=== PATIENT | female | born 1955 | race Caucasian/White ===

== ENCOUNTER 2016-03-23 10:13 | Inpatient (IN) | payer MEDICARE ==
[2016-03-23] MEDS ORDERED: solu-MEDROL 125 MG IV ONE (10:20)
[2016-03-23] MEDS ORDERED: DUONEB 0.5-3 MG/3 ml Neb IH ONE (10:20)
--- NOTE | 2016-03-23 10:27 | ERPHSYRPT ---
- History of Present Illness Time Seen by Provider: 03/23/16 10:17 Source: patient Exam Limitations: no limitations Physician History: 61-year-old white female with history of dementia CHF coronary artery disease high blood pressure asthma COPD, Patient arrives with complaint of shortness of breath for one week patient arrives in no moderate respiratory distress patient denies any pain however family members states that she was having pain in her shoulders last night. She has been nauseous no vomiting she has not had any fever she states she has had an occasional cough. Past medical history includes dementia, congestive heart failure, coronary artery disease, high blood pressure, asthma, bronchitis, COPD, pneumonia, rheumatoid arthritis, depression. Past surgical history includes cardiac pacemaker, bowel surgery, appendectomy, sinus surgery, finger amputation bowel surgery.. Social history positive tobacco use Timing/Duration: week(s) (symptoms for one week) Activities at Onset: none Severity of Dyspnea-Max: moderate Severity of Dyspnea-Current: moderate Possible Cause: frequent episodes Modifying Factors: Improves With: activity Associated Symptoms: wheezing, No anxiety, No cough, No chest pain/discomfort, No edema, No fever, No insomnia, No loss of appetite, No lightheadedness, No weakness, No ankle swelling, No chills, No hemoptysis, No calf pain, No dizziness, No heaviness, No heart racing, No lightheadedness, No leg swelling, No muscle spasms feet, No muscle spasms hands, No painful breathing, No productive cough, No sweating, No tightness, No tingling face, No tingling hands International travel in last 2 weeks: No Allergies/Adverse Reactions: No Known Drug Allergies Allergy (Verified 03/23/16 10:39) Home Medications: Donepezil HCl 5 mg PO HS 06/15/14 [History] Duloxetine HCl 30 mg [Cymbalta 30 MG Capsule] 30 mg PO DAILY 06/15/14 [ History] Sennosides [Senna Laxative] 2 tab PO DAILY PRN PRN 06/15/14 [History] Fluoxetine HCl [Prozac] 40 mg PO DAILY 03/02/15 [History] Hydrocodone/APAP 10/325 mg [[place] 10/325 MG Tablet] 1 tab PO Q6H PRN PRN 08/22/15 [History] Fluticasone/Vilanterol [Breo Ellipta 100-25 Mcg INH] 1 inh PO DAILY 12/17/15 [ History] Albuterol/Ipratropium 3ml Neb* [DUONEB 0.5-3 MG/3 ml Neb] 3 ml IH Q4HPRN PRN 01/31/16 [History] Albuterol 2.5 mg/3 ml Neb [Proventil 2.5 mg/3 ml Neb] 2.5 mg IH Q6H PRN PRN 03/23/16 [History] Albuterol Sulfate [Proair Hfa] 8.5 gm IH Q6HPRN PRN 03/23/16 [History] Albuterol Sulfate [Ventolin Hfa] 18 gm IH Q6H PRN PRN 03/23/16 [History] Prednisone 20 mg [Deltasone 20 mg] 10 mg PO DAILY 03/23/16 [History] Hx Tetanus, Diphtheria Vaccination/Date Given: Yes Hx Influenza Vaccination/Date Given: No (UNKNOWN) Hx Pneumococcal Vaccination/Date Given: Yes - Review of Systems Constitutional: No Fever, No Chills Eyes: No Symptoms Ears, Nose, & Throat: No Symptoms Respiratory: Cough, Dyspnea, Dyspnea on Exertion (RODGERS), Wheezing, No Cyanosis, No Stridor Cardiac: Other (bilateral shoulder pain last night), No Chest Pain, No Edema, No Palpitations, No Syncope, No Orthopnea, No PND Abdominal/Gastrointestinal: Nausea, No Abdominal Pain, No Vomiting, No Diarrhea , No Constipation, No Hematemesis, No Hematochezia, No Melena, No Dysphagia, No Appetite Changes Genitourinary Symptoms: No Dysuria Musculoskeletal: No Back Pain, No Neck Pain Skin: No Rash Neurological: No Symptoms Psychological: No Symptoms Endocrine: No Symptoms All Other Systems: Reviewed and Negative - Past Medical History Pertinent Past Medical History: Yes Neurological History: Dementia ENT History: No Pertinent History Cardiac History: Congestive Heart Failure, Coronary Artery Disease, Hypertension Respiratory History: Asthma, Bronchitis, CHF, COPD, Pneumonia, Other Endocrine Medical History: No Pertinent History Musculoskeletal History: No Pertinent History GI Medical History: No Pertinent History History: No Pertinent History Psycho-Social History: Depression Female Reproductive Disorders: No Pertinent History Other Medical History: ... - Past Surgical History Past Surgical History: Yes Neuro Surgical History: No Pertinent History Cardiac: Pacemaker Respiratory: No Pertinent History Gastrointestinal: Bowel Surgery Genitourinary: No Pertinent History Musculoskeletal: Amputation Female Surgical History: No Pertinent History Other Surgical History: sinus surgery in 80's,finger amp, bowel surg. - Social History Smoking Status: Former smoker How long have you smoked: 45 years Exposure to second hand smoke: No Alcohol Use: None Drug Use: none Patient Lives Alone: No Significant Family History: no pertinent family hx - Female History Hx Now: No - Nursing Vital Signs Nursing Vital Signs: Initial Vital Signs Temperature 97.6 F Temperature Source Axillary Pulse Rate 97 Respiratory Rate 22 Blood Pressure 117/53 Pain Intensity 0 - Physical Exam General Appearance: moderate distress, alert, other (well-developed white female in moderate respiratory distress) Eye Exam: PERRL/EOMI, eyes nml inspection, No scleral icterus, No pale conjunctivae, No photophobia, No post op pupil defect (L), No post op pupil defect (R), No EOM palsy/anisocoria Ears, Nose, Throat Exam: hearing grossly normal, normal ENT inspection, normal pharynx, No abnormal TM (R), No abnormal TM (L), No sinus pain/drainage, No hearing decreased, No nasal congestion, No pharyngeal erythema, No tonsillar exudate, No tonsillar swelling Neck Exam: normal inspection, non-tender, supple Respiratory Exam: respiratory distress, airway intact, diminished breath sounds , wheezing, No chest tenderness, No lungs clear Cardiovascular/Chest Exam: tachycardia, other (heart tachycardic without murmur) Abdominal/Gastrointestinal Exam: soft, No tenderness, No distention, No mass Extremity Exam: non-tender, normal range of motion, normal inspection, no calf tenderness, no pedal edema Peripheral Pulses Exam: dorsalis-pedis (R): 2+, dorsalis-pedis (L): 2+ Neurologic Exam: alert, oriented x 3, cooperative, 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 nml as tested, sensation nml, No motor deficits Skin Exam: pale SpO2 Interpretation: hypoxic (83%) SpO2: 83 Oxygen Delivery: Nasal Cannula - Course Nursing assessment & vital signs reviewed: Yes EKG Interpreted by Me: RATE (116 bpm), NORMAL AXIS, Other (EKG: Sinus arrhythmia tachycardic 116 beats per minute, normal axis, no acute ST or T wave changes ) - Radiology Exams Chest X-ray Interpretation: Discussed w/ radiologist, Other (chest x-ray: Impression stable nonacute hyperinflated chest) Ordered Tests: Active Orders 24 hr Category Date Time Status Bedrest with BRP/BSC ROUTINE Activity 03/23/16 13:13 Active Accucheck ACHS Care 03/23/16 13:13 Active Admission/Status Order ROUTINE Care 03/23/16 13:13 Active Clinical Support Nurse STAT Care 03/23/16 10:20 Completed Code Status Order ROUTINE Care 03/23/16 13:13 Active EKG-ER Only STAT Care 03/23/16 10:20 Completed IV Care Q6H Care 03/23/16 13:13 Active IV Insertion STAT Care 03/23/16 10:20 Completed Oxygen-ED Only NASAL CANNULA 4 lpm Care 03/23/16 10:37 Completed Pulse Oximetry (ED) STAT Care 03/23/16 10:37 Completed Augie No, Apply ROUTINE Care 03/23/16 13:13 Active Weight,Daily 0600 Care 03/23/16 13:13 Active cath [Cath for Specimen-Straight] STAT Care 03/23/16 11:24 Completed Cardiac Diet Diet 03/23/16 Dinner Active CHEST 1 VIEW (PORTABLE) Stat Exams 03/23/16 10:20 Completed ARTERIAL BLOOD GASES Urgent Lab 03/23/16 10:30 Completed BLOOD CULTURE Stat Lab 03/23/16 10:20 Received CBC AM.LAB Lab 03/24/16 04:00 Ordered CBC W DIFF Stat Lab 03/23/16 10:30 Results CMP AM.LAB Lab 03/24/16 04:00 Ordered CMP Stat Lab 03/23/16 10:30 Completed CULTURE,SPUTUM Stat Lab 03/23/16 10:47 Uncollected CULTURE,URINE Stat Lab 03/23/16 11:20 Received Lactic Acid Urgent Lab 03/23/16 10:30 Completed Manual Differential NC Stat Lab 03/23/16 10:30 Results NT PRO BNP Stat Lab 03/23/16 10:30 Completed Pathologist Review Stat Lab 03/23/16 10:30 Results TROPONIN Stat Lab 03/23/16 10:30 Completed UA W/ MICROSCOPIC Stat Lab 03/23/16 11:20 Completed BiPap/CPAP Assessment STAT RT 03/23/16 10:37 Completed Pulse Oximetry CONTINUOUS RT 03/23/16 13:13 Completed Respiratory Nebulizer STAT RT 03/23/16 10:21 Completed Respiratory Therapy Consult ROUTINE RT 03/23/16 13:13 Completed Transfer Order Routine Transfer 03/23/16 12:01 Completed Medication Summary Generic Name Dose Route Start Last Admin Trade Name Heri PRN Reason Stop Dose Admin Albuterol/Ipratropium 3 ml 03/23/16 15:00 03/23/16 14:47 Duoneb 0.5-3 Mg/3 Ml Neb IH 04/22/16 14:59 3 ml Q4HRT BRINDA Administration Ceftriaxone Sodium/Dextrose 50 mls @ 100 mls/hr 03/24/16 10:00 Rocephin 1 Gm-D5w 50 Ml Bag IV 04/23/16 09:59 Q24H10 BRINDA Azithromycin 250 mls @ 125 mls/hr 03/23/16 14:00 03/23/16 13:47 Zithromax 500 Mg/ 250 Ml Nacl Premix IV 04/22/16 13:59 125 mls/hr Q24H10 BRINDA Administration Sodium Chloride 1,000 mls @ 50 mls/hr 03/23/16 13:13 Sodium Chloride 0.9% 1000 Ml IV 04/22/16 13:12 .Q20H BRINDA Insulin Aspart 0 unit 03/23/16 13:13 Novolog Insulin SQ 04/22/16 13:12 UD PRN HYPERGLYCEMIA Methylprednisolone Sodium Succinate 80 mg 03/23/16 18:00 Solu-Medrol 125 Mg IV 04/22/16 17:59 Q6HT BRINDA Fluticasone/Salmeterol 2 puff 03/23/16 19:00 Advair Hfa 115/21 Common Canister* IH 04/22/16 18:59 BIDRT BRINDA Discontinued Medications Generic Name Dose Route Start Last Admin Trade Name Freq PRN Reason Stop Dose Admin Albuterol/Ipratropium 3 ml 03/23/16 10:20 03/23/16 10:46 Duoneb 0.5-3 Mg/3 Ml Neb IH 03/23/16 10:21 3 ml STAT ONE Administration Sodium Chloride 1,000 mls @ 100 mls/hr 03/23/16 11:30 03/23/16 11:48 Sodium Chloride 0.9% 1000 Ml IV 04/22/16 11:29 100 mls/hr .Q10H BRINDA Administration Ceftriaxone Sodium/Dextrose 50 mls @ 100 mls/hr 03/23/16 11:25 03/23/16 11:47 Rocephin 1 Gm-D5w 50 Ml Bag IV 03/23/16 11:54 100 mls/hr STAT ONE Administration Sodium Chloride Confirm 03/23/16 11:34 Sodium Chloride 0.9% 1000 Ml Administered 03/23/16 11:35 Dose 1,000 mls @ ud .ROUTE .STK-MED ONE Ceftriaxone Sodium/Dextrose Confirm 03/23/16 11:34 Rocephin 1 Gm-D5w 50 Ml Bag Administered 03/23/16 11:35 Dose 50 mls @ ud IV .STK-MED ONE Methylprednisolone Sodium Succinate 125 mg 03/23/16 10:20 03/23/16 10:42 Solu-Medrol 125 Mg IV 03/23/16 10:21 125 mg STAT ONE Administration Methylprednisolone Sodium Succinate Confirm 03/23/16 10:40 Solu-Medrol 125 Mg Administered 03/23/16 10:41 Dose 125 mg .ROUTE .STK-MED ONE Lab/Rad Data: Laboratory Result Diagrams 03/23/16 10:30 03/23/16 10:30 Laboratory Results 03/23/16 03/23/16 03/23/16 Range/Units 11:20 10:30 10:30 WBC (4.0-10.5) K/mm3 RBC (4.1-5.4) M/mm3 Hgb (12.0-16.0) gm/dl Hct (35-47) % MCV (78-100) fl MCH (26-32) pg MCHC (32-36) g/dl RDW (11.5-14.0) % Plt Count (150-450) K/mm3 MPV (6-9.5) fl Segmented Neutrophils (36.0-66.0) % Lymphocytes (Manual) (24-44) % Monocytes (Manual) (0.0-12.0) % Differential Comment Toxic Granulation Platelet Estimate (NORMAL) Poikilocytosis Anisocytosis Smear Path Review Puncture Site RIGHT RADIAL pCO2 69 H* (35-45) mmHg pO2 90 (75-100) mmHg Base Excess 21.4 H (-2.0-2.0) O2 Saturation 95.1 (94-100) g/dF ABG pH 7.46 H (7.35-7.45) ABG HCO3 49.1 H* (22-28) ABG O2 Sat (Measured) 98.5 (95-100) % Riki Test YES A-a Gradient 109 a/A Ratio 0.45 Hemoglobin 12.1 Carboxyhemoglobin 2.5 (0.0-6.9) % THgb Methemoglobin 1.0 L (1.4-1.5) % Potassium 4.1 4.2 (3.5-5.1) Temperature 37.0 C POC O2 Flow Rate 40 % Sodium 140 (136-145) mEq/L Chloride 95 L (98-107) mEq/L Carbon Dioxide 42.3 H (21-32) mEq/L Anion Gap 6.7 (5-15) MEQ/L BUN 10 (9-20) mg/dL Creatinine 0.71 (0.55-1.30) mg/dl Estimated GFR > 60 ML/MIN Glucose 261 H (70-110) MG/DL Lactic Acid 1.3 (0.4-2.0) Calcium 9.1 (8.5-10.1) mg/dL Total Bilirubin 0.4 (0.2-1.0) mg/dL AST 17 (15-37) U/L ALT 14 (12-78) U/L Alkaline Phosphatase 71 (46-116) U/L Troponin I < 0.017 (0.000-0.056) ng/ml NT-Pro-B Natriuret Pep 1698 H (0-125) pg/ml Serum Total Protein 6.9 (6.4-8.2) gm/dL Albumin 3.0 L (3.4-5.0) g/dL Ur Collection Type CATH Urine Color YELLOW (YELLOW) Urine Appearance CLOUDY (CLEAR) Urine pH 5.5 (5-6) Ur Specific [place] 1.025 (1.005-1.025) Urine Protein 100 (Negative) Urine Glucose (UA) 100 (NEGATIVE) mg/dL Urine Ketones SMALL-15 (NEGATIVE) Urine Nitrite POSITIVE (NEGATIVE) Urine Bilirubin NEGATIVE (NEGATIVE) Urine Urobilinogen 0.2 (0-1) mg/dL Urine WBC (Auto) SMALL (NEGATIVE) Urine RBC (Auto) MODERATE (0-5) Uziel/ul Urine Microscopic RBC 2-5 (0-2) /HPF Urine Microscopic WBC >100 (0-5) /HPF Urine Bacteria MODERATE (NEGATIVE) /HPF Specimen Received 03/23/16 1120 03/23/16 Range/Units 10:30 WBC 25.6 H* (4.0-10.5) K/mm3 RBC 3.85 L (4.1-5.4) M/mm3 Hgb 11.6 L (12.0-16.0) gm/dl Hct 36.9 (35-47) % MCV 95.8 (78-100) fl MCH 30.1 (26-32) pg MCHC 31.4 L (32-36) g/dl RDW 14.1 H (11.5-14.0) % Plt Count 227 (150-450) K/mm3 MPV 9.5 (6-9.5) fl Segmented Neutrophils 87 H (36.0-66.0) % Lymphocytes (Manual) 9 L (24-44) % Monocytes (Manual) 4 (0.0-12.0) % Differential Comment ABNORMAL Toxic Granulation 1+ Platelet Estimate NORMAL (NORMAL) Poikilocytosis 1+ Anisocytosis 1+ Smear Path Review Pending Puncture Site pCO2 (35-45) mmHg pO2 (75-100) mmHg Base Excess (-2.0-2.0) O2 Saturation (94-100) g/dF ABG pH (7.35-7.45) ABG HCO3 (22-28) ABG O2 Sat (Measured) (95-100) % Riki Test A-a Gradient a/A Ratio Hemoglobin Carboxyhemoglobin (0.0-6.9) % THgb Methemoglobin (1.4-1.5) % Potassium (3.5-5.1) Temperature C POC O2 Flow Rate % Sodium (136-145) mEq/L Chloride (98-107) mEq/L Carbon Dioxide (21-32) mEq/L Anion Gap (5-15) MEQ/L BUN (9-20) mg/dL Creatinine (0.55-1.30) mg/dl Estimated GFR ML/MIN Glucose (70-110) MG/DL Lactic Acid (0.4-2.0) Calcium (8.5-10.1) mg/dL Total Bilirubin (0.2-1.0) mg/dL AST (15-37) U/L ALT (12-78) U/L Alkaline Phosphatase (46-116) U/L Troponin I (0.000-0.056) ng/ml NT-Pro-B Natriuret Pep (0-125) pg/ml Serum Total Protein (6.4-8.2) gm/dL Albumin (3.4-5.0) g/dL Ur Collection Type Urine Color (YELLOW) Urine Appearance (CLEAR) Urine pH (5-6) Ur Specific [place] (1.005-1.025) Urine Protein (Negative) Urine Glucose (UA) (NEGATIVE) mg/dL Urine Ketones (NEGATIVE) Urine Nitrite (NEGATIVE) Urine Bilirubin (NEGATIVE) Urine Urobilinogen (0-1) mg/dL Urine WBC (Auto) (NEGATIVE) Urine RBC (Auto) (0-5) Uziel/ul Urine Microscopic RBC (0-2) /HPF Urine Microscopic WBC (0-5) /HPF Urine Bacteria (NEGATIVE) /HPF Specimen Received - Progress Progress: improved Air Movement: fair Progress Note: 03/23/16 11:36 This is a 61-year-old white female with history of CHF coronary artery disease asthma, COPD She arrives in moderate respiratory distress with pulse oximetry of 83%. On 4 L nasal cannula. Patient had bilateral diminished breath sounds and wheezing throughout her long she was tachycardic. Patient has improved after Solu-Medrol 125 and DuoNeb treatment she does still has some wheezes bilaterally but it she is feeling much better heart rate now around 100 beats per minute. Patient does have a white count of 25.6 hemoglobin 11.6 hematocrit 36.9 chest x- ray fails to show infiltrates or large effusions patient did have an elevated BNP of 1698 Patient did show a PCO2 of 69 [place] PH of 7.46 PO2 was 90 saturation was 95% on 100% oxygen Patient was placed on BiPAP Rocephin 1 g IV has been ordered . Patient's serum lactate is 1.3 Plan to discuss with Dr. Isaiah Waldron as soon as all lab results are available 03/23/16 11:55 Case is discussed with Dr. Isaiah Waldron will place patient on the ICU diagnosis COPD with exacerbation, hypoxia, UTI Will continue BiPAP have respiratory wean it. Will continue IV steroids IV Rocephin start IV Zithromax. Will continue duo neb. Blood Culture(s) Obtained: Yes Antibiotics given: Yes - Departure Time of Disposition: 12:10 Departure Disposition: In-patient Admission Clinical Impression: COPD with exacerbation, Hypoxia UTI (urinary tract infection) Qualifiers: Urinary tract infection type: site unspecified Hematuria presence: without hematuria Qualified Code(s): N39.0 - Urinary tract infection, site not specified Condition: Fair Critical Care Time: No
[2016-03-23 10:32] LABS: Mean Cell Volume 95.8 fl (78-100); Mean Corpuscular Hemoglobin 30.1 pg (26-32); Mean Platelet Volume 9.5 fl (6-9.5); Platelet Count 227 K/mm3 (150-450); Red Blood Count 3.85 M/mm3 (4.1-5.4); Red Cell Distribution Width 14.1 % (11.5-14.0)
[2016-03-23] MEDS ORDERED: solu-MEDROL 125 MG ONE (10:40)
[2016-03-23 10:42] LABS: A-aADO2 109; ARTERIAL BLD GAS O2 SATURATION 98.5 % (95-100); ARTERIAL BLOOD GAS BASE EXCESS 21.4 (-2.0-2.0); ARTERIAL BLOOD GAS FIO2 40 %; ARTERIAL BLOOD GAS PO2 90 mmHg (75-100); ARTERIAL BLOOD GAS pH 7.46 (7.35-7.45); Lactic Acid 1.3 (0.4-2.0)
[2016-03-23 10:43] LABS: ALLEN TEST OK? YES
[2016-03-23 10:44] LABS: White Blood Count 25.6 K/mm3 (4.0-10.5)
[2016-03-23 11:09] LABS: ANISOCYTOSIS 1+; Platelet Estimate NORMAL (NORMAL); Poikilocytosis 1+; Total Cells Counted 100; Toxic Granulation 1+
--- NOTE | 2016-03-23 11:10 | XRAY ---
Indication: Short of breath. Comparison: January 31, 2016 Portable chest remains hyperinflated without focal infiltrate, consolidation, or large effusion. Heart is not enlarged. Vascularity normal. Stable left-sided dual-lead pacemaker. Bony thorax intact. Impression: Stable nonacute hyperinflated chest.
[2016-03-23 11:24] LABS: ALKALINE PHOSPHATASE 71 U/L (46-116); ANION GAP 6.7 MEQ/L (5-15); BILIRUBIN,TOTAL 0.4 mg/dL (0.2-1.0); BLOOD UREA NITROGEN 10 mg/dL (9-20); CHLORIDE 95 mEq/L (98-107); Carbon Dioxide 42.3 mEq/L (21-32); Glucose 261 MG/DL (70-110); Potassium 4.2 mEq/L (3.5-5.1); SGOT/AST 17 U/L (15-37); SGPT/ALT 14 U/L (12-78); SODIUM 140 mEq/L (136-145); Total Protein 6.9 gm/dL (6.4-8.2)
[2016-03-23] MEDS ORDERED: ROCEPHIN 1 Gm-D5w 50 ml Bag** 50 ML IV ONE ×2 (11:25→11:34)
[2016-03-23 11:26] LABS: TROPONIN < 0.017 ng/ml (0.000-0.056)
[2016-03-23] MEDS ORDERED: Sodium Chloride 0.9% 1000 ML 1,000 ML IV SCH (11:30)
[2016-03-23] MEDS ORDERED: Sodium Chloride 0.9% 1000 ML 1,000 ML ONE (11:34)
[2016-03-23 11:38] LABS: Bacteria MODERATE /HPF (NEGATIVE); COMPLETE URINE MICROSCOPIC? YES; Collection Type CATH; Ph 5.5 (5-6); WBC >100 /HPF (0-5)
[2016-03-23] MEDS ORDERED: NovoLOG Insulin SQ PRN (13:13)
[2016-03-23] MEDS: Zithromax 500 MG/ 250 ML NaCl Premix 250 ML IV SCH (13:47)
[2016-03-23] MEDS: DUONEB 0.5-3 MG/3 ml Neb IH SCH ×3 (14:47→23:16)
[2016-03-23] MEDS ORDERED: DUONEB 0.5-3 MG/3 ml Neb IH PRN (16:58)
[2016-03-23] MEDS ORDERED: PROVENTIL 2.5 MG/3 ML NEB IH PRN (16:58)
[2016-03-23] MEDS: solu-MEDROL 125 MG IV SCH ×2 (17:22→23:00)
[2016-03-23] MEDS: Norco 10/325 MG Tablet PO PRN ×2 (17:22→23:11)
[2016-03-23] MEDS: Ativan 1 MG PO PRN ×2 (18:19→23:11)
[2016-03-23] MEDS: Advair Hfa 115/21 Common canister IH SCH (18:45)
--- NOTE | 2016-03-23 19:18 | PCM.HP ---
History of Present Illness - Chief Complaint Chief Complaint: UTI, COPD Date: 03/23/16 History of Present Illness: is a 61 year old female. with end stage COPD and chronic respiratoyr failure wh has been haivn gin creaseing shortness of breath and wheezing for the last 1 week and then became very ill this am felt nauseated and could not catch her breath. Nothing really seemed to make the breathing better or worse. She had no chest pain with it. She has not been having urinary problems, burning or abdominal or flank pain. - Review of Systems Constitutional: Fatigue, Lethargy, Malaise, No Fever, No Chills Eyes: Discharge, No Eye Pain Ears, Nose, & Throat: Nose Discharge, Sinus Drainage, No Throat Pain Respiratory: Cough, Short Of Breath, Wheezing Cardiac: No Chest Pain, No Edema, No Palpitations Abdominal/Gastrointestinal: Nausea, No Abdominal Pain, No Vomiting, No Diarrhea Genitourinary Symptoms: No Dysuria, No Frequency, No Hematuria Musculoskeletal: Arthralgias, Back Pain, Neck Pain, Deformity, No Joint Redness Skin: No Cellulitis, No Decubiti Neurological: No Dizziness, No Focal Weakness Psychological: No Alcohol Abuse, No Drug Abuse Medications & Allergies Home Medications: Home Medication List Donepezil HCl 5 mg PO HS 06/15/14 [History Confirmed 03/23/16] Duloxetine HCl 30 mg [Cymbalta 30 MG Capsule] 30 mg PO DAILY 06/15/14 [ History Confirmed 03/23/16] Sennosides [Senna Laxative] 2 tab PO DAILY PRN PRN 06/15/14 [History Confirmed 03/23/16] Fluoxetine HCl [Prozac] 40 mg PO DAILY 03/02/15 [History Confirmed 03/23/16] Magnesium Oxide 400 mg [Mag-Ox 400] 400 mg PO DAILY #30 tablet 03/03/15 [ Rx Confirmed 03/23/16] Hydrocodone/APAP 10/325 mg [[place] 10/325 MG Tablet] 1 tab PO Q6H PRN PRN 08/22/15 [History Confirmed 03/23/16] Lorazepam 1 mg [Ativan 1 MG] 1 mg PO TID #90 tablet 08/25/15 [Rx Confirmed 03/23/16] Fluticasone/Vilanterol [Breo Ellipta 100-25 Mcg INH] 1 inh PO DAILY 12/17/15 [ History Confirmed 03/23/16] Albuterol/Ipratropium 3ml Neb* [DUONEB 0.5-3 MG/3 ml Neb] 3 ml IH Q4HPRN PRN 01/31/16 [History Confirmed 03/23/16] Docusate Sodium 100 mg [Colace 100 MG] 100 mg PO BID #60 capsule 02/10/16 [Rx Confirmed 03/23/16] Ferrous Sulfate 325 mg [Feosol 325 mg] 325 mg PO TID #90 tablet 02/10/16 [ Rx Confirmed 03/23/16] Lisinopril 5 mg [Zestril 5 MG] 10 mg PO DAILY #30 tablet 02/10/16 [Rx Confirmed 03/23/16] Metoprolol Tartrate 25 mg [Lopressor 25MG Tab] 12.5 mg PO BID #60 tab 07/21 [Rx Confirmed 03/23/16] Albuterol 2.5 mg/3 ml Neb [Proventil 2.5 mg/3 ml Neb] 2.5 mg IH Q6H PRN PRN 03/23/16 [History Confirmed 03/23/16] Albuterol Sulfate [Proair Hfa] 8.5 gm IH Q6HPRN PRN 03/23/16 [History Confirmed 03/23/16] Albuterol Sulfate [Ventolin Hfa] 18 gm IH Q6H PRN PRN 03/23/16 [History Confirmed 03/23/16] Prednisone 20 mg [Deltasone 20 mg] 10 mg PO DAILY 03/23/16 [History Confirmed 03/23/16] Allergies/Adverse Reactions: Allergies Allergy/AdvReac Type Severity Reaction Status Date / Time No Known Drug Allergies Allergy Verified 03/23/16 10:39 - Past Medical History Past Medical History: Yes Neurological History: Dementia ENT History: No Pertinent History Cardiac History: Congestive Heart Failure, Coronary Artery Disease, Hypertension Respiratory History: Asthma, Bronchitis, CHF, COPD, Pneumonia, Other Endocrine Medical History: No Pertinent History Musculoskelatal History: No Pertinent History GI Medical History: No Pertinent History History: No Pertinent History Pyscho-Social History: Depression Reproductive Disorders: No Pertinent History Comment: ... - Past Surgical History Past Surgical History: Yes Neuro Surgical History: No Pertinent History Cardiac History: Pacemaker Respiratory Surgery: No Pertinent History GI Surgical History: Bowel Surgery Genitourinary Surgical Hx: No Pertinent History Musculskeletal Surgical Hx: Amputation Female Surgical History: No Pertinent History Other Surgical History: sinus surgery in 80's,finger amp, bowel surg. - Social History Smoking Status: Former smoker How long have you smoked: 45 years Exposure to second hand smoke: No Alcohol: None Drug Use: none Significant Family History: no pertinent family hx - Physical Exam Vital Signs: Vital Signs - 24 hr Temp Pulse Resp BP BP Pulse Ox 03/23/16 18:48 88 21 95 03/23/16 15:54 97 H 03/23/16 15:52 98.4 F 97 H 20 116/69 94 L 03/23/16 15:08 83 L 03/23/16 14:49 91 H 20 98 03/23/16 13:17 98.5 F 98 H 24 116/61 95 03/23/16 13:09 98.5 F 98 H 24 116/61 95 03/23/16 11:49 97 H 22 117/53 99 03/23/16 11:23 110 H 24 119/62 03/23/16 10:47 120 H 31 H 83 L 03/23/16 10:38 116 H 28 H 112/62 98 03/23/16 10:17 31 H 98 03/23/16 10:13 97.6 F 132 H 30 H 173/97 83 L Oxygen-Last 24 hours O2 Percentage 4 Liters = 36% O2 Percentage 4 Liters = 36% O2 Percentage 4 Liters = 36% O2 Percentage 4 Liters = 36% O2 Percentage 4 Liters = 36% O2 Percentage 4 Liters = 36% O2 Percentage 4 Liters = 36% General Appearance: no apparent distress, thin Neurologic Exam: alert, oriented x 3, cooperative Eye Exam: pale conjunctivae, No scleral icterus Ears, Nose, Throat Exam: moist mucous membranes Neck Exam: normal inspection, non-tender, supple Respiratory Exam: prolonged expirations, wheezing Cardiovascular Exam: regular rate/rhythm, normal heart sounds, normal peripheral pulses Gastrointestinal/Abdomen Exam: soft, normal bowel sounds, No tenderness, No distention, No mass Back Exam: normal inspection, No CVA tenderness Extremity Exam: normal inspection, No calf tenderness, No pedal edema Skin Exam: warm, dry, pale Results - Other Procedures and Tests Respiratory Therapy 03/23/16 13:54 Oxygen NASAL CANNULA 4 lpm 03/23/16 15:00 Respiratory Nebulizer Q4H 03/23/16 18:47 BiPap/CPAP Assessment ROUTINE 03/23/16 19:00 Respiratory MDI BID Assessment/Plan (1) COPD with exacerbation Current Visit: Yes Status: Acute Assessment & Plan: severe exacerbation with acute on chronic hypoxemic hypercapneic respiratory failure with chronic congestive heart failure. She is improving initially required bipap now weaned to NC. COntinue IV steroids, nebs, ceftriaxone and azithromycin Code(s): J44.1 - CHRONIC OBSTRUCTIVE PULMONARY DISEASE W (ACUTE) EXACERBATION (2) UTI (urinary tract infection) Current Visit: Yes Status: Acute Qualifiers: Urinary tract infection type: site unspecified Hematuria presence: without hematuria Qualified Code(s): N39.0 - Urinary tract infection, site not specified Assessment & Plan: ceftriaxone await culture Code(s): N39.0 - URINARY TRACT INFECTION, SITE NOT SPECIFIED (3) Anemia Current Visit: Yes Status: Chronic Qualifiers: Code(s): D64.9 - ANEMIA, UNSPECIFIED (4) Hyperglycemia Current Visit: Yes Status: Acute Code(s): R73.9 - HYPERGLYCEMIA, UNSPECIFIED (5) Hypertension Current Visit: Yes Status: Chronic Code(s): I10 - ESSENTIAL (PRIMARY) HYPERTENSION (6) Respiratory failure Current Visit: Yes Status: Acute Qualifiers: Chronicity: acute on chronic Respiratory failure complication: hypoxia and hypercapnia Qualified Code(s): J96.21 - Acute and chronic respiratory failure with hypoxia; J96.22 - Acute and chronic respiratory failure with hypercapnia Code(s): J96.90 - RESPIRATORY FAILURE, UNSP, UNSP W HYPOXIA OR HYPERCAPNIA (7) CHF (congestive heart failure) Current Visit: Yes Status: Chronic Qualifiers: Congestive heart failure type: diastolic Congestive heart failure chronicity: chronic Qualified Code(s): I50.32 - Chronic diastolic (congestive ) heart failure Code(s): I50.9 - HEART FAILURE, UNSPECIFIED (8) Chronic steroid use Current Visit: Yes Status: Chronic Code(s): [id number] - (9) Depressive disorder Current Visit: Yes Status: Chronic Code(s): F32.9 - MAJOR DEPRESSIVE DISORDER, SINGLE EPISODE, UNSPECIFIED (10) Hypercapnia Current Visit: Yes Status: Chronic Code(s): R06.89 - OTHER ABNORMALITIES OF BREATHING (11) Rheumatoid arthritis Current Visit: Yes Status: Chronic Qualifiers: Rheumatoid arthritis location: multiple sites Code(s): M06.9 - RHEUMATOID ARTHRITIS, UNSPECIFIED
[2016-03-23] MEDS: Sodium Chloride 0.9% 1000 ML 1,000 ML IV SCH (20:41)
[2016-03-23] MEDS ORDERED: NON-FORMULARY ITEM (Donepezil Hcl [Donepezil Hcl] 5 MG) PO SCH (22:00)
[2016-03-23] MEDS ORDERED: Ativan 1 MG PO SCH (22:00)
[2016-03-23] MEDS: Lopressor 25MG Tab PO SCH (22:49)
[2016-03-23] MEDS: Aricept 10 MG PO SCH (22:49)
[2016-03-23] MEDS: FEOSOL 325 MG PO SCH (22:49)
[2016-03-23] MEDS: Colace 100 MG PO SCH (22:49)
[2016-03-24] MEDS: DUONEB 0.5-3 MG/3 ml Neb IH SCH ×6 (03:03→22:46)
[2016-03-24] MEDS: Sodium Chloride 0.9% 1000 ML 1,000 ML IV SCH (04:02)
[2016-03-24] MEDS: solu-MEDROL 125 MG IV SCH ×3 (05:31→17:55)
[2016-03-24] MEDS: Norco 10/325 MG Tablet PO PRN ×3 (05:37→18:30)
[2016-03-24 05:42] LABS: Mean Corpuscular Hemoglobin 28.9 pg (26-32); Mean Platelet Volume 9.8 fl (6-9.5); Platelet Count 192 K/mm3 (150-450); Red Blood Count 3.32 M/mm3 (4.1-5.4); White Blood Count 16.7 K/mm3 (4.0-10.5)
[2016-03-24 06:02] LABS: ALBUMIN 2.6 g/dL (3.4-5.0); ALKALINE PHOSPHATASE 60 U/L (46-116); ANION GAP 5.5 MEQ/L (5-15); BILIRUBIN,TOTAL 0.1 mg/dL (0.2-1.0); BLOOD UREA NITROGEN 13 mg/dL (9-20); CHLORIDE 99 mEq/L (98-107); Carbon Dioxide 40.2 mEq/L (21-32); Glucose 198 MG/DL (70-110); Potassium 4.8 mEq/L (3.5-5.1); SGOT/AST 12 U/L (15-37); SGPT/ALT 10 U/L (12-78); SODIUM 140 mEq/L (136-145); Total Protein 6.2 gm/dL (6.4-8.2)
[2016-03-24] MEDS: Advair Hfa 115/21 Common canister IH SCH ×2 (07:00→19:12)
[2016-03-24] MEDS: ROCEPHIN 1 Gm-D5w 50 ml Bag** 50 ML IV SCH (08:45)
[2016-03-24] MEDS: Colace 100 MG PO SCH ×2 (09:25→21:24)
[2016-03-24] MEDS: MAG-OX 400 PO SCH (09:25)
[2016-03-24] MEDS: Zestril 10 MG PO SCH (09:25)
[2016-03-24] MEDS: Lopressor 25MG Tab PO SCH ×2 (09:25→21:23)
[2016-03-24] MEDS: Zithromax 500 MG/ 250 ML NaCl Premix 250 ML IV SCH (09:25)
[2016-03-24] MEDS: ENOXAPARIN SODIUM SQ SCH (09:25)
[2016-03-24] MEDS: Prozac 20 MG PO SCH (09:27)
[2016-03-24] MEDS: FEOSOL 325 MG PO SCH ×3 (09:27→21:24)
[2016-03-24] MEDS: SENOKOT 8.6 MG PO PRN (09:31)
[2016-03-24] MEDS: Cymbalta 30 MG Capsule PO SCH (09:58)
[2016-03-24] MEDS ORDERED: Zestril 5 MG PO SCH (10:00)
[2016-03-24] MEDS: Ativan 1 MG PO PRN ×2 (10:09→18:32)
--- NOTE | 2016-03-24 13:59 | PCM.NOTE ---
Date and Time: 03/24/16 9725 Subjective Assessment: feeling much better today still a little weak tolerating po well breathing improved no chest pain no abdominal pain Objective Exam General Appearance: no apparent distress, other Neurologic Exam: alert, oriented x 3, cooperative Skin Exam: warm, pale Eye Exam: pale conjunctivae, No scleral icterus Ears, Nose, Throat Exam: moist mucous membranes Neck Exam: non-tender, supple Respiratory Exam: diminished breath sounds, crackles/rales, wheezing Cardiovascular Exam: regular rate/rhythm, normal heart sounds, murmur Gastrointestinal/Abdomen Exam: soft, normal bowel sounds, No tenderness, No distention, No mass Extremity Exam: normal inspection, No calf tenderness OBJECTIVE DATA Vital Signs: Vital Signs - 24 hr Temp Pulse Resp BP Pulse Ox 03/24/16 12:31 98 F 03/24/16 12:30 90 20 123/82 97 03/24/16 10:21 101 H 18 92 L 03/24/16 07:45 98 F 101 H 18 112/89 92 L 03/24/16 07:42 101 H 03/24/16 07:00 76 21 98 03/24/16 05:00 97.8 F 75 19 132/60 99 03/24/16 04:00 81 23 99 03/24/16 03:04 82 24 95 03/23/16 23:18 93 H 24 97 03/23/16 23:10 98.0 F 83 23 138/67 100 03/23/16 19:33 98.6 F 92 H 19 117/64 94 L 03/23/16 18:48 88 21 95 03/23/16 15:54 97 H 03/23/16 15:52 98.4 F 97 H 20 116/69 94 L 03/23/16 15:08 83 L 03/23/16 14:49 91 H 20 98 Oxygen-Last 24 hours O2 Percentage 4 Liters = 36% O2 Percentage 4 Liters = 36% O2 Percentage 4 Liters = 36% O2 Percentage 4 Liters = 36% O2 Percentage 4 Liters = 36% O2 Percentage 4 Liters = 36% O2 Percentage 4 Liters = 36% Pain Assessment - Last Documented Pain Intensity 7 Pain Scale Used 0-10 Pain Scale,FLACC Intake and Output: Intake & Output 03/22/16 03/23/16 03/24/16 03/25/16 11:59 11:59 11:59 11:59 Intake Total 1806 Output Total 1050 Balance 756 Weight 60.1 kg Lab Results: Lab Results-Last 24 Hours 03/24/16 03/24/16 Range/Units 05:36 05:36 WBC 16.7 H (4.0-10.5) K/mm3 RBC 3.32 L (4.1-5.4) M/mm3 Hgb 9.6 L (12.0-16.0) gm/dl Hct 32.2 L (35-47) % MCV 97.0 (78-100) fl MCH 28.9 (26-32) pg MCHC 29.8 L (32-36) g/dl RDW 14.0 (11.5-14.0) % Plt Count 192 (150-450) K/mm3 MPV 9.8 H (6-9.5) fl Sodium 140 (136-145) mEq/L Potassium 4.8 (3.5-5.1) mEq/L Chloride 99 (98-107) mEq/L Carbon Dioxide 40.2 H (21-32) mEq/L Anion Gap 5.5 (5-15) MEQ/L BUN 13 (9-20) mg/dL Creatinine 0.76 (0.55-1.30) mg/dl Estimated GFR > 60 ML/MIN Glucose 198 H (70-110) MG/DL Calcium 8.8 (8.5-10.1) mg/dL Total Bilirubin 0.1 L (0.2-1.0) mg/dL AST 12 L (15-37) U/L ALT 10 L (12-78) U/L Alkaline Phosphatase 60 (46-116) U/L Serum Total Protein 6.2 L (6.4-8.2) gm/dL Albumin 2.6 L (3.4-5.0) g/dL Assessment/Plan (1) COPD with exacerbation Current Visit: Yes Status: Acute Assessment & Plan: continue iv steroids, oxygen, nebs, antibiotics 1 of 2 blood cultures postiive awaiting ID improvement in the leukocytosis uti with culture pending continue ceftriaxone and azithromycin with hx of cardiomyopathy reseal fluids bp status good perfusion good. Code(s): J44.1 - CHRONIC OBSTRUCTIVE PULMONARY DISEASE W (ACUTE) EXACERBATION (2) UTI (urinary tract infection) Current Visit: Yes Status: Acute Qualifiers: Urinary tract infection type: site unspecified Hematuria presence: without hematuria Qualified Code(s): N39.0 - Urinary tract infection, site not specified Code(s): N39.0 - URINARY TRACT INFECTION, SITE NOT SPECIFIED (3) Anemia Current Visit: Yes Status: Chronic Qualifiers: Code(s): D64.9 - ANEMIA, UNSPECIFIED (4) Hyperglycemia Current Visit: Yes Status: Acute Code(s): R73.9 - HYPERGLYCEMIA, UNSPECIFIED (5) Hypertension Current Visit: Yes Status: Chronic Code(s): I10 - ESSENTIAL (PRIMARY) HYPERTENSION (6) Respiratory failure Current Visit: Yes Status: Acute Qualifiers: Chronicity: acute on chronic Respiratory failure complication: hypoxia and hypercapnia Qualified Code(s): J96.21 - Acute and chronic respiratory failure with hypoxia; J96.22 - Acute and chronic respiratory failure with hypercapnia Code(s): J96.90 - RESPIRATORY FAILURE, UNSP, UNSP W HYPOXIA OR HYPERCAPNIA (7) CHF (congestive heart failure) Current Visit: Yes Status: Chronic Qualifiers: Congestive heart failure type: diastolic Congestive heart failure chronicity: chronic Qualified Code(s): I50.32 - Chronic diastolic (congestive ) heart failure Code(s): I50.9 - HEART FAILURE, UNSPECIFIED (8) Chronic steroid use Current Visit: Yes Status: Chronic Code(s): [id number] - (9) Depressive disorder Current Visit: Yes Status: Chronic Code(s): F32.9 - MAJOR DEPRESSIVE DISORDER, SINGLE EPISODE, UNSPECIFIED (10) Hypercapnia Current Visit: Yes Status: Chronic Code(s): R06.89 - OTHER ABNORMALITIES OF BREATHING (11) Rheumatoid arthritis Current Visit: Yes Status: Chronic Qualifiers: Rheumatoid arthritis location: multiple sites Code(s): M06.9 - RHEUMATOID ARTHRITIS, UNSPECIFIED
[2016-03-24] MEDS: Aricept 10 MG PO SCH (21:22)
[2016-03-25] MEDS: solu-MEDROL 125 MG IV SCH ×3 (00:37→17:30)
[2016-03-25] MEDS: DUONEB 0.5-3 MG/3 ml Neb IH SCH ×6 (03:15→23:23)
[2016-03-25] MEDS: Norco 10/325 MG Tablet PO PRN ×4 (03:44→21:42)
[2016-03-25] MEDS: Ativan 1 MG PO PRN ×3 (03:44→21:42)
[2016-03-25 05:38] LABS: Mean Cell Volume 98.1 fl (78-100); Mean Platelet Volume 10.1 fl (6-9.5); Platelet Count 216 K/mm3 (150-450); Red Blood Count 3.15 M/mm3 (4.1-5.4); Red Cell Distribution Width 13.9 % (11.5-14.0); White Blood Count 17.3 K/mm3 (4.0-10.5)
[2016-03-25 05:47] LABS: Mean Corpuscular Hemoglobin 28.8 pg (26-32)
[2016-03-25 05:51] LABS: BLOOD UREA NITROGEN 17 mg/dL (9-20); CHLORIDE 101 mEq/L (98-107); Carbon Dioxide 39.6 mEq/L (21-32); Glucose 213 MG/DL (70-110); Potassium 3.9 mEq/L (3.5-5.1); SODIUM 142 mEq/L (136-145)
[2016-03-25] MEDS: Advair Hfa 115/21 Common canister IH SCH ×2 (06:55→19:29)
[2016-03-25] MEDS: Colace 100 MG PO SCH ×2 (09:06→21:41)
[2016-03-25] MEDS: ENOXAPARIN SODIUM SQ SCH (09:06)
[2016-03-25] MEDS: Cymbalta 30 MG Capsule PO SCH (09:06)
[2016-03-25] MEDS: Prozac 20 MG PO SCH (09:06)
[2016-03-25] MEDS: MAG-OX 400 PO SCH (09:06)
[2016-03-25] MEDS: ROCEPHIN 1 Gm-D5w 50 ml Bag** 50 ML IV SCH (09:07)
[2016-03-25] MEDS: Lopressor 25MG Tab PO SCH ×2 (09:07→21:42)
[2016-03-25] MEDS: FEOSOL 325 MG PO SCH ×3 (09:07→21:41)
[2016-03-25] MEDS: Zestril 10 MG PO SCH (09:07)
[2016-03-25] MEDS: SENOKOT 8.6 MG PO PRN (09:07)
[2016-03-25] MEDS: Zithromax 500 MG/ 250 ML NaCl Premix 250 ML IV SCH (09:44)
--- NOTE | 2016-03-25 18:00 | PCM.NOTE ---
Date and Time: 03/25/161756 Subjective Assessment: feeling a little better still short of breath and very weak she is currently living with her ex who is a heavy smoker and instant exacerbations when she is there. Objective Exam General Appearance: no apparent distress Neurologic Exam: alert, oriented x 3, cooperative Skin Exam: warm, dry, pale Eye Exam: pale conjunctivae, No scleral icterus Ears, Nose, Throat Exam: moist mucous membranes Neck Exam: normal inspection, non-tender, supple Respiratory Exam: rhonchi, wheezing Cardiovascular Exam: regular rate/rhythm Gastrointestinal/Abdomen Exam: soft, normal bowel sounds, tenderness, No distention Extremity Exam: normal inspection, No calf tenderness, No pedal edema OBJECTIVE DATA Vital Signs: Vital Signs - 24 hr Temp Pulse Resp BP Pulse Ox 03/25/16 16:01 98.7 F 109 H 20 146/66 96 03/25/16 15:52 98.5 F 03/25/16 14:00 100 H 18 96 03/25/16 12:00 98.5 F 100 H 20 133/65 96 03/25/16 10:15 94 H 16 99 03/25/16 08:00 98.6 F 117 H 20 137/65 91 L 03/25/16 06:56 83 18 99 03/25/16 04:00 98.3 F 113 H 18 137/65 95 03/25/16 03:15 91 H 20 98 03/24/16 22:46 89 18 98 03/24/16 20:00 98.2 F 104 H 18 152/64 95 03/24/16 19:11 94 H 12 95 Oxygen-Last 24 hours O2 Percentage 4 Liters = 36% O2 Percentage 4 Liters = 36% O2 Percentage 4 Liters = 36% Pain Assessment - Last Documented Pain Intensity 7 Pain Scale Used 0-10 Pain Scale Intake and Output: Intake & Output 03/23/16 03/24/16 03/25/16 03/26/16 11:59 11:59 11:59 11:59 Intake Total 1806 760 Output Total 1050 700 Balance 756 60 Weight 60.1 kg Lab Results: Lab Results-Last 24 Hours 03/25/16 03/25/16 Range/Units 05:15 05:15 WBC 17.3 H (4.0-10.5) K/mm3 RBC 3.15 L (4.1-5.4) M/mm3 Hgb 9.1 L (12.0-16.0) gm/dl Hct 30.9 L (35-47) % MCV 98.1 (78-100) fl MCH 28.8 (26-32) pg MCHC 29.4 L (32-36) g/dl RDW 13.9 (11.5-14.0) % Plt Count 216 (150-450) K/mm3 MPV 10.1 H (6-9.5) fl Sodium 142 (136-145) mEq/L Potassium 3.9 (3.5-5.1) mEq/L Chloride 101 (98-107) mEq/L Carbon Dioxide 39.6 H (21-32) mEq/L Anion Gap 5.0 (5-15) MEQ/L BUN 17 (9-20) mg/dL Creatinine 0.51 L (0.55-1.30) mg/dl Estimated GFR > 60 ML/MIN Glucose 213 H (70-110) MG/DL Calcium 8.6 (8.5-10.1) mg/dL Assessment/Plan (1) COPD with exacerbation Current Visit: Yes Status: Acute Assessment & Plan: wean the iv steroids still waiting on the ID of the Urine and blood cultures improving on the ceftriaxone and azithromycin still very weak consider senior care placement for rehab. Code(s): J44.1 - CHRONIC OBSTRUCTIVE PULMONARY DISEASE W (ACUTE) EXACERBATION (2) UTI (urinary tract infection) Current Visit: Yes Status: Acute Qualifiers: Urinary tract infection type: site unspecified Hematuria presence: without hematuria Qualified Code(s): N39.0 - Urinary tract infection, site not specified Code(s): N39.0 - URINARY TRACT INFECTION, SITE NOT SPECIFIED (3) Anemia Current Visit: Yes Status: Chronic Qualifiers: Code(s): D64.9 - ANEMIA, UNSPECIFIED (4) Hyperglycemia Current Visit: Yes Status: Acute Code(s): R73.9 - HYPERGLYCEMIA, UNSPECIFIED (5) Hypertension Current Visit: Yes Status: Chronic Code(s): I10 - ESSENTIAL (PRIMARY) HYPERTENSION (6) Respiratory failure Current Visit: Yes Status: Acute Qualifiers: Chronicity: acute on chronic Respiratory failure complication: hypoxia and hypercapnia Qualified Code(s): J96.21 - Acute and chronic respiratory failure with hypoxia; J96.22 - Acute and chronic respiratory failure with hypercapnia Code(s): J96.90 - RESPIRATORY FAILURE, UNSP, UNSP W HYPOXIA OR HYPERCAPNIA (7) CHF (congestive heart failure) Current Visit: Yes Status: Chronic Qualifiers: Congestive heart failure type: diastolic Congestive heart failure chronicity: chronic Qualified Code(s): I50.32 - Chronic diastolic (congestive ) heart failure Code(s): I50.9 - HEART FAILURE, UNSPECIFIED (8) Chronic steroid use Current Visit: Yes Status: Chronic Code(s): [id number] - (9) Depressive disorder Current Visit: Yes Status: Chronic Code(s): F32.9 - MAJOR DEPRESSIVE DISORDER, SINGLE EPISODE, UNSPECIFIED (10) Hypercapnia Current Visit: Yes Status: Chronic Code(s): R06.89 - OTHER ABNORMALITIES OF BREATHING (11) Rheumatoid arthritis Current Visit: Yes Status: Chronic Qualifiers: Rheumatoid arthritis location: multiple sites Code(s): M06.9 - RHEUMATOID ARTHRITIS, UNSPECIFIED
[2016-03-25] MEDS: Aricept 10 MG PO SCH (21:41)
[2016-03-26] MEDS: DUONEB 0.5-3 MG/3 ml Neb IH SCH ×6 (03:55→22:24)
[2016-03-26 05:43] LABS: Mean Cell Volume 100.3 fl (78-100); Mean Corpuscular Hemoglobin 29.2 pg (26-32); Mean Platelet Volume 9.8 fl (6-9.5); Platelet Count 235 K/mm3 (150-450); Red Blood Count 3.15 M/mm3 (4.1-5.4); Red Cell Distribution Width 14.1 % (11.5-14.0)
[2016-03-26] MEDS: solu-MEDROL 125 MG IV SCH (05:57)
[2016-03-26 06:05] LABS: ANION GAP 5.6 MEQ/L (5-15); BLOOD UREA NITROGEN 16 mg/dL (9-20); CHLORIDE 100 mEq/L (98-107); Carbon Dioxide 42.9 mEq/L (21-32); Glucose 124 MG/DL (70-110); Potassium 4.6 mEq/L (3.5-5.1); SODIUM 144 mEq/L (136-145)
[2016-03-26] MEDS: Advair Hfa 115/21 Common canister IH SCH ×2 (06:55→17:36)
[2016-03-26] MEDS: Norco 10/325 MG Tablet PO PRN ×3 (07:32→19:19)
[2016-03-26] MEDS: SENOKOT 8.6 MG PO PRN (07:32)
[2016-03-26] MEDS: Lopressor 50 MG PO SCH ×2 (09:13→21:34)
[2016-03-26] MEDS: DELTASONE 20 MG PO SCH (09:13)
[2016-03-26] MEDS: Colace 100 MG PO SCH ×2 (09:13→21:34)
[2016-03-26] MEDS: Prozac 20 MG PO SCH (09:13)
[2016-03-26] MEDS: FEOSOL 325 MG PO SCH ×3 (09:13→21:34)
[2016-03-26] MEDS: ENOXAPARIN SODIUM SQ SCH (09:14)
[2016-03-26] MEDS: MAG-OX 400 PO SCH (09:14)
[2016-03-26] MEDS: Zestril 10 MG PO SCH (09:14)
[2016-03-26] MEDS: Cymbalta 30 MG Capsule PO SCH (09:14)
[2016-03-26] MEDS: Zithromax 500 MG/ 250 ML NaCl Premix 250 ML IV SCH (09:15)
[2016-03-26] MEDS: ROCEPHIN 1 Gm-D5w 50 ml Bag** 50 ML IV SCH (09:15)
[2016-03-26] MEDS ORDERED: LASIX 20 MG PO ONE (10:00)
--- NOTE | 2016-03-26 12:36 | PCM.DCORD ---
- Discharge Discharge Date: 03/26/16 Disposition: Skilled Care @ [facility] Condition: Fair Prescriptions: New Prednisone 20 mg [Deltasone 20 mg] 20 mg PO DAILY #0 tablet Cephalexin Mh 500 mg [Keflex 500 mg] 500 mg PO TID #21 capsule Metoprolol Tartrate 50 mg [Lopressor 50 MG] 50 mg PO BID #0 tablet Continue Donepezil HCl 5 mg PO HS Duloxetine HCl 30 mg [Cymbalta 30 MG Capsule] 30 mg PO DAILY Sennosides [Senna Laxative] 2 tab PO DAILY PRN PRN PRN Reason: Constipation Fluoxetine HCl [Prozac] 40 mg PO DAILY Magnesium Oxide 400 mg [Mag-Ox 400] 400 mg PO DAILY #30 tablet Fluticasone/Vilanterol [Breo Ellipta 100-25 Mcg INH] 1 inh PO DAILY Albuterol/Ipratropium 3ml Neb* [DUONEB 0.5-3 MG/3 ml Neb] 3 ml IH Q4HPRN PRN PRN Reason: Shortness Of Breath Docusate Sodium 100 mg [Colace 100 MG] 100 mg PO BID #60 capsule Ferrous Sulfate 325 mg [Feosol 325 mg] 325 mg PO TID #90 tablet Lisinopril 5 mg [Zestril 5 MG] 10 mg PO DAILY #30 tablet Albuterol Sulfate [Proair Hfa] 8.5 gm IH Q6HPRN PRN PRN Reason: Shortness Of Breath/Wheezing Hydrocodone/APAP 10/325 mg [[place] 10/325 MG Tablet] 1 tab PO Q6H PRN PRN #120 tablet PRN Reason: Pain Changed Lorazepam 1 mg [Ativan 1 MG] 1 mg PO TID PRN #90 tablet PRN Reason: Anxiety Discontinued Metoprolol Tartrate 25 mg [Lopressor 25MG Tab] 12.5 mg PO BID #60 tab Prednisone 20 mg [Deltasone 20 mg] 10 mg PO DAILY Albuterol 2.5 mg/3 ml Neb [Proventil 2.5 mg/3 ml Neb] 2.5 mg IH Q6H PRN PRN PRN Reason: Shortness Of Breath/Wheezing Albuterol Sulfate [Ventolin Hfa] 18 gm IH Q6H PRN PRN PRN Reason: Shortness Of Breath/Wheezing Instructions: Chronic Obstructive Pulmonary Disease Forms: Patient Portal Information
--- NOTE | 2016-03-26 12:41 | PCM.DS ---
Discharge Summary Date of Admission: 03/23/16 13:03 Date of Discharge: 03/26/16 Admitting Physician: SURAJ SAMS Primary Care Provider: VANESSA SAMS Allergies Allergies No Known Drug Allergies Allergy (Verified 03/23/16 10:39) Hospital Summary - Hospital Course Hospital Course: Ms. Melgar suffers from end stage severe copd with chronic hypoxemic respiratory failure and was slowly weakening and more short of breath at home and then this worsened the day of presentation difficulty catching breath more confusion. She was treated briefly with bipap in the ED and weaned from this in the ICU on arrival back to her home 4L NC. IV steroids were weaned she was on ceftriaxone and azithromycin and remained afebrile with no abdominal or urinary symptoms. She did have UTI with E. Coli and bacteremia with sepsis that resolved wbc trending down. Chronic anemia stable. She was improving but still very weak and has been having more pulmonary problems recently due to poor living conditions which will be remedied with her daughter's new home in about 2 weeks. She was evaluated by [facility] and will go for further rehab for her weakness and continued treatments for her UTI and copd. - Vitals & Intake/Output Vital Signs: Vital Signs Temperature 98.1 F 03/26/16 12:06 Pulse Rate 82 03/26/16 12:06 Respiratory Rate 21 03/26/16 12:06 Blood Pressure 149/70 03/26/16 12:06 O2 Sat by Pulse Oximetry 98 03/26/16 12:06 Oxygen-Last Documented O2 Percentage 4 Liters = 36% Intake & Output: Intake & Output 03/24/16 03/25/16 03/26/16 03/27/16 11:59 11:59 11:59 11:59 Intake Total 1806 760 720 Output Total 1050 700 300 Balance 756 60 420 Weight 60.1 kg - Lab Result Diagrams: 03/26/16 05:05 03/26/16 05:05 Lab Results-Last 24 Hrs: Lab Results-Last 24 Hours 03/26/16 03/26/16 Range/Units 05:05 05:05 WBC 15.0 H (4.0-10.5) K/mm3 RBC 3.15 L (4.1-5.4) M/mm3 Hgb 9.2 L (12.0-16.0) gm/dl Hct 31.6 L (35-47) % MCV 100.3 H (78-100) fl MCH 29.2 (26-32) pg MCHC 29.1 L (32-36) g/dl RDW 14.1 H (11.5-14.0) % Plt Count 235 (150-450) K/mm3 MPV 9.8 H (6-9.5) fl Sodium 144 (136-145) mEq/L Potassium 4.6 (3.5-5.1) mEq/L Chloride 100 (98-107) mEq/L Carbon Dioxide 42.9 H (21-32) mEq/L Anion Gap 5.6 (5-15) MEQ/L BUN 16 (9-20) mg/dL Creatinine 0.55 (0.55-1.30) mg/dl Estimated GFR > 60 ML/MIN Glucose 124 H (70-110) MG/DL Calcium 8.7 (8.5-10.1) mg/dL Micro Results-Entire Visit: Microbiology 03/25/16 09:20 Organism ID and Sensitivity - Preliminary Sputum - Expectorant 03/24/16 09:20 Gram Stain - Final Sputum - Expectorant Sputum Culture - Preliminary SENT TO REFERENCE LAB FOR IDENTIFICATION AND/OR SENSITIVITY. SEPARATE REPORT TO FOLLOW. - Procedures and Test Procedures and Tests throughout Hospitalization: Therapy Orders & Screens 03/23/16 13:54 Oxygen NASAL CANNULA 4 lpm Comment: Diagnosis: UTI, COPD 03/23/16 15:00 Respiratory Nebulizer Q4H Comment: JOSE Diagnosis: UTI, COPD 03/23/16 19:00 Respiratory MDI Q12H Comment: JHON 115/21 BID Diagnosis: UTI, COPD Discharge Exam General Appearance: no apparent distress Neurologic Exam: alert, oriented x 3, cooperative Skin Exam: warm, dry, pale Eye Exam: pale conjunctivae Ears, Nose, Throat Exam: dry mucous membranes Neck Exam: normal inspection, non-tender, supple Respiratory Exam: prolonged expirations, crackles/rales (bibasilar), rhonchi, wheezing Cardiovascular Exam: regular rate/rhythm, normal heart sounds, No murmur Gastrointestinal/Abdomen Exam: soft, normal bowel sounds, No tenderness, No distention Extremity Exam: No calf tenderness, No pedal edema Back Exam: No CVA tenderness, No rash Final Diagnosis/Problem List - Final Discharge Diagnosis/Problem (1) COPD with exacerbation Current Visit: Yes Status: Acute (2) UTI (urinary tract infection) Current Visit: Yes Status: Acute (3) Anemia Current Visit: Yes Status: Chronic (4) Hyperglycemia Current Visit: Yes Status: Acute (5) Hypertension Current Visit: Yes Status: Chronic (6) Respiratory failure Current Visit: Yes Status: Acute (7) CHF (congestive heart failure) Current Visit: Yes Status: Chronic (8) Chronic steroid use Current Visit: Yes Status: Chronic (9) Depressive disorder Current Visit: Yes Status: Chronic (10) Hypercapnia Current Visit: Yes Status: Chronic (11) Rheumatoid arthritis Current Visit: Yes Status: Chronic - Discharge Discharge Date: 03/26/16 Disposition: Skilled Care @ [facility] Condition: Fair Prescriptions: New Prednisone 20 mg [Deltasone 20 mg] 20 mg PO DAILY #0 tablet Cephalexin Mh 500 mg [Keflex 500 mg] 500 mg PO TID #21 capsule Metoprolol Tartrate 50 mg [Lopressor 50 MG] 50 mg PO BID #0 tablet Continue Donepezil HCl 5 mg PO HS Duloxetine HCl 30 mg [Cymbalta 30 MG Capsule] 30 mg PO DAILY Sennosides [Senna Laxative] 2 tab PO DAILY PRN PRN PRN Reason: Constipation Fluoxetine HCl [Prozac] 40 mg PO DAILY Magnesium Oxide 400 mg [Mag-Ox 400] 400 mg PO DAILY #30 tablet Fluticasone/Vilanterol [Breo Ellipta 100-25 Mcg INH] 1 inh PO DAILY Albuterol/Ipratropium 3ml Neb* [DUONEB 0.5-3 MG/3 ml Neb] 3 ml IH Q4HPRN PRN PRN Reason: Shortness Of Breath Docusate Sodium 100 mg [Colace 100 MG] 100 mg PO BID #60 capsule Ferrous Sulfate 325 mg [Feosol 325 mg] 325 mg PO TID #90 tablet Lisinopril 5 mg [Zestril 5 MG] 10 mg PO DAILY #30 tablet Albuterol Sulfate [Proair Hfa] 8.5 gm IH Q6HPRN PRN PRN Reason: Shortness Of Breath/Wheezing Hydrocodone/APAP 10/325 mg [[place] 10/325 MG Tablet] 1 tab PO Q6H PRN PRN #120 tablet PRN Reason: Pain Changed Lorazepam 1 mg [Ativan 1 MG] 1 mg PO TID PRN #90 tablet PRN Reason: Anxiety Discontinued Metoprolol Tartrate 25 mg [Lopressor 25MG Tab] 12.5 mg PO BID #60 tab Prednisone 20 mg [Deltasone 20 mg] 10 mg PO DAILY Albuterol 2.5 mg/3 ml Neb [Proventil 2.5 mg/3 ml Neb] 2.5 mg IH Q6H PRN PRN PRN Reason: Shortness Of Breath/Wheezing Albuterol Sulfate [Ventolin Hfa] 18 gm IH Q6H PRN PRN PRN Reason: Shortness Of Breath/Wheezing Instructions: Chronic Obstructive Pulmonary Disease Forms: Patient Portal Information
[2016-03-26] MEDS: Ativan 1 MG PO PRN ×2 (12:53→21:43)
[2016-03-26] MEDS: Aricept 10 MG PO SCH (21:33)
[2016-03-27] MEDS: DUONEB 0.5-3 MG/3 ml Neb IH SCH ×6 (02:35→22:40)
[2016-03-27] MEDS: Norco 10/325 MG Tablet PO PRN ×4 (05:45→21:21)
[2016-03-27] MEDS: Advair Hfa 115/21 Common canister IH SCH ×2 (06:28→18:25)
[2016-03-27] MEDS: Ativan 1 MG PO PRN ×3 (07:30→21:21)
--- NOTE | 2016-03-27 08:43 | PCM.NOTE ---
Date and Time: 03/27/16 0839 Subjective Assessment: She was discharged yesterday after being accepted to [facility] but prior to going there but after getting dressed and taking out the iv she then triggered level 2. We are still waiting on this. She is feeling better still weak however. breathing stable and improving. Objective Exam General Appearance: no apparent distress, thin Neurologic Exam: alert, oriented x 3, cooperative Skin Exam: warm, dry, pale Eye Exam: EOMI, No scleral icterus Neck Exam: normal inspection, non-tender, supple Respiratory Exam: prolonged expirations, wheezing Cardiovascular Exam: regular rate/rhythm, normal heart sounds Gastrointestinal/Abdomen Exam: soft, normal bowel sounds, No tenderness Extremity Exam: No calf tenderness, No pedal edema OBJECTIVE DATA Vital Signs: Vital Signs - 24 hr Temp Pulse Resp BP Pulse Ox 03/27/16 07:02 98 F 73 20 159/72 99 03/27/16 06:31 68 18 100 03/27/16 03:00 98.0 F 81 17 163/75 99 03/27/16 02:35 85 20 97 03/26/16 22:24 81 20 99 03/26/16 21:00 98.2 F 92 H 18 145/79 98 03/26/16 17:37 86 18 98 03/26/16 15:53 98.3 F 74 17 169/70 100 03/26/16 15:26 75 18 99 03/26/16 12:06 98.1 F 82 21 149/70 98 03/26/16 10:46 81 18 99 Oxygen-Last 24 hours O2 Percentage 4 Liters = 36% O2 Percentage 4 Liters = 36% O2 Percentage 4 Liters = 36% O2 Percentage 4 Liters = 36% O2 Percentage 4 Liters = 36% Pain Assessment - Last Documented Pain Intensity 7 Pain Scale Used 0-10 Pain Scale Intake and Output: Intake & Output 03/24/16 03/25/16 03/26/16 03/27/16 11:59 11:59 11:59 11:59 Intake Total 1806 732 766 3552 Output Total 1050 700 300 400 Balance 756 60 420 961 Weight 60.1 kg 60.056 kg Assessment/Plan (1) COPD with exacerbation Current Visit: Yes Status: Acute Assessment & Plan: was discharged orders ready. She is awaiting level 2 placement Code(s): J44.1 - CHRONIC OBSTRUCTIVE PULMONARY DISEASE W (ACUTE) EXACERBATION (2) UTI (urinary tract infection) Current Visit: Yes Status: Acute Qualifiers: Urinary tract infection type: site unspecified Hematuria presence: without hematuria Qualified Code(s): N39.0 - Urinary tract infection, site not specified Assessment & Plan: improved sensitive to cephalosporin on keflex now Code(s): N39.0 - URINARY TRACT INFECTION, SITE NOT SPECIFIED (3) Anemia Current Visit: Yes Status: Chronic Qualifiers: Code(s): D64.9 - ANEMIA, UNSPECIFIED (4) Hyperglycemia Current Visit: Yes Status: Acute Code(s): R73.9 - HYPERGLYCEMIA, UNSPECIFIED (5) Hypertension Current Visit: Yes Status: Chronic Code(s): I10 - ESSENTIAL (PRIMARY) HYPERTENSION (6) Respiratory failure Current Visit: Yes Status: Acute Qualifiers: Chronicity: acute on chronic Respiratory failure complication: hypoxia and hypercapnia Qualified Code(s): J96.21 - Acute and chronic respiratory failure with hypoxia; J96.22 - Acute and chronic respiratory failure with hypercapnia Code(s): J96.90 - RESPIRATORY FAILURE, UNSP, UNSP W HYPOXIA OR HYPERCAPNIA (7) CHF (congestive heart failure) Current Visit: Yes Status: Chronic Qualifiers: Congestive heart failure type: diastolic Congestive heart failure chronicity: chronic Qualified Code(s): I50.32 - Chronic diastolic (congestive ) heart failure Code(s): I50.9 - HEART FAILURE, UNSPECIFIED (8) Chronic steroid use Current Visit: Yes Status: Chronic Code(s): PRQ4539 - (9) Depressive disorder Current Visit: Yes Status: Chronic Code(s): F32.9 - MAJOR DEPRESSIVE DISORDER, SINGLE EPISODE, UNSPECIFIED (10) Hypercapnia Current Visit: Yes Status: Chronic Code(s): R06.89 - OTHER ABNORMALITIES OF BREATHING (11) Rheumatoid arthritis Current Visit: Yes Status: Chronic Qualifiers: Rheumatoid arthritis location: multiple sites Code(s): M06.9 - RHEUMATOID ARTHRITIS, UNSPECIFIED (12) E coli bacteremia Current Visit: Yes Status: Resolved Code(s): R78.81 - BACTEREMIA (13) Sepsis Current Visit: Yes Status: Resolved Assessment & Plan: from e. coli uti resolved
[2016-03-27] MEDS: DELTASONE 20 MG PO SCH (09:16)
[2016-03-27] MEDS: Zestril 10 MG PO SCH (09:16)
[2016-03-27] MEDS: MAG-OX 400 PO SCH (09:16)
[2016-03-27] MEDS: ENOXAPARIN SODIUM SQ SCH (09:17)
[2016-03-27] MEDS: Lopressor 50 MG PO SCH ×2 (09:17→21:23)
[2016-03-27] MEDS: Colace 100 MG PO SCH ×2 (09:17→21:20)
[2016-03-27] MEDS: KEFLEX 500 MG PO SCH ×2 (09:17→14:55)
[2016-03-27] MEDS: Cymbalta 30 MG Capsule PO SCH (09:17)
[2016-03-27] MEDS: FEOSOL 325 MG PO SCH ×3 (09:17→21:21)
[2016-03-27] MEDS: SENOKOT 8.6 MG PO PRN (09:23)
[2016-03-27] MEDS: Prozac 20 MG PO SCH (11:10)
[2016-03-27] MEDS: MERREM 500MG 500 MG in Sodium Chloride 100ML MINI-BAG PLUS 100 ML IV SCH ×2 (18:03→21:20)
[2016-03-27] MEDS: Aricept 10 MG PO SCH (21:21)
[2016-03-28] MEDS: DUONEB 0.5-3 MG/3 ml Neb IH SCH ×3 (03:05→10:33)
[2016-03-28] MEDS: Norco 10/325 MG Tablet PO PRN ×2 (04:28→08:56)
[2016-03-28] MEDS: MERREM 500MG 500 MG in Sodium Chloride 100ML MINI-BAG PLUS 100 ML IV SCH (05:15)
[2016-03-28] MEDS: Advair Hfa 115/21 Common canister IH SCH (06:49)
[2016-03-28 07:57] VITALS: BP 164/73
[2016-03-28] MEDS: FEOSOL 325 MG PO SCH (08:55)
[2016-03-28] MEDS: Prozac 20 MG PO SCH (08:55)
[2016-03-28] MEDS: MAG-OX 400 PO SCH (08:55)
[2016-03-28] MEDS: Cymbalta 30 MG Capsule PO SCH (08:55)
[2016-03-28] MEDS: Zestril 10 MG PO SCH (08:55)
[2016-03-28] MEDS: ENOXAPARIN SODIUM SQ SCH (08:56)
[2016-03-28] MEDS: Colace 100 MG PO SCH (08:56)
[2016-03-28] MEDS: DELTASONE 20 MG PO SCH (08:56)
[2016-03-28] MEDS: Lopressor 50 MG PO SCH (08:56)
[2016-03-28] MEDS: SENOKOT 8.6 MG PO PRN (09:00)
--- NOTE | 2016-03-28 09:16 | PCM.DS ---
Discharge Summary Date of Admission: 03/23/16 13:03 Date of Discharge: 03/26/16 Admitting Physician: SURAJ SAMS Primary Care Provider: VANESSA SAMS Allergies Allergies No Known Drug Allergies Allergy (Verified 03/23/16 10:39) Hospital Summary - Hospital Course Hospital Course: patient was cared for during this hospital stay for sepsis, uti and copd. she is planning to go to [facility] for rehab when certification comes in. still short of breath and wheezing, she is chronically on oxygen therapy at home. - Vitals & Intake/Output Vital Signs: Vital Signs Temperature 98.5 F 03/28/16 07:56 Pulse Rate 72 03/28/16 07:56 Respiratory Rate 20 03/28/16 07:56 Blood Pressure 164/73 03/28/16 07:56 O2 Sat by Pulse Oximetry 99 03/28/16 07:56 Oxygen-Last Documented O2 Percentage 4 Liters = 36% Intake & Output: Intake & Output 03/25/16 03/26/16 03/27/16 03/28/16 11:59 11:59 11:59 11:59 Intake Total 703 962 1053 1308 Output Total 700 608 227 4461 Balance 60 420 881 -192 Weight 60.056 kg 63.639 kg - Lab Result Diagrams: 03/26/16 05:05 03/26/16 05:05 Micro Results-Entire Visit: Microbiology 03/24/16 09:20 Gram Stain - Final Sputum - Expectorant Sputum Culture - Final Specimen completed at [facility] Reference Lab. Please see separate report. 03/25/16 09:20 Organism ID and Sensitivity - Final Sputum - Expectorant - Procedures and Test Procedures and Tests throughout Hospitalization: Therapy Orders & Screens 03/23/16 13:54 Oxygen NASAL CANNULA 4 lpm Comment: Diagnosis: UTI, COPD 03/23/16 15:00 Respiratory Nebulizer Q4H Comment: JOSE Diagnosis: UTI, COPD 03/23/16 19:00 Respiratory MDI Q12H Comment: JHON 115/ BID Diagnosis: UTI, COPD Discharge Exam General Appearance: no apparent distress, alert Respiratory Exam: wheezing Cardiovascular Exam: regular rate/rhythm, normal heart sounds Gastrointestinal/Abdomen Exam: soft, No tenderness, No mass Extremity Exam: normal inspection, normal range of motion Final Diagnosis/Problem List - Final Discharge Diagnosis/Problem (1) COPD with exacerbation Current Visit: Yes Status: Acute (2) UTI (urinary tract infection) Current Visit: Yes Status: Acute (3) E coli bacteremia Current Visit: Yes Status: Resolved (4) Weakness Current Visit: No Status: Chronic - Discharge Disposition: Swing Bed @ [facility] Condition: Fair Prescriptions: New Prednisone 20 mg [Deltasone 20 mg] 20 mg PO DAILY #0 tablet Cephalexin Mh 500 mg [Keflex 500 mg] 500 mg PO TID #21 capsule Metoprolol Tartrate 50 mg [Lopressor 50 MG] 50 mg PO BID #0 tablet Continue Donepezil HCl 5 mg PO HS Duloxetine HCl 30 mg [Cymbalta 30 MG Capsule] 30 mg PO DAILY Sennosides [Senna Laxative] 2 tab PO DAILY PRN PRN PRN Reason: Constipation Fluoxetine HCl [Prozac] 40 mg PO DAILY Magnesium Oxide 400 mg [Mag-Ox 400] 400 mg PO DAILY #30 tablet Fluticasone/Vilanterol [Breo Ellipta 100-25 Mcg INH] 1 inh PO DAILY Albuterol/Ipratropium 3ml Neb* [DUONEB 0.5-3 MG/3 ml Neb] 3 ml IH Q4HPRN PRN PRN Reason: Shortness Of Breath Docusate Sodium 100 mg [Colace 100 MG] 100 mg PO BID #60 capsule Ferrous Sulfate 325 mg [Feosol 325 mg] 325 mg PO TID #90 tablet Lisinopril 5 mg [Zestril 5 MG] 10 mg PO DAILY #30 tablet Albuterol Sulfate [Proair Hfa] 8.5 gm IH Q6HPRN PRN PRN Reason: Shortness Of Breath/Wheezing Hydrocodone/APAP 10/325 mg [[place] 10/325 MG Tablet] 1 tab PO Q6H PRN PRN #120 tablet PRN Reason: Pain Changed Lorazepam 1 mg [Ativan 1 MG] 1 mg PO TID PRN #90 tablet PRN Reason: Anxiety Discontinued Metoprolol Tartrate 25 mg [Lopressor 25MG Tab] 12.5 mg PO BID #60 tab Prednisone 20 mg [Deltasone 20 mg] 10 mg PO DAILY Albuterol 2.5 mg/3 ml Neb [Proventil 2.5 mg/3 ml Neb] 2.5 mg IH Q6H PRN PRN PRN Reason: Shortness Of Breath/Wheezing Albuterol Sulfate [Ventolin Hfa] 18 gm IH Q6H PRN PRN PRN Reason: Shortness Of Breath/Wheezing Instructions: Chronic Obstructive Pulmonary Disease Additional Instructions: [facility] ORDERS; PT/OT EVAL AND TREAT REGULAR DIET O2 AT 4L PER NC - KEEP SPO2 > 92% UP TOLERATED SEE ATTACHED RX'S AND DC MED LIST FOR CURRENT MED ORDERS RX'S WERE FAXED TO [facility] PER [facility] Forms: Patient Portal Information
[2016-03-28 10:40] VITALS: PULSE 65; O2SAT 98
== END 2016-03-28 11:01 | disposition swing bed (61) | DRG 190 ==
LOC: ED 10:13 → ICU 13:03 → MED SURG 03-24 10:00
PROVIDERS: ADMIT Family Medicine; ATTEND Family Medicine
DX: J44.1 Chronic obstructive pulmonary disease with (acute) exacerbation (principal); J96.21 Acute and chronic respiratory failure with hypoxia; J96.22 Acute and chronic respiratory failure with hypercapnia; A41.9 Sepsis, unspecified organism; N39.0 Urinary tract infection, site not specified; I50.32 Chronic diastolic (congestive) heart failure; D64.9 Anemia, unspecified; R73.9 Hyperglycemia, unspecified; I10 Essential (primary) hypertension; A49.8 Other bacterial infections of unspecified site; R53.1 Weakness; F03.90 Unspecified dementia, unspecified severity, without behavioral disturbance, psychotic disturbance, mood disturbance, and anxiety; I25.10 Atherosclerotic heart disease of native coronary artery without angina pectoris; J45.909 Unspecified asthma, uncomplicated; F32.9 Major depressive disorder, single episode, unspecified; M06.9 Rheumatoid arthritis, unspecified; Z79.52 Long term (current) use of systemic steroids; Z79.899 Other long term (current) drug therapy
CPT/HCPCS: 36000; 36415; 36600; 71010; 80048; 80053; 81000; 82375; 82803; 83605; 83880; 84484; 85025; 85027; 87040; 87070; 87077; 87086; 93005; 93041; 94002; 94640; 94760; 96360; 96361; 96365; 96374; 99285; A9270; J0456; J0696; J1650; J2930; P9612

== ENCOUNTER 2016-03-28 11:05 | Inpatient (IN) | payer MEDICARE ==
[2016-03-28] MEDS ORDERED: PROVENTIL 2.5 MG/3 ML NEB IH PRN (11:28)
[2016-03-28] MEDS: Ativan 1 MG PO PRN ×2 (13:12→22:01)
[2016-03-28] MEDS: Norco 10/325 MG Tablet PO PRN ×3 (13:12→22:01)
[2016-03-28] MEDS: MERREM 500MG 500 MG in Sodium Chloride 100ML MINI-BAG PLUS 100 ML IV SCH ×2 (13:12→22:03)
[2016-03-28] MEDS: FEOSOL 325 MG PO SCH ×2 (13:12→21:59)
[2016-03-28] MEDS: DUONEB 0.5-3 MG/3 ml Neb IH SCH ×3 (14:57→22:57)
[2016-03-28] MEDS: Advair Hfa 115/21 Common canister IH SCH (18:56)
[2016-03-28] MEDS: Colace 100 MG PO SCH (22:00)
[2016-03-28] MEDS: Aricept 10 MG PO SCH (22:00)
[2016-03-28] MEDS: Lopressor 50 MG PO SCH (22:01)
[2016-03-29] MEDS: DUONEB 0.5-3 MG/3 ml Neb IH SCH ×6 (03:27→22:57)
[2016-03-29] MEDS: MERREM 500MG 500 MG in Sodium Chloride 100ML MINI-BAG PLUS 100 ML IV SCH ×3 (06:13→21:38)
[2016-03-29] MEDS: Norco 10/325 MG Tablet PO PRN ×4 (06:14→20:33)
[2016-03-29] MEDS: Advair Hfa 115/21 Common canister IH SCH ×2 (07:25→18:40)
[2016-03-29] MEDS: ENOXAPARIN SODIUM SQ SCH (09:21)
[2016-03-29] MEDS: Prozac 20 MG PO SCH (09:21)
[2016-03-29] MEDS: MAG-OX 400 PO SCH (09:21)
[2016-03-29] MEDS: Cymbalta 30 MG Capsule PO SCH (09:22)
[2016-03-29] MEDS: FEOSOL 325 MG PO SCH ×3 (09:22→21:39)
[2016-03-29] MEDS: DELTASONE 20 MG PO SCH (09:22)
[2016-03-29] MEDS: Zestril 10 MG PO SCH (09:22)
[2016-03-29] MEDS: Lopressor 50 MG PO SCH ×2 (09:22→21:39)
[2016-03-29] MEDS: Colace 100 MG PO SCH ×2 (09:22→21:39)
[2016-03-29] MEDS: SENOKOT 8.6 MG PO PRN (09:25)
[2016-03-29] MEDS: Ativan 1 MG PO PRN ×2 (09:26→20:34)
[2016-03-29] MEDS ORDERED: Aplisol ID SCH (10:00)
[2016-03-29] MEDS: Aricept 10 MG PO SCH (21:39)
[2016-03-30] MEDS: MERREM 500MG 500 MG in Sodium Chloride 100ML MINI-BAG PLUS 100 ML IV SCH ×2 (05:32→14:09)
[2016-03-30] MEDS: Advair Hfa 115/21 Common canister IH SCH (06:11)
[2016-03-30] MEDS: DUONEB 0.5-3 MG/3 ml Neb IH SCH ×4 (06:11→14:21)
[2016-03-30] MEDS: Norco 10/325 MG Tablet PO PRN ×3 (06:42→15:04)
[2016-03-30 07:08] VITALS: BP 165/70
[2016-03-30] MEDS: SENOKOT 8.6 MG PO PRN (08:21)
[2016-03-30] MEDS: MAG-OX 400 PO SCH (08:22)
[2016-03-30] MEDS: Prozac 20 MG PO SCH (08:22)
[2016-03-30] MEDS: Lopressor 50 MG PO SCH (08:22)
[2016-03-30] MEDS: FEOSOL 325 MG PO SCH ×2 (08:22→14:08)
[2016-03-30] MEDS: Zestril 10 MG PO SCH (08:22)
[2016-03-30] MEDS: DELTASONE 20 MG PO SCH (08:22)
[2016-03-30] MEDS: Cymbalta 30 MG Capsule PO SCH (08:22)
[2016-03-30] MEDS: Colace 100 MG PO SCH (08:22)
[2016-03-30] MEDS: ENOXAPARIN SODIUM SQ SCH (08:23)
[2016-03-30] MEDS: Ativan 1 MG PO PRN (09:33)
[2016-03-30 10:24] VITALS: O2SAT 98
--- NOTE | 2016-03-30 13:24 | PCM.DS ---
Discharge Summary Date of Admission: 03/28/16 11:05 Date of Discharge: 03/30/16 Admitting Physician: SURAJ SAMS Primary Care Provider: VANESSA SAMS Allergies Allergies No Known Drug Allergies Allergy (Verified 03/23/16 10:39) Hospital Summary - Hospital Course Hospital Course: She was treated for e. coli spesis with bacteremia from a UTI as well as acute copd exacerbation with acute on chronic respiratory failure. She needed prolonged rehab for her weakness and completion of coarse of antiboitics for her pseudomonas on her respiratory culture. She was initially accepted by [facility] but level 2 was pending. She was placed in swing bed status over the weekend and continues to improve and do well and is now able to go to [facility] for further therapy and care. - Vitals & Intake/Output Vital Signs: Vital Signs Temperature 98.3 F 03/30/16 07:07 Pulse Rate 64 03/30/16 10:00 Respiratory Rate 18 03/30/16 10:00 Blood Pressure 165/70 03/30/16 07:07 O2 Sat by Pulse Oximetry 98 03/30/16 10:00 Oxygen-Last Documented O2 Percentage 4 Liters = 36% Intake & Output: Intake & Output 03/28/16 03/29/16 03/30/16 03/31/16 11:59 11:59 11:59 11:59 Intake Total 1580 2170 360 Output Total 2100 2000 700 Balance -520 170 -340 Weight 63.503 kg - Procedures and Test Procedures and Tests throughout Hospitalization: Therapy Orders & Screens 03/28/16 11:25 PT Eval & Treat (MD Order) ROUTINE Evaluate: Yes Treat: Yes Reason for Eval:: Deconditioning Diagnosis: Deconditioning r/t SOB, exac.COPD, hypoxia, UTI 03/28/16 11:27 RT Miscellaneous Order ROUTINE Comment: Physician Instructions: Reason For Exam: titrate O2 to maintain SPO2 >92% Diagnosis: Deconditioning r/t SOB, exac.COPD, hypoxia, UTI 03/28/16 11:50 Oxygen NASAL CANNULA 4 lpm Comment: Diagnosis: Deconditioning r/t SOB, exac.COPD, hypoxia, UTI 03/28/16 11:51 Respiratory MDI BID Comment: Diagnosis: Deconditioning r/t SOB, exac.COPD, hypoxia, UTI Respiratory Nebulizer Q4H Comment: Diagnosis: Deconditioning r/t SOB, exac.COPD, hypoxia, UTI Final Diagnosis/Problem List - Final Discharge Diagnosis/Problem (1) COPD with exacerbation Current Visit: Yes Status: Acute (2) UTI (urinary tract infection) Current Visit: Yes Status: Resolved (3) E coli bacteremia Current Visit: Yes Status: Resolved (4) Sepsis Current Visit: Yes Status: Resolved (5) Acute exacerbation of chronic obstructive airways disease Current Visit: Yes Status: Acute (6) Hypercapnia Current Visit: Yes Status: Chronic (7) Chronic steroid use Current Visit: Yes Status: Chronic (8) Weakness Current Visit: Yes Status: Chronic (9) Rheumatoid arthritis Current Visit: Yes Status: Chronic (10) Dementia Current Visit: Yes Status: Chronic - Discharge Disposition: Skilled Care @ [facility] Condition: Stable Prescriptions: New Lorazepam 1 mg [Ativan 1 MG] 1 mg PO TID PRN PRN #0 tablet PRN Reason: Anxiety Ertapenem Sodium 1 gm [Invanz 1 GM] 1 g IV DAILY #5 vial Metoprolol Tartrate 50 mg [Lopressor 50 MG] 50 mg PO BID #0 tablet Hydrocodone/APAP 10/325 mg [[place] 10/325 MG Tablet] 1 tab PO Q4H/PRN PRN #0 tablet PRN Reason: Pain Continue Donepezil HCl 5 mg PO HS Duloxetine HCl 30 mg [Cymbalta 30 MG Capsule] 30 mg PO DAILY Sennosides [Senna Laxative] 2 tab PO DAILY PRN PRN PRN Reason: Constipation Fluoxetine HCl [Prozac] 40 mg PO DAILY Magnesium Oxide 400 mg [Mag-Ox 400] 400 mg PO DAILY #30 tablet Fluticasone/Vilanterol [Breo Ellipta 100-25 Mcg INH] 1 inh PO DAILY Albuterol/Ipratropium 3ml Neb* [DUONEB 0.5-3 MG/3 ml Neb] 3 ml IH Q4HPRN PRN PRN Reason: Shortness Of Breath Docusate Sodium 100 mg [Colace 100 MG] 100 mg PO BID #60 capsule Ferrous Sulfate 325 mg [Feosol 325 mg] 325 mg PO TID #90 tablet Lisinopril 5 mg [Zestril 5 MG] 10 mg PO DAILY #30 tablet Albuterol Sulfate [Proair Hfa] 8.5 gm IH Q6HPRN PRN PRN Reason: Shortness Of Breath/Wheezing Prednisone 20 mg [Deltasone 20 mg] 20 mg PO DAILY #0 tablet Metoprolol Tartrate 50 mg [Lopressor 50 MG] 50 mg PO BID #0 tablet Lorazepam 1 mg [Ativan 1 MG] 1 mg PO TID PRN #90 tablet PRN Reason: Anxiety Hydrocodone/APAP 10/325 mg [[place] 10/325 MG Tablet] 1 tab PO Q6H PRN PRN #120 tablet PRN Reason: Pain Discontinued Cephalexin Mh 500 mg [Keflex 500 mg] 500 mg PO TID #21 capsule Follow up with: VANESSA SAMS [Primary Care Provider] - 1 Week [facility] - [facility] Week
[2016-03-30 14:22] VITALS: PULSE 80
[2016-04-08] MEDS ORDERED: Aplisol ID SCH (10:00)
== END 2016-03-30 15:45 | DRG 190 ==
LOC: MED SURG 11:05
PROVIDERS: ADMIT Family Medicine; ATTEND Family Medicine
DX: J44.1 Chronic obstructive pulmonary disease with (acute) exacerbation (principal); A41.89 Other specified sepsis; N39.0 Urinary tract infection, site not specified; I50.32 Chronic diastolic (congestive) heart failure; B96.20 Unspecified Escherichia coli [E. coli] as the cause of diseases classified elsewhere; R06.89 Other abnormalities of breathing; F15.90 Other stimulant use, unspecified, uncomplicated; R53.1 Weakness; I25.10 Atherosclerotic heart disease of native coronary artery without angina pectoris; I10 Essential (primary) hypertension; J45.909 Unspecified asthma, uncomplicated; M06.9 Rheumatoid arthritis, unspecified; F03.90 Unspecified dementia, unspecified severity, without behavioral disturbance, psychotic disturbance, mood disturbance, and anxiety; Z79.899 Other long term (current) drug therapy
CPT/HCPCS: 94640; 94760; A9270; J1650

== ENCOUNTER 2016-05-19 05:25 | Inpatient (IN) | payer MEDICARE ==
[2016-05-19] MEDS ORDERED: Zithromax 500 MG/ 250 ML NaCl Premix 250 ML IV ONE ×2 (05:31→06:07)
[2016-05-19] MEDS ORDERED: PROVENTIL 2.5 MG/3 ML NEB IH ONE ×2 (05:31→06:08)
[2016-05-19] MEDS ORDERED: ROCEPHIN 1 Gm-D5w 50 ml Bag** 50 ML IV ONE ×2 (05:31→06:08)
--- NOTE | 2016-05-19 05:40 | ERPHSYRPT ---
- History of Present Illness Time Seen by Provider: 05/19/16 05:25 Source: patient Exam Limitations: no limitations Patient Subjective Stated Complaint: PT C/O SHORTNESS OF BREATH FOR A WEEK, WORSENING. HX OF COPD, ASTHMA. Triage Nursing Assessment: PT ALERT, ORIENTED, ANSWERS QUESTIONS APPROPRIATELY. PT TAKING BREATHING TX UPON ARRIVAL. SKIN HOT TO TOUCH, PINK, DRY. RESPS APPROX 20-24. LUNG SOUNDS RALES RT SIDE. Physician History: FOR THE PAST WEEK PT HAS HAD SHORTNESS OF AIR AND A NON-PRODUCTIVE COUGH; YESTERDAY POSSIBLY A FEVER. PT DENIES CHEST PAIN, ABDOMINAL PAIN, VOMITING, DIAPHORESIS. Allergies/Adverse Reactions: No Known Drug Allergies Allergy (Verified 05/19/16 05:33) Home Medications: Donepezil HCl 5 mg PO HS 06/15/14 [History] Sennosides [Senna Laxative] 2 tab PO DAILY PRN PRN 06/15/14 [History] Fluoxetine HCl [Prozac] 60 mg PO DAILY 03/02/15 [History] Fluticasone/Vilanterol [Breo Ellipta 100-25 Mcg INH] 1 inh PO DAILY 12/17/15 [ History] Albuterol/Ipratropium 3ml Neb* [DUONEB 0.5-3 MG/3 ml Neb] 3 ml IH Q4HPRN PRN 01/31/16 [History] Albuterol Sulfate [Proair Hfa] 8.5 gm IH Q6HPRN PRN 03/23/16 [History] Olanzapine 5 mg PO HS 05/19/16 [History] Hx Tetanus, Diphtheria Vaccination/Date Given: Yes Hx Influenza Vaccination/Date Given: No (UNKNOWN) Hx Pneumococcal Vaccination/Date Given: Yes Immunizations Up to Date: Yes - Review of Systems Constitutional: Fever (POSSIBLY YESTERDAY) Respiratory: Cough, Dyspnea Cardiac: No Chest Pain Abdominal/Gastrointestinal: No Abdominal Pain, No Vomiting Endocrine: No Excessive Sweating All Other Systems: Reviewed and Negative - Past Medical History Pertinent Past Medical History: Yes Neurological History: Dementia ENT History: No Pertinent History Cardiac History: Congestive Heart Failure, Coronary Artery Disease, Hypertension Respiratory History: Asthma, Bronchitis, CHF, COPD, Pneumonia, Other Endocrine Medical History: No Pertinent History Musculoskeletal History: No Pertinent History GI Medical History: No Pertinent History History: No Pertinent History Psycho-Social History: Depression Female Reproductive Disorders: No Pertinent History Other Medical History: ... - Past Surgical History Past Surgical History: Yes Neuro Surgical History: No Pertinent History Cardiac: Pacemaker Respiratory: No Pertinent History Gastrointestinal: Bowel Surgery Genitourinary: No Pertinent History Musculoskeletal: Amputation Female Surgical History: No Pertinent History Other Surgical History: sinus surgery in 80's,finger amp, bowel surg. - Social History Smoking Status: Former smoker How long have you smoked: 45 years Exposure to second hand smoke: No Alcohol Use: None Drug Use: none Patient Lives Alone: No Significant Family History: no pertinent family hx - Female History Hx Now: No - Nursing Vital Signs Nursing Vital Signs: Initial Vital Signs Temperature 99.2 F Temperature Source Axillary Pulse Rate 130 Respiratory Rate 24 Blood Pressure [Right Arm] 125/70 Pain Intensity 0 - Physical Exam General Appearance: alert Eye Exam: PERRL/EOMI Ears, Nose, Throat Exam: hearing grossly normal, pharyngeal erythema (MILD) Neck Exam: normal inspection Respiratory Exam: respiratory distress, airway intact, diminished breath sounds , crackles/rales (RIGHT POSTERIOR COPELAND HAVE MILD CREPITATIONS) Cardiovascular/Chest Exam: normal heart sounds Abdominal/Gastrointestinal Exam: soft, normal bowel sounds Extremity Exam: normal inspection, No pedal edema Peripheral Pulses Exam: dorsalis-pedis (R): 1+, dorsalis-pedis (L): 1+ Neurologic Exam: alert, cooperative Skin Exam: warm, dry SpO2 Interpretation: normal SpO2: 99 Oxygen Delivery: Aerosol Mask - Course Nursing assessment & vital signs reviewed: Yes EKG Interpreted by Me: RATE (145), NORMAL AXIS, Non-specific ST Changes, Other ( UNIFOCAL PVC'S) Ordered Tests: Active Orders 24 hr Category Date Time Status Curbstone Setter STAT Care 05/19/16 05:31 Active EKG-ER Only STAT Care 05/19/16 05:31 Active IV Insertion STAT Care 05/19/16 05:31 Active Oxygen-ED Only NASAL CANNULA 4 lpm Care 05/19/16 05:31 Active Pulse Oximetry (ED) STAT Care 05/19/16 05:31 Active CHEST 1 VIEW (PORTABLE) Stat Exams 05/19/16 05:32 Taken ABG [ARTERIAL BLOOD GASES] Stat Lab 05/19/16 06:30 Completed AMYLASE Stat Lab 05/19/16 05:50 Completed BLOOD CULTURE Stat Lab 05/19/16 06:00 Received CBC W DIFF Stat Lab 05/19/16 05:50 Completed CMP Stat Lab 05/19/16 05:50 Completed CULTURE, THROAT Stat Lab 05/19/16 06:00 Received CULTURE,SPUTUM Stat Lab 05/19/16 05:32 Uncollected CULTURE,URINE Stat Lab 05/19/16 06:59 Ordered LIPASE Stat Lab 05/19/16 05:50 Completed MAGNESIUM Stat Lab 05/19/16 05:50 Completed Manual Differential NC Stat Lab 05/19/16 05:50 Completed Gila Screen Stat Lab 05/19/16 05:50 Completed NT PRO BNP Stat Lab 05/19/16 05:50 Completed STREP SCREEN-BETA A Stat Lab 05/19/16 06:00 Completed TROPONIN Stat Lab 05/19/16 05:50 Completed UA Stat Lab 05/19/16 06:59 Ordered BiPap/CPAP Assessment STAT RT 05/19/16 06:10 Active Respiratory Nebulizer STAT RT 05/19/16 05:33 Active Medication Summary Generic Name Dose Route Start Last Admin Trade Name Freq PRN Reason Stop Dose Admin Furosemide 20 mg 05/19/16 10:00 Lasix 20 Mg/2 Ml IV 06/18/16 09:59 QAM BRINDA Azithromycin 250 mls @ 125 mls/hr 05/19/16 05:31 05/19/16 06:15 Zithromax 500 Mg/ 250 Ml Nacl Premix IV 05/19/16 07:30 125 mls/hr STAT ONE Administration Sodium Chloride 1,000 mls @ 100 mls/hr 05/19/16 05:45 05/19/16 06:12 Sodium Chloride 0.9% 1000 Ml IV 06/18/16 05:44 100 mls/hr .Q10H BRINDA Administration Magnesium Sulfate/Dextrose 100 mls @ 200 mls/hr 05/19/16 06:50 05/19/16 07:03 Magnesium 1 Gm / 100 Ml D5w IV 05/19/16 07:19 200 mls/hr STAT ONE Administration Discontinued Medications Generic Name Dose Route Start Last Admin Trade Name Freq PRN Reason Stop Dose Admin Albuterol Sulfate 2.5 mg 05/19/16 05:31 05/19/16 06:15 Proventil 2.5 Mg/3 Ml Neb IH 05/19/16 05:32 2.5 mg STAT ONE Administration Albuterol Sulfate Confirm 05/19/16 06:08 Proventil 2.5 Mg/3 Ml Neb Administered 05/19/16 06:09 Dose 2.5 mg IH .STK-MED ONE Famotidine 20 mg 05/19/16 06:52 05/19/16 06:57 Pepcid 20 Mg Vial IV 05/19/16 06:53 Not Given STAT ONE Furosemide Confirm 05/19/16 06:54 Lasix 40 Mg/4 Ml Administered 05/19/16 06:55 Dose 40 mg .ROUTE .STK-MED ONE Ceftriaxone Sodium/Dextrose 50 mls @ 100 mls/hr 05/19/16 05:31 05/19/16 06:13 Rocephin 1 Gm-D5w 50 Ml Bag IV 05/19/16 06:00 100 mls/hr STAT ONE Administration Azithromycin Confirm 05/19/16 06:07 Zithromax 500 Mg/ 250 Ml Nacl Premix Administered 05/19/16 06:08 Dose 250 mls @ ud IV .STK-MED ONE Sodium Chloride Confirm 05/19/16 06:07 Sodium Chloride 0.9% 1000 Ml Administered 05/19/16 06:08 Dose 1,000 mls @ ud .ROUTE .STK-MED ONE Ceftriaxone Sodium/Dextrose Confirm 05/19/16 06:08 Rocephin 1 Gm-D5w 50 Ml Bag Administered 05/19/16 06:09 Dose 50 mls @ ud IV .STK-MED ONE Lab/Rad Data: Laboratory Result Diagrams 05/19/16 05:50 05/19/16 05:50 Laboratory Results 05/19/16 05/19/16 05/19/16 Range/Units 06:30 06:00 05:50 WBC (4.0-10.5) K/mm3 RBC (4.1-5.4) M/mm3 Hgb (12.0-16.0) gm/dl Hct (35-47) % MCV (78-100) fl MCH (26-32) pg MCHC (32-36) g/dl RDW (11.5-14.0) % Plt Count (150-450) K/mm3 MPV (6-9.5) fl Gran % (36.0-66.0) % Lymphocytes % (24.0-44.0) % Monocytes % (0.0-12.0) % Eosinophils % (0.00-5.0) % Basophils % (0.0-0.4) % Segmented Neutrophils (36.0-66.0) % Band Neutrophils (0.0-2.0) % Lymphocytes (Manual) (24-44) % Monocytes (Manual) (0.0-12.0) % Basophils # (0-0.4) Differential Comment Platelet Estimate (NORMAL) Puncture Site RIGHT RADIAL pCO2 74 H* (35-45) mmHg pO2 63 L (75-100) mmHg Base Excess 20.5 H (-2.0-2.0) O2 Saturation 93.1 L (94-100) g/dF ABG pH 7.42 (7.35-7.45) ABG HCO3 48.0 H* (22-28) ABG O2 Sat (Measured) 96.8 (95-100) % Riki Test YES A-a Gradient 130 a/A Ratio 0.33 Hemoglobin 9.6 Carboxyhemoglobin 2.4 (0.0-6.9) % THgb Methemoglobin 1.4 (1.4-1.5) % Temperature 37.0 C POC O2 Flow Rate 40 % Sodium (136-145) mEq/L Potassium 3.9 (3.5-5.1) mEq/L Chloride (98-107) mEq/L Carbon Dioxide (21-32) mEq/L Anion Gap (5-15) MEQ/L BUN (9-20) mg/dL Creatinine (0.55-1.30) mg/dl Estimated GFR ML/MIN Glucose (70-110) MG/DL Calcium (8.5-10.1) mg/dL Magnesium (1.8-2.4) mg/dL Total Bilirubin (0.2-1.0) mg/dL AST (15-37) U/L ALT (12-78) U/L Alkaline Phosphatase (46-116) U/L Troponin I (0.000-0.056) ng/ml NT-Pro-B Natriuret Pep (0-125) pg/ml Serum Total Protein (6.4-8.2) gm/dL Albumin (3.4-5.0) g/dL Amylase (25-115) U/L Lipase (73-393) U/L Monoscreen NEGATIVE (Negative) Streptococcus Screen NEGATIVE (Negative) 05/19/16 05/19/16 Range/Units 05:50 05:50 WBC 21.1 H (4.0-10.5) K/mm3 RBC 3.32 L (4.1-5.4) M/mm3 Hgb 10.0 L (12.0-16.0) gm/dl Hct 33.2 L (35-47) % MCV 100.0 (78-100) fl MCH 30.1 (26-32) pg MCHC 30.1 L (32-36) g/dl RDW 14.9 H (11.5-14.0) % Plt Count 237 (150-450) K/mm3 MPV 10.3 H (6-9.5) fl Gran % 85.1 H (36.0-66.0) % Lymphocytes % 7.1 L (24.0-44.0) % Monocytes % 7.6 (0.0-12.0) % Eosinophils % 0.2 (0.00-5.0) % Basophils % 0.0 (0.0-0.4) % Segmented Neutrophils 89 H (36.0-66.0) % Band Neutrophils 3 H (0.0-2.0) % Lymphocytes (Manual) 4 L (24-44) % Monocytes (Manual) 4 (0.0-12.0) % Basophils # 0.01 (0-0.4) Differential Comment NORMAL Platelet Estimate NORMAL (NORMAL) Puncture Site pCO2 (35-45) mmHg pO2 (75-100) mmHg Base Excess (-2.0-2.0) O2 Saturation (94-100) g/dF ABG pH (7.35-7.45) ABG HCO3 (22-28) ABG O2 Sat (Measured) (95-100) % Riki Test A-a Gradient a/A Ratio Hemoglobin Carboxyhemoglobin (0.0-6.9) % THgb Methemoglobin (1.4-1.5) % Temperature C POC O2 Flow Rate % Sodium 144 (136-145) mEq/L Potassium 4.3 (3.5-5.1) mEq/L Chloride 99 (98-107) mEq/L Carbon Dioxide 41.2 H (21-32) mEq/L Anion Gap 7.7 (5-15) MEQ/L BUN 9 (9-20) mg/dL Creatinine 0.59 (0.55-1.30) mg/dl Estimated GFR > 60 ML/MIN Glucose 142 H (70-110) MG/DL Calcium 8.7 (8.5-10.1) mg/dL Magnesium 1.6 L (1.8-2.4) mg/dL Total Bilirubin 0.2 (0.2-1.0) mg/dL AST 24 (15-37) U/L ALT 11 L (12-78) U/L Alkaline Phosphatase 67 (46-116) U/L Troponin I 0.020 (0.000-0.056) ng/ml NT-Pro-B Natriuret Pep 1177 H (0-125) pg/ml Serum Total Protein 7.0 (6.4-8.2) gm/dL Albumin 2.7 L (3.4-5.0) g/dL Amylase 50 (25-115) U/L Lipase 51 L (73-393) U/L Monoscreen (Negative) Streptococcus Screen (Negative) - Progress Discussed with Dr.: Justin (OBS - ICU) - Departure Time of Disposition: 07:04 Departure Disposition: Observation Clinical Impression: ACUTE RESPIRATORY FAILURE, CHF, HYPOMAGNESEMIA, COPD - ACUTE EXACERBATION, HTN , CAD, DEMENTIA, DEPRESSION Condition: Stable Critical Care Time: Yes Critical Care Time(excluding separately billable procedures): 30-74 minutes Referrals: SURAJ SAMS [Primary Care Provider] -
[2016-05-19] MEDS ORDERED: Sodium Chloride 0.9% 1000 ML 1,000 ML IV SCH ×2 (05:45→08:59)
[2016-05-19] MEDS ORDERED: Sodium Chloride 0.9% 1000 ML 1,000 ML ONE (06:07)
[2016-05-19 06:20] LABS: Eosinophil % 0.2 % (0.00-5.0); Granulocytes % 85.1 % (36.0-66.0); Lymphocytes % 7.1 % (24.0-44.0); Mean Corpuscular Hemoglobin 30.1 pg (26-32); Mean Platelet Volume 10.3 fl (6-9.5); Monocytes % 7.6 % (0.0-12.0); Platelet Count 237 K/mm3 (150-450); Red Blood Count 3.32 M/mm3 (4.1-5.4); Red Cell Distribution Width 14.9 % (11.5-14.0); White Blood Count 21.1 K/mm3 (4.0-10.5)
[2016-05-19 06:42] LABS: BAND 3 % (0.0-2.0); Total Cells Counted 100
[2016-05-19 06:42] LABS: A-aADO2 130; ALLEN TEST OK? YES; ARTERIAL BLD GAS O2 SATURATION 96.8 % (95-100); ARTERIAL BLOOD GAS BASE EXCESS 20.5 (-2.0-2.0); ARTERIAL BLOOD GAS FIO2 40 %; ARTERIAL BLOOD GAS PO2 63 mmHg (75-100); ARTERIAL BLOOD GAS pH 7.42 (7.35-7.45)
[2016-05-19 06:43] LABS: ALBUMIN 2.7 g/dL (3.4-5.0); ALKALINE PHOSPHATASE 67 U/L (46-116); ANION GAP 7.7 MEQ/L (5-15); BILIRUBIN,TOTAL 0.2 mg/dL (0.2-1.0); BLOOD UREA NITROGEN 9 mg/dL (9-20); CHLORIDE 99 mEq/L (98-107); Carbon Dioxide 41.2 mEq/L (21-32); Glucose 142 MG/DL (70-110); LIPASE 51 U/L (73-393); MAGNESIUM 1.6 mg/dL (1.8-2.4); Platelet Estimate NORMAL (NORMAL); Potassium 4.3 mEq/L (3.5-5.1); SGOT/AST 24 U/L (15-37); SGPT/ALT 11 U/L (12-78); SODIUM 144 mEq/L (136-145)
[2016-05-19] MEDS ORDERED: Magnesium 1 Gm / 100 Ml D5W*** 100 ML IV ONE (06:50)
[2016-05-19] MEDS ORDERED: Pepcid 20 MG VIAL IV ONE (06:52)
[2016-05-19] MEDS ORDERED: Lasix 40 MG/4 ML ONE (06:54)
[2016-05-19] MEDS: Lasix 20 MG/2 ML IV SCH (07:05)
[2016-05-19 07:12] LABS: Collection Type VOID
[2016-05-19 07:13] LABS: COMPLETE URINE MICROSCOPIC? YES; Ph 7.5 (5-6)
[2016-05-19 07:25] LABS: Bacteria MANY /HPF (NEGATIVE); Epithelial Cells MODERATE /HPF (FEW); Mucus SLIGHT /HPF (NEGATIVE); WBC 25-50 /HPF (0-5)
[2016-05-19] MEDS ORDERED: Phenergan 25 MG INJ IV PRN (08:59)
[2016-05-19] MEDS ORDERED: TYLENOL 325 MG PO PRN (08:59)
[2016-05-19] MEDS: MAG-OX 400 PO SCH (09:28)
[2016-05-19] MEDS: solu-MEDROL 40 MG IV SCH ×3 (09:28→21:20)
--- NOTE | 2016-05-19 09:30 | XRAY ---
Indication: Short of breath. Comparison: March 23, 2016. Portable chest again hyperinflated without focal infiltrate, consolidation, or large effusion. Heart is not enlarged again with left-sided dual-lead pacemaker. No new/acute findings. Impression: Stable nonacute hyperinflated chest.
[2016-05-19] MEDS: DUONEB 0.5-3 MG/3 ml Neb IH SCH ×3 (10:07→18:22)
[2016-05-19 10:13] LABS: A-aADO2 98; ARTERIAL BLD GAS O2 SATURATION 99.5 % (95-100); ARTERIAL BLOOD GAS FIO2 40 %; ARTERIAL BLOOD GAS PO2 101 mmHg (75-100); ARTERIAL BLOOD GAS pH 7.47 (7.35-7.45); BIPAP(E) 5
[2016-05-19 10:15] LABS: ALLEN TEST OK? YES
[2016-05-19] MEDS ORDERED: Prozac 20 MG PO SCH (11:30)
--- NOTE | 2016-05-19 13:00 | PCM.HP ---
History of Present Illness - Chief Complaint Chief Complaint: Shortness of Breath Date: 05/19/16 History of Present Illness: is a 61 year old female. who is living at home with her daughter. She has been having increasing trouble at home and not as active or eating as well since she was [facility]. her daughter was concerned with her increased anxiety, depression and decreased appetite. Zprexa was just started a few days ago and she was noted to be more confused yesterday and low grade temp per home nursing. order for labs ua was done and zyprexa was stopped. She was having worsening shortness of breath this am and brought to the ED where she was confused and required bipap. She had very diminished breath sounds wheezing and severe exacerbation. She is still complaining of not being able to breath, but is breathing much more comfortably with good oxygenation on her 4L currently. she states she has congestion and runny nose and denies abdominal pain nausea or vomiting no dysuria. - Review of Systems Constitutional: Fever, Chills, Fatigue Eyes: No Symptoms Ears, Nose, & Throat: Nose Congestion, Nose Discharge Respiratory: Cough, Short Of Breath, Wheezing, No Orthopnea Cardiac: No Chest Pain, No Edema, No Palpitations, No Syncope Abdominal/Gastrointestinal: No Abdominal Pain, No Nausea, No Vomiting, No Diarrhea Genitourinary Symptoms: No Dysuria Musculoskeletal: No Back Pain, No Neck Pain Skin: No Rash Neurological: No Dizziness, No Focal Weakness, No Headache, No Sensory Changes Psychological: No Symptoms Endocrine: No Symptoms Hematologic/Lymphatic: No Symptoms Immunological/Allergic: No Symptoms Medications & Allergies Home Medications: Home Medication List Donepezil HCl 5 mg PO HS 06/15/14 [History Confirmed 05/19/16] Sennosides [Senna Laxative] 2 tab PO DAILY PRN PRN 06/15/14 [History Confirmed 05/19/16] Fluoxetine HCl [Prozac] 60 mg PO DAILY 03/02/15 [History Confirmed 05/19/16] Magnesium Oxide 400 mg [Mag-Ox 400] 400 mg PO DAILY #30 tablet 03/03/15 [ Rx Confirmed 05/19/16] Fluticasone/Vilanterol [Breo Ellipta 100-25 Mcg INH] 1 inh PO DAILY 12/17/15 [ History Confirmed 05/19/16] Albuterol/Ipratropium 3ml Neb* [DUONEB 0.5-3 MG/3 ml Neb] 3 ml IH Q4HPRN PRN 01/31/16 [History Confirmed 05/19/16] Docusate Sodium 100 mg [Colace 100 MG] 100 mg PO BID #60 capsule 02/10/16 [Rx Confirmed 05/19/16] Ferrous Sulfate 325 mg [Feosol 325 mg] 325 mg PO TID #90 tablet 02/10/16 [ Rx Confirmed 05/19/16] Lisinopril 5 mg [Zestril 5 MG] 10 mg PO DAILY #30 tablet 02/10/16 [Rx Confirmed 05/19/16] Albuterol Sulfate [Proair Hfa] 8.5 gm IH Q6HPRN PRN 03/23/16 [History Confirmed 05/19/16] Hydrocodone/APAP 10/325 mg [[place] 10/325 MG Tablet] 1 tab PO Q4H/PRN PRN # 0 tablet 03/30/16 [Rx Confirmed 05/19/16] Lorazepam 1 mg [Ativan 1 MG] 1 mg PO TID PRN PRN #0 tablet 03/30/16 [Rx Confirmed 05/19/16] Metoprolol Tartrate 50 mg [Lopressor 50 MG] 50 mg PO BID #0 tablet [Rx Confirmed 05/19/16] Prednisone 10 mg [Deltasone 10 mg] 10 mg PO DAILY #60 tablet 03/30/16 [Rx Confirmed 05/19/16] Olanzapine 5 mg PO HS 05/19/16 [History Confirmed 05/19/16] Allergies/Adverse Reactions: Allergies Allergy/AdvReac Type Severity Reaction Status Date / Time No Known Drug Allergies Allergy Verified 05/19/16 05:33 - Past Medical History Past Medical History: Yes Neurological History: Dementia ENT History: No Pertinent History Cardiac History: Congestive Heart Failure, Coronary Artery Disease, Hypertension Respiratory History: Asthma, Bronchitis, CHF, COPD, Pneumonia, Other Endocrine Medical History: No Pertinent History Musculoskelatal History: No Pertinent History GI Medical History: No Pertinent History History: No Pertinent History Pyscho-Social History: Depression Reproductive Disorders: No Pertinent History Comment: ... - Female History Are you now?: No - Past Surgical History Past Surgical History: Yes Neuro Surgical History: No Pertinent History Cardiac History: Pacemaker Respiratory Surgery: No Pertinent History GI Surgical History: Bowel Surgery Genitourinary Surgical Hx: No Pertinent History Musculskeletal Surgical Hx: Amputation Female Surgical History: No Pertinent History Other Surgical History: sinus surgery in 80's,finger amp, bowel surg. - Social History Smoking Status: Former smoker How long have you smoked: 45 years Exposure to second hand smoke: No Alcohol: None Drug Use: none Significant Family History: no pertinent family hx - Physical Exam Vital Signs: Vital Signs - 24 hr Temp Pulse Resp BP Pulse Ox 05/19/16 11:29 78 20 97 05/19/16 10:13 97 05/19/16 10:08 114 H 20 97 05/19/16 09:00 97.1 F 120 H 17 115/67 97 05/19/16 08:00 115 H 14 114/59 96 05/19/16 07:30 97.1 F 120 H 17 115/67 97 05/19/16 07:25 120 H 22 125/67 05/19/16 07:04 99 05/19/16 06:50 120 H 18 112/69 97 05/19/16 06:35 24 92 L 05/19/16 06:26 88 L 05/19/16 06:16 130 H 24 125/70 95 05/19/16 05:33 119 H 20 86 L 05/19/16 05:26 99.2 F 134 H 24 138/61 99 Oxygen-Last 24 hours O2 Percentage 40% O2 Percentage 40% O2 Percentage 40% O2 Percentage 40% O2 Percentage 4 Liters = 36% General Appearance: thin Neurologic Exam: alert, confusion, depressed mood/affect, other (she has clonus of upper and lower extremities bilateral), No dysarthria Eye Exam: PERRL/EOMI, pale conjunctivae, No scleral icterus Ears, Nose, Throat Exam: dry mucous membranes, No pharyngeal erythema Neck Exam: normal inspection, non-tender, supple Respiratory Exam: diminished breath sounds, accessory muscle use, prolonged expirations, wheezing Cardiovascular Exam: tachycardia Gastrointestinal/Abdomen Exam: soft, normal bowel sounds, No tenderness, No distention Extremity Exam: deformities, other (joint deformities of hands bilateral RA deformities), No pedal edema Skin Exam: warm, dry Results - Labs Lab/Micro Results: Lab Results-Last 24 Hours 05/19/16 Range/Units 10:05 Puncture Site RIGHT RADIAL pCO2 69 H* (35-45) mmHg pO2 101 H (75-100) mmHg Base Excess 23.0 H (-2.0-2.0) O2 Saturation 96.4 (94-100) g/dF ABG pH 7.47 H (7.35-7.45) ABG HCO3 50.2 H* (22-28) ABG O2 Sat (Measured) 99.5 (95-100) % Riki Test YES A-a Gradient 98 a/A Ratio 0.51 Hemoglobin 10.6 Carboxyhemoglobin 2.0 (0.0-6.9) % THgb Methemoglobin 1.1 L (1.4-1.5) % Potassium 3.9 (3.5-5.1) Temperature 37.0 C POC O2 Flow Rate 40 % Expiratory BiPAP 5 - Other Procedures and Tests Respiratory Therapy 05/19/16 10:08 neb [Respiratory Nebulizer] Q4H Assessment/Plan (1) Acute exacerbation of chronic obstructive airways disease Current Visit: Yes Status: Acute Assessment & Plan: continue the iv steroids, antibiotics and oxygen use the bipap for CO2 retention and the breathing as needed with the clonus and onset near time of initiation of zyprexa, stop zyprexa hold prozac continue lorazepam prn for any agitation, labile bp or HR these symptoms are improved right now. Code(s): J44.1 - CHRONIC OBSTRUCTIVE PULMONARY DISEASE W (ACUTE) EXACERBATION (2) Respiratory failure Current Visit: Yes Status: Acute Qualifiers: Chronicity: acute on chronic Respiratory failure complication: hypoxia and hypercapnia Qualified Code(s): J96.21 - Acute and chronic respiratory failure with hypoxia; J96.22 - Acute and chronic respiratory failure with hypercapnia Code(s): J96.90 - RESPIRATORY FAILURE, UNSP, UNSP W HYPOXIA OR HYPERCAPNIA (3) Hypercapnia Current Visit: Yes Status: Chronic Code(s): R06.89 - OTHER ABNORMALITIES OF BREATHING (4) UTI (urinary tract infection) Current Visit: Yes Status: Acute Qualifiers: Urinary tract infection type: site unspecified Hematuria presence: without hematuria Qualified Code(s): N39.0 - Urinary tract infection, site not specified Code(s): N39.0 - URINARY TRACT INFECTION, SITE NOT SPECIFIED (5) Anemia Current Visit: Yes Status: Chronic Qualifiers: Code(s): D64.9 - ANEMIA, UNSPECIFIED (6) Hypertension Current Visit: Yes Status: Chronic Code(s): I10 - ESSENTIAL (PRIMARY) HYPERTENSION (7) CHF (congestive heart failure) Current Visit: Yes Status: Chronic Qualifiers: Congestive heart failure type: diastolic Congestive heart failure chronicity: chronic Qualified Code(s): I50.32 - Chronic diastolic (congestive ) heart failure Code(s): I50.9 - HEART FAILURE, UNSPECIFIED (8) Rheumatoid arthritis Current Visit: Yes Status: Chronic Qualifiers: Rheumatoid arthritis location: multiple sites Code(s): M06.9 - RHEUMATOID ARTHRITIS, UNSPECIFIED (9) Depression Current Visit: Yes Status: Chronic Assessment & Plan: holding prozac stopped zyprexa with her clonus and symptoms continue to monitor Code(s): F32.9 - MAJOR DEPRESSIVE DISORDER, SINGLE EPISODE, UNSPECIFIED (10) Anxiety Current Visit: Yes Status: Chronic Code(s): F41.9 - ANXIETY DISORDER, UNSPECIFIED
[2016-05-19] MEDS: FEOSOL 325 MG PO SCH ×2 (14:01→19:59)
[2016-05-19] MEDS: Norco 10/325 MG Tablet PO PRN ×2 (14:01→19:58)
[2016-05-19] MEDS: ENOXAPARIN SODIUM SQ SCH (14:02)
[2016-05-19] MEDS: Ativan 1 MG PO PRN ×2 (14:02→19:57)
[2016-05-19] MEDS: Zestril 10 MG PO SCH (14:42)
[2016-05-19] MEDS: Lopressor 50 MG PO SCH ×2 (14:43→21:30)
[2016-05-19] MEDS: PROVENTIL 2.5 MG/3 ML NEB IH PRN (20:34)
[2016-05-19] MEDS: Colace 100 MG PO SCH (21:28)
[2016-05-19] MEDS: Aricept 10 MG PO SCH (21:28)
[2016-05-19] MEDS ORDERED: NON-FORMULARY ITEM (Donepezil Hcl [Donepezil Hcl] 5 MG) PO SCH (22:00)
[2016-05-20] MEDS: DUONEB 0.5-3 MG/3 ml Neb IH SCH ×7 (00:01→23:02)
[2016-05-20] MEDS: solu-MEDROL 40 MG IV SCH ×3 (05:38→19:55)
[2016-05-20 05:41] LABS: Mean Corpuscular Hemoglobin 29.2 pg (26-32); Platelet Count 219 K/mm3 (150-450); Red Blood Count 3.01 M/mm3 (4.1-5.4); Red Cell Distribution Width 14.9 % (11.5-14.0); White Blood Count 18.4 K/mm3 (4.0-10.5)
[2016-05-20 06:05] LABS: ANISOCYTOSIS 1+; Platelet Estimate NORMAL (NORMAL); Poikilocytosis 1+; Total Cells Counted 100
[2016-05-20 06:15] LABS: ANION GAP 3.3 MEQ/L (5-15); BLOOD UREA NITROGEN 17 mg/dL (9-20); CHLORIDE 101 mEq/L (98-107); Carbon Dioxide 41.3 mEq/L (21-32); Glucose 185 MG/DL (70-110); MAGNESIUM 2.2 mg/dL (1.8-2.4); Potassium 4.2 mEq/L (3.5-5.1); SODIUM 141 mEq/L (136-145)
[2016-05-20] MEDS: Advair Hfa 115/21 Common canister IH SCH ×2 (06:40→17:17)
--- NOTE | 2016-05-20 08:14 | PCM.NOTE ---
Date and Time: 05/20/16 08 Subjective Assessment: feeling much better today rested better breathing improving eating some now no new complaints. Objective Exam General Appearance: no apparent distress Neurologic Exam: alert, oriented x 3, cooperative, other (1 beat of clonus bilateral lower extremities improved from 4+ yesterday none in the arms compared to sustained yesterday) Skin Exam: warm, dry Eye Exam: pale conjunctivae, No scleral icterus Ears, Nose, Throat Exam: moist mucous membranes Neck Exam: non-tender, supple Respiratory Exam: diminished breath sounds, prolonged expirations, wheezing Cardiovascular Exam: regular rate/rhythm, normal heart sounds Gastrointestinal/Abdomen Exam: soft, normal bowel sounds, No tenderness Extremity Exam: normal inspection, No calf tenderness, No pedal edema OBJECTIVE DATA Vital Signs: Vital Signs - 24 hr Temp Pulse Resp BP Pulse Ox 05/20/16 06:36 71 18 98 05/20/16 04:00 96.8 F 67 20 130/59 99 05/20/16 03:24 73 18 99 05/20/16 00:02 75 18 99 05/20/16 00:00 96.5 F 74 21 123/68 98 05/19/16 20:41 106 H 29 H 95 05/19/16 20:00 98.9 F 111 H 20 134/73 95 05/19/16 18:27 95 H 18 96 05/19/16 16:00 98.7 F 107 H 18 125/63 97 05/19/16 13:57 102 H 96 05/19/16 12:00 98.1 F 85 22 105/71 96 05/19/16 11:29 78 20 97 05/19/16 10:13 97 05/19/16 10:08 114 H 20 97 05/19/16 09:00 97.1 F 120 H 17 115/67 97 Oxygen-Last 24 hours O2 Percentage 40% O2 Percentage 40% O2 Percentage 4 Liters = 36% O2 Percentage 4 Liters = 36% O2 Percentage 4 Liters = 36% O2 Percentage 40% O2 Percentage 40% Pain Assessment - Last Documented Pain Intensity 0 Pain Scale Used 0-10 Pain Scale Intake and Output: Intake & Output 05/17/16 05/18/16 05/19/16 05/20/16 11:59 11:59 11:59 11:59 Intake Total 750 Output Total 300 Balance 450 Weight 61.7 kg Lab Results: Lab Results-Last 24 Hours 05/20/16 05/20/16 Range/Units 05:18 05:18 WBC 18.4 H (4.0-10.5) K/mm3 RBC 3.01 L (4.1-5.4) M/mm3 Hgb 8.8 L (12.0-16.0) gm/dl Hct 29.8 L (35-47) % MCV 99.0 (78-100) fl MCH 29.2 (26-32) pg MCHC 29.5 L (32-36) g/dl RDW 14.9 H (11.5-14.0) % Plt Count 219 (150-450) K/mm3 MPV 10.0 H (6-9.5) fl Segmented Neutrophils 97 H (36.0-66.0) % Lymphocytes (Manual) 1 L (24-44) % Monocytes (Manual) 2 (0.0-12.0) % Platelet Estimate NORMAL (NORMAL) Poikilocytosis 1+ Anisocytosis 1+ Sodium 141 (136-145) mEq/L Potassium 4.2 (3.5-5.1) mEq/L Chloride 101 (98-107) mEq/L Carbon Dioxide 41.3 H (21-32) mEq/L Anion Gap 3.3 L (5-15) MEQ/L BUN 17 (9-20) mg/dL Creatinine 0.62 (0.55-1.30) mg/dl Estimated GFR > 60 ML/MIN Glucose 185 H (70-110) MG/DL Calcium 8.5 (8.5-10.1) mg/dL Magnesium 2.2 (1.8-2.4) mg/dL NT-Pro-B Natriuret Pep 972 H (0-125) pg/ml Assessment/Plan (1) Acute exacerbation of chronic obstructive airways disease Current Visit: Yes Status: Acute Assessment & Plan: continue steroids, nebs, antibiotics, wean o2 as tolerated on chronic O2 at home may need ECF stay ok to transfer to med surg Code(s): J44.1 - CHRONIC OBSTRUCTIVE PULMONARY DISEASE W (ACUTE) EXACERBATION (2) Respiratory failure Current Visit: Yes Status: Acute Qualifiers: Chronicity: acute on chronic Respiratory failure complication: hypoxia and hypercapnia Qualified Code(s): J96.21 - Acute and chronic respiratory failure with hypoxia; J96.22 - Acute and chronic respiratory failure with hypercapnia Code(s): J96.90 - RESPIRATORY FAILURE, UNSP, UNSP W HYPOXIA OR HYPERCAPNIA (3) Hypercapnia Current Visit: Yes Status: Chronic Code(s): R06.89 - OTHER ABNORMALITIES OF BREATHING (4) UTI (urinary tract infection) Current Visit: Yes Status: Acute Qualifiers: Urinary tract infection type: site unspecified Hematuria presence: without hematuria Qualified Code(s): N39.0 - Urinary tract infection, site not specified Code(s): N39.0 - URINARY TRACT INFECTION, SITE NOT SPECIFIED (5) Anemia Current Visit: Yes Status: Chronic Qualifiers: Code(s): D64.9 - ANEMIA, UNSPECIFIED (6) Hypertension Current Visit: Yes Status: Chronic Code(s): I10 - ESSENTIAL (PRIMARY) HYPERTENSION (7) CHF (congestive heart failure) Current Visit: Yes Status: Chronic Qualifiers: Congestive heart failure type: diastolic Congestive heart failure chronicity: chronic Qualified Code(s): I50.32 - Chronic diastolic (congestive ) heart failure Code(s): I50.9 - HEART FAILURE, UNSPECIFIED (8) Rheumatoid arthritis Current Visit: Yes Status: Chronic Qualifiers: Rheumatoid arthritis location: multiple sites Code(s): M06.9 - RHEUMATOID ARTHRITIS, UNSPECIFIED (9) Depression Current Visit: Yes Status: Chronic Code(s): F32.9 - MAJOR DEPRESSIVE DISORDER, SINGLE EPISODE, UNSPECIFIED (10) Anxiety Current Visit: Yes Status: Chronic Code(s): F41.9 - ANXIETY DISORDER, UNSPECIFIED
[2016-05-20] MEDS: Ativan 1 MG PO PRN ×3 (09:17→19:55)
[2016-05-20] MEDS: Norco 10/325 MG Tablet PO PRN ×3 (09:44→19:55)
[2016-05-20] MEDS: MAG-OX 400 PO SCH (09:45)
[2016-05-20] MEDS: ROCEPHIN 1 Gm-D5w 50 ml Bag** 50 ML IV SCH (09:45)
[2016-05-20] MEDS: FEOSOL 325 MG PO SCH ×3 (09:45→19:55)
[2016-05-20] MEDS: Colace 100 MG PO SCH ×2 (09:45→19:56)
[2016-05-20] MEDS: Lasix 20 MG/2 ML IV SCH (09:45)
[2016-05-20] MEDS: Lopressor 50 MG PO SCH ×2 (09:45→19:55)
[2016-05-20] MEDS: Zestril 10 MG PO SCH (09:45)
[2016-05-20] MEDS: ENOXAPARIN SODIUM SQ SCH (09:45)
[2016-05-20] MEDS: SENOKOT 8.6 MG PO PRN (09:53)
[2016-05-20] MEDS ORDERED: VILANTEROL PO SCH (10:00)
[2016-05-20] MEDS ORDERED: Zestril 5 MG PO SCH (10:00)
[2016-05-20] MEDS ORDERED: FLUTICASONE PO SCH (10:00)
[2016-05-20] MEDS: PROVENTIL 2.5 MG/3 ML NEB IH PRN (10:00)
[2016-05-20] MEDS: Zithromax 500 MG/ 250 ML NaCl Premix 250 ML IV SCH (10:24)
[2016-05-20] MEDS: Aricept 10 MG PO SCH (19:55)
[2016-05-21] MEDS: DUONEB 0.5-3 MG/3 ml Neb IH SCH ×6 (05:03→23:42)
[2016-05-21] MEDS: Advair Hfa 115/21 Common canister IH SCH ×2 (05:53→20:57)
[2016-05-21 06:04] LABS: BLOOD UREA NITROGEN 17 mg/dL (9-20); CHLORIDE 103 mEq/L (98-107); Glucose 142 MG/DL (70-110); Potassium 4.5 mEq/L (3.5-5.1); SODIUM 145 mEq/L (136-145)
[2016-05-21 06:09] LABS: Platelet Count 271 K/mm3 (150-450); Red Blood Count 3.08 M/mm3 (4.1-5.4); Red Cell Distribution Width 14.6 % (11.5-14.0)
[2016-05-21] MEDS: solu-MEDROL 40 MG IV SCH ×3 (06:16→20:35)
[2016-05-21 06:20] LABS: Carbon Dioxide 44.2 mEq/L (21-32)
[2016-05-21 06:21] LABS: ANION GAP 2.3 MEQ/L (5-15)
[2016-05-21 07:12] LABS: Mean Corpuscular Hemoglobin 28.8 pg (26-32)
[2016-05-21] MEDS: Ativan 1 MG PO PRN (07:24)
[2016-05-21] MEDS: Ativan 1 MG PO SCH ×3 (09:36→20:35)
[2016-05-21] MEDS: ROCEPHIN 1 Gm-D5w 50 ml Bag** 50 ML IV SCH (09:38)
[2016-05-21] MEDS: MAG-OX 400 PO SCH (09:46)
[2016-05-21] MEDS: ENOXAPARIN SODIUM SQ SCH (09:46)
[2016-05-21] MEDS: FEOSOL 325 MG PO SCH ×3 (09:46→20:34)
[2016-05-21] MEDS: Colace 100 MG PO SCH ×2 (09:46→20:35)
[2016-05-21] MEDS: Zestril 10 MG PO SCH (09:46)
[2016-05-21] MEDS: Lopressor 50 MG PO SCH ×2 (09:46→20:35)
[2016-05-21] MEDS: Lasix 20 MG/2 ML IV SCH (09:46)
[2016-05-21] MEDS: Zithromax 500 MG/ 250 ML NaCl Premix 250 ML IV SCH (10:13)
[2016-05-21] MEDS: Norco 10/325 MG Tablet PO PRN ×3 (11:02→20:39)
[2016-05-21] MEDS: SENOKOT 8.6 MG PO PRN (13:51)
--- NOTE | 2016-05-21 19:59 | PCM.NOTE ---
Date and Time: 05/21/161953 Subjective Assessment: periods of confusion and paranoia continue she is very scared if anyone leaves her and has had periods of hallucinations as well. she is eating has tolerated 4 to 5 L NC O2. only complaint is she can't breath. Objective Exam General Appearance: no apparent distress, anxiety Neurologic Exam: alert, confusion, other (no clonus today however her confusion limits the testing for this as she moves everything or resists with any motion) , No normal mood/affect Skin Exam: warm, dry, No jaundice Eye Exam: pale conjunctivae Ears, Nose, Throat Exam: moist mucous membranes Neck Exam: normal inspection, non-tender, supple Respiratory Exam: diminished breath sounds, prolonged expirations, wheezing Cardiovascular Exam: regular rate/rhythm, normal heart sounds Gastrointestinal/Abdomen Exam: soft, normal bowel sounds, No tenderness, No distention Extremity Exam: normal inspection, No calf tenderness, No pedal edema OBJECTIVE DATA Vital Signs: Vital Signs - 24 hr Temp Pulse Resp BP Pulse Ox 05/21/16 14:42 86 22 98 05/21/16 11:24 88 21 137/90 95 05/21/16 11:07 88 22 95 05/21/16 07:28 98.4 F 97 H 22 185/68 96 05/21/16 05:53 77 20 93 L 05/21/16 04:00 97.9 F 86 20 145/68 92 L 05/21/16 00:00 59 L 18 99 05/20/16 23:05 59 L 18 99 05/20/16 20:00 98.2 F 97 H 20 145/65 95 Oxygen-Last 24 hours O2 Percentage 5 Liters = 40% O2 Percentage 5 Liters = 40% O2 Percentage 5 Liters = 40% O2 Percentage 4 Liters = 36% O2 Percentage 5 Liters = 40% Pain Assessment - Last Documented Pain Intensity 10 Pain Scale Used 0-10 Pain Scale Intake and Output: Intake & Output 05/19/16 05/20/16 05/21/16 05/22/16 11:59 11:59 11:59 11:59 Intake Total 750 600 Output Total 300 Balance 450 600 Weight 61.7 kg 63.049 kg Lab Results: Lab Results-Last 24 Hours 05/21/16 05/21/16 Range/Units 05:10 05:10 WBC 15.0 H (4.0-10.5) K/mm3 RBC 3.08 L (4.1-5.4) M/mm3 Hgb 8.9 L (12.0-16.0) gm/dl Hct 30.8 L (35-47) % MCV 100.0 (78-100) fl MCH 28.8 (26-32) pg MCHC 28.9 L (32-36) g/dl RDW 14.6 H (11.5-14.0) % Plt Count 271 (150-450) K/mm3 MPV 10.0 H (6-9.5) fl Sodium 145 (136-145) mEq/L Potassium 4.5 (3.5-5.1) mEq/L Chloride 103 (98-107) mEq/L Carbon Dioxide 44.2 H (21-32) mEq/L Anion Gap 2.3 L (5-15) MEQ/L BUN 17 (9-20) mg/dL Creatinine 0.66 (0.55-1.30) mg/dl Estimated GFR > 60 ML/MIN Glucose 142 H (70-110) MG/DL Calcium 8.3 L (8.5-10.1) mg/dL Slides for Path Review YES Multi-Disciplinary Progress Notes: Multi-Disciplinary Progress Notes 05/21/16 11:05 (created 05/21/16 11:49) Case Management Note by Em Vuong DISCHARGE PLAN REVIEWED WITH MELISSA. CONTINUE TO PLAN TO RETURN HOME WITH HHC AND HOME O2 AT PRESENT. DID EXPRESS CONCERN FOR NEEDS ON DISCHARGE IF BEHAVIORS CONTINUE. PT CURRENTLY CONFUSED WITH PERIODS OF AGITATION. DISCUSSED THAT DR. SAMS CHANGED ATIVAN TO SCHEDULED DOSE. DAUGHTER REPORTS THAT SHE HOPES THAT THIS WILL HELP. WILL CONTINUE TO FOLLOW AND ASSESS FOR ALL DC NEEDS. Initialized on 05/21/16 11:49 - END OF NOTE Assessment/Plan (1) UTI (urinary tract infection) Current Visit: Yes Status: Acute Qualifiers: Urinary tract infection type: site unspecified Hematuria presence: without hematuria Qualified Code(s): N39.0 - Urinary tract infection, site not specified Assessment & Plan: gram negative await culture Code(s): N39.0 - URINARY TRACT INFECTION, SITE NOT SPECIFIED (2) Delirium Current Visit: Yes Status: Acute Assessment & Plan: suspect do to the infection however she was likely taking the lorazepam scheduled at home based on refill history will change it to scheduled to combat any potential exacerbation by a withdrawal from it. also likely contributing is the steroids. continue to monitor for clearing of mental status. Code(s): R41.0 - DISORIENTATION, UNSPECIFIED (3) Acute exacerbation of chronic obstructive airways disease Current Visit: Yes Status: Acute Assessment & Plan: iv steroids ceftriaxone azithromycin duonebs oxygen Code(s): J44.1 - CHRONIC OBSTRUCTIVE PULMONARY DISEASE W (ACUTE) EXACERBATION (4) Respiratory failure Current Visit: Yes Status: Acute Qualifiers: Chronicity: acute on chronic Respiratory failure complication: hypoxia and hypercapnia Qualified Code(s): J96.21 - Acute and chronic respiratory failure with hypoxia; J96.22 - Acute and chronic respiratory failure with hypercapnia Code(s): J96.90 - RESPIRATORY FAILURE, UNSP, UNSP W HYPOXIA OR HYPERCAPNIA (5) Hypercapnia Current Visit: Yes Status: Chronic Code(s): R06.89 - OTHER ABNORMALITIES OF BREATHING (6) Anemia Current Visit: Yes Status: Chronic Qualifiers: Code(s): D64.9 - ANEMIA, UNSPECIFIED (7) Hypertension Current Visit: Yes Status: Chronic Code(s): I10 - ESSENTIAL (PRIMARY) HYPERTENSION (8) CHF (congestive heart failure) Current Visit: Yes Status: Chronic Qualifiers: Congestive heart failure type: diastolic Congestive heart failure chronicity: chronic Qualified Code(s): I50.32 - Chronic diastolic (congestive ) heart failure Code(s): I50.9 - HEART FAILURE, UNSPECIFIED (9) Rheumatoid arthritis Current Visit: Yes Status: Chronic Qualifiers: Rheumatoid arthritis location: multiple sites Code(s): M06.9 - RHEUMATOID ARTHRITIS, UNSPECIFIED (10) Depression Current Visit: Yes Status: Chronic Code(s): F32.9 - MAJOR DEPRESSIVE DISORDER, SINGLE EPISODE, UNSPECIFIED (11) Anxiety Current Visit: Yes Status: Chronic Code(s): F41.9 - ANXIETY DISORDER, UNSPECIFIED
[2016-05-21] MEDS: Aricept 10 MG PO SCH (20:34)
[2016-05-22] MEDS: DUONEB 0.5-3 MG/3 ml Neb IH SCH ×6 (03:11→23:40)
[2016-05-22] MEDS: solu-MEDROL 40 MG IV SCH (06:17)
[2016-05-22] MEDS: Norco 10/325 MG Tablet PO PRN ×3 (07:54→23:48)
--- NOTE | 2016-05-22 08:36 | PCM.NOTE ---
Date and Time: 05/22/16832 Subjective Assessment: very paranoid delusional currently she is eating but very difficult to redirect very anxious. she still complains she can't breath. Objective Exam General Appearance: no apparent distress, anxiety Neurologic Exam: No oriented x 3, No cooperative Skin Exam: warm, dry, pale Eye Exam: pale conjunctivae, No scleral icterus Ears, Nose, Throat Exam: moist mucous membranes Neck Exam: non-tender, supple Respiratory Exam: prolonged expirations, wheezing Cardiovascular Exam: regular rate/rhythm Extremity Exam: No pedal edema OBJECTIVE DATA Vital Signs: Vital Signs - 24 hr Temp Pulse Resp BP Pulse Ox 05/22/16 07:00 71 16 97 05/22/16 00:00 18 05/21/16 20:57 81 22 97 05/21/16 20:00 98.5 F 80 19 158/88 94 L 05/21/16 16:00 98.5 F 80 19 94 L 05/21/16 14:42 86 22 98 05/21/16 11:24 88 21 137/90 95 05/21/16 11:07 88 22 95 Oxygen-Last 24 hours O2 Percentage 5 Liters = 40% O2 Percentage 5 Liters = 40% Pain Assessment - Last Documented Pain Intensity 8 [facility] Intake and Output: Intake & Output 05/19/16 05/20/16 05/21/16 05/22/16 11:59 11:59 11:59 11:59 Intake Total 750 600 120 Output Total 300 Balance 450 600 120 Weight 61.7 kg 62.732 kg Multi-Disciplinary Progress Notes: Multi-Disciplinary Progress Notes 05/21/16 20:05 Respiratory Note by Shabana Tom no won't let me put her breathing tx mask on her. wont let me get the mask close to her. sats 97%, hr 81, rr 22. Initialized on 05/21/16 20:05 - END OF NOTE 05/21/16 11:05 (created 05/21/16 11:49) Case Management Note by Em Vuong DISCHARGE PLAN REVIEWED WITH MELISSA. CONTINUE TO PLAN TO RETURN HOME WITH HHC AND HOME O2 AT PRESENT. DID EXPRESS CONCERN FOR NEEDS ON DISCHARGE IF BEHAVIORS CONTINUE. PT CURRENTLY CONFUSED WITH PERIODS OF AGITATION. DISCUSSED THAT DR. SAMS CHANGED ATIVAN TO SCHEDULED DOSE. DAUGHTER REPORTS THAT SHE HOPES THAT THIS WILL HELP. WILL CONTINUE TO FOLLOW AND ASSESS FOR ALL DC NEEDS. Initialized on 05/21/16 11:49 - END OF NOTE Assessment/Plan (1) UTI (urinary tract infection) Current Visit: Yes Status: Acute Qualifiers: Urinary tract infection type: site unspecified Hematuria presence: without hematuria Qualified Code(s): N39.0 - Urinary tract infection, site not specified Assessment & Plan: she has a positive culture of her throat for pseudomonas with her persistent breathing difficulties will change antibiotics to cover this as well as the E. coli UTI to the meropenem plan for 7 days of therapy she remains delusional which is not her normal she is becoming a safety concern at times. PRN con is ordered now will decrease her steroids to hope this helps to prednisone 40 po daily continue her ativan that she takes scheduled at home as it appears her missing doses has made this worse if not improving may need [facility] psych stay Code(s): N39.0 - URINARY TRACT INFECTION, SITE NOT SPECIFIED (2) Delirium Current Visit: Yes Status: Acute Code(s): R41.0 - DISORIENTATION, UNSPECIFIED (3) Acute exacerbation of chronic obstructive airways disease Current Visit: Yes Status: Acute Code(s): J44.1 - CHRONIC OBSTRUCTIVE PULMONARY DISEASE W (ACUTE) EXACERBATION (4) Respiratory failure Current Visit: Yes Status: Acute Qualifiers: Chronicity: acute on chronic Respiratory failure complication: hypoxia and hypercapnia Qualified Code(s): J96.21 - Acute and chronic respiratory failure with hypoxia; J96.22 - Acute and chronic respiratory failure with hypercapnia Code(s): J96.90 - RESPIRATORY FAILURE, UNSP, UNSP W HYPOXIA OR HYPERCAPNIA (5) Hypercapnia Current Visit: Yes Status: Chronic Code(s): R06.89 - OTHER ABNORMALITIES OF BREATHING (6) Anemia Current Visit: Yes Status: Chronic Qualifiers: Code(s): D64.9 - ANEMIA, UNSPECIFIED (7) Hypertension Current Visit: Yes Status: Chronic Code(s): I10 - ESSENTIAL (PRIMARY) HYPERTENSION (8) CHF (congestive heart failure) Current Visit: Yes Status: Chronic Qualifiers: Congestive heart failure type: diastolic Congestive heart failure chronicity: chronic Qualified Code(s): I50.32 - Chronic diastolic (congestive ) heart failure Code(s): I50.9 - HEART FAILURE, UNSPECIFIED (9) Rheumatoid arthritis Current Visit: Yes Status: Chronic Qualifiers: Rheumatoid arthritis location: multiple sites Code(s): M06.9 - RHEUMATOID ARTHRITIS, UNSPECIFIED (10) Depression Current Visit: Yes Status: Chronic Code(s): F32.9 - MAJOR DEPRESSIVE DISORDER, SINGLE EPISODE, UNSPECIFIED (11) Anxiety Current Visit: Yes Status: Chronic Code(s): F41.9 - ANXIETY DISORDER, UNSPECIFIED
[2016-05-22] MEDS: Geodon 20 MG INJ IM PRN ×3 (09:00→23:27)
[2016-05-22] MEDS: Merrem 1 GM 1 G in Sodium Chloride 100ML MINI-BAG PLUS 100 ML IV SCH ×3 (11:11→22:31)
[2016-05-22] MEDS: Colace 100 MG PO SCH ×2 (11:12→22:37)
[2016-05-22] MEDS: Ativan 1 MG PO SCH ×3 (11:12→22:36)
[2016-05-22] MEDS: Lasix 20 MG/2 ML IV SCH (11:13)
[2016-05-22] MEDS: ENOXAPARIN SODIUM SQ SCH (11:13)
[2016-05-22] MEDS: DELTASONE 20 MG PO SCH (11:14)
[2016-05-22] MEDS: MAG-OX 400 PO SCH (11:14)
[2016-05-22] MEDS: Zestril 10 MG PO SCH (11:14)
[2016-05-22] MEDS: Lopressor 50 MG PO SCH ×2 (11:14→22:37)
[2016-05-22] MEDS: FEOSOL 325 MG PO SCH ×3 (11:14→22:37)
[2016-05-22] MEDS: Prozac 20 MG PO SCH (11:17)
[2016-05-22] MEDS: Aricept 10 MG PO SCH (22:36)
[2016-05-23] MEDS: Merrem 1 GM 1 G in Sodium Chloride 100ML MINI-BAG PLUS 100 ML IV SCH ×3 (05:22→21:05)
[2016-05-23 05:45] LABS: Mean Cell Volume 98.3 fl (78-100); Mean Platelet Volume 9.5 fl (6-9.5); Platelet Count 250 K/mm3 (150-450); Red Blood Count 3.51 M/mm3 (4.1-5.4); Red Cell Distribution Width 14.9 % (11.5-14.0); White Blood Count 12.4 K/mm3 (4.0-10.5)
[2016-05-23] MEDS: DUONEB 0.5-3 MG/3 ml Neb IH SCH ×6 (05:53→23:44)
[2016-05-23 05:55] LABS: Mean Corpuscular Hemoglobin 28.7 pg (26-32)
[2016-05-23 06:00] LABS: BLOOD UREA NITROGEN 17 mg/dL (9-20); CHLORIDE 100 mEq/L (98-107); Glucose 90 MG/DL (70-110); Potassium 3.6 mEq/L (3.5-5.1); SODIUM 146 mEq/L (136-145)
[2016-05-23 06:03] LABS: Carbon Dioxide > 45.0 mEq/L (21-32)
[2016-05-23] MEDS: Advair Hfa 115/21 Common canister IH SCH ×3 (07:00→19:37)
[2016-05-23 07:19] LABS: Platelet Estimate NORMAL (NORMAL); Total Cells Counted 100
[2016-05-23 07:20] LABS: Hypochromia 1+
[2016-05-23] MEDS: MAG-OX 400 PO SCH (09:01)
[2016-05-23] MEDS: Colace 100 MG PO SCH ×2 (09:01→21:05)
[2016-05-23] MEDS: Prozac 20 MG PO SCH (09:01)
[2016-05-23] MEDS: DELTASONE 20 MG PO SCH (09:01)
[2016-05-23] MEDS: FEOSOL 325 MG PO SCH ×3 (09:02→21:05)
[2016-05-23] MEDS: Lopressor 50 MG PO SCH ×2 (09:02→21:05)
[2016-05-23] MEDS: Norco 10/325 MG Tablet PO PRN ×3 (09:02→17:36)
[2016-05-23] MEDS: Zestril 10 MG PO SCH (09:02)
[2016-05-23] MEDS: Ativan 1 MG PO SCH ×3 (09:02→21:05)
[2016-05-23] MEDS: ENOXAPARIN SODIUM SQ SCH (09:33)
[2016-05-23] MEDS: Geodon 20 MG INJ IM PRN (09:49)
--- NOTE | 2016-05-23 11:24 | PCM.NOTE ---
Date and Time: 05/23/16 1123 Subjective Assessment: patient continues to be delusional and extremely anxious. can't keep her oxygen on her. Objective Exam General Appearance: no apparent distress Respiratory Exam: prolonged expirations, wheezing Cardiovascular Exam: regular rate/rhythm, normal heart sounds Gastrointestinal/Abdomen Exam: soft, No tenderness, No mass Extremity Exam: normal inspection, normal range of motion OBJECTIVE DATA Vital Signs: Vital Signs - 24 hr Temp Pulse Resp BP Pulse Ox 05/23/16 09:02 97.7 F 05/23/16 07:30 97.7 F 80 24 128/70 96 05/23/16 07:00 82 24 96 05/23/16 04:00 20 05/22/16 23:35 79 18 134/73 95 05/22/16 19:49 97.5 F 88 25 H 168/70 94 L 05/22/16 19:00 88 20 94 L 05/22/16 16:00 79 23 141/67 05/22/16 15:00 83 20 96 05/22/16 12:00 97.5 F 75 24 158/70 96 Oxygen-Last 24 hours O2 Percentage 5 Liters = 40% O2 Percentage 5 Liters = 40% O2 Percentage 5 Liters = 40% O2 Percentage 4 Liters = 36% Pain Assessment - Last Documented Pain Intensity 0 Pain Scale Used [facility] Intake and Output: Intake & Output 05/20/16 05/21/16 05/22/16 05/23/16 11:59 11:59 11:59 11:59 Intake Total 750 600 120 740 Output Total 300 Balance 450 600 120 740 Weight 61.7 kg 62.732 kg 62.868 kg Lab Results: Lab Results-Last 24 Hours 05/23/16 05/23/16 Range/Units 05:30 05:30 WBC 12.4 H (4.0-10.5) K/mm3 RBC 3.51 L (4.1-5.4) M/mm3 Hgb 10.1 L (12.0-16.0) gm/dl Hct 34.5 L (35-47) % MCV 98.3 (78-100) fl MCH 28.7 (26-32) pg MCHC 29.3 L (32-36) g/dl RDW 14.9 H (11.5-14.0) % Plt Count 250 (150-450) K/mm3 MPV 9.5 (6-9.5) fl Segmented Neutrophils 68 H (36.0-66.0) % Lymphocytes (Manual) 26 (24-44) % Monocytes (Manual) 6 (0.0-12.0) % Differential Comment ABNORMAL Platelet Estimate NORMAL (NORMAL) Hypochromasia 1+ Sodium 146 H (136-145) mEq/L Potassium 3.6 (3.5-5.1) mEq/L Chloride 100 (98-107) mEq/L Carbon Dioxide > 45.0 H* (21-32) mEq/L BUN 17 (9-20) mg/dL Creatinine 0.56 (0.55-1.30) mg/dl Estimated GFR > 60 ML/MIN Glucose 90 (70-110) MG/DL Calcium 8.3 L (8.5-10.1) mg/dL Assessment/Plan (1) Acute exacerbation of chronic obstructive airways disease Current Visit: Yes Status: Acute Assessment & Plan: continue current management, was changed to meropenem Code(s): J44.1 - CHRONIC OBSTRUCTIVE PULMONARY DISEASE W (ACUTE) EXACERBATION (2) Delirium Current Visit: Yes Status: Acute Assessment & Plan: contineu IM [place], awaiting ECF placement Code(s): R41.0 - DISORIENTATION, UNSPECIFIED
[2016-05-23] MEDS: PROVENTIL 2.5 MG/3 ML NEB IH PRN ×2 (14:40→17:15)
[2016-05-23] MEDS: Aricept 10 MG PO SCH (21:04)
[2016-05-24] MEDS: DUONEB 0.5-3 MG/3 ml Neb IH SCH ×5 (02:54→17:59)
[2016-05-24] MEDS: Geodon 20 MG INJ IM PRN (03:48)
[2016-05-24] MEDS: Norco 10/325 MG Tablet PO PRN ×3 (03:58→20:52)
--- NOTE | 2016-05-24 06:02 | PCM.NOTE ---
Date and Time: 05/24/16 0600 Subjective Assessment: patient does not converse this morning, she is alert and in no distress. remains quite confused Objective Exam General Appearance: no apparent distress, alert Respiratory Exam: prolonged expirations Cardiovascular Exam: regular rate/rhythm Gastrointestinal/Abdomen Exam: soft, No tenderness, No mass Extremity Exam: normal inspection, normal range of motion OBJECTIVE DATA Vital Signs: Vital Signs - 24 hr Temp Pulse Resp BP Pulse Ox 05/24/16 04:00 97.9 F 98 H 20 159/65 95 05/24/16 03:16 98 H 20 95 05/24/16 00:00 77 20 95 05/23/16 23:44 97 H 20 95 05/23/16 20:00 97.8 F 92 H 22 94 L 05/23/16 18:52 92 H 22 94 L 05/23/16 17:36 97.8 F 05/23/16 17:15 96 H 24 94 L 05/23/16 15:54 97.8 F 88 20 148/70 92 L 05/23/16 14:50 86 24 94 L 05/23/16 13:25 98.1 F 05/23/16 12:00 98.1 F 84 20 162/69 91 L 05/23/16 09:02 97.7 F 05/23/16 07:30 97.7 F 80 24 128/70 96 05/23/16 07:00 82 24 96 Oxygen-Last 24 hours O2 Percentage 5 Liters = 40% O2 Percentage 5 Liters = 40% O2 Percentage 4 Liters = 36% O2 Percentage 5 Liters = 40% O2 Percentage 5 Liters = 40% O2 Percentage 5 Liters = 40% Pain Assessment - Last Documented Pain Intensity 7 Pain Scale Used 0-10 Pain Scale Intake and Output: Intake & Output 05/21/16 05/22/16 05/23/16 05/24/16 11:59 11:59 11:59 11:59 Intake Total 600 120 740 540 Balance 600 120 740 540 Weight 62.732 kg 62.868 kg Lab Results: Lab Results-Last 24 Hours 05/23/16 05/23/16 Range/Units 05:30 05:30 WBC 12.4 H (4.0-10.5) K/mm3 RBC 3.51 L (4.1-5.4) M/mm3 Hgb 10.1 L (12.0-16.0) gm/dl Hct 34.5 L (35-47) % MCV 98.3 (78-100) fl MCH 28.7 (26-32) pg MCHC 29.3 L (32-36) g/dl RDW 14.9 H (11.5-14.0) % Plt Count 250 (150-450) K/mm3 MPV 9.5 (6-9.5) fl Segmented Neutrophils 68 H (36.0-66.0) % Lymphocytes (Manual) 26 (24-44) % Monocytes (Manual) 6 (0.0-12.0) % Differential Comment ABNORMAL Platelet Estimate NORMAL (NORMAL) Hypochromasia 1+ Sodium 146 H (136-145) mEq/L Potassium 3.6 (3.5-5.1) mEq/L Chloride 100 (98-107) mEq/L Carbon Dioxide > 45.0 H* (21-32) mEq/L BUN 17 (9-20) mg/dL Creatinine 0.56 (0.55-1.30) mg/dl Estimated GFR > 60 ML/MIN Glucose 90 (70-110) MG/DL Calcium 8.3 L (8.5-10.1) mg/dL Assessment/Plan (1) Acute exacerbation of chronic obstructive airways disease Current Visit: Yes Status: Acute Assessment & Plan: stable at this time, reduce prednisone to 20mg daily and see if her delerium might improve Code(s): J44.1 - CHRONIC OBSTRUCTIVE PULMONARY DISEASE W (ACUTE) EXACERBATION (2) Delirium Current Visit: Yes Status: Acute Code(s): R41.0 - DISORIENTATION, UNSPECIFIED
[2016-05-24] MEDS: Merrem 1 GM 1 G in Sodium Chloride 100ML MINI-BAG PLUS 100 ML IV SCH ×3 (06:43→21:36)
[2016-05-24] MEDS: Advair Hfa 115/21 Common canister IH SCH ×3 (07:00→18:01)
[2016-05-24] MEDS: Zestril 10 MG PO SCH (08:43)
[2016-05-24] MEDS: Prozac 20 MG PO SCH (08:43)
[2016-05-24] MEDS: Ativan 1 MG PO SCH ×3 (08:43→21:37)
[2016-05-24] MEDS: ENOXAPARIN SODIUM SQ SCH (08:43)
[2016-05-24] MEDS: Lopressor 50 MG PO SCH ×2 (08:43→21:38)
[2016-05-24] MEDS: Colace 100 MG PO SCH ×2 (08:43→21:37)
[2016-05-24] MEDS: DELTASONE 20 MG PO SCH ×2 (08:47→08:48)
[2016-05-24] MEDS: FEOSOL 325 MG PO SCH ×3 (08:48→21:37)
[2016-05-24] MEDS: PROVENTIL 2.5 MG/3 ML NEB IH PRN ×2 (09:00→19:11)
[2016-05-24] MEDS: MAG-OX 400 PO SCH (09:04)
[2016-05-24] MEDS: Aricept 10 MG PO SCH (21:38)
[2016-05-25] MEDS: DUONEB 0.5-3 MG/3 ml Neb IH SCH ×7 (00:47→23:53)
[2016-05-25] MEDS: Geodon 20 MG INJ IM PRN ×2 (03:36→09:55)
[2016-05-25] MEDS: Merrem 1 GM 1 G in Sodium Chloride 100ML MINI-BAG PLUS 100 ML IV SCH ×3 (06:03→21:13)
[2016-05-25 06:14] LABS: Mean Cell Volume 98.9 fl (78-100); Mean Corpuscular Hemoglobin 28.5 pg (26-32); Mean Platelet Volume 9.7 fl (6-9.5); Platelet Count 243 K/mm3 (150-450); Red Blood Count 3.61 M/mm3 (4.1-5.4); Red Cell Distribution Width 15.1 % (11.5-14.0); White Blood Count 13.9 K/mm3 (4.0-10.5)
[2016-05-25 06:33] LABS: ALBUMIN 2.7 g/dL (3.4-5.0); ALKALINE PHOSPHATASE 52 U/L (46-116); BLOOD UREA NITROGEN 10 mg/dL (9-20); CHLORIDE 100 mEq/L (98-107); Glucose 96 MG/DL (70-110); Potassium 3.9 mEq/L (3.5-5.1); SGOT/AST 15 U/L (15-37); SGPT/ALT 15 U/L (12-78); SODIUM 143 mEq/L (136-145); Total Protein 6.2 gm/dL (6.4-8.2)
[2016-05-25] MEDS: Advair Hfa 115/21 Common canister IH SCH ×2 (06:47→18:45)
[2016-05-25 07:09] LABS: BILIRUBIN,TOTAL < 0.1 mg/dL (0.2-1.0); Carbon Dioxide 42.5 mEq/L (21-32)
[2016-05-25 07:10] LABS: ANION GAP 4.4 MEQ/L (5-15)
[2016-05-25 07:21] LABS: Total Cells Counted 100
[2016-05-25 07:22] LABS: ANISOCYTOSIS 1+; Basophilic Stippling 1+; Platelet Estimate NORMAL (NORMAL); Polychromasia 1+
[2016-05-25 08:52] LABS: A-aADO2 98; ALLEN TEST OK? Yes; ARTERIAL BLD GAS O2 SATURATION 97.9 % (95-100); ARTERIAL BLOOD GAS BASE EXCESS 23.4 (-2.0-2.0); ARTERIAL BLOOD GAS FIO2 36 %; ARTERIAL BLOOD GAS PO2 70 mmHg (75-100); ARTERIAL BLOOD GAS pH 7.46 (7.35-7.45)
[2016-05-25] MEDS ORDERED: DIAMOX 500 MG INJ IV ONE (10:00)
[2016-05-25] MEDS: MAG-OX 400 PO SCH (10:59)
[2016-05-25] MEDS: Lopressor 50 MG PO SCH ×2 (10:59→21:08)
[2016-05-25] MEDS: FEOSOL 325 MG PO SCH ×3 (10:59→21:07)
[2016-05-25] MEDS: Colace 100 MG PO SCH ×2 (10:59→21:08)
[2016-05-25] MEDS: Ativan 1 MG PO SCH ×3 (10:59→21:07)
[2016-05-25] MEDS: Prozac 20 MG PO SCH (10:59)
[2016-05-25] MEDS: Zestril 10 MG PO SCH (10:59)
[2016-05-25] MEDS: DELTASONE 20 MG PO SCH (11:00)
[2016-05-25] MEDS: ENOXAPARIN SODIUM SQ SCH (11:03)
[2016-05-25] MEDS: Norco 10/325 MG Tablet PO PRN ×2 (15:23→21:07)
--- NOTE | 2016-05-25 19:44 | PCM.NOTE ---
Date and Time: 05/25/161937 Subjective Assessment: this am on interview she was very confused repeating words saying breathing and glasses. she was very paranoid with wide eyes. She was not following commands well was very confused. she was alert and could answer questions but inappropriately. She began refusing to let people near her and would not leave her O2 on. She became aggitated and more combative and was given Geodon this am. Then late this afternoon she suddenly improved. She then began answering questions appropriately talking to all staff members. She recalls our names. She is unsure how long she has been here but thinks it was only a day. Denies difficulty breathing this evening. Objective Exam General Appearance: no apparent distress Neurologic Exam: alert, oriented x 3, other (this is the second assessment at 18 :30 she was not oriented at 08:00 on initial assessment and was very paranoid and unable to appropriately follow commands now at 18:30 she is oriented pleasent and conversing normally.) Skin Exam: warm, dry, No rash Neck Exam: non-tender, supple Respiratory Exam: prolonged expirations, wheezing Cardiovascular Exam: regular rate/rhythm, normal heart sounds, No normal peripheral pulses Gastrointestinal/Abdomen Exam: soft, normal bowel sounds, No tenderness Extremity Exam: pedal edema OBJECTIVE DATA Vital Signs: Vital Signs - 24 hr Temp Pulse Resp BP Pulse Ox 05/25/16 18:42 88 16 93 L 05/25/16 16:00 98.3 F 75 20 124/62 97 05/25/16 14:32 88 16 98 05/25/16 12:00 98.1 F 102 H 18 147/65 98 05/25/16 10:15 91 H 20 96 05/25/16 08:00 98.3 F 98 H 20 191/99 91 L 05/25/16 06:49 88 20 97 05/25/16 04:00 97.8 F 98 H 20 156/78 96 05/25/16 03:21 77 16 95 05/25/16 00:47 69 18 97 05/25/16 00:00 98.7 F 101 H 20 147/69 98 05/24/16 20:00 99.1 F 102 H 22 150/76 99 Oxygen-Last 24 hours O2 Percentage 5 Liters = 40% O2 Percentage 5 Liters = 40% O2 Percentage 5 Liters = 40% O2 Percentage 5 Liters = 40% O2 Percentage 5 Liters = 40% O2 Percentage 5 Liters = 40% Pain Assessment - Last Documented Pain Intensity 2 Pain Scale Used 0-10 Pain Scale Intake and Output: Intake & Output 05/23/16 05/24/16 05/25/16 05/26/16 11:59 11:59 11:59 11:59 Intake Total 740 540 500 232 Balance 740 540 500 232 Weight 62.868 kg 63.775 kg Lab Results: Lab Results-Last 24 Hours 05/25/16 05/25/16 05/25/16 Range/Units 05:14 05:14 08:31 WBC 13.9 H (4.0-10.5) K/mm3 RBC 3.61 L (4.1-5.4) M/mm3 Hgb 10.3 L (12.0-16.0) gm/dl Hct 35.7 (35-47) % MCV 98.9 (78-100) fl MCH 28.5 (26-32) pg MCHC 28.9 L (32-36) g/dl RDW 15.1 H (11.5-14.0) % Plt Count 243 (150-450) K/mm3 MPV 9.7 H (6-9.5) fl Segmented Neutrophils 60 (36.0-66.0) % Lymphocytes (Manual) 34 (24-44) % Monocytes (Manual) 6 (0.0-12.0) % Differential Comment ABNORMAL Platelet Estimate NORMAL (NORMAL) Polychromasia 1+ Basophilic Stippling 1+ Anisocytosis 1+ Puncture Site LEFT RADIAL pCO2 71 H* (35-45) mmHg pO2 70 L (75-100) mmHg Base Excess 23.4 H (-2.0-2.0) O2 Saturation 94.7 (94-100) g/dF ABG pH 7.46 H (7.35-7.45) ABG HCO3 50.5 H* (22-28) ABG O2 Sat (Measured) 97.9 (95-100) % Riki Test Yes A-a Gradient 98 a/A Ratio 0.42 Hemoglobin 9.6 Carboxyhemoglobin 2.1 (0.0-6.9) % THgb Methemoglobin 1.1 L (1.4-1.5) % Temperature 37.0 C POC O2 Flow Rate 36 % Sodium 143 (136-145) mEq/L Potassium 3.9 3.7 (3.5-5.1) mEq/L Chloride 100 (98-107) mEq/L Carbon Dioxide 42.5 H (21-32) mEq/L Anion Gap 4.4 L (5-15) MEQ/L BUN 10 (9-20) mg/dL Creatinine 0.53 L (0.55-1.30) mg/dl Estimated GFR > 60 ML/MIN Glucose 96 (70-110) MG/DL Lactic Acid (0.4-2.0) Calcium 8.7 (8.5-10.1) mg/dL Total Bilirubin < 0.1 L (0.2-1.0) mg/dL AST 15 (15-37) U/L ALT 15 (12-78) U/L Alkaline Phosphatase 52 (46-116) U/L Serum Total Protein 6.2 L (6.4-8.2) gm/dL Albumin 2.7 L (3.4-5.0) g/dL 05/25/16 Range/Units 08:54 WBC (4.0-10.5) K/mm3 RBC (4.1-5.4) M/mm3 Hgb (12.0-16.0) gm/dl Hct (35-47) % MCV (78-100) fl MCH (26-32) pg MCHC (32-36) g/dl RDW (11.5-14.0) % Plt Count (150-450) K/mm3 MPV (6-9.5) fl Segmented Neutrophils (36.0-66.0) % Lymphocytes (Manual) (24-44) % Monocytes (Manual) (0.0-12.0) % Differential Comment Platelet Estimate (NORMAL) Polychromasia Basophilic Stippling Anisocytosis Puncture Site pCO2 (35-45) mmHg pO2 (75-100) mmHg Base Excess (-2.0-2.0) O2 Saturation (94-100) g/dF ABG pH (7.35-7.45) ABG HCO3 (22-28) ABG O2 Sat (Measured) (95-100) % Riki Test A-a Gradient a/A Ratio Hemoglobin Carboxyhemoglobin (0.0-6.9) % THgb Methemoglobin (1.4-1.5) % Temperature C POC O2 Flow Rate % Sodium (136-145) mEq/L Potassium (3.5-5.1) mEq/L Chloride (98-107) mEq/L Carbon Dioxide (21-32) mEq/L Anion Gap (5-15) MEQ/L BUN (9-20) mg/dL Creatinine (0.55-1.30) mg/dl Estimated GFR ML/MIN Glucose (70-110) MG/DL Lactic Acid 2.9 H (0.4-2.0) Calcium (8.5-10.1) mg/dL Total Bilirubin (0.2-1.0) mg/dL AST (15-37) U/L ALT (12-78) U/L Alkaline Phosphatase (46-116) U/L Serum Total Protein (6.4-8.2) gm/dL Albumin (3.4-5.0) g/dL Multi-Disciplinary Progress Notes: Multi-Disciplinary Progress Notes 05/25/16 13:01 Nutrition Note by Do Johnson F/u Note: Regular diet with ensure con't with 100% po intake. Pt confused. +fluid balance 500 mls. Labs 05/25= Cr 0.53, alb 2.7, hgb 10.3 Weight 05/24= 63.775 kg. Weight up 2.2#. Recommend cardiac diet. Goals to con't. Will con't to monitor and f/u prn. T.CLEEMNTINA Johnson Initialized on 05/25/16 13:01 - END OF NOTE Assessment/Plan (1) UTI (urinary tract infection) Current Visit: Yes Status: Acute Qualifiers: Urinary tract infection type: site unspecified Hematuria presence: without hematuria Qualified Code(s): N39.0 - Urinary tract infection, site not specified Code(s): N39.0 - URINARY TRACT INFECTION, SITE NOT SPECIFIED (2) Delirium Current Visit: Yes Status: Acute Assessment & Plan: will restart her nightly zyprexa tonight she required geodon the previous 2 nights due to aggitation and delusions abg this am showed CO2 retention with metabolic alkalosis she was given azetozolamide to help with this to hopefully improve the CO2 retention continue the steroid wean continue her ativan as she takes scheduled at home and on admission when she was not taking it the hallucinations appeared worse. if her mental status improves as it has tonight we could d/c to [facility] if it worsens we may need geriatric psych (however tonight she seems much improved) Code(s): R41.0 - DISORIENTATION, UNSPECIFIED (3) Acute exacerbation of chronic obstructive airways disease Current Visit: Yes Status: Acute Assessment & Plan: the culuture with pseudomonas will treat for 7 days last dose of meropenem on evening. duonebs prednisone weaned to 20 mg daily Code(s): J44.1 - CHRONIC OBSTRUCTIVE PULMONARY DISEASE W (ACUTE) EXACERBATION (4) Respiratory failure Current Visit: Yes Status: Acute Qualifiers: Chronicity: acute on chronic Respiratory failure complication: hypoxia and hypercapnia Qualified Code(s): J96.21 - Acute and chronic respiratory failure with hypoxia; J96.22 - Acute and chronic respiratory failure with hypercapnia Code(s): J96.90 - RESPIRATORY FAILURE, UNSP, UNSP W HYPOXIA OR HYPERCAPNIA (5) Hypercapnia Current Visit: Yes Status: Chronic Code(s): R06.89 - OTHER ABNORMALITIES OF BREATHING (6) Anemia Current Visit: Yes Status: Chronic Qualifiers: Code(s): D64.9 - ANEMIA, UNSPECIFIED (7) Hypertension Current Visit: Yes Status: Chronic Code(s): I10 - ESSENTIAL (PRIMARY) HYPERTENSION (8) CHF (congestive heart failure) Current Visit: Yes Status: Chronic Qualifiers: Congestive heart failure type: diastolic Congestive heart failure chronicity: chronic Qualified Code(s): I50.32 - Chronic diastolic (congestive ) heart failure Code(s): I50.9 - HEART FAILURE, UNSPECIFIED (9) Rheumatoid arthritis Current Visit: Yes Status: Chronic Qualifiers: Rheumatoid arthritis location: multiple sites Code(s): M06.9 - RHEUMATOID ARTHRITIS, UNSPECIFIED (10) Depression Current Visit: Yes Status: Chronic Code(s): F32.9 - MAJOR DEPRESSIVE DISORDER, SINGLE EPISODE, UNSPECIFIED (11) Anxiety Current Visit: Yes Status: Chronic Code(s): F41.9 - ANXIETY DISORDER, UNSPECIFIED (12) Compensated metabolic alkalosis Current Visit: Yes Status: Acute Code(s): E87.3 - ALKALOSIS
[2016-05-25] MEDS: Aricept 10 MG PO SCH (21:10)
[2016-05-25] MEDS: PROVENTIL 2.5 MG/3 ML NEB IH PRN (21:38)
[2016-05-25] MEDS ORDERED: zyPREXA 5MG TABLET PO SCH (22:00)
[2016-05-26] MEDS: DUONEB 0.5-3 MG/3 ml Neb IH SCH ×4 (03:33→14:14)
[2016-05-26] MEDS: Merrem 1 GM 1 G in Sodium Chloride 100ML MINI-BAG PLUS 100 ML IV SCH ×2 (05:36→13:30)
[2016-05-26] MEDS: PROVENTIL 2.5 MG/3 ML NEB IH PRN ×2 (06:08→15:26)
[2016-05-26] MEDS: Geodon 20 MG INJ IM PRN (06:10)
[2016-05-26] MEDS ORDERED: Ativan 2 MG/1 ML VIAL IV PRN (07:50)
[2016-05-26 08:56] LABS: BASOPHIL % 0.1 % (0.0-0.4); Eosinophil % 2.9 % (0.00-5.0); Granulocytes % 67.2 % (36.0-66.0); Lymphocytes % 24.5 % (24.0-44.0); Mean Corpuscular Hemoglobin 29.7 pg (26-32); Mean Platelet Volume 9.7 fl (6-9.5); Monocytes % 5.3 % (0.0-12.0); Platelet Count 257 K/mm3 (150-450); Red Cell Distribution Width 15.2 % (11.5-14.0); White Blood Count 11.6 K/mm3 (4.0-10.5)
[2016-05-26 08:58] LABS: VBG BASE EXCESS 19.1 (-2.0-2.0); VBG CARBOXYHEMOGLOBIN 2.9 % T HGB (0.0-6.9); VBG HEMOGLOBIN 10.7; VBG O2 SATURATION 40.5 (95-100); VBG POTASSIUM 4.7 (3.5-5.1); VBG pH 7.37 (7.32-7.42)
[2016-05-26 10:13] LABS: ALBUMIN 2.6 g/dL (3.4-5.0); ALKALINE PHOSPHATASE 52 U/L (46-116); ANION GAP 2.2 MEQ/L (5-15); BILIRUBIN,TOTAL 0.1 mg/dL (0.2-1.0); BLOOD UREA NITROGEN 14 mg/dL (9-20); CHLORIDE 103 mEq/L (98-107); Carbon Dioxide 41.6 mEq/L (21-32); Glucose 109 MG/DL (70-110); Potassium 4.2 mEq/L (3.5-5.1); SGOT/AST 13 U/L (15-37); SODIUM 143 mEq/L (136-145); Total Protein 6.1 gm/dL (6.4-8.2)
[2016-05-26] MEDS: Zestril 10 MG PO SCH (10:47)
[2016-05-26] MEDS: MAG-OX 400 PO SCH (10:47)
[2016-05-26] MEDS: FEOSOL 325 MG PO SCH ×2 (10:47→14:57)
[2016-05-26] MEDS: DELTASONE 20 MG PO SCH (10:47)
[2016-05-26] MEDS: Norco 10/325 MG Tablet PO PRN ×2 (10:47→14:57)
[2016-05-26] MEDS: Colace 100 MG PO SCH (10:48)
[2016-05-26] MEDS: Ativan 1 MG PO SCH ×2 (10:48→14:57)
[2016-05-26] MEDS: Prozac 20 MG PO SCH (10:48)
[2016-05-26] MEDS: Lopressor 50 MG PO SCH (10:49)
[2016-05-26 10:51] LABS: SGPT/ALT 16 U/L (12-78)
[2016-05-26] MEDS: ENOXAPARIN SODIUM SQ SCH (10:52)
[2016-05-26 13:09] VITALS: BP 123/60
--- NOTE | 2016-05-26 13:32 | PCM.DCORD ---
- Discharge Discharge Date: 05/26/16 Disposition: Skilled Care @ [facility] Condition: Fair Prescriptions: New Ziprasidone HCl [Geodon] 40 mg PO HS #30 capsule Meropenem [Merrem 1 GM] 1 g IV Q8HT #0 vial Continue Donepezil HCl 5 mg PO HS Sennosides [Senna Laxative] 2 tab PO DAILY PRN PRN PRN Reason: Constipation Fluoxetine HCl [Prozac] 60 mg PO DAILY Magnesium Oxide 400 mg [Mag-Ox 400] 400 mg PO DAILY #30 tablet Fluticasone/Vilanterol [Breo Ellipta 100-25 Mcg INH] 1 inh PO DAILY Albuterol/Ipratropium 3ml Neb* [DUONEB 0.5-3 MG/3 ml Neb] 3 ml IH Q4HPRN PRN PRN Reason: Shortness Of Breath Docusate Sodium 100 mg [Colace 100 MG] 100 mg PO BID #60 capsule Ferrous Sulfate 325 mg [Feosol 325 mg] 325 mg PO TID #90 tablet Lisinopril 5 mg [Zestril 5 MG] 10 mg PO DAILY #30 tablet Albuterol Sulfate [Proair Hfa] 8.5 gm IH Q6HPRN PRN PRN Reason: Shortness Of Breath/Wheezing Metoprolol Tartrate 50 mg [Lopressor 50 MG] 50 mg PO BID #0 tablet Prednisone 10 mg [Deltasone 10 mg] 10 mg PO DAILY #60 tablet Hydrocodone/APAP 10/325 mg [Jerome 10/325 MG Tablet] 1 tab PO Q4H/PRN PRN #120 tablet PRN Reason: Pain Changed Lorazepam 1 mg [Ativan 1 MG] 1 mg PO TID #90 tablet Discontinued Olanzapine 5 mg PO HS Forms: Patient Portal Information
[2016-05-26 15:28] VITALS: PULSE 88; O2SAT 95
--- NOTE | 2016-05-26 18:04 | PCM.DS ---
Discharge Summary Date of Admission: 05/19/16 12:53 Date of Discharge: 05/26/16 Admitting Physician: SURAJ SAMS Primary Care Provider: SURAJ SAMS Allergies Allergies No Known Drug Allergies Allergy (Verified 05/19/16 05:33) Hospital Summary - Hospital Course Hospital Course: Ms. Melgar presented from home with acute UTI, sepsis with metabolic encephalopathy / acute delirium as well as acute on chronic hypoxemic hypercapneic respiratory failure. She had initial tachycardia hypoxia and leukocytosis to 20k. She was very confused and disoriented. She was treated with iv antibiotics steroids, bipap and improved slowly. The urine culture was susceptible to the ceftriaxone being used but a throat culture in the ED showed pseudomonas. Given her severe respiratory symptoms at presentation it was felt need to treat this positive culture also given the slow improvement in her respiratory status. She was thus started on meropenem. Unfortunately she continued to suffer from delirium with waxing and waning mental status and periods of complete disorientation when she was unable to be redirected and this resulted in need for IM geodon injections which helped greatly and resulted in intermittent periods of full lucidity where she was fully oriented and appropriate with no deficits. There was no correlation found to the events her CO2 retention is severe and rather chronic and did not correlate well with her symptoms. The periods of lucidity finally were improving well with a brief period the morning of discharge requiring the geodon but did well the day of discharge and the previous day and night from discharge acting well. The steroids were weaned in this time to see if it would help with the psychosis without much change her oxygenation was doing well on her chronic 4L of nc O2. She was accepted and agreeable to rehab therapy at [facility] were she stayed recently and did well. We will continue the meropenem due to the pseudomononas for a total of 7 days last dose will be evening. she was on zyprexa at home but in the hospital the geodon did seem to help more so she was changed to this at bedtime po as an outpatient. - Vitals & Intake/Output Vital Signs: Vital Signs Temperature 98 F 05/26/16 12:00 Pulse Rate 88 05/26/16 15:26 Respiratory Rate 18 05/26/16 15:26 Blood Pressure 123/60 05/26/16 12:00 O2 Sat by Pulse Oximetry 95 05/26/16 15:26 Oxygen-Last Documented O2 Percentage 5 Liters = 40% Intake & Output: Intake & Output 05/24/16 05/25/16 05/26/16 05/27/16 11:59 11:59 11:59 11:59 Intake Total 540 500 452 Balance 540 500 452 Weight 63.594 kg 63.594 kg - Lab Result Diagrams: 05/26/16 08:14 05/26/16 08:14 Lab Results-Last 24 Hrs: Lab Results-Last 24 Hours 05/26/16 05/26/16 05/26/16 Range/Units 08:14 08:14 08:14 WBC 11.6 H (4.0-10.5) K/mm3 RBC 3.50 L (4.1-5.4) M/mm3 Hgb 10.4 L (12.0-16.0) gm/dl Hct 35.0 (35-47) % MCV 100.0 (78-100) fl MCH 29.7 (26-32) pg MCHC 29.7 L (32-36) g/dl RDW 15.2 H (11.5-14.0) % Plt Count 257 (150-450) K/mm3 MPV 9.7 H (6-9.5) fl Gran % 67.2 H (36.0-66.0) % Lymphocytes % 24.5 (24.0-44.0) % Monocytes % 5.3 (0.0-12.0) % Eosinophils % 2.9 (0.00-5.0) % Basophils % 0.1 (0.0-0.4) % Basophils # 0.01 (0-0.4) VBG pH (7.32-7.42) VBG pCO2 at Pat Temp (42-55) mm/Hg VBG pO2 at Pat Temp (25-40) mm/Hg VBG HCO3 (22-28) meq/L VBG O2 Sat (Shun) (95-100) VBG Base Excess (-2.0-2.0) VBG Hemoglobin VBG Carboxyhemoglobin (0.0-6.9) % T HGB POC Potassium (3.5-5.1) Sodium 143 (136-145) mEq/L Potassium 4.2 (3.5-5.1) mEq/L Chloride 103 (98-107) mEq/L Carbon Dioxide 41.6 H (21-32) mEq/L Anion Gap 2.2 L (5-15) MEQ/L BUN 14 (9-20) mg/dL Creatinine 0.64 (0.55-1.30) mg/dl Estimated GFR > 60 ML/MIN Glucose 109 (70-110) MG/DL Calcium 8.7 (8.5-10.1) mg/dL Total Bilirubin 0.1 L (0.2-1.0) mg/dL AST 13 L (15-37) U/L ALT 16 (12-78) U/L Alkaline Phosphatase 52 (46-116) U/L Ammonia 20 (11-32) MMOL/l Serum Total Protein 6.1 L (6.4-8.2) gm/dL Albumin 2.6 L (3.4-5.0) g/dL 05/26/16 Range/Units 08:58 WBC (4.0-10.5) K/mm3 RBC (4.1-5.4) M/mm3 Hgb (12.0-16.0) gm/dl Hct (35-47) % MCV (78-100) fl MCH (26-32) pg MCHC (32-36) g/dl RDW (11.5-14.0) % Plt Count (150-450) K/mm3 MPV (6-9.5) fl Gran % (36.0-66.0) % Lymphocytes % (24.0-44.0) % Monocytes % (0.0-12.0) % Eosinophils % (0.00-5.0) % Basophils % (0.0-0.4) % Basophils # (0-0.4) VBG pH 7.37 (7.32-7.42) VBG pCO2 at Pat Temp 83 H* (42-55) mm/Hg VBG pO2 at Pat Temp 24 L (25-40) mm/Hg VBG HCO3 48.0 H* (22-28) meq/L VBG O2 Sat (Shun) 40.5 L (95-100) VBG Base Excess 19.1 H (-2.0-2.0) VBG Hemoglobin 10.7 VBG Carboxyhemoglobin 2.9 (0.0-6.9) % T HGB POC Potassium 4.7 (3.5-5.1) Sodium (136-145) mEq/L Potassium (3.5-5.1) mEq/L Chloride (98-107) mEq/L Carbon Dioxide (21-32) mEq/L Anion Gap (5-15) MEQ/L BUN (9-20) mg/dL Creatinine (0.55-1.30) mg/dl Estimated GFR ML/MIN Glucose (70-110) MG/DL Calcium (8.5-10.1) mg/dL Total Bilirubin (0.2-1.0) mg/dL AST (15-37) U/L ALT (12-78) U/L Alkaline Phosphatase (46-116) U/L Ammonia (11-32) MMOL/l Serum Total Protein (6.4-8.2) gm/dL Albumin (3.4-5.0) g/dL - Procedures and Test Procedures and Tests throughout Hospitalization: Therapy Orders & Screens 05/19/16 13:56 Oxygen NASAL CANNULA 4 lpm Comment: Diagnosis: Shortness of Breath 05/19/16 20:37 neb [Respiratory Nebulizer] UD Comment: ALB PRN Diagnosis: Shortness of Breath 05/19/16 20:39 Respiratory MDI BID Comment: ADV 115/21 Diagnosis: Shortness of Breath Discharge Exam General Appearance: no apparent distress, anxiety Neurologic Exam: oriented x 3, cooperative Skin Exam: warm, dry, pale Eye Exam: pale conjunctivae, No scleral icterus Ears, Nose, Throat Exam: dry mucous membranes Neck Exam: non-tender, supple Respiratory Exam: prolonged expirations, rhonchi, wheezing Cardiovascular Exam: regular rate/rhythm, edema Gastrointestinal/Abdomen Exam: soft, normal bowel sounds, No tenderness, No distention Extremity Exam: normal inspection, No calf tenderness Final Diagnosis/Problem List - Final Discharge Diagnosis/Problem (1) UTI (urinary tract infection) Status: Acute (2) Delirium Status: Acute (3) Acute exacerbation of chronic obstructive airways disease Status: Acute (4) Respiratory failure Status: Resolved (5) Hypercapnia Status: Chronic (6) Anemia Status: Chronic (7) Hypertension Status: Chronic (8) CHF (congestive heart failure) Status: Chronic (9) Rheumatoid arthritis Status: Chronic (10) Depression Status: Chronic (11) Anxiety Status: Chronic (12) Compensated metabolic alkalosis Status: Acute (13) Sepsis with metabolic encephalopathy Status: Resolved - Discharge Discharge Date: 05/26/16 [facility] Condition: Fair Prescriptions: New Ziprasidone HCl [Geodon] 40 mg PO HS #30 capsule Meropenem [Merrem 1 GM] 1 g IV Q8HT #0 vial Continue Donepezil HCl 5 mg PO HS Sennosides [Senna Laxative] 2 tab PO DAILY PRN PRN PRN Reason: Constipation Fluoxetine HCl [Prozac] 60 mg PO DAILY Magnesium Oxide 400 mg [Mag-Ox 400] 400 mg PO DAILY #30 tablet Fluticasone/Vilanterol [Breo Ellipta 100-25 Mcg INH] 1 inh PO DAILY Albuterol/Ipratropium 3ml Neb* [DUONEB 0.5-3 MG/3 ml Neb] 3 ml IH Q4HPRN PRN PRN Reason: Shortness Of Breath Docusate Sodium 100 mg [Colace 100 MG] 100 mg PO BID #60 capsule Ferrous Sulfate 325 mg [Feosol 325 mg] 325 mg PO TID #90 tablet Lisinopril 5 mg [Zestril 5 MG] 10 mg PO DAILY #30 tablet Albuterol Sulfate [Proair Hfa] 8.5 gm IH Q6HPRN PRN PRN Reason: Shortness Of Breath/Wheezing Metoprolol Tartrate 50 mg [Lopressor 50 MG] 50 mg PO BID #0 tablet Prednisone 10 mg [Deltasone 10 mg] 10 mg PO DAILY #60 tablet Hydrocodone/APAP 10/325 mg [Flushing 10/325 MG Tablet] 1 tab PO Q4H/PRN PRN #120 tablet PRN Reason: Pain Changed Lorazepam 1 mg [Ativan 1 MG] 1 mg PO TID #90 tablet Discontinued Olanzapine 5 mg PO HS Additional Instructions: [facility] ORDERS: 4L OXYGEN PER N/C - KEEP SPO2 > 92% SEE ATTACHED MEDICATION LIST FOR CURRENT MED ORDERS ALL RX'S FAXED TO [facility] - [phone] PT/OT EVAL AND TREAT REGULAR DIET, ENSURE WITH MEALS SALINE LOCK WITH ROUTINE FLUSHES/CARE Forms: Patient Portal Information
== END 2016-05-26 15:45 | DRG 190 ==
LOC: ED 05:25 → ICU 07:30 → UNDOADMOB 08:07 → OBSVTOIN 12:53 → MED SURG 05-20 09:30
PROVIDERS: ADMIT Family Medicine; ATTEND Family Medicine
DX: J44.1 Chronic obstructive pulmonary disease with (acute) exacerbation (principal); J96.22 Acute and chronic respiratory failure with hypercapnia; J96.21 Acute and chronic respiratory failure with hypoxia; N39.0 Urinary tract infection, site not specified; I50.32 Chronic diastolic (congestive) heart failure; E87.3 Alkalosis; D64.9 Anemia, unspecified; I10 Essential (primary) hypertension; M06.9 Rheumatoid arthritis, unspecified; F32.9 Major depressive disorder, single episode, unspecified; F41.9 Anxiety disorder, unspecified; R41.0 Disorientation, unspecified
CPT/HCPCS: 36000; 36415; 36600; 71010; 80048; 80053; 81000; 82140; 82150; 82375; 82803; 82805; 83605; 83690; 83735; 83880; 84484; 85025; 85027; 86308; 87040; 87070; 87077; 87086; 87186; 87430; 87631; 93005; 93041; 93268; 94002; 94640; 94760; 96360; 96361; 96365; 96366; 99291; J0456; J0696; J1120; J1650; J1940; J2920; J3475; J3486; A9270-GY; J7506

== ENCOUNTER 2016-05-27 13:03 | Observation (INO) | payer MEDICARE ==
[2016-05-27] MEDS ORDERED: DUONEB 0.5-3 MG/3 ml Neb IH ONE ×2 (13:45→14:01)
--- NOTE | 2016-05-27 13:52 | ERPHSYRPT ---
- History of Present Illness Time Seen by Provider: 05/27/16 13:42 Source: patient Exam Limitations: no limitations Patient Subjective Stated Complaint: PT BROUGHT TO ED PER EMS FROM LOCAL [facility]- REPORTS PT HAS HAD SOB COUGH-CP UNSURE OF BEGINNING-PT UNABLE TO ANSWER QUESTIONS BUT FOLLOWS SIMPLE COMMANDS SHE WISHES Triage Nursing Assessment: PT PALE WARM ET DRY-PT STATING "BREATHING" REPEATEDLY -MILD WHEEZES NOTED-NO RETRACTIONS NOTED Physician History: 61-year-old white female sent from the senior living by medics with complaint of shortness of breath and cough unknown duration. Patient states she is short of breath she is not in any pain at this time. Past medical history includes asthma, bronchitis, congestive heart failure, COPD , pneumonia, coronary artery disease, high blood pressure, depression. Past surgical history includes cardiac pacemaker, amputation of finger. Timing/Duration: today Severity: moderate Modifying Factors: Improves With: nothing Associated Symptoms: shortness of breath, No nausea, No vomiting, No abdominal pain, No heartburn, No diaphoresis, No cough, No chills, No chest pain, No fever , No headaches, No loss of appetite, No malaise, No rash, No syncope, No seizure , No weakness Allergies/Adverse Reactions: No Known Drug Allergies Allergy (Verified 05/27/16 13:18) Home Medications: Donepezil HCl 5 mg PO HS 06/15/14 [History] Sennosides [Senna Laxative] 2 tab PO DAILY PRN PRN 06/15/14 [History] Fluoxetine HCl [Prozac] 60 mg PO DAILY 03/02/15 [History] Fluticasone/Vilanterol [Breo Ellipta 100-25 Mcg INH] 1 inh PO DAILY 12/17/15 [ History] Albuterol/Ipratropium 3ml Neb* [DUONEB 0.5-3 MG/3 ml Neb] 3 ml IH Q4HPRN PRN 01/31/16 [History] Albuterol Sulfate [Proair Hfa] 8.5 gm IH Q6HPRN PRN 03/23/16 [History] Hx Tetanus, Diphtheria Vaccination/Date Given: Yes Hx Influenza Vaccination/Date Given: No Hx Pneumococcal Vaccination/Date Given: Yes Immunizations Up to Date: Yes - Review of Systems Constitutional: No Fever, No Chills Eyes: No Symptoms Ears, Nose, & Throat: No Symptoms Respiratory: Cough, Dyspnea, Wheezing, No Cyanosis, No Dyspnea on Exertion (RODGERS) , No Stridor Cardiac: No Chest Pain, No Edema, No Syncope Abdominal/Gastrointestinal: No Abdominal Pain, No Nausea, No Vomiting, No Diarrhea Genitourinary Symptoms: No Dysuria Musculoskeletal: No Back Pain, No Neck Pain Skin: No Rash Neurological: No Dizziness, No Focal Weakness, No Sensory Changes Psychological: No Symptoms Endocrine: No Symptoms All Other Systems: Reviewed and Negative - Past Medical History Pertinent Past Medical History: Yes Neurological History: Dementia ENT History: No Pertinent History Cardiac History: Congestive Heart Failure, Coronary Artery Disease, Hypertension Respiratory History: Asthma, Bronchitis, CHF, COPD, Pneumonia, Other Endocrine Medical History: No Pertinent History Musculoskeletal History: No Pertinent History GI Medical History: No Pertinent History History: No Pertinent History Psycho-Social History: Depression Female Reproductive Disorders: No Pertinent History Other Medical History: ... - Past Surgical History Past Surgical History: Yes Neuro Surgical History: No Pertinent History Cardiac: Pacemaker Respiratory: No Pertinent History Gastrointestinal: Bowel Surgery Genitourinary: No Pertinent History Musculoskeletal: Amputation Female Surgical History: No Pertinent History Other Surgical History: sinus surgery in 80's,finger amp, bowel surg. - Social History Smoking Status: Former smoker How long have you smoked: 45 years Exposure to second hand smoke: No Alcohol Use: None Drug Use: none Patient Lives Alone: No Significant Family History: no pertinent family hx - Female History Hx Now: No - Nursing Vital Signs Nursing Vital Signs: Initial Vital Signs Temperature 97.6 F Temperature Source Axillary Pulse Rate 78 Respiratory Rate 18 Blood Pressure [] 137/66 Pain Intensity 0 - Physical Exam General Appearance: mild distress Eye Exam: PERRL/EOMI, eyes nml inspection Ears, Nose, Throat Exam: normal ENT inspection, TMs normal, pharynx normal, moist mucous membranes Neck Exam: normal inspection, non-tender, supple, full range of motion Respiratory Exam: diminished breath sounds, wheezing, No chest tenderness Cardiovascular Exam: regular rate/rhythm, normal heart sounds, normal peripheral pulses Gastrointestinal/Abdomen Exam: soft, normal bowel sounds, No tenderness, No mass Back Exam: normal inspection Extremity Exam: normal inspection, normal range of motion, pelvis stable Neurologic Exam: alert, oriented x 3, cooperative, normal mood/affect, nml cerebellar function, nml station & gait, sensation nml, No motor deficits Skin Exam: normal color, warm, dry, No rash Lymphatic Exam: No adenopathy SpO2 Interpretation: normal (98%) SpO2: 98 Oxygen Delivery: Room Air - Course Nursing assessment & vital signs reviewed: Yes EKG Interpreted by Me: RATE (80 bpm), Other (EKG, sinus rhythm with PACs 80 bpm normal axis no acute ST or T wave changes noted) - Radiology Exams Chest X-ray Interpretation: Discussed w/ radiologist (chest x-ray: Hyperinflated and blunted costophrenic angles. 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 Incidental paranasal sinus disease. Partial opacification of the mastoid air cells presumably inflammatory) Chest CT Interpretation: Discussed w/radiologist (CTA chest: Impression: 1. Study degraded by respiration artifact. No large or central pulmonary embolus. 2. Stable pulmonary emphysema, mild bronchiectasis, and scattered fibrosis/ scarring. 3. No new/acute cardiopulmonary abnormalities 4. Continued resolving splenic hematoma) Ordered Tests: Active Orders 24 hr Category Date Time Status EKG-ER Only STAT Care 05/27/16 13:45 Active IV Insertion STAT Care 05/27/16 13:45 Active Pulse Oximetry (ED) STAT Care 05/27/16 13:45 Active CHEST 1 VIEW (PORTABLE) Stat Exams 05/27/16 13:45 Completed CHEST WITH CONTRAST [CT] Stat Exams 05/27/16 14:03 Completed HEAD WITHOUT CONTRAST [CT] Stat Exams 05/27/16 14:03 Completed ARTERIAL BLOOD GASES Urgent Lab 05/27/16 15:35 Completed Respiratory Nebulizer STAT RT 05/27/16 13:46 Completed Medication Summary Generic Name Dose Route Start Last Admin Trade Name Freq PRN Reason Stop Dose Admin Ceftriaxone Sodium/Dextrose 50 mls @ 100 mls/hr 05/27/16 15:44 Rocephin 1 Gm-D5w 50 Ml Bag IV 05/27/16 16:13 STAT ONE Discontinued Medications Generic Name Dose Route Start Last Admin Trade Name Freq PRN Reason Stop Dose Admin Albuterol/Ipratropium 3 ml 05/27/16 13:45 05/27/16 14:05 Duoneb 0.5-3 Mg/3 Ml Neb IH 05/27/16 13:46 3 ml STAT ONE Administration Albuterol/Ipratropium Confirm 05/27/16 14:01 Duoneb 0.5-3 Mg/3 Ml Neb Administered 05/27/16 14:02 Dose 3 ml IH .STK-MED ONE Methylprednisolone Sodium Succinate 125 mg 05/27/16 15:43 Solu-Medrol 125 Mg IV 05/27/16 15:44 STAT ONE Lab/Rad Data: Laboratory Results 05/27/16 Range/Units 15:35 Puncture Site RIGHT RADIAL pCO2 75 H* (35-45) mmHg pO2 76 (75-100) mmHg Base Excess 19.7 H (-2.0-2.0) O2 Saturation 94.6 (94-100) g/dF ABG pH 7.41 (7.35-7.45) ABG HCO3 47.5 H* (22-28) ABG O2 Sat (Measured) 97.8 (95-100) % Riki Test YES A-a Gradient 87 a/A Ratio 0.47 Hemoglobin 10.0 Carboxyhemoglobin 1.8 (0.0-6.9) % THgb Methemoglobin 1.5 (1.4-1.5) % Potassium 4.7 (3.5-5.1) Temperature 37.0 C POC O2 Flow Rate 36 % - Progress Progress: improved Progress Note: 05/27/16 14:04 This is a 61-year-old white female who was recently released from this hospital. She was noted to be complaining of shortness of breath at the senior living. On interview patient denies pain however she will repeatedly states breathing breathing breathing. She will however then began to answer questions as to her symptoms he has no chest pain On physical examination patient has scattered wheezes in her lungs. I have reviewed senior living labs which were ordered today and are available. Labs drawn at the senior living today white count 15.1 hemoglobin 10.1 hematocrit 34.9. D-dimer 0.616. BMP sodium 136 potassium 4.1 chloride 99 bicarbonate 40.8 BUN 14 creatinine 0.5 to glucose 111. Patient's vitals are stable. I've discussed the case with Dr. Isaiah Waldron Will go ahead and obtain CT a chest to rule out PE head CT and ABGs. DuoNeb treatment has been ordered. Anticipating placement on observation with diagnosis of COPD and shortness of breath. - Departure Time of Disposition: 15:45 Departure Disposition: Observation Clinical Impression: Shortness of breath COPD (chronic obstructive pulmonary disease) Qualifiers: COPD type: unspecified COPD Qualified Code(s): J44.9 - Chronic obstructive pulmonary disease, unspecified Condition: Fair Critical Care Time: No Instructions: Chronic Obstructive Pulmonary Disease
--- NOTE | 2016-05-27 14:09 | XRAY ---
Indication: Short of breath. Comparison: May 19, 2016. Portable chest unchanged again hyperinflated and clear with blunted costophrenic angles and left-sided dual-lead pacemaker. Heart is not enlarged. No new/acute cardiopulmonary abnormalities.
--- NOTE | 2016-05-27 15:17 | XRAY ---
Indication: Delirium. Multiple contiguous axial images obtained through the head without contrast. Comparison: July 12, 2015. Images through the base of the brain slightly degraded by motion artifact. Stable mild global atrophy, minimal periventricular degenerative micro-ischemia, and old right frontal infarct. Again no acute intracranial hemorrhage, abnormal extra-axial fluid collection, or mass effect. Fourth ventricle is midline without hydrocephalus. Bony calvarium intact. Minimal bilateral sphenoid sinus mucosal thickening and tiny fluid leveling in the left maxillary sinus. The mastoid air cells now demonstrates partial opacification bilaterally. 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 Incidental paranasal sinus disease and partial opacification of the mastoid air cells both presumed inflammatory. CTDI 64.42
--- NOTE | 2016-05-27 15:22 | XRAY ---
Indication: Short of breath. Elevated d-dimer. Multiple contiguous axial images obtained through the chest using 80 cc Isovue 370 contrast and PE protocol. Comparison: July 01, 2014. There is good opacification of the pulmonary arteries. Mild respiration artifact throughout the lungs slightly degrades the study limiting evaluation of the more distal branches. No filling defect or pulmonary embolus. Heart remains borderline enlarged with left-sided dual-lead pacemaker. Aorta is normal in course and caliber. There remains a few small nonpathologic mediastinal lymph nodes. No pathologic mediastinal/hilar lymphadenopathy. Examination of the lung parenchyma again demonstrates mild pulmonary emphysema with scattered fibrosis/scarring bilaterally. There are again features for mild cylindrical bronchiectasis bilaterally. No suspicious pulmonary mass, infiltrate, consolidation, or effusion. Bony thorax intact again with mild degenerative changes throughout the spine. Limited upper abdomen demonstrates near-complete resolved splenic hematoma. Impression: 1. Study degraded by respiration artifact. No large or central pulmonary embolus. 2. Stable pulmonary emphysema, mild bronchiectasis, and scattered fibrosis/scarring. 3. No new/acute cardiopulmonary abnormalities. 4. Continued resolving splenic hematoma. CT DI 23.33
[2016-05-27 15:40] LABS: A-aADO2 87; ARTERIAL BLD GAS O2 SATURATION 97.8 % (95-100); ARTERIAL BLOOD GAS BASE EXCESS 19.7 (-2.0-2.0); ARTERIAL BLOOD GAS FIO2 36 %; ARTERIAL BLOOD GAS PO2 76 mmHg (75-100); ARTERIAL BLOOD GAS pH 7.41 (7.35-7.45)
[2016-05-27 15:41] LABS: ALLEN TEST OK? YES
[2016-05-27] MEDS ORDERED: solu-MEDROL 125 MG IV ONE (15:43)
[2016-05-27] MEDS ORDERED: ROCEPHIN 1 Gm-D5w 50 ml Bag** 50 ML IV ONE ×2 (15:44→15:47)
[2016-05-27] MEDS ORDERED: solu-MEDROL 125 MG ONE (15:47)
--- NOTE | 2016-05-27 17:29 | PCM.HP ---
History of Present Illness - Chief Complaint Chief Complaint: Shortness of Breath Date: 05/27/16 History of Present Illness: is a 61 year old female. who was discharged yesterday after protracted coarse for copd exacerbation and UTI complicated by acute delirium that had improved however at F she did regress again and was repeatedly saying "breathing" and otherwise not acting appropriately. Her vital signs were not appropriate and she had labs drawn with an increased D-Dimer and was sent to ED for evaluation where CT chest was negative for PE or infiltrate. Her CT head was normal. She continues to have good oxygenation but severe chronic CO2 retention. She currently is still confused and repeatedly saying breathing she will follow commands but is difficult and needs constant redirection. - Review of Systems Constitutional: Other (unable to obtain with patient's current mental status) Medications & Allergies Home Medications: Home Medication List Donepezil HCl 5 mg PO HS 06/15/14 [History Confirmed 05/27/16] Sennosides [Senna Laxative] 2 tab PO DAILY PRN PRN 06/15/14 [History Confirmed 05/27/16] Fluoxetine HCl [Prozac] 60 mg PO DAILY 03/02/15 [History Confirmed 05/27/16] Magnesium Oxide 400 mg [Mag-Ox 400] 400 mg PO DAILY #30 tablet 03/03/15 [ Rx Confirmed 05/27/16] Fluticasone/Vilanterol [Breo Ellipta 100-25 Mcg INH] 1 inh PO DAILY 12/17/15 [ History Confirmed 05/27/16] Albuterol/Ipratropium 3ml Neb* [DUONEB 0.5-3 MG/3 ml Neb] 3 ml IH Q4HPRN PRN 01/31/16 [History Confirmed 05/27/16] Docusate Sodium 100 mg [Colace 100 MG] 100 mg PO BID #60 capsule 02/10/16 [Rx Confirmed 05/27/16] Ferrous Sulfate 325 mg [Feosol 325 mg] 325 mg PO TID #90 tablet 02/10/16 [ Rx Confirmed 05/27/16] Lisinopril 5 mg [Zestril 5 MG] 10 mg PO DAILY #30 tablet 02/10/16 [Rx Confirmed 05/27/16] Albuterol Sulfate [Proair Hfa] 8.5 gm IH Q6HPRN PRN 03/23/16 [History Confirmed 05/27/16] Metoprolol Tartrate 50 mg [Lopressor 50 MG] 50 mg PO BID #0 tablet [Rx Confirmed 05/27/16] Hydrocodone/APAP 10/325 mg [[place] 10/325 MG Tablet] 1 tab PO Q4H/PRN PRN # 120 tablet 05/26/16 [Rx Confirmed 05/27/16] Lorazepam 1 mg [Ativan 1 MG] 1 mg PO TID #90 tablet 05/26/16 [Rx Confirmed 05/27/16] Meropenem [Merrem 1 GM] 1 g IV Q8HT #0 vial 05/26/16 [Rx Confirmed 05/27/16] Prednisone 10 mg [Deltasone 10 mg] 10 mg PO DAILY #60 tablet 05/26/16 [Rx Confirmed 05/27/16] Ziprasidone HCl [Geodon] 40 mg PO HS #30 capsule 05/26/16 [Rx Confirmed 05/27/16 ] Allergies/Adverse Reactions: Allergies Allergy/AdvReac Type Severity Reaction Status Date / Time No Known Drug Allergies Allergy Verified 05/27/16 13:18 - Past Medical History Past Medical History: Yes Neurological History: Dementia ENT History: No Pertinent History Cardiac History: Congestive Heart Failure, Coronary Artery Disease, Hypertension Respiratory History: Asthma, Bronchitis, CHF, COPD, Pneumonia, Other Endocrine Medical History: No Pertinent History Musculoskelatal History: No Pertinent History GI Medical History: No Pertinent History History: No Pertinent History Pyscho-Social History: Depression Reproductive Disorders: No Pertinent History Comment: ... - Female History Are you now?: No - Past Surgical History Past Surgical History: Yes Neuro Surgical History: No Pertinent History Cardiac History: Pacemaker Respiratory Surgery: No Pertinent History GI Surgical History: Bowel Surgery Genitourinary Surgical Hx: No Pertinent History Musculskeletal Surgical Hx: Amputation Female Surgical History: No Pertinent History Other Surgical History: sinus surgery in 80's,finger amp, bowel surg. - Social History Smoking Status: Former smoker How long have you smoked: 45 years Exposure to second hand smoke: No Alcohol: None Drug Use: none Significant Family History: no pertinent family hx - Physical Exam Vital Signs: Vital Signs - 24 hr Temp Pulse Resp BP Pulse Ox 05/27/16 17:08 86 24 96 05/27/16 15:46 98 05/27/16 15:25 137/66 05/27/16 14:05 18 96 05/27/16 13:48 98 05/27/16 13:05 97.6 F 78 26 H 141/93 98 Oxygen-Last 24 hours O2 Percentage 3 Liters = 32% General Appearance: no apparent distress, alert, thin Neurologic Exam: confusion, No oriented x 3 Eye Exam: pale conjunctivae, No scleral icterus Ears, Nose, Throat Exam: dry mucous membranes Neck Exam: non-tender, supple Respiratory Exam: prolonged expirations, wheezing Cardiovascular Exam: regular rate/rhythm, edema (1+ javi LE pitting) Gastrointestinal/Abdomen Exam: soft, normal bowel sounds, No tenderness, No distention Extremity Exam: normal inspection, pedal edema, No calf tenderness Skin Exam: warm, dry Results - Other Procedures and Tests Respiratory Therapy 05/27/16 16:57 BiPap/CPAP Assessment ROUTINE 05/27/16 19:00 Respiratory MDI BID Respiratory Nebulizer Q4H Assessment/Plan (1) Delirium Current Visit: Yes Status: Acute Assessment & Plan: work up negative with the behavioral disturbances her home zyprexa was changed to geodon as in the hospital it seemed to help in the IM form Her steroids have been weaned to 20 mg she is still on the meropenem for 1 more day givne the positive pseudomonas culture given the negative work up will try bipap at night to see if this can help with the CO2 retention to help clear her mental status. review of abg's back to 2012 shows chronic CO2 retention that is very high in the past up to the 130's even. if not improved with the bipap we need to further investigate geriatric psych as it does not appear to be a metabolic cause to the delirium at this time especially given her extensive psychiatric history. Code(s): R41.0 - DISORIENTATION, UNSPECIFIED (2) Chronic hypercapnic respiratory failure Current Visit: Yes Status: Acute (3) COPD (chronic obstructive pulmonary disease) Current Visit: Yes Status: Acute Qualifiers: COPD type: unspecified COPD Qualified Code(s): J44.9 - Chronic obstructive pulmonary disease, unspecified (4) Anemia Current Visit: Yes Status: Chronic Qualifiers: Code(s): D64.9 - ANEMIA, UNSPECIFIED (5) Hypertension Current Visit: Yes Status: Chronic Code(s): I10 - ESSENTIAL (PRIMARY) HYPERTENSION (6) UTI (urinary tract infection) Current Visit: Yes Status: Chronic Qualifiers: Urinary tract infection type: site unspecified Hematuria presence: without hematuria Qualified Code(s): N39.0 - Urinary tract infection, site not specified Code(s): N39.0 - URINARY TRACT INFECTION, SITE NOT SPECIFIED (7) Depressive disorder Current Visit: Yes Status: Chronic Code(s): F32.9 - MAJOR DEPRESSIVE DISORDER, SINGLE EPISODE, UNSPECIFIED (8) Rheumatoid arthritis Current Visit: Yes Status: Chronic Qualifiers: Rheumatoid arthritis location: multiple sites Code(s): M06.9 - RHEUMATOID ARTHRITIS, UNSPECIFIED (9) Dementia Current Visit: Yes Status: Chronic Code(s): F03.90 - UNSPECIFIED DEMENTIA WITHOUT BEHAVIORAL DISTURBANCE
[2016-05-27] MEDS: solu-MEDROL 125 MG IV SCH ×2 (17:39→23:52)
[2016-05-27] MEDS: DUONEB 0.5-3 MG/3 ml Neb IH SCH ×2 (18:44→23:12)
[2016-05-27] MEDS: Advair Hfa 115/21 Common canister IH SCH (18:48)
[2016-05-27] MEDS: Ativan 2 MG/1 ML VIAL IV PRN (19:49)
[2016-05-27] MEDS: Norco 10/325 MG Tablet PO PRN (20:06)
[2016-05-27] MEDS ORDERED: Sodium Chloride 0.9% 100 ML IVPB 100 ML IV ONE (21:49)
[2016-05-27] MEDS ORDERED: Merrem 1 GM IV ONE (21:50)
[2016-05-27] MEDS: Lopressor 50 MG PO SCH (22:32)
[2016-05-27] MEDS: Aricept 10 MG PO SCH (22:32)
[2016-05-27] MEDS: Colace 100 MG PO SCH (22:32)
[2016-05-27] MEDS: Geodon 20 MG Capsule PO SCH (22:32)
[2016-05-27] MEDS: FEOSOL 325 MG PO SCH (22:32)
[2016-05-27] MEDS: Ativan 1 MG PO SCH (22:32)
[2016-05-27] MEDS: Merrem 1 GM 1 G in Sodium Chloride 100ML MINI-BAG PLUS 100 ML IV SCH (22:33)
[2016-05-28] MEDS: DUONEB 0.5-3 MG/3 ml Neb IH SCH ×6 (03:12→23:08)
[2016-05-28] MEDS ORDERED: Ativan 2 MG/1 ML VIAL ONE (03:49)
[2016-05-28] MEDS: Ativan 2 MG/1 ML VIAL IV PRN (03:52)
[2016-05-28] MEDS ORDERED: Sodium Chloride 0.9% 100 ML IVPB 100 ML IV ONE (05:17)
[2016-05-28] MEDS ORDERED: Merrem 1 GM IV ONE (05:17)
[2016-05-28] MEDS: solu-MEDROL 125 MG IV SCH ×3 (06:41→17:54)
[2016-05-28] MEDS: Merrem 1 GM 1 G in Sodium Chloride 100ML MINI-BAG PLUS 100 ML IV SCH ×3 (06:41→21:10)
[2016-05-28] MEDS: Advair Hfa 115/21 Common canister IH SCH ×2 (07:01→17:17)
[2016-05-28] MEDS ORDERED: Ventolin Hfa MDI IH PRN (07:19)
[2016-05-28] MEDS ORDERED: SENOKOT 8.6 MG PO PRN (07:19)
[2016-05-28] MEDS ORDERED: PROVENTIL COMMON CANISTER IH PRN (07:27)
[2016-05-28 09:05] LABS: BASOPHIL % 0.1 % (0.0-0.4); Granulocytes % 90.9 % (36.0-66.0); Lymphocytes % 7.5 % (24.0-44.0); Mean Cell Volume 99.4 fl (78-100); Mean Corpuscular Hemoglobin 28.9 pg (26-32); Mean Platelet Volume 9.7 fl (6-9.5); Monocytes % 1.5 % (0.0-12.0); Platelet Count 274 K/mm3 (150-450); Red Blood Count 3.39 M/mm3 (4.1-5.4); Red Cell Distribution Width 14.8 % (11.5-14.0); White Blood Count 10.5 K/mm3 (4.0-10.5)
[2016-05-28] MEDS ORDERED: ROCEPHIN 1 Gm-D5w 50 ml Bag** 50 ML IV SCH (10:00)
[2016-05-28] MEDS: MAG-OX 400 PO SCH (10:17)
[2016-05-28] MEDS: DELTASONE 20 MG PO SCH (10:17)
[2016-05-28] MEDS: Zestril 10 MG PO SCH (10:17)
[2016-05-28] MEDS: Norco 10/325 MG Tablet PO PRN ×3 (10:17→19:24)
[2016-05-28] MEDS: Prozac 20 MG PO SCH (10:17)
[2016-05-28] MEDS: Ativan 1 MG PO SCH ×3 (10:17→21:11)
[2016-05-28] MEDS: Colace 100 MG PO SCH ×2 (10:17→21:11)
[2016-05-28] MEDS: FEOSOL 325 MG PO SCH ×3 (10:18→21:10)
[2016-05-28] MEDS: Lopressor 50 MG PO SCH ×2 (10:31→21:11)
[2016-05-28 10:33] LABS: ALBUMIN 2.9 g/dL (3.4-5.0); ALKALINE PHOSPHATASE 47 U/L (46-116); ANION GAP 7.4 MEQ/L (5-15); BILIRUBIN,TOTAL 0.2 mg/dL (0.2-1.0); BLOOD UREA NITROGEN 13 mg/dL (9-20); CHLORIDE 100 mEq/L (98-107); Carbon Dioxide 43.5 mEq/L (21-32); Glucose 176 MG/DL (70-110); SGOT/AST 15 U/L (15-37); SGPT/ALT 18 U/L (12-78); SODIUM 146 mEq/L (136-145); Total Protein 6.5 gm/dL (6.4-8.2)
[2016-05-28] MEDS ORDERED: MEROPENEM 1 GM IV SCH (14:00)
[2016-05-28] MEDS: Aricept 10 MG PO SCH (21:10)
[2016-05-28] MEDS: Geodon 20 MG Capsule PO SCH (21:11)
[2016-05-29] MEDS: solu-MEDROL 125 MG IV SCH ×2 (00:23→05:32)
[2016-05-29] MEDS: DUONEB 0.5-3 MG/3 ml Neb IH SCH ×6 (03:14→22:49)
[2016-05-29] MEDS: Norco 10/325 MG Tablet PO PRN ×5 (03:53→22:26)
[2016-05-29] MEDS: Ativan 2 MG/1 ML VIAL IV PRN ×2 (04:29→18:10)
[2016-05-29] MEDS: Advair Hfa 115/21 Common canister IH SCH ×2 (05:25→19:02)
[2016-05-29] MEDS: Merrem 1 GM 1 G in Sodium Chloride 100ML MINI-BAG PLUS 100 ML IV SCH (05:33)
--- NOTE | 2016-05-29 07:05 | PCM.DCORD ---
- Discharge Discharge Date: 05/29/16 Disposition: Skilled Care @ [facility] Condition: Fair Prescriptions: New Lorazepam [Ativan] 1 mg PO Q6H PRN #90 tablet PRN Reason: Anxiety Continue Donepezil HCl 5 mg PO HS Sennosides [Senna Laxative] 2 tab PO DAILY PRN PRN PRN Reason: Constipation Fluoxetine HCl [Prozac] 60 mg PO DAILY Magnesium Oxide 400 mg [Mag-Ox 400] 400 mg PO DAILY #30 tablet Fluticasone/Vilanterol [Breo Ellipta 100-25 Mcg INH] 1 inh PO DAILY Albuterol/Ipratropium 3ml Neb* [DUONEB 0.5-3 MG/3 ml Neb] 3 ml IH Q4HPRN PRN PRN Reason: Shortness Of Breath Docusate Sodium 100 mg [Colace 100 MG] 100 mg PO BID #60 capsule Ferrous Sulfate 325 mg [Feosol 325 mg] 325 mg PO TID #90 tablet Lisinopril 5 mg [Zestril 5 MG] 10 mg PO DAILY #30 tablet Albuterol Sulfate [Proair Hfa] 8.5 gm IH Q6HPRN PRN PRN Reason: Shortness Of Breath/Wheezing Metoprolol Tartrate 50 mg [Lopressor 50 MG] 50 mg PO BID #0 tablet Ziprasidone HCl [Geodon] 40 mg PO HS #30 capsule Lorazepam 1 mg [Ativan 1 MG] 1 mg PO TID #90 tablet Prednisone 10 mg [Deltasone 10 mg] 10 mg PO DAILY #60 tablet Hydrocodone/APAP 10/325 mg [[place] 10/325 MG Tablet] 1 tab PO Q4H/PRN PRN #120 tablet PRN Reason: Pain Discontinued Meropenem [Merrem 1 GM] 1 g IV Q8HT #0 vial Instructions: Chronic Obstructive Pulmonary Disease Additional Instructions: bipap use at night
--- NOTE | 2016-05-29 07:13 | PCM.DS ---
Discharge Summary Date of Admission: 05/27/16 16:21 Date of Discharge: 05/29/16 Admitting Physician: SURAJ SAMS Primary Care Provider: SURAJ SAMS Allergies Allergies No Known Drug Allergies Allergy (Verified 05/27/16 13:18) Hospital Summary - Hospital Course Hospital Course: Ms. Melgar was recently discharged after UTI, copd exacerbation and when she was suffering from delirium. She was treated for the uti and the positive throat pseudomonas culture and completed the coarse of meropenem while admitted. Here she was improved when discharged but at [facility] became delirious again and kept repeating "breathing, breathing, breathing...". Labs were thus drawn and a D-Dimer was elevated. She was sent to the ED there CT PE protocol was negative for PE or pneumonia or effusions and showed the chronic emphysema with bronchiectasis. She had a vbg which showed her chronic severe hypercapneic respiratory failure. SHe was oriented and would answer questions appropriately and new the staff however she had repeated episodes of repeating breathing... and becoming paranoid and difficult to redirect at times. This was treated with a prn dose of ativan and would resolve the episode. She was started on bipap at night and this seems to have improved her mental status and breathing with her chronic hypercapneic respiratory failure. Given her recurrent admissions, Malaika will benefit from continuing the noninvasive positive pressure ventilation at night for her COPD with chronic hypercapneic and hypoxemic respiratory failure. Overall she seems much improved from the first admission and her episodes of panic currently are controlled with prn ativan and will continue this on discharge. If further concern and this is not working she may benefit from evaluation at [facility], currently however she seems to be doing quit well on the current meds. - Vitals & Intake/Output Vital Signs: Vital Signs Temperature 97.9 F 05/29/16 04:00 Pulse Rate 63 05/29/16 05:26 Respiratory Rate 19 05/29/16 06:00 Blood Pressure 118/61 05/29/16 04:00 O2 Sat by Pulse Oximetry 97 05/29/16 05:26 Oxygen-Last Documented O2 Percentage 4 Liters = 36% Intake & Output: Intake & Output 05/26/16 05/27/16 05/28/16 05/29/16 11:59 11:59 11:59 11:59 Intake Total 1860 1450 Output Total 1300 Balance 1860 150 Weight 63.503 kg - Lab Result Diagrams: 05/28/16 08:58 05/28/16 08:58 Lab Results-Last 24 Hrs: Lab Results-Last 24 Hours 05/28/16 05/28/16 Range/Units 08:58 08:58 WBC 10.5 (4.0-10.5) K/mm3 RBC 3.39 L (4.1-5.4) M/mm3 Hgb 9.8 L (12.0-16.0) gm/dl Hct 33.7 L (35-47) % MCV 99.4 (78-100) fl MCH 28.9 (26-32) pg MCHC 29.1 L (32-36) g/dl RDW 14.8 H (11.5-14.0) % Plt Count 274 (150-450) K/mm3 MPV 9.7 H (6-9.5) fl Gran % 90.9 H (36.0-66.0) % Lymphocytes % 7.5 L (24.0-44.0) % Monocytes % 1.5 (0.0-12.0) % Eosinophils % 0.0 (0.00-5.0) % Basophils % 0.1 (0.0-0.4) % Basophils # 0.01 (0-0.4) Sodium 146 H (136-145) mEq/L Potassium 5.0 (3.5-5.1) mEq/L Chloride 100 (98-107) mEq/L Carbon Dioxide 43.5 H (21-32) mEq/L Anion Gap 7.4 (5-15) MEQ/L BUN 13 (9-20) mg/dL Creatinine 0.75 (0.55-1.30) mg/dl Estimated GFR > 60 ML/MIN Glucose 176 H (70-110) MG/DL Calcium 8.3 L (8.5-10.1) mg/dL Total Bilirubin 0.2 (0.2-1.0) mg/dL AST 15 (15-37) U/L ALT 18 (12-78) U/L Alkaline Phosphatase 47 (46-116) U/L Serum Total Protein 6.5 (6.4-8.2) gm/dL Albumin 2.9 L (3.4-5.0) g/dL - Procedures and Test Procedures and Tests throughout Hospitalization: Therapy Orders & Screens 05/27/16 16:57 BiPap/CPAP Assessment ROUTINE Comment: Diagnosis: Shortness of Breath 05/27/16 17:16 RT Screen per Nursing Assess ONCE Comment: Protocol Order Physician Instructions: Greater than 3 points order RT Admission Screen Reason For Exam: Triggered on Admission Diagnosis: Shortness of Breath Diagnosis: Shortness of Breath Pneumonia: Yes Home O2: Yes Asthma: Yes CHF: Yes Home CPAP/BIPAP: No Home Nebs/MDI: Yes Total Points: 20 ST Screen per Nursing Assess Comment: Protocol Order Physician Instructions: Greater than [address] Admission Screening Reason For Exam: Triggered on Admission Diagnosis: Shortness of Breath CVA/Dyshpagia/Aphasia: No Cognitive Deficits: Yes Dehydration/Nutrition Deficit: No Reflux: No Oral-Motor Difficulties: No Pneumonia: Yes Jail Resident: Yes Total Points: 13 05/27/16 19:00 Respiratory MDI BID Comment: JHON 115/21 BID Diagnosis: Shortness of Breath Respiratory Nebulizer Q4H Comment: Diagnosis: Shortness of Breath Discharge Exam General Appearance: no apparent distress, other (she is alert recognizes me smiles answers questions appropriately asked if she is ready to go to [facility] she states "If I have too" she states she wants to go home but is too weak for this at this time.) Neurologic Exam: alert, oriented x 3, cooperative Skin Exam: warm, dry Ears, Nose, Throat Exam: dry mucous membranes Neck Exam: non-tender, supple Respiratory Exam: prolonged expirations, wheezing Cardiovascular Exam: regular rate/rhythm Extremity Exam: normal inspection, No calf tenderness, No pedal edema Final Diagnosis/Problem List - Final Discharge Diagnosis/Problem (1) Delirium Current Visit: Yes Status: Acute (2) Chronic hypercapnic respiratory failure Current Visit: Yes Status: Acute Assessment & Plan: with hypoxemic respiratory failure and multiple recurrent admissions the patient will benefit from noninvasive positive pressure ventilation at night to prevent future admissions and help with her delirium as well. (3) COPD (chronic obstructive pulmonary disease) Current Visit: Yes Status: Acute (4) Anemia Current Visit: Yes Status: Chronic (5) Hypertension Current Visit: Yes Status: Chronic (6) UTI (urinary tract infection) Current Visit: Yes Status: Resolved Assessment & Plan: completed meropenem (7) Depressive disorder Current Visit: Yes Status: Chronic (8) Rheumatoid arthritis Current Visit: Yes Status: Chronic (9) Dementia Current Visit: Yes Status: Chronic - Discharge Disposition: Skilled Care @ [facility] Condition: Fair Prescriptions: New Lorazepam [Ativan] 1 mg PO Q6H PRN #90 tablet PRN Reason: Anxiety Continue Donepezil HCl 5 mg PO HS Sennosides [Senna Laxative] 2 tab PO DAILY PRN PRN PRN Reason: Constipation Fluoxetine HCl [Prozac] 60 mg PO DAILY Magnesium Oxide 400 mg [Mag-Ox 400] 400 mg PO DAILY #30 tablet Fluticasone/Vilanterol [Breo Ellipta 100-25 Mcg INH] 1 inh PO DAILY Albuterol/Ipratropium 3ml Neb* [DUONEB 0.5-3 MG/3 ml Neb] 3 ml IH Q4HPRN PRN PRN Reason: Shortness Of Breath Docusate Sodium 100 mg [Colace 100 MG] 100 mg PO BID #60 capsule Ferrous Sulfate 325 mg [Feosol 325 mg] 325 mg PO TID #90 tablet Lisinopril 5 mg [Zestril 5 MG] 10 mg PO DAILY #30 tablet Albuterol Sulfate [Proair Hfa] 8.5 gm IH Q6HPRN PRN PRN Reason: Shortness Of Breath/Wheezing Metoprolol Tartrate 50 mg [Lopressor 50 MG] 50 mg PO BID #0 tablet Ziprasidone HCl [Geodon] 40 mg PO HS #30 capsule Lorazepam 1 mg [Ativan 1 MG] 1 mg PO TID #90 tablet Prednisone 10 mg [Deltasone 10 mg] 10 mg PO DAILY #60 tablet Hydrocodone/APAP 10/325 mg [Jack 10/325 MG Tablet] 1 tab PO Q4H/PRN PRN #120 tablet PRN Reason: Pain Discontinued Meropenem [Merrem 1 GM] 1 g IV Q8HT #0 vial Instructions: Chronic Obstructive Pulmonary Disease Additional Instructions: bipap use at night
--- NOTE | 2016-05-29 07:20 | PCM.NOTE ---
Date and Time: 05/28/16 0800 Subjective Assessment: This am she is easily awaken answeres questions appropriately wore the bipap for about 3 or 4 hours last night had some brief periods of confusion. Objective Exam General Appearance: no apparent distress Neurologic Exam: alert, oriented x 3, cooperative Skin Exam: warm, dry Eye Exam: No scleral icterus Ears, Nose, Throat Exam: dry mucous membranes Neck Exam: non-tender, supple Respiratory Exam: prolonged expirations, wheezing Cardiovascular Exam: regular rate/rhythm Gastrointestinal/Abdomen Exam: soft, normal bowel sounds, No tenderness Extremity Exam: No pedal edema OBJECTIVE DATA Vital Signs: Vital Signs - 24 hr Temp Pulse Resp BP Pulse Ox 05/29/16 06:00 19 05/29/16 05:26 63 16 97 05/29/16 04:00 97.9 F 78 17 118/61 99 05/29/16 03:15 60 16 98 05/29/16 02:00 16 05/28/16 23:57 97.5 F 62 17 110/56 95 05/28/16 23:08 62 17 99 05/28/16 22:00 17 05/28/16 20:00 98.6 F 78 19 117/56 98 05/28/16 17:19 87 20 96 05/28/16 16:00 98.6 F 76 21 148/65 97 05/28/16 14:31 72 20 98 05/28/16 11:50 98.7 F 70 20 139/67 98 05/28/16 10:31 94 H 22 95 Oxygen-Last 24 hours O2 Percentage 4 Liters = 36% O2 Percentage 4 Liters = 36% O2 Percentage 4 Liters = 36% O2 Percentage 4 Liters = 36% O2 Percentage 4 Liters = 36% Pain Assessment - Last Documented Pain Intensity 7 Pain Scale Used [facility] Intake and Output: Intake & Output 05/26/16 05/27/16 05/28/16 05/29/16 11:59 11:59 11:59 11:59 Intake Total 1860 1450 Output Total 1300 Balance 1860 150 Weight 63.503 kg Lab Results: Lab Results-Last 24 Hours 05/28/16 05/28/16 Range/Units 08:58 08:58 WBC 10.5 (4.0-10.5) K/mm3 RBC 3.39 L (4.1-5.4) M/mm3 Hgb 9.8 L (12.0-16.0) gm/dl Hct 33.7 L (35-47) % MCV 99.4 (78-100) fl MCH 28.9 (26-32) pg MCHC 29.1 L (32-36) g/dl RDW 14.8 H (11.5-14.0) % Plt Count 274 (150-450) K/mm3 MPV 9.7 H (6-9.5) fl Gran % 90.9 H (36.0-66.0) % Lymphocytes % 7.5 L (24.0-44.0) % Monocytes % 1.5 (0.0-12.0) % Eosinophils % 0.0 (0.00-5.0) % Basophils % 0.1 (0.0-0.4) % Basophils # 0.01 (0-0.4) Sodium 146 H (136-145) mEq/L Potassium 5.0 (3.5-5.1) mEq/L Chloride 100 (98-107) mEq/L Carbon Dioxide 43.5 H (21-32) mEq/L Anion Gap 7.4 (5-15) MEQ/L BUN 13 (9-20) mg/dL Creatinine 0.75 (0.55-1.30) mg/dl Estimated GFR > 60 ML/MIN Glucose 176 H (70-110) MG/DL Calcium 8.3 L (8.5-10.1) mg/dL Total Bilirubin 0.2 (0.2-1.0) mg/dL AST 15 (15-37) U/L ALT 18 (12-78) U/L Alkaline Phosphatase 47 (46-116) U/L Serum Total Protein 6.5 (6.4-8.2) gm/dL Albumin 2.9 L (3.4-5.0) g/dL Assessment/Plan (1) Delirium Current Visit: Yes Status: Acute Assessment & Plan: try prn ativan as seems anxiety related. Code(s): R41.0 - DISORIENTATION, UNSPECIFIED (2) Chronic hypercapnic respiratory failure Current Visit: Yes Status: Acute Assessment & Plan: continue bipap at night (3) COPD (chronic obstructive pulmonary disease) Current Visit: Yes Status: Acute Qualifiers: COPD type: unspecified COPD Qualified Code(s): J44.9 - Chronic obstructive pulmonary disease, unspecified Assessment & Plan: last dose today of the meropenem for the + pseudomonas culture (4) Anemia Current Visit: Yes Status: Chronic Qualifiers: Code(s): D64.9 - ANEMIA, UNSPECIFIED (5) Hypertension Current Visit: Yes Status: Chronic Code(s): I10 - ESSENTIAL (PRIMARY) HYPERTENSION (6) UTI (urinary tract infection) Current Visit: Yes Status: Resolved Qualifiers: Urinary tract infection type: site unspecified Hematuria presence: without hematuria Qualified Code(s): N39.0 - Urinary tract infection, site not specified Assessment & Plan: last abx dose today Code(s): N39.0 - URINARY TRACT INFECTION, SITE NOT SPECIFIED (7) Depressive disorder Current Visit: Yes Status: Chronic Code(s): F32.9 - MAJOR DEPRESSIVE DISORDER, SINGLE EPISODE, UNSPECIFIED (8) Rheumatoid arthritis Current Visit: Yes Status: Chronic Qualifiers: Rheumatoid arthritis location: multiple sites Code(s): M06.9 - RHEUMATOID ARTHRITIS, UNSPECIFIED (9) Dementia Current Visit: Yes Status: Chronic Code(s): F03.90 - UNSPECIFIED DEMENTIA WITHOUT BEHAVIORAL DISTURBANCE
[2016-05-29] MEDS: DUONEB 0.5-3 MG/3 ml Neb IH PRN (08:42)
[2016-05-29] MEDS: Colace 100 MG PO SCH ×2 (09:34→22:27)
[2016-05-29] MEDS: Lopressor 50 MG PO SCH ×2 (09:34→22:27)
[2016-05-29] MEDS: Zestril 10 MG PO SCH (09:34)
[2016-05-29] MEDS: FEOSOL 325 MG PO SCH ×3 (09:34→22:27)
[2016-05-29] MEDS: Prozac 20 MG PO SCH (09:34)
[2016-05-29] MEDS: MAG-OX 400 PO SCH (09:34)
[2016-05-29] MEDS: Ativan 1 MG PO SCH ×3 (09:35→22:26)
[2016-05-29] MEDS: DELTASONE 20 MG PO SCH (09:35)
[2016-05-29] MEDS ORDERED: Tums EX 750 MG PO PRN (19:49)
[2016-05-29] MEDS ORDERED: TUMS EX TABLETS PO ONE (19:55)
[2016-05-29] MEDS: Aricept 10 MG PO SCH (22:27)
[2016-05-29] MEDS: Geodon 20 MG Capsule PO SCH (22:27)
[2016-05-30] MEDS: DUONEB 0.5-3 MG/3 ml Neb IH SCH ×3 (02:51→11:05)
[2016-05-30 07:14] VITALS: BP 139/65
[2016-05-30] MEDS: DUONEB 0.5-3 MG/3 ml Neb IH PRN (09:00)
[2016-05-30] MEDS: Advair Hfa 115/21 Common canister IH SCH (09:15)
[2016-05-30] MEDS: Norco 10/325 MG Tablet PO PRN (09:19)
[2016-05-30] MEDS: Ativan 1 MG PO SCH ×2 (09:19→10:36)
[2016-05-30] MEDS: Prozac 20 MG PO SCH (09:20)
[2016-05-30] MEDS: MAG-OX 400 PO SCH (09:20)
[2016-05-30] MEDS: FEOSOL 325 MG PO SCH (09:20)
[2016-05-30] MEDS: Lopressor 50 MG PO SCH (09:20)
[2016-05-30] MEDS: Zestril 10 MG PO SCH (09:20)
[2016-05-30] MEDS: DELTASONE 20 MG PO SCH (09:20)
[2016-05-30] MEDS: Ativan 2 MG/1 ML VIAL IV PRN (09:21)
[2016-05-30] MEDS: Colace 100 MG PO SCH (09:21)
[2016-05-30 11:08] VITALS: PULSE 104; O2SAT 97
== END 2016-05-30 11:20 | disposition swing bed (61) ==
LOC: ED 13:03 → MED SURG 16:21 → OBSVTOIN 05-30 11:19 → INTOOBSV 05-30 11:19 → UNDODISOB 05-30 11:20
PROVIDERS: ADMIT Family Medicine; ATTEND Family Medicine
DX: R41.0 Disorientation, unspecified (principal); J96.12 Chronic respiratory failure with hypercapnia; J44.9 Chronic obstructive pulmonary disease, unspecified; D64.9 Anemia, unspecified; I10 Essential (primary) hypertension; N39.0 Urinary tract infection, site not specified; F32.9 Major depressive disorder, single episode, unspecified; M06.9 Rheumatoid arthritis, unspecified; F03.90 Unspecified dementia, unspecified severity, without behavioral disturbance, psychotic disturbance, mood disturbance, and anxiety; Z79.899 Other long term (current) drug therapy; I50.9 Heart failure, unspecified; I25.10 Atherosclerotic heart disease of native coronary artery without angina pectoris; J45.909 Unspecified asthma, uncomplicated; Z87.891 Personal history of nicotine dependence
CPT/HCPCS: 96374; 96365; 99285; 93005; 36415; 85025; 80053; 71010; 70450; 71260; 94002; 94003 ×2; 82803; 82375; 36600; 94640 ×13; 94760 ×4; A9270 ×4; G0378; J0696; J2060; J2930; J7506

== ENCOUNTER 2016-05-30 11:20 | Inpatient (IN) | payer MEDICARE ==
[2016-05-30] MEDS ORDERED: PROVENTIL COMMON CANISTER IH PRN (13:07)
[2016-05-30] MEDS ORDERED: Tums EX 750 MG PO PRN (13:07)
[2016-05-30 14:22] LABS: BLOOD UREA NITROGEN 18 mg/dL (9-20); CHLORIDE 99 mEq/L (98-107); Carbon Dioxide 42.3 mEq/L (21-32); Glucose 261 MG/DL (70-110); Potassium 4.5 mEq/L (3.5-5.1); SODIUM 144 mEq/L (136-145)
[2016-05-30] MEDS: Ativan 1 MG PO SCH ×2 (14:55→21:18)
[2016-05-30] MEDS: FEOSOL 325 MG PO SCH ×2 (14:55→21:18)
[2016-05-30] MEDS: Norco 10/325 MG Tablet PO PRN ×2 (15:00→21:22)
[2016-05-30] MEDS: DUONEB 0.5-3 MG/3 ml Neb IH SCH ×3 (15:00→22:56)
[2016-05-30] MEDS: Ativan 2 MG/1 ML VIAL IV PRN (17:21)
[2016-05-30] MEDS: DUONEB 0.5-3 MG/3 ml Neb IH PRN (17:35)
[2016-05-30] MEDS: Advair Hfa 115/21 Common canister IH SCH (18:29)
[2016-05-30] MEDS: Lopressor 50 MG PO SCH (21:17)
[2016-05-30] MEDS: Aricept 10 MG PO SCH (21:17)
[2016-05-30] MEDS: Colace 100 MG PO SCH (21:18)
[2016-05-30] MEDS: Geodon 20 MG Capsule PO SCH (21:18)
[2016-05-30] MEDS: SENOKOT 8.6 MG PO PRN (21:27)
[2016-05-31] MEDS: DUONEB 0.5-3 MG/3 ml Neb IH SCH ×6 (03:05→22:43)
[2016-05-31] MEDS: Advair Hfa 115/21 Common canister IH SCH ×2 (06:50→18:20)
[2016-05-31] MEDS: SENOKOT 8.6 MG PO PRN (07:38)
[2016-05-31] MEDS: Norco 10/325 MG Tablet PO PRN ×3 (07:38→18:52)
[2016-05-31] MEDS: Zestril 10 MG PO SCH (08:40)
[2016-05-31] MEDS: Lopressor 50 MG PO SCH ×2 (08:40→20:49)
[2016-05-31] MEDS: Ativan 1 MG PO SCH ×3 (08:40→21:25)
[2016-05-31] MEDS: Prozac 20 MG PO SCH (08:40)
[2016-05-31] MEDS: DELTASONE 20 MG PO SCH (08:40)
[2016-05-31] MEDS: MAG-OX 400 PO SCH (08:40)
[2016-05-31] MEDS: Colace 100 MG PO SCH ×2 (08:40→20:48)
[2016-05-31] MEDS: FEOSOL 325 MG PO SCH ×3 (08:40→20:48)
[2016-05-31] MEDS: DUONEB 0.5-3 MG/3 ml Neb IH PRN (09:02)
[2016-05-31] MEDS: Ativan 2 MG/1 ML VIAL IV PRN ×2 (11:30→20:45)
[2016-05-31 20:05] VITALS: BP 142/63
[2016-05-31] MEDS: Aricept 10 MG PO SCH (20:49)
[2016-05-31] MEDS: Geodon 20 MG Capsule PO SCH (20:49)
[2016-06-01] MEDS: DUONEB 0.5-3 MG/3 ml Neb IH SCH ×4 (02:50→14:20)
[2016-06-01] MEDS: Advair Hfa 115/21 Common canister IH SCH (07:15)
[2016-06-01] MEDS: Ativan 2 MG/1 ML VIAL IV PRN ×2 (07:33→11:41)
[2016-06-01] MEDS: FEOSOL 325 MG PO SCH ×2 (09:44→14:11)
[2016-06-01] MEDS: Zestril 10 MG PO SCH (09:44)
[2016-06-01] MEDS: Prozac 20 MG PO SCH (09:44)
[2016-06-01] MEDS: SENOKOT 8.6 MG PO PRN (09:44)
[2016-06-01] MEDS: MAG-OX 400 PO SCH (09:44)
[2016-06-01] MEDS: Norco 10/325 MG Tablet PO PRN ×2 (09:44→14:11)
[2016-06-01] MEDS: DELTASONE 20 MG PO SCH (09:45)
[2016-06-01] MEDS: Lopressor 50 MG PO SCH (09:45)
[2016-06-01] MEDS: Ativan 1 MG PO SCH ×2 (09:45→14:12)
[2016-06-01] MEDS: Colace 100 MG PO SCH (09:45)
[2016-06-01 14:22] VITALS: PULSE 78; O2SAT 96
--- NOTE | 2016-06-03 22:08 | PCM.DS ---
Discharge Summary Date of Admission: 05/30/16 11:20 Admitting Physician: SURAJ SAMS Primary Care Provider: SURAJ SAMS Allergies Allergies No Known Drug Allergies Allergy (Verified 05/27/16 13:18) Hospital Summary - Hospital Course Hospital Course: Malaika suffers from chronic anxiety and paranoia with dementia and severe copd with hypercapneic hypoxemic respiratory failure and was discharged to [facility] but when she was complaining of her breathing a d-dimer was drawn that was elevated and she was sent to the ED for CT PE protocol that was negative for PE and showed her chronic emphysema. SHe was admitted for her altered mental status but this was her recent baseline she was able to talk appropriately answer questions appropriately and follow commands. She was started on bipap at night and this improved her daytime symptoms of the chronic severe CO2 retention. She had to be placed in swing bed for 3 days as [facility] was unable to take her back with a level 1 pending that was completed and thus she will return now to continue the bipap at night and her previous medications. - Vitals & Intake/Output Vital Signs: Vital Signs Temperature 98.9 F 05/31/16 20:04 Pulse Rate 78 06/01/16 14:21 Respiratory Rate 20 06/01/16 14:21 Blood Pressure 142/63 05/31/16 20:04 O2 Sat by Pulse Oximetry 96 06/01/16 14:21 Oxygen-Last Documented O2 Percentage 4 Liters = 36% Intake & Output: Intake & Output 06/01/16 06/02/16 06/03/16 06/04/16 11:59 11:59 11:59 11:59 Intake Total 2480 480 Balance 2480 480 Weight 63.503 kg - Lab Result Diagrams: 05/30/16 14:00 - Procedures and Test Procedures and Tests throughout Hospitalization: Therapy Orders & Screens 05/30/16 12:35 BiPap/CPAP Assessment ROUTINE Comment: Diagnosis: exac copd Oxygen NASAL CANNULA 4 lpm Comment: Diagnosis: exac copd 05/30/16 14:57 Respiratory Nebulizer Q4H Comment: Diagnosis: exac copd 05/30/16 19:00 Respiratory MDI BID Comment: Diagnosis: exac copd Discharge Exam General Appearance: no apparent distress Neurologic Exam: alert, oriented x 3, cooperative Skin Exam: warm, dry Eye Exam: pale conjunctivae, No scleral icterus Ears, Nose, Throat Exam: dry mucous membranes Neck Exam: non-tender, supple Respiratory Exam: prolonged expirations, rhonchi, wheezing, No respiratory distress Cardiovascular Exam: regular rate/rhythm, No murmur Gastrointestinal/Abdomen Exam: soft, normal bowel sounds, No tenderness Extremity Exam: normal inspection, No pedal edema Back Exam: No rash Final Diagnosis/Problem List - Final Discharge Diagnosis/Problem (1) COPD (chronic obstructive pulmonary disease) Status: Acute (2) Chronic hypercapnic respiratory failure Status: Acute (3) Compensated metabolic alkalosis Status: Acute (4) Delirium Status: Acute (5) Anemia Status: Chronic (6) Dementia Status: Chronic (7) Depressive disorder Status: Chronic (8) Hypertension Status: Chronic (9) Rheumatoid arthritis Status: Chronic - Discharge Disposition: Skilled Care @ [facility] Condition: Good Prescriptions: Continue Donepezil HCl 5 mg PO HS Sennosides [Senna Laxative] 2 tab PO DAILY PRN PRN PRN Reason: Constipation Fluoxetine HCl [Prozac] 60 mg PO DAILY Magnesium Oxide 400 mg [Mag-Ox 400] 400 mg PO DAILY #30 tablet Fluticasone/Vilanterol [Breo Ellipta 100-25 Mcg INH] 1 inh PO DAILY Albuterol/Ipratropium 3ml Neb* [DUONEB 0.5-3 MG/3 ml Neb] 3 ml IH Q4HPRN PRN PRN Reason: Shortness Of Breath Docusate Sodium 100 mg [Colace 100 MG] 100 mg PO BID #60 capsule Ferrous Sulfate 325 mg [Feosol 325 mg] 325 mg PO TID #90 tablet Lisinopril 5 mg [Zestril 5 MG] 10 mg PO DAILY #30 tablet Albuterol Sulfate [Proair Hfa] 8.5 gm IH Q6HPRN PRN PRN Reason: Shortness Of Breath/Wheezing Metoprolol Tartrate 50 mg [Lopressor 50 MG] 50 mg PO BID #0 tablet Ziprasidone HCl [Geodon] 40 mg PO HS #30 capsule Prednisone 10 mg [Deltasone 10 mg] 10 mg PO DAILY #60 tablet Hydrocodone/APAP 10/325 mg [[place] 10/325 MG Tablet] 1 tab PO Q4H/PRN PRN #120 tablet PRN Reason: Pain Lorazepam [Ativan] 1 mg PO Q6H PRN #90 tablet PRN Reason: Anxiety Lorazepam 1 mg [Ativan 1 MG] 1 mg PO TID Follow up with: SURAJ SAMS [Primary Care Provider] - 1 Week Forms: Ambulance Transport Record, Transfer Record Inter-Agency
== END 2016-06-01 14:55 | DRG 191 ==
LOC: MED SURG 11:20
PROVIDERS: ADMIT Family Medicine; ATTEND Family Medicine
DX: J44.9 Chronic obstructive pulmonary disease, unspecified (principal); J96.12 Chronic respiratory failure with hypercapnia; E87.3 Alkalosis; R41.0 Disorientation, unspecified; D64.9 Anemia, unspecified; F03.90 Unspecified dementia, unspecified severity, without behavioral disturbance, psychotic disturbance, mood disturbance, and anxiety; F32.9 Major depressive disorder, single episode, unspecified; I10 Essential (primary) hypertension; M06.9 Rheumatoid arthritis, unspecified; Z79.899 Other long term (current) drug therapy
CPT/HCPCS: 36415; 80048; 94003; 94640; 94760; J2060; A9270-GY; J7506

== ENCOUNTER 2016-07-31 16:26 | Emergency (ER) | payer MEDICARE ==
[2016-07-31] MEDS ORDERED: DUONEB 0.5-3 MG/3 ml Neb IH ONE ×2 (16:33→16:58)
[2016-07-31] MEDS ORDERED: PROVENTIL 2.5 MG/3 ML NEB IH ONE ×2 (16:47→17:03)
[2016-07-31] MEDS ORDERED: solu-MEDROL 125 MG IV ONE (16:47)
--- NOTE | 2016-07-31 16:50 | ERPHSYRPT ---
- History of Present Illness Time Seen by Provider: 07/31/16 16:44 Source: patient Exam Limitations: no limitations Patient Subjective Stated Complaint: PT REPORTS INCREASED SOB ET PRODUCTIVE COUGH WITH GREEN SPUTUM BEGINNING YESTERDAY-UNSURE OF FEVER-REPORTS ALL OVER PAIN INCREASING WITH COUGH Triage Nursing Assessment: PT PALE WARM ET DRY-RETRACTIONS NOTED-PT ABLE TO SPEAK IN SHORT SENTNCES ONLY-LUNGS TIGHT DIMINISHED WITH WHEEZING THROUGHOUT Physician History: The patient is a 61-year-old female who complains of increasing shortness of breath and a productive cough with green sputum since yesterday. She has COPD. She does use albuterol at home twice today. She uses supplemental oxygen 4 L constantly. Her past medical history is significant for depression, COPD, hypertension, anxiety, and congestive heart failure. Timing/Duration: yesterday, gradual onset, worse Severity of Dyspnea-Max: moderate Severity of Dyspnea-Current: moderate Possible Cause: frequent episodes Modifying Factors: Improves With: albuterol nebulizer, oxygen Associated Symptoms: wheezing, productive cough Allergies/Adverse Reactions: No Known Drug Allergies Allergy (Verified 07/31/16 16:39) Home Medications: Donepezil HCl 5 mg PO HS 06/15/14 [History] Sennosides [Senna Laxative] 2 tab PO DAILY PRN PRN 06/15/14 [History] Fluoxetine HCl [Prozac] 60 mg PO DAILY 03/02/15 [History] Fluticasone/Vilanterol [Breo Ellipta 100-25 Mcg INH] 1 inh PO DAILY 12/17/15 [ History] Albuterol/Ipratropium 3ml Neb* [DUONEB 0.5-3 MG/3 ml Neb] 3 ml IH Q4HPRN PRN 01/31/16 [History] Albuterol Sulfate [Proair Hfa] 8.5 gm IH Q6HPRN PRN 03/23/16 [History] Lorazepam 1 mg [Ativan 1 MG] 1 mg PO TID 05/30/16 [History] Hx Tetanus, Diphtheria Vaccination/Date Given: Yes Hx Influenza Vaccination/Date Given: No Hx Pneumococcal Vaccination/Date Given: Yes Immunizations Up to Date: Yes - Review of Systems Constitutional: No Fever, No Chills Eyes: No Symptoms Ears, Nose, & Throat: No Symptoms Respiratory: Cough, Dyspnea, Wheezing Cardiac: No Chest Pain, No Edema, No Syncope Abdominal/Gastrointestinal: No Abdominal Pain, No Nausea, No Vomiting, No Diarrhea Genitourinary Symptoms: No Dysuria Musculoskeletal: No Back Pain, No Neck Pain Skin: No Rash Neurological: No Dizziness, No Focal Weakness, No Sensory Changes Psychological: No Symptoms Endocrine: No Symptoms Hematologic/Lymphatic: No Symptoms Immunological/Allergic: No Symptoms All Other Systems: Reviewed and Negative - Past Medical History Pertinent Past Medical History: Yes Neurological History: Dementia ENT History: No Pertinent History Cardiac History: Congestive Heart Failure, Coronary Artery Disease, Hypertension Respiratory History: Asthma, Bronchitis, CHF, COPD, Pneumonia, Other Endocrine Medical History: No Pertinent History Musculoskeletal History: No Pertinent History GI Medical History: No Pertinent History History: No Pertinent History Psycho-Social History: Depression Female Reproductive Disorders: No Pertinent History Other Medical History: ... - Past Surgical History Past Surgical History: Yes Neuro Surgical History: No Pertinent History Cardiac: Pacemaker Respiratory: No Pertinent History Gastrointestinal: Bowel Surgery Genitourinary: No Pertinent History Musculoskeletal: Amputation Female Surgical History: No Pertinent History Other Surgical History: sinus surgery in 80's,finger amp, bowel surg. - Social History Smoking Status: Former smoker How long have you smoked: 45 years Exposure to second hand smoke: No Alcohol Use: None Drug Use: none Patient Lives Alone: No Significant Family History: no pertinent family hx - Female History Hx Now: No - Nursing Vital Signs Nursing Vital Signs: Initial Vital Signs Temperature 100.4 F Temperature Source Oral Pulse Rate 76 Respiratory Rate 20 Blood Pressure [] 125/68 Pain Intensity 8 - Physical Exam General Appearance: mild distress Eye Exam: PERRL/EOMI Neck Exam: normal inspection, supple Respiratory Exam: diminished breath sounds, wheezing Cardiovascular/Chest Exam: normal heart sounds, regular rate/rhythm Abdominal/Gastrointestinal Exam: soft, No tenderness, No distention, No mass Rectal Exam: not done Extremity Exam: non-tender, normal range of motion, normal inspection, no calf tenderness, no pedal edema Neurologic Exam: alert, oriented x 3, cooperative, route supervisor II-XII nml as tested, sensation nml, No motor deficits Skin Exam: normal color, warm, No dry SpO2 Interpretation: borderline oxygenation SpO2: 95 Oxygen Delivery: Nasal Cannula - Radiology Exams Chest X-ray Interpretation: Interpreted by me, Negative (No acute chest , comp AP CXR 05/27/16) Ordered Tests: Active Orders 24 hr Category Date Time Status IV Insertion STAT Care 07/31/16 16:47 Active Oxygen-ED Only NASAL CANNULA 4 lpm Care 07/31/16 16:47 Active CHEST 2 VIEWS (PA AND LAT) Stat Exams 07/31/16 16:48 Taken CBC W DIFF Stat Lab 07/31/16 17:10 Completed CMP Stat Lab 07/31/16 17:10 Completed NT PRO BNP Stat Lab 07/31/16 17:10 Completed Respiratory Nebulizer STAT RT 07/31/16 16:49 Completed Respiratory Nebulizer STAT RT 07/31/16 16:59 Completed Medication Summary Discontinued Medications Generic Name Dose Route Start Last Admin Trade Name Freq PRN Reason Stop Dose Admin Albuterol Sulfate 2.5 mg 07/31/16 16:47 07/31/16 17:05 Proventil 2.5 Mg/3 Ml Neb IH 07/31/16 16:48 2.5 mg STAT ONE Administration Albuterol Sulfate Confirm 07/31/16 17:03 Proventil 2.5 Mg/3 Ml Neb Administered 07/31/16 17:04 Dose 2.5 mg IH .STK-MED ONE Albuterol/Ipratropium Confirm 07/31/16 16:33 Duoneb 0.5-3 Mg/3 Ml Neb Administered 07/31/16 16:34 Dose 3 ml IH .STK-MED ONE Albuterol/Ipratropium 3 ml 07/31/16 16:58 07/31/16 16:38 Duoneb 0.5-3 Mg/3 Ml Neb IH 07/31/16 16:59 3 ml STAT ONE Administration Ceftriaxone Sodium/Dextrose 1 g in 50 mls @ 100 mls/hr 07/31/16 16:54 17:19 Rocephin 1 Gm-D5w 50 Ml Bag IV 07/31/16 17:23 100 mls/hr STAT STA Administration Ceftriaxone Sodium/Dextrose Confirm 07/31/16 17:18 Rocephin 1 Gm-D5w 50 Ml Bag Administered 07/31/16 17:19 Dose 1 g in 50 mls @ ud IV .STK-MED ONE Methylprednisolone Sodium Succinate 125 mg 07/31/16 16:47 07/31/16 17:19 Solu-Medrol 125 Mg IV 07/31/16 16:48 125 mg STAT ONE Administration Methylprednisolone Sodium Succinate Confirm 07/31/16 17:05 Solu-Medrol 125 Mg Administered 07/31/16 17:06 Dose 125 mg .ROUTE .STK-MED ONE Lab/Rad Data: Laboratory Result Diagrams 07/31/16 17:10 07/31/16 17:10 Laboratory Results 07/31/16 07/31/16 Range/Units 17:10 17:10 WBC 10.6 H (4.0-10.5) K/mm3 RBC 3.81 L (4.1-5.4) M/mm3 Hgb 11.1 L (12.0-16.0) gm/dl Hct 37.5 (35-47) % MCV 98.4 (78-100) fl MCH 29.1 (26-32) pg MCHC 29.6 L (32-36) g/dl RDW 14.0 (11.5-14.0) % Plt Count 265 (150-450) K/mm3 MPV 9.7 H (6-9.5) fl Gran % 82.4 H (36.0-66.0) % Lymphocytes % 13.9 L (24.0-44.0) % Monocytes % 3.1 (0.0-12.0) % Eosinophils % 0.4 (0.00-5.0) % Basophils % 0.2 (0.0-0.4) % Basophils # 0.02 (0-0.4) Sodium 139 (136-145) mEq/L Potassium 4.1 (3.5-5.1) mEq/L Chloride 96 L (98-107) mEq/L Carbon Dioxide 40.3 H (21-32) mEq/L Anion Gap 6.4 (5-15) MEQ/L BUN 16 (9-20) mg/dL Creatinine 0.74 (0.55-1.30) mg/dl Estimated GFR > 60 ML/MIN Glucose 211 H (70-110) MG/DL Calcium 9.4 (8.5-10.1) mg/dL Total Bilirubin 0.20 (0.2-1.0) mg/dL AST 13 L (15-37) U/L ALT 14 (12-78) U/L Alkaline Phosphatase 45 L (46-116) U/L NT-Pro-B Natriuret Pep 842 H (0-125) pg/ml Serum Total Protein 6.8 (6.4-8.2) gm/dL Albumin 3.2 L (3.4-5.0) g/dL - Progress Progress: improved Air Movement: good Blood Culture(s) Obtained: No Antibiotics given: Yes Counseled pt/family regarding: lab results, diagnosis, rad results - Departure Time of Disposition: 18:27 Departure Disposition: Home Clinical Impression: Bronchitis, COPD exacerbation Condition: Stable Critical Care Time: No Instructions: Chronic Obstructive Pulmonary Disease Additional Instructions: You have bronchitis and an exacerbation of COPD. You were given a DuoNeb treatment, albuterol neb treatment, and Solu-Medrol 125 mg by IV in the ER. You were given the antibiotic Rocephin 1 g IV in the ER. Take prednisone 60 mg daily for 5 days and take a Z-Robson as directed. Follow-up in 2-3 days or earlier if no improvement. Prescriptions: Azithromycin 250 mg [Zithromax 250 MG TABLET] 250 mg PO ZPACK #6 tablet Prednisone 10 mg [Deltasone 10 mg] 60 mg PO UD #30 tablet
[2016-07-31] MEDS ORDERED: ROCEPHIN 1 Gm-D5w 50 ml Bag** 1 G/50 ML IVPB IV STA (16:54)
[2016-07-31] MEDS ORDERED: solu-MEDROL 125 MG ONE (17:05)
[2016-07-31] MEDS ORDERED: ROCEPHIN 1 Gm-D5w 50 ml Bag** 1 G/50 ML IVPB IV ONE (17:18)
[2016-07-31 17:25] LABS: BASOPHIL % 0.2 % (0.0-0.4); Eosinophil % 0.4 % (0.00-5.0); Granulocytes % 82.4 % (36.0-66.0); Lymphocytes % 13.9 % (24.0-44.0); Mean Cell Volume 98.4 fl (78-100); Mean Corpuscular Hemoglobin 29.1 pg (26-32); Mean Platelet Volume 9.7 fl (6-9.5); Monocytes % 3.1 % (0.0-12.0); Platelet Count 265 K/mm3 (150-450); Red Blood Count 3.81 M/mm3 (4.1-5.4); White Blood Count 10.6 K/mm3 (4.0-10.5)
[2016-07-31 18:17] LABS: ALBUMIN 3.2 g/dL (3.4-5.0); ALKALINE PHOSPHATASE 45 U/L (46-116); ANION GAP 6.4 MEQ/L (5-15); BLOOD UREA NITROGEN 16 mg/dL (9-20); CHLORIDE 96 mEq/L (98-107); Carbon Dioxide 40.3 mEq/L (21-32); Glucose 211 MG/DL (70-110); Potassium 4.1 mEq/L (3.5-5.1); SGOT/AST 13 U/L (15-37); SGPT/ALT 14 U/L (12-78); SODIUM 139 mEq/L (136-145); Total Protein 6.8 gm/dL (6.4-8.2)
[2016-07-31 19:21] VITALS: BP 162/82; PULSE 74; O2SAT 97
--- NOTE | 2016-07-31 22:00 | XRAY ---
Indication: Short of breath. Comparison: May 27, 2016. PA/lateral chest remains hyperinflated with chronic lung markings. No focal infiltrate, consolidation, or large effusion. Heart is not enlarged. Stable left-sided dual-lead pacemaker. Bony thorax intact. Impression: Stable nonacute hyperinflated chest with chronic features.
== END 2016-07-31 19:22 | disposition home or self-care (01) ==
LOC: ED 16:26
DX: J40 Bronchitis, not specified as acute or chronic (principal); J44.1 Chronic obstructive pulmonary disease with (acute) exacerbation; R06.02 Shortness of breath; R05 Cough
CPT/HCPCS: 36000; 36415; 71020; 80053; 83880; 85025; 94640; 96365; 96374; 99283; 99284; J0696; J2930; A9270-GY

== ENCOUNTER 2016-08-03 09:31 | Observation (INO) | payer MEDICARE ==
--- NOTE | 2016-08-03 09:42 | ERPHSYRPT ---
- History of Present Illness Time Seen by Provider: 08/03/16 09:41 Historian: patient, EMS Exam Limitations: no limitations Patient Subjective Stated Complaint: PT BROUGHT TO ED PER EMS FROM HOME-REPORTS TIGHTNESS IN CHEST-COUGHING GREEN SPUTUM-UNSURE OF FEVER-STATES SHE WAS FEELING FUNNY IN HER CHEST Triage Nursing Assessment: PT PALE WARM ET DRY UPON ARRIVAL-RESP NORMAL FOR PT- LUNGS DIMINISHED-PT ABLE TO SPEAK IN COMPLETE SENTENCES Physician History: The patient is a 61-year-old female brought in by ambulance from home where she complains of a funny feeling in her chest that began about one hour ago. Her hands tingly. She was also short of breath but that is nothing unusual for her. She uses oxygen 4 L of supplemental continuously at home. I saw the patient on 07/31/16 in the ER for shortness of breath. At that time she had a COPD exacerbation and was given Solu-Medrol 125 mg IV, Rocephin 1 g IV, duo neb treatment, an albuterol treatment in the ER with improvement. She was sent home with a Z-Robson and prednisone 60 mg daily for 5 days. She was improving until the complaint today of a funny feeling in her chest. She denies nausea vomiting or diarrhea. She denies sweating. EMS gave her a Duoneb breathing treatment, 4 baby aspirin, and one sublingual nitroglycerin. She still has the funny feeling in her chest. Her past medical history is significant for the cardiac pacemaker, depression, COPD, hypertension, anxiety, and congestive heart failure. Timing/Duration: today, hour(s) (1) Activities at Onset: none Quality: other ("funny" feeling) Location: central Chest Pain Radiation: no radiation Severity of Pain-Max: mild Severity of Pain-Current: mild Modifying Factors: Improves With: nitroglycerin, oxygen, aspirin Associated Symptoms: denies symptoms Prior Chest Pain/Cardiac Workup: no prior chest pain Nitro Today/Relief: 0.4 mg x 1, provided by EMS, no relief Aspirin Treatment Today: 81 mg x 4, provided by ED Allergies/Adverse Reactions: No Known Drug Allergies Allergy (Verified 08/03/16 09:41) Home Medications: Donepezil HCl 5 mg PO HS 06/15/14 [History] Sennosides [Senna Laxative] 2 tab PO DAILY PRN PRN 06/15/14 [History] Fluoxetine HCl [Prozac] 60 mg PO DAILY 03/02/15 [History] Fluticasone/Vilanterol [Breo Ellipta 100-25 Mcg INH] 1 inh PO DAILY 12/17/15 [ History] Albuterol/Ipratropium 3ml Neb* [DUONEB 0.5-3 MG/3 ml Neb] 3 ml IH Q4HPRN PRN 01/31/16 [History] Albuterol Sulfate [Proair Hfa] 8.5 gm IH Q6HPRN PRN 03/23/16 [History] Lorazepam 1 mg [Ativan 1 MG] 1 mg PO TID 05/30/16 [History] Hx Tetanus, Diphtheria Vaccination/Date Given: Yes Hx Influenza Vaccination/Date Given: No Hx Pneumococcal Vaccination/Date Given: Yes Immunizations Up to Date: Yes - Review of Systems Constitutional: No Fever, No Chills Eyes: No Symptoms Ears, Nose, & Throat: No Symptoms Respiratory: Dyspnea Cardiac: Chest Pain Abdominal/Gastrointestinal: No Abdominal Pain, No Nausea, No Vomiting, No Diarrhea Genitourinary Symptoms: No Dysuria Musculoskeletal: No Back Pain, No Neck Pain Skin: No Rash Neurological: No Dizziness, No Focal Weakness, No Sensory Changes Psychological: No Symptoms Endocrine: No Symptoms Hematologic/Lymphatic: No Symptoms Immunological/Allergic: No Symptoms All Other Systems: Reviewed and Negative - Past Medical History Pertinent Past Medical History: Yes Neurological History: Dementia ENT History: No Pertinent History Cardiac History: Congestive Heart Failure, Coronary Artery Disease, Hypertension Respiratory History: Asthma, Bronchitis, CHF, COPD, Pneumonia, Other Endocrine Medical History: No Pertinent History Musculoskeletal History: No Pertinent History GI Medical History: No Pertinent History History: No Pertinent History Psycho-Social History: Depression Female Reproductive Disorders: No Pertinent History Other Medical History: ... - Past Surgical History Past Surgical History: Yes Neuro Surgical History: No Pertinent History Cardiac: Pacemaker Respiratory: No Pertinent History Gastrointestinal: Bowel Surgery Genitourinary: No Pertinent History Musculoskeletal: Amputation Female Surgical History: No Pertinent History Other Surgical History: sinus surgery in 80's,finger amp, bowel surg. - Social History Smoking Status: Former smoker How long have you smoked: 45 years Exposure to second hand smoke: No Alcohol Use: None Drug Use: none Patient Lives Alone: No Significant Family History: no pertinent family hx - Female History Hx Now: No - Nursing Vital Signs Nursing Vital Signs: Initial Vital Signs Temperature 98.3 F Temperature Source Oral Pulse Rate 65 Respiratory Rate 20 Blood Pressure [] 131/63 Pain Intensity 5 - Physical Exam General Appearance: no apparent distress, alert Eye Exam: PERRL/EOMI, eyes nml inspection Ears, Nose, Throat Exam: normal ENT inspection, moist mucous membranes Neck Exam: normal inspection, non-tender, supple, full range of motion Respiratory Exam: diminished breath sounds, wheezing Cardiovascular Exam: regular rate/rhythm, normal heart sounds Gastrointestinal/Abdomen Exam: soft, No tenderness, No mass Pelvic Exam: not done Rectal Exam: not done Back Exam: normal inspection, No CVA tenderness, No vertebral tenderness Extremity Exam: normal inspection, normal range of motion Neurologic Exam: alert, oriented x 3, cooperative, normal mood/affect, sensation nml, No motor deficits Skin Exam: normal color, warm, dry SpO2 Interpretation: normal SpO2: 98 Oxygen Delivery: Nasal Cannula - Course EKG Interpreted by Me: RATE, Other (paced ) - Radiology Exams Chest X-ray Interpretation: Interpreted by me, Negative (No acute chest, comp CXR 07/31) Ordered Tests: Active Orders 24 hr Category Date Time Status 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 STAT Care 08/03/16 09:51 Active EKG-ER Only STAT Care 08/03/16 09:51 Active IV Insertion STAT Care 08/03/16 09:51 Active Oxygen-ED Only NASAL CANNULA 4 lpm Care 08/03/16 09:51 Active CHEST 2 VIEWS (PA AND LAT) Stat Exams 08/03/16 09:51 Completed CBC W DIFF Stat Lab 08/03/16 09:45 Completed CMP Stat Lab 08/03/16 09:45 Completed Lactic Acid Urgent Lab 08/03/16 09:51 Completed MAGNESIUM Stat Lab 08/03/16 09:45 Completed NT PRO BNP Stat Lab 08/03/16 09:45 Completed TROPONIN Q3H Lab 08/03/16 09:45 Completed TROPONIN Q3H Lab 08/03/16 13:00 Ordered TROPONIN Q3H Lab 08/03/16 16:00 Ordered TROPONIN Q3H Lab 08/03/16 19:00 Ordered TROPONIN Q3H Lab 08/03/16 22:00 Ordered Respiratory Nebulizer STAT RT 08/03/16 09:53 Completed Medication Summary Discontinued Medications Generic Name Dose Route Start Last Admin Trade Name Heri PRN Reason Stop Dose Admin Albuterol Sulfate Confirm 08/03/16 09:51 Proventil 2.5 Mg/3 Ml Neb Administered 08/03/16 09:52 Dose 2.5 mg IH .STK-MED ONE Albuterol Sulfate 2.5 mg 08/03/16 09:53 08/03/16 09:55 Proventil 2.5 Mg/3 Ml Neb IH 08/03/16 09:54 2.5 mg STAT ONE Administration Nitroglycerin 0.4 mg 08/03/16 09:51 08/03/16 09:57 Nitrostat 0.4 Mg (Ed) SL 08/03/16 09:52 0.4 mg STAT ONE Administration Nitroglycerin Confirm 08/03/16 09:59 Nitrostat 0.4 Mg (Ed) Administered 08/03/16 10:00 Dose 0.4 mg SL .STK-MED ONE Nitroglycerin 0.4 mg 08/03/16 10:19 08/03/16 10:21 Nitrostat 0.4 Mg (Ed) SL 08/03/16 10:20 0.4 mg STAT ONE Administration Lab/Rad Data: Laboratory Result Diagrams 08/03/16 09:45 08/03/16 09:45 Laboratory Results 08/03/16 08/03/16 08/03/16 Range/Units 09:51 09:45 09:45 WBC (4.0-10.5) K/mm3 RBC (4.1-5.4) M/mm3 Hgb (12.0-16.0) gm/dl Hct (35-47) % MCV (78-100) fl MCH (26-32) pg MCHC (32-36) g/dl RDW (11.5-14.0) % Plt Count (150-450) K/mm3 MPV (6-9.5) fl Gran % (36.0-66.0) % Lymphocytes % (24.0-44.0) % Monocytes % (0.0-12.0) % Eosinophils % (0.00-5.0) % Basophils % (0.0-0.4) % Basophils # (0-0.4) Sodium 138 (136-145) mEq/L Potassium 3.7 (3.5-5.1) mEq/L Chloride 96 L (98-107) mEq/L Carbon Dioxide 41.6 H (21-32) mEq/L Anion Gap 3.7 L (5-15) MEQ/L BUN 13 (9-20) mg/dL Creatinine 0.57 (0.55-1.30) mg/dl Estimated GFR > 60 ML/MIN Glucose 101 (70-110) MG/DL Lactic Acid 1.4 (0.4-2.0) Calcium 8.7 (8.5-10.1) mg/dL Magnesium 1.6 L (1.8-2.4) mg/dL Total Bilirubin 0.20 (0.2-1.0) mg/dL AST 12 L (15-37) U/L ALT 10 L (12-78) U/L Alkaline Phosphatase 34 L (46-116) U/L Troponin I 0.020 (0.000-0.056) ng/ml NT-Pro-B Natriuret Pep 1574 H (0-125) pg/ml Serum Total Protein 5.9 L (6.4-8.2) gm/dL Albumin 2.8 L (3.4-5.0) g/dL 08/03/16 Range/Units 09:45 WBC 19.1 H (4.0-10.5) K/mm3 RBC 3.46 L (4.1-5.4) M/mm3 Hgb 10.2 L (12.0-16.0) gm/dl Hct 33.6 L (35-47) % MCV 97.1 (78-100) fl MCH 29.4 (26-32) pg MCHC 30.4 L (32-36) g/dl RDW 13.9 (11.5-14.0) % Plt Count 256 (150-450) K/mm3 MPV 9.6 H (6-9.5) fl Gran % 86.8 H (36.0-66.0) % Lymphocytes % 7.0 L (24.0-44.0) % Monocytes % 5.9 (0.0-12.0) % Eosinophils % 0.2 (0.00-5.0) % Basophils % 0.1 (0.0-0.4) % Basophils # 0.01 (0-0.4) Sodium (136-145) mEq/L Potassium (3.5-5.1) mEq/L Chloride (98-107) mEq/L Carbon Dioxide (21-32) mEq/L Anion Gap (5-15) MEQ/L BUN (9-20) mg/dL Creatinine (0.55-1.30) mg/dl Estimated GFR ML/MIN Glucose (70-110) MG/DL Lactic Acid (0.4-2.0) Calcium (8.5-10.1) mg/dL Magnesium (1.8-2.4) mg/dL Total Bilirubin (0.2-1.0) mg/dL AST (15-37) U/L ALT (12-78) U/L Alkaline Phosphatase (46-116) U/L Troponin I (0.000-0.056) ng/ml NT-Pro-B Natriuret Pep (0-125) pg/ml Serum Total Protein (6.4-8.2) gm/dL Albumin (3.4-5.0) g/dL - Progress Progress: unchanged Air Movement: fair Progress Note: 08/03/16 10:31 After an albuterol nebulizer treatment and a total of 3 nitroglycerin 0.4 mg sublingual, the patient still has a "funny feeling" in her chest. She will be admitted for chest pain rule out protocol. Blood Culture(s) Obtained: No Antibiotics given: No Discussed with : Malcolm Will see patient in: hospital (full admit) Counseled pt/family regarding: lab results, diagnosis, rad results - Departure Time of Disposition: 10:32 Departure Disposition: Observation (per Dr Fowler) Clinical Impression: Chest pain Condition: Stable Critical Care Time: No
[2016-08-03] MEDS ORDERED: Nitrostat 0.4 MG (ED) SL ONE ×3 (09:51→10:19)
[2016-08-03] MEDS ORDERED: PROVENTIL 2.5 MG/3 ML NEB IH ONE ×2 (09:51→09:53)
[2016-08-03 09:58] LABS: BASOPHIL % 0.1 % (0.0-0.4); Eosinophil % 0.2 % (0.00-5.0); Granulocytes % 86.8 % (36.0-66.0); Mean Cell Volume 97.1 fl (78-100); Mean Platelet Volume 9.6 fl (6-9.5); Monocytes % 5.9 % (0.0-12.0); Platelet Count 256 K/mm3 (150-450); Red Blood Count 3.46 M/mm3 (4.1-5.4); Red Cell Distribution Width 13.9 % (11.5-14.0); White Blood Count 19.1 K/mm3 (4.0-10.5)
[2016-08-03 09:59] LABS: Mean Corpuscular Hemoglobin 29.4 pg (26-32)
[2016-08-03 10:19] LABS: ALBUMIN 2.8 g/dL (3.4-5.0); ALKALINE PHOSPHATASE 34 U/L (46-116); ANION GAP 3.7 MEQ/L (5-15); BLOOD UREA NITROGEN 13 mg/dL (9-20); CHLORIDE 96 mEq/L (98-107); Carbon Dioxide 41.6 mEq/L (21-32); Glucose 101 MG/DL (70-110); MAGNESIUM 1.6 mg/dL (1.8-2.4); Potassium 3.7 mEq/L (3.5-5.1); SGOT/AST 12 U/L (15-37); SGPT/ALT 10 U/L (12-78); SODIUM 138 mEq/L (136-145); Total Protein 5.9 gm/dL (6.4-8.2)
--- NOTE | 2016-08-03 10:25 | XRAY ---
Indication: Chest pain. Comparison: July 31, 2016. PA/lateral chest remains hyperinflated with chronic lung markings. No focal infiltrate, consolidation, or large effusion. Heart and mediastinal structures also stable and within normal limits. Stable left-sided dual-lead pacemaker. Impression: Stable nonacute hyperinflated chest with chronic features.
[2016-08-03] MEDS ORDERED: TYLENOL 325 MG PO PRN (10:39)
[2016-08-03] MEDS ORDERED: MILK OF MAGNESIA 30 ML PO PRN (10:39)
[2016-08-03] MEDS ORDERED: Senokot-S Tablet PO PRN (10:39)
[2016-08-03] MEDS ORDERED: MAALOX ES 30 ML UNIT DOSE PO PRN (10:39)
[2016-08-03] MEDS ORDERED: Zofran 4 MG/2 ML VIAL IV PRN (10:39)
[2016-08-03] MEDS ORDERED: PROVENTIL 2.5 MG/3 ML NEB IH PRN (11:30)
[2016-08-03] MEDS ORDERED: Zithromax 250 MG TABLET PO SCH (13:15)
[2016-08-03] MEDS: Ativan 1 MG PO PRN ×2 (13:41→19:50)
[2016-08-03] MEDS: Norco 10/325 MG Tablet PO PRN ×2 (13:41→19:50)
[2016-08-03] MEDS: DUONEB 0.5-3 MG/3 ml Neb IH SCH ×3 (14:38→23:09)
[2016-08-03] MEDS: FEOSOL 325 MG PO SCH ×2 (15:19→21:21)
[2016-08-03] MEDS: Advair Hfa 115/21 Common canister IH SCH (19:05)
[2016-08-03] MEDS: Colace 100 MG PO SCH (21:20)
[2016-08-03] MEDS: Lopressor 50 MG PO SCH (21:21)
[2016-08-03] MEDS ORDERED: Aricept 10 MG PO SCH (22:00)
[2016-08-03] MEDS ORDERED: NON-FORMULARY ITEM (Donepezil Hcl [Donepezil Hcl] 5 MG) PO SCH (22:00)
[2016-08-03] MEDS ORDERED: Geodon 20 MG Capsule PO SCH (22:00)
[2016-08-03] MEDS ORDERED: ZIPRASIDONE HCL 40 MG PO SCH (22:00)
[2016-08-04] MEDS: DUONEB 0.5-3 MG/3 ml Neb IH SCH ×2 (03:35→07:03)
[2016-08-04] MEDS: Advair Hfa 115/21 Common canister IH SCH (07:05)
[2016-08-04] MEDS: Norco 10/325 MG Tablet PO PRN (07:29)
[2016-08-04 08:11] VITALS: BP 135/64; PULSE 68; O2SAT 96
--- NOTE | 2016-08-04 08:12 | PCM.DCORD ---
- Discharge Discharge Date: 08/04/16 Disposition: Home, Self-Care Condition: Stable Prescriptions: New Aspirin EC 325 mg [Ecotrin 325 MG] 325 mg PO DAILY #0 tablet.ec Continue Donepezil HCl 5 mg PO HS Sennosides [Senna Laxative] 2 tab PO DAILY PRN PRN PRN Reason: Constipation Fluoxetine HCl [Prozac] 60 mg PO DAILY Magnesium Oxide 400 mg [Mag-Ox 400] 400 mg PO DAILY #30 tablet Fluticasone/Vilanterol [Breo Ellipta 100-25 Mcg INH] 1 inh PO DAILY Albuterol/Ipratropium 3ml Neb* [DUONEB 0.5-3 MG/3 ml Neb] 3 ml IH Q4HPRN PRN PRN Reason: Shortness Of Breath Docusate Sodium 100 mg [Colace 100 MG] 100 mg PO BID #60 capsule Ferrous Sulfate 325 mg [Feosol 325 mg] 325 mg PO TID #90 tablet Lisinopril 5 mg [Zestril 5 MG] 10 mg PO DAILY #30 tablet Albuterol Sulfate [Proair Hfa] 8.5 gm IH Q6HPRN PRN PRN Reason: Shortness Of Breath/Wheezing Metoprolol Tartrate 50 mg [Lopressor 50 MG] 50 mg PO BID #0 tablet Ziprasidone HCl [Geodon] 40 mg PO HS #30 capsule Prednisone 10 mg [Deltasone 10 mg] 10 mg PO DAILY #60 tablet Hydrocodone/APAP 10/325 mg [[place] 10/325 MG Tablet] 1 tab PO Q4H/PRN PRN #120 tablet PRN Reason: Pain Lorazepam [Ativan] 1 mg PO Q6H PRN #90 tablet PRN Reason: Anxiety Lorazepam 1 mg [Ativan 1 MG] 1 mg PO TID Azithromycin 250 mg [Zithromax 250 MG TABLET] 250 mg PO ZPACK #6 tablet Prednisone 10 mg [Deltasone 10 mg] 60 mg PO UD #30 tablet Follow up with: SURAJ SAMS [Primary Care Provider] -
--- NOTE | 2016-08-04 08:13 | PCM.HP ---
History of Present Illness - Chief Complaint Chief Complaint: Shortness of Breath Date: 08/04/16 History of Present Illness: is a 61 year old female. with severe copd and chronic respiratory failure who was being treated for a COPD exacerbation when she was at home and developed severe chest pain substernal area and presented to the ED no real help with a nitor. She no longer has any chest pain and has difficulty she has an atrial pacemaker but states no longer following with cardiology. She has not had any recent cardiac evaluation prior to this. She is currently feeling well breathing well no shortness of breath - Review of Systems Constitutional: No Fever, No Chills Eyes: No Symptoms Ears, Nose, & Throat: No Symptoms Respiratory: No Cough, No Short Of Breath Cardiac: No Chest Pain, No Edema, No Syncope Abdominal/Gastrointestinal: No Abdominal Pain, No Nausea, No Vomiting, No Diarrhea Genitourinary Symptoms: No Dysuria Musculoskeletal: No Back Pain, No Neck Pain Skin: No Rash Neurological: No Dizziness, No Focal Weakness, No Sensory Changes Psychological: No Symptoms Endocrine: No Symptoms Hematologic/Lymphatic: No Symptoms Immunological/Allergic: No Symptoms Medications & Allergies Home Medications: Home Medication List Donepezil HCl 5 mg PO HS 06/15/14 [History Confirmed 08/03/16] Sennosides [Senna Laxative] 2 tab PO DAILY PRN PRN 06/15/14 [History Confirmed 08/03/16] Fluoxetine HCl [Prozac] 60 mg PO DAILY 03/02/15 [History Confirmed 08/03/16] Magnesium Oxide 400 mg [Mag-Ox 400] 400 mg PO DAILY #30 tablet 03/03/15 [ Rx Confirmed 08/03/16] Fluticasone/Vilanterol [Breo Ellipta 100-25 Mcg INH] 1 inh PO DAILY 12/17/15 [ History Confirmed 08/03/16] Albuterol/Ipratropium 3ml Neb* [DUONEB 0.5-3 MG/3 ml Neb] 3 ml IH Q4HPRN PRN 01/31/16 [History Confirmed 08/03/16] Docusate Sodium 100 mg [Colace 100 MG] 100 mg PO BID #60 capsule 02/10/16 [Rx Confirmed 08/03/16] Ferrous Sulfate 325 mg [Feosol 325 mg] 325 mg PO TID #90 tablet 02/10/16 [ Rx Confirmed 08/03/16] Lisinopril 5 mg [Zestril 5 MG] 10 mg PO DAILY #30 tablet 02/10/16 [Rx Confirmed 08/03/16] Albuterol Sulfate [Proair Hfa] 8.5 gm IH Q6HPRN PRN 03/23/16 [History Confirmed 08/03/16] Metoprolol Tartrate 50 mg [Lopressor 50 MG] 50 mg PO BID #0 tablet [Rx Confirmed 08/03/16] Hydrocodone/APAP 10/325 mg [[place] 10/325 MG Tablet] 1 tab PO Q4H/PRN PRN # 120 tablet 05/26/16 [Rx Confirmed 08/03/16] Prednisone 10 mg [Deltasone 10 mg] 10 mg PO DAILY #60 tablet 05/26/16 [Rx Confirmed 08/03/16] Ziprasidone HCl [Geodon] 40 mg PO HS #30 capsule 05/26/16 [Rx Confirmed 08/03/16 ] Lorazepam [Ativan] 1 mg PO Q6H PRN #90 tablet 05/29/16 [Rx Confirmed 08/03/16] Lorazepam 1 mg [Ativan 1 MG] 1 mg PO TID 05/30/16 [History Confirmed 08/03] Azithromycin 250 mg [Zithromax 250 MG TABLET] 250 mg PO ZPACK #6 tablet [Rx Confirmed 08/03/16] Prednisone 10 mg [Deltasone 10 mg] 60 mg PO UD #30 tablet 07/31/16 [Rx Confirmed 08/03/16] Aspirin EC 325 mg [Ecotrin 325 MG] 325 mg PO DAILY #0 tablet.ec 08/04/16 [ Rx] Allergies/Adverse Reactions: Allergies Allergy/AdvReac Type Severity Reaction Status Date / Time No Known Drug Allergies Allergy Verified 08/03/16 09:41 - Past Medical History Past Medical History: Yes Neurological History: Dementia ENT History: No Pertinent History Cardiac History: Congestive Heart Failure, Coronary Artery Disease, Hypertension Respiratory History: Asthma, Bronchitis, CHF, COPD, Pneumonia, Other Endocrine Medical History: No Pertinent History Musculoskelatal History: No Pertinent History GI Medical History: No Pertinent History History: No Pertinent History Pyscho-Social History: Depression Reproductive Disorders: No Pertinent History Comment: ... - Female History Hx Last Menstrual Period: post menopausal Are you now?: No - Past Surgical History Past Surgical History: Yes Neuro Surgical History: No Pertinent History Cardiac History: Pacemaker Respiratory Surgery: No Pertinent History GI Surgical History: Bowel Surgery Genitourinary Surgical Hx: No Pertinent History Musculskeletal Surgical Hx: Amputation Female Surgical History: No Pertinent History Other Surgical History: sinus surgery in 80's,finger amp, bowel surg. - Social History Smoking Status: Former smoker How long have you smoked: 45 years Exposure to second hand smoke: No Alcohol: None Drug Use: none Significant Family History: no pertinent family hx - Physical Exam Vital Signs: Vital Signs - 24 hr Temp Pulse Resp BP Pulse Ox 08/04/16 08:00 98.2 F 68 28 H 135/64 96 08/04/16 07:00 78 18 98 08/04/16 04:00 98.2 F 64 24 103/52 99 08/04/16 03:00 64 20 99 08/04/16 00:00 97.6 F 60 18 98 08/03/16 23:00 60 18 98 08/03/16 20:00 98.4 F 68 22 134/67 97 08/03/16 19:03 67 16 98 08/03/16 16:00 98.6 F 70 18 121/58 98 08/03/16 14:44 81 20 97 08/03/16 12:00 98.2 F 84 20 150/65 94 L 08/03/16 11:30 84 20 94 L 08/03/16 11:13 98.2 F 67 18 150/65 94 L 08/03/16 10:55 60 20 129/65 95 08/03/16 10:42 98 08/03/16 10:21 65 20 131/63 95 08/03/16 09:57 67 24 145/63 99 08/03/16 09:36 98.3 F 66 24 140/63 98 08/03/16 09:32 98.3 F 66 24 140/63 98 Oxygen-Last 24 hours O2 Percentage 4 Liters = 36% O2 Percentage 4 Liters = 36% O2 Percentage 4 Liters = 36% O2 Percentage 4 Liters = 36% O2 Percentage 4 Liters = 36% O2 Percentage 4 Liters = 36% O2 Percentage 2 Liters = 28% O2 Percentage 4 Liters = 36% O2 Percentage 4 Liters = 36% O2 Percentage 4 Liters = 36% O2 Percentage 4 Liters = 36% O2 Percentage 4 Liters = 36% O2 Percentage 4 Liters = 36% General Appearance: no apparent distress, alert Neurologic Exam: alert, oriented x 3, cooperative, normal mood/affect, nml cerebellar function, nml station & gait, sensation nml, No motor deficits Eye Exam: PERRL/EOMI, eyes nml inspection Ears, Nose, Throat Exam: normal ENT inspection, TMs normal, pharynx normal, moist mucous membranes Neck Exam: normal inspection, non-tender, supple, full range of motion Respiratory Exam: normal breath sounds, lungs clear, No respiratory distress Cardiovascular Exam: regular rate/rhythm, normal heart sounds, normal peripheral pulses Gastrointestinal/Abdomen Exam: soft, normal bowel sounds, No tenderness, No mass Back Exam: normal inspection, normal range of motion, No CVA tenderness, No vertebral tenderness Extremity Exam: normal inspection, normal range of motion, pelvis stable Skin Exam: normal color, warm, dry, No rash Lymphatic Exam: No adenopathy Results - Labs Lab/Micro Results: Lab Results-Last 24 Hours 08/03/16 08/03/16 08/03/16 Range/Units 12:55 16:07 19:11 Troponin I < 0.017 0.019 0.018 (0.000-0.056) ng/ml Triglycerides (30-200) mg/dL Cholesterol (100-200) mg/dL LDL Cholesterol (5-99) mg/dL HDL Cholesterol (35-60) mg/dL Heart Disease Risk Ratio 08/03/16 08/04/16 Range/Units 22:03 05:10 Troponin I 0.019 (0.000-0.056) ng/ml Triglycerides 80 (30-200) mg/dL Cholesterol 158 (100-200) mg/dL LDL Cholesterol 72 (5-99) mg/dL HDL Cholesterol 76 H (35-60) mg/dL Heart Disease Risk Ratio 2.1 - Other Procedures and Tests Respiratory Therapy 08/03/16 11:30 Respiratory Nebulizer 08/03/16 15:00 Respiratory Nebulizer Q4H 08/03/16 19:00 Respiratory MDI BID 08/05/16 05:00 EKG ONCE 08/06/16 05:00 EKG ONCE Assessment/Plan (1) Chest pain Status: Ruled-out Assessment & Plan: enzymes negative no ekg changes atrial pacing will set up with stress test f/u and have f/u for pacemaker check with her previous cardiology Code(s): R07.9 - CHEST PAIN, UNSPECIFIED (2) COPD (chronic obstructive pulmonary disease) Status: Chronic Qualifiers: COPD type: unspecified COPD Qualified Code(s): J44.9 - Chronic obstructive pulmonary disease, unspecified (3) Chronic hypercapnic respiratory failure Status: Chronic (4) Anxiety Status: Chronic Code(s): F41.9 - ANXIETY DISORDER, UNSPECIFIED (5) Dementia Status: Chronic Code(s): F03.90 - UNSPECIFIED DEMENTIA WITHOUT BEHAVIORAL DISTURBANCE (6) Depression Status: Chronic Code(s): F32.9 - MAJOR DEPRESSIVE DISORDER, SINGLE EPISODE, UNSPECIFIED (7) Hypertension Status: Chronic Code(s): I10 - ESSENTIAL (PRIMARY) HYPERTENSION (8) Rheumatoid arthritis Status: Chronic Qualifiers: Rheumatoid arthritis location: multiple sites Code(s): M06.9 - RHEUMATOID ARTHRITIS, UNSPECIFIED
[2016-08-04] MEDS: Colace 100 MG PO SCH (08:19)
[2016-08-04] MEDS: FEOSOL 325 MG PO SCH (08:20)
[2016-08-04] MEDS: Lopressor 50 MG PO SCH (08:20)
[2016-08-04] MEDS ORDERED: DELTASONE 10 MG PO SCH (10:00)
[2016-08-04] MEDS ORDERED: Zestril 10 MG PO SCH (10:00)
[2016-08-04] MEDS ORDERED: Prozac 20 MG PO SCH (10:00)
[2016-08-04] MEDS ORDERED: Zestril 5 MG PO SCH (10:00)
[2016-08-04] MEDS ORDERED: MAG-OX 400 PO SCH (10:00)
[2016-08-04] MEDS ORDERED: Ecotrin 325 MG PO SCH (10:00)
[2016-08-04] MEDS ORDERED: Zithromax 250 MG TABLET PO SCH (10:00)
[2016-08-05] MEDS ORDERED: DELTASONE 20 MG PO SCH (10:00)
== END 2016-08-04 10:55 | disposition home or self-care (01) ==
LOC: ED 09:31 → MED SURG 11:04
PROVIDERS: ADMIT Family Medicine; ATTEND Family Medicine
DX: R07.9 Chest pain, unspecified (principal); J44.9 Chronic obstructive pulmonary disease, unspecified; J96.12 Chronic respiratory failure with hypercapnia; F41.9 Anxiety disorder, unspecified; F03.90 Unspecified dementia, unspecified severity, without behavioral disturbance, psychotic disturbance, mood disturbance, and anxiety; F32.9 Major depressive disorder, single episode, unspecified; I10 Essential (primary) hypertension; M06.9 Rheumatoid arthritis, unspecified; I50.9 Heart failure, unspecified; I25.10 Atherosclerotic heart disease of native coronary artery without angina pectoris; J45.909 Unspecified asthma, uncomplicated; Z79.899 Other long term (current) drug therapy
CPT/HCPCS: 36415; 71020; 80053; 80061; 83605; 83721; 83735; 83880; 84484; 85025; 93005; 93041; 93268; 94640; 94760; 99285; G0378; A9270-GY; J7506

== ENCOUNTER 2016-09-01 11:09 | Inpatient (IN) | payer MEDICARE ==
[2016-09-01] MEDS ORDERED: PROVENTIL 2.5 MG/3 ML NEB IH ONE ×2 (11:10→11:29)
[2016-09-01] MEDS ORDERED: Pepcid 20 MG VIAL IV ONE ×2 (11:10→11:26)
[2016-09-01] MEDS ORDERED: Sodium Chloride 0.9% 1000 ML 1,000 ML IV SCH (11:15)
[2016-09-01 11:26] LABS: A-aADO2 90; ARTERIAL BLD GAS O2 SATURATION 99.6 % (95-100); ARTERIAL BLOOD GAS BASE EXCESS 21.1 (-2.0-2.0); ARTERIAL BLOOD GAS FIO2 50 %; ARTERIAL BLOOD GAS PO2 182 mmHg (75-100); ARTERIAL BLOOD GAS pH 7.46 (7.35-7.45); BIPAP(E) 6; BIPAP(I) 14
[2016-09-01] MEDS ORDERED: Sodium Chloride 0.9% 1000 ML 1,000 ML ONE (11:26)
[2016-09-01 11:27] LABS: ALLEN TEST OK? YES
--- NOTE | 2016-09-01 11:30 | XRAY ---
Indication: Dyspnea. COPD. Comparison: August 03, 2016. Portable chest unchanged again hyperinflated with chronic lung markings and no infiltrate, consolidation, or large effusion. Heart is not enlarged with stable left-sided dual-lead pacemaker. No new/acute findings.
[2016-09-01 11:37] LABS: BASOPHIL % 0.3 % (0.0-0.4); Eosinophil % 2.8 % (0.00-5.0); Granulocytes % 66.1 % (36.0-66.0); Lymphocytes % 23.4 % (24.0-44.0); Mean Cell Volume 98.2 fl (78-100); Monocytes % 7.4 % (0.0-12.0); Platelet Count 241 K/mm3 (150-450); Red Blood Count 3.79 M/mm3 (4.1-5.4); Red Cell Distribution Width 13.7 % (11.5-14.0); White Blood Count 6.5 K/mm3 (4.0-10.5)
[2016-09-01 11:40] LABS: Mean Corpuscular Hemoglobin 29.2 pg (26-32)
--- NOTE | 2016-09-01 12:16 | ERPHSYRPT ---
- History of Present Illness Time Seen by Provider: 09/01/16 11:10 Source: patient, EMS (gave oxygen, duoneb, and solu m edrol 125mg [employer]) Patient Subjective Stated Complaint: INCREASING SOB OVER PAST WEEK. HX COPD Triage Nursing Assessment: ARRIVES PER EMS. SKIN W/D, COLOR NORMAL, RESP LABORED. IS CURRENTLY ON BIPAP PER EMS. PATIENT SWITCHED TO ER BIPAP. PATIENT UNABLE TO TALK IN COMPLETE SENTENCES. UNABLE TO LIE DOWN. RESP SHALLOW. Physician History: CC: short of breath Hx: 61 y/o patient of Dr Sams. She has hx of smoking, rather severe COPD, home oxygen, nebs. She reports 2-3 days worsened dyspnea. She has no cough, fever or chills. No chest pain. EMS noted low O2 saturation in 70s. She was placed on CPAP per EMS and improved. Timing/Duration: day(s) (2-3) Severity of Dyspnea-Max: severe Severity of Dyspnea-Current: moderate Allergies/Adverse Reactions: No Known Drug Allergies Allergy (Verified 09/01/16 11:18) Home Medications: Donepezil HCl 5 mg PO HS 06/15/14 [History] Sennosides [Senna Laxative] 2 tab PO DAILY PRN PRN 06/15/14 [History] Fluoxetine HCl [Prozac] 60 mg PO DAILY 03/02/15 [History] Fluticasone/Vilanterol [Breo Ellipta 100-25 Mcg INH] 1 inh PO DAILY 12/17/15 [ History] Albuterol/Ipratropium 3ml Neb* [DUONEB 0.5-3 MG/3 ml Neb] 3 ml IH Q4HPRN PRN 01/31/16 [History] Albuterol Sulfate [Proair Hfa] 8.5 gm IH Q6HPRN PRN 03/23/16 [History] Lorazepam 1 mg [Ativan 1 MG] 1 mg PO TID 05/30/16 [History] Hx Tetanus, Diphtheria Vaccination/Date Given: Yes Hx Influenza Vaccination/Date Given: No Hx Pneumococcal Vaccination/Date Given: Yes - Review of Systems Constitutional: Malaise, Weakness, No Fever, No Chills Eyes: No Symptoms Ears, Nose, & Throat: No Symptoms Respiratory: Dyspnea, No Cough Cardiac: No Chest Pain Abdominal/Gastrointestinal: No Abdominal Pain, No Nausea, No Vomiting Genitourinary Symptoms: No Dysuria Musculoskeletal: No Back Pain Skin: No Rash Neurological: No Headache All Other Systems: Reviewed and Negative - Past Medical History Pertinent Past Medical History: Yes Neurological History: Dementia ENT History: No Pertinent History Cardiac History: Congestive Heart Failure, Coronary Artery Disease, Hypertension Respiratory History: Asthma, Bronchitis, CHF, COPD, Pneumonia, Other Endocrine Medical History: No Pertinent History Musculoskeletal History: No Pertinent History GI Medical History: No Pertinent History History: No Pertinent History Psycho-Social History: Depression Female Reproductive Disorders: No Pertinent History - Past Surgical History Past Surgical History: Yes Neuro Surgical History: No Pertinent History Cardiac: Pacemaker Respiratory: No Pertinent History Gastrointestinal: Bowel Surgery Genitourinary: No Pertinent History Musculoskeletal: Amputation Female Surgical History: No Pertinent History Other Surgical History: sinus surgery in 80's,finger amp, bowel surg. - Social History Smoking Status: Current some day smoker How long have you smoked: 45 years Exposure to second hand smoke: No Alcohol Use: None Drug Use: none Patient Lives Alone: No Significant Family History: no pertinent family hx - Female History Hx Now: No - Nursing Vital Signs Nursing Vital Signs: Initial Vital Signs Temperature 97.7 F Temperature Source Axillary Pulse Rate 86 Respiratory Rate 24 Blood Pressure [] 119/67 Pain Intensity 0 - Physical Exam General Appearance: alert, other (mildly breathless) Eye Exam: PERRL/EOMI Neck Exam: normal inspection, non-tender, supple Respiratory Exam: respiratory distress (mild), wheezing Cardiovascular/Chest Exam: normal heart sounds, regular rate/rhythm Abdominal/Gastrointestinal Exam: soft, No tenderness, No distention Extremity Exam: non-tender, no pedal edema Neurologic Exam: alert, oriented x 3, cooperative, sensation nml, No motor deficits Skin Exam: warm, dry, No rash SpO2 Interpretation: normal SpO2: 100 Oxygen Delivery: BiPap - Course Nursing assessment & vital signs reviewed: Yes EKG Interpreted by Me: RATE (99), Sinus Rhythm, NORMAL AXIS, NORMAL INTERVALS ( QTc 457), NORMAL QRS, Non-specific ST Changes - Radiology Exams cxr X-ray Interpretation: Discussed w/ radiologist (COPD) Ordered Tests: Active Orders 24 hr Category Date Time Status Psychiatric Arnp STAT Care 09/01/16 11:10 Active Cath for Specimen-Straight STAT Care 09/01/16 11:10 Active EKG-ER Only STAT Care 09/01/16 11:10 Active IV Insertion STAT Care 09/01/16 11:10 Active Pulse Oximetry (ED) STAT Care 09/01/16 11:10 Active CHEST 1 VIEW (PORTABLE) Stat Exams 09/01/16 11:11 Completed ARTERIAL BLOOD GASES Stat Lab 09/01/16 11:22 Completed BLOOD CULTURE Stat Lab 09/01/16 11:25 Received CBC W DIFF Stat Lab 09/01/16 11:25 Completed CMP Stat Lab 09/01/16 11:25 Completed Lactic Acid Stat Lab 09/01/16 11:22 Completed MAGNESIUM Stat Lab 09/01/16 11:25 Completed TROPONIN Stat Lab 09/01/16 11:25 Completed UA W/RFX UR CULTURE Stat Lab 09/01/16 11:11 Ordered BiPap/CPAP Assessment STAT RT 09/01/16 11:10 Active Respiratory Nebulizer STAT RT 09/01/16 11:11 Active Medication Summary Generic Name Dose Route Start Last Admin Trade Name Freq PRN Reason Stop Dose Admin Sodium Chloride 1,000 mls @ 100 mls/hr 09/01/16 11:15 09/01/16 11:27 Sodium Chloride 0.9% 1000 Ml IV 10/01/16 11:14 100 mls/hr .Q10H BRINDA Administration Discontinued Medications Generic Name Dose Route Start Last Admin Trade Name Freq PRN Reason Stop Dose Admin Albuterol Sulfate 2.5 mg 09/01/16 11:10 09/01/16 11:32 Proventil 2.5 Mg/3 Ml Neb IH 09/01/16 11:11 2.5 mg STAT ONE Administration Albuterol Sulfate Confirm 09/01/16 11:29 Proventil 2.5 Mg/3 Ml Neb Administered 09/01/16 11:30 Dose 2.5 mg IH .STK-MED ONE Famotidine 20 mg 09/01/16 11:10 09/01/16 11:27 Pepcid 20 Mg Vial IV 09/01/16 11:11 20 mg STAT ONE Administration Famotidine Confirm 09/01/16 11:26 Pepcid 20 Mg Vial Administered 09/01/16 11:27 Dose 20 mg IV .STK-MED ONE Lab/Rad Data: Laboratory Result Diagrams 09/01/16 11:25 09/01/16 11:25 Laboratory Results 09/01/16 09/01/16 09/01/16 Range/Units 11:25 11:25 11:22 WBC 6.5 (4.0-10.5) K/mm3 RBC 3.79 L (4.1-5.4) M/mm3 Hgb 11.1 L (12.0-16.0) gm/dl Hct 37.2 (35-47) % MCV 98.2 (78-100) fl MCH 29.2 (26-32) pg MCHC 29.8 L (32-36) g/dl RDW 13.7 (11.5-14.0) % Plt Count 241 (150-450) K/mm3 MPV 10.0 H (6-9.5) fl Gran % 66.1 H (36.0-66.0) % Lymphocytes % 23.4 L (24.0-44.0) % Monocytes % 7.4 (0.0-12.0) % Eosinophils % 2.8 (0.00-5.0) % Basophils % 0.3 (0.0-0.4) % Basophils # 0.02 (0-0.4) Puncture Site RIGHT RADIAL pCO2 68 H* (35-45) mmHg pO2 182 H* (75-100) mmHg Base Excess 21.1 H (-2.0-2.0) O2 Saturation 96.7 (94-100) g/dF ABG pH 7.46 H (7.35-7.45) ABG HCO3 48.4 H* (22-28) ABG O2 Sat (Measured) 99.6 (95-100) % Riki Test YES A-a Gradient 90 a/A Ratio 0.67 Hemoglobin 11.3 Carboxyhemoglobin 1.6 (0.0-6.9) % THgb Methemoglobin 1.3 L (1.4-1.5) % Potassium 4.4 4.6 (3.5-5.1) Temperature 37.0 C POC O2 Flow Rate 50 % Vent Mode BiPAP Inspiratory BiPAP 14 Expiratory BiPAP 6 Sodium 143 (136-145) mEq/L Chloride 101 (98-107) mEq/L Carbon Dioxide 40.9 H (21-32) mEq/L Anion Gap 5.7 (5-15) MEQ/L BUN 11 (9-20) mg/dL Creatinine 0.54 L (0.55-1.30) mg/dl Estimated GFR > 60 ML/MIN Glucose 133 H (70-110) MG/DL Lactic Acid 1.0 (0.4-2.0) Calcium 9.1 (8.5-10.1) mg/dL Magnesium 1.8 (1.8-2.4) mg/dL Total Bilirubin 0.10 L (0.2-1.0) mg/dL AST 16 (15-37) U/L ALT 10 L (12-78) U/L Alkaline Phosphatase 52 (46-116) U/L Troponin I < 0.017 (0.000-0.056) ng/ml Serum Total Protein 6.9 (6.4-8.2) gm/dL Albumin 3.0 L (3.4-5.0) g/dL - Progress Progress Note: 09/01/16 12:17 She is fairly stable on Bipap. Appears to be her usual COPD exacerbation. Weaning FiO2. 09/01/16 12:30 Consulted UR and will place in IP. Called Dr Escobedo for Luis A and will admit to IP Tele, bipap, solu medrol, abtx. Discussed with : Gregg Will see patient in: hospital (full admit) Counseled pt/family regarding: lab results, diagnosis, need for follow-up, rad results, smoking cessation - Departure Time of Disposition: 12:31 Departure Disposition: In-patient Admission Clinical Impression: COPD with exacerbation, Hypoxia Condition: Fair Critical Care Time: Yes Critical Care Time(excluding separately billable procedures): 30-74 minutes Referrals: SURAJ SAMS [Primary Care Provider] -
[2016-09-01 12:25] LABS: ALKALINE PHOSPHATASE 52 U/L (46-116); ANION GAP 5.7 MEQ/L (5-15); BLOOD UREA NITROGEN 11 mg/dL (9-20); CHLORIDE 101 mEq/L (98-107); Carbon Dioxide 40.9 mEq/L (21-32); Glucose 133 MG/DL (70-110); MAGNESIUM 1.8 mg/dL (1.8-2.4); Potassium 4.4 mEq/L (3.5-5.1); SGOT/AST 16 U/L (15-37); SGPT/ALT 10 U/L (12-78); SODIUM 143 mEq/L (136-145); TROPONIN < 0.017 ng/ml (0.000-0.056); Total Protein 6.9 gm/dL (6.4-8.2)
[2016-09-01] MEDS ORDERED: LEVOFLOXACIN 750MG/150ML D5W 750 MG/150 ML BAG IV STA (12:31)
[2016-09-01 12:48] LABS: Bilirubin NEGATIVE (NEGATIVE); Glucose 50 mg/dL (NEGATIVE); Leukocyte Esterase NEGATIVE (NEGATIVE)
[2016-09-01 12:49] LABS: Blood 50 Ery/ul (0-5); COMPLETE URINE MICROSCOPIC? YES; Collection Type CATH
[2016-09-01 12:53] LABS: Bacteria RARE /HPF (NEGATIVE); WBC 0-2 /HPF (0-5)
[2016-09-01 12:54] LABS: ADD URINE CULTURE? NO (NO)
[2016-09-01] MEDS ORDERED: TYLENOL 325 MG PO PRN (13:13)
[2016-09-01] MEDS: solu-MEDROL 125 MG IV SCH ×3 (14:42→23:54)
[2016-09-01] MEDS: DUONEB 0.5-3 MG/3 ml Neb IH SCH ×3 (14:57→23:01)
[2016-09-01] MEDS ORDERED: Ventolin Hfa MDI IH PRN (16:46)
[2016-09-01] MEDS ORDERED: PROVENTIL COMMON CANISTER IH SCH (17:15)
[2016-09-01] MEDS: Norco 10/325 MG Tablet PO PRN (17:47)
[2016-09-01] MEDS: Ativan 1 MG PO PRN (18:49)
[2016-09-01] MEDS: Advair Hfa 115/21 Common canister IH SCH (18:59)
[2016-09-01] MEDS: Aricept 10 MG PO SCH (21:19)
[2016-09-01] MEDS: Ativan 1 MG PO SCH (21:20)
[2016-09-01] MEDS: Geodon 20 MG Capsule PO SCH (21:21)
[2016-09-01] MEDS: Pepcid 20 MG VIAL IV SCH (21:21)
[2016-09-01] MEDS: FEOSOL 325 MG PO SCH (21:21)
[2016-09-01] MEDS: Colace 100 MG PO SCH (21:21)
[2016-09-01] MEDS: Lopressor 50 MG PO SCH (21:21)
[2016-09-01] MEDS: NovoLOG Insulin SQ SCH (21:50)
[2016-09-01] MEDS ORDERED: ZIPRASIDONE HCL 40 MG PO SCH (22:00)
[2016-09-01] MEDS ORDERED: NON-FORMULARY ITEM (Donepezil Hcl [Donepezil Hcl] 5 MG) PO SCH (22:00)
[2016-09-01] MEDS ORDERED: Levofloxacin 500MG/100ML D5W 500 MG/100 ML BAG IV SCH (22:00)
[2016-09-02] MEDS: Ativan 1 MG PO PRN ×2 (00:49→21:16)
[2016-09-02] MEDS: DUONEB 0.5-3 MG/3 ml Neb IH SCH ×6 (03:09→22:55)
[2016-09-02] MEDS: solu-MEDROL 125 MG IV SCH (05:39)
[2016-09-02] MEDS: Sodium Chloride 0.9% 1000 ML 1,000 ML IV SCH (05:39)
[2016-09-02] MEDS: Advair Hfa 115/21 Common canister IH SCH ×2 (06:28→19:00)
[2016-09-02] MEDS: NovoLOG Insulin SQ SCH ×4 (07:33→22:06)
--- NOTE | 2016-09-02 08:10 | PCM.HP ---
History of Present Illness - Chief Complaint Chief Complaint: exac copd,hypoxemia Date: 09/02/16 History of Present Illness: is a 61 year old female. - Review of Systems Constitutional: Fatigue, No Fever, No Chills Eyes: No Symptoms Ears, Nose, & Throat: No Symptoms Respiratory: Cough, Short Of Breath, Wheezing Cardiac: No Chest Pain, No Edema, No Syncope Abdominal/Gastrointestinal: No Abdominal Pain, No Nausea, No Vomiting, No Diarrhea Genitourinary Symptoms: No Dysuria Musculoskeletal: No Back Pain, No Neck Pain Skin: No Rash Neurological: No Dizziness, No Focal Weakness, No Sensory Changes Psychological: No Symptoms Endocrine: No Symptoms Hematologic/Lymphatic: No Symptoms Immunological/Allergic: No Symptoms Medications & Allergies Home Medications: Home Medication List Donepezil HCl 5 mg PO HS 06/15/14 [History Confirmed 09/01/16] Sennosides [Senna Laxative] 2 tab PO DAILY PRN PRN 06/15/14 [History Confirmed 09/01/16] Fluoxetine HCl [Prozac] 60 mg PO DAILY 03/02/15 [History Confirmed 09/01/16] Magnesium Oxide 400 mg [Mag-Ox 400] 400 mg PO DAILY #30 tablet 03/03/15 [ Rx Confirmed 09/01/16] Fluticasone/Vilanterol [Breo Ellipta 100-25 Mcg INH] 1 inh PO DAILY 12/17/15 [ History Confirmed 09/01/16] Albuterol/Ipratropium 3ml Neb* [DUONEB 0.5-3 MG/3 ml Neb] 3 ml IH Q4HPRN PRN 01/31/16 [History Confirmed 09/01/16] Docusate Sodium 100 mg [Colace 100 MG] 100 mg PO BID #60 capsule 02/10/16 [Rx Confirmed 09/01/16] Ferrous Sulfate 325 mg [Feosol 325 mg] 325 mg PO TID #90 tablet 02/10/16 [ Rx Confirmed 09/01/16] Lisinopril 5 mg [Zestril 5 MG] 10 mg PO DAILY #30 tablet 02/10/16 [Rx Confirmed 09/01/16] Albuterol Sulfate [Proair Hfa] 8.5 gm IH Q6HPRN PRN 03/23/16 [History Confirmed 09/01/16] Metoprolol Tartrate 50 mg [Lopressor 50 MG] 50 mg PO BID #0 tablet [Rx Confirmed 09/01/16] Hydrocodone/APAP 10/325 mg [[place] 10/325 MG Tablet] 1 tab PO Q4H/PRN PRN # 120 tablet 05/26/16 [Rx Confirmed 09/01/16] Prednisone 10 mg [Deltasone 10 mg] 10 mg PO DAILY #60 tablet 05/26/16 [Rx Confirmed 09/01/16] Ziprasidone HCl [Geodon] 40 mg PO HS #30 capsule 05/26/16 [Rx Confirmed 09/01/16 ] Lorazepam [Ativan] 1 mg PO Q6H PRN #90 tablet 05/29/16 [Rx Confirmed 09/01/16] Lorazepam 1 mg [Ativan 1 MG] 1 mg PO TID 05/30/16 [History Confirmed 09/01] Azithromycin 250 mg [Zithromax 250 MG TABLET] 250 mg PO ZPACK #6 tablet [Rx Confirmed 09/01/16] Aspirin EC 325 mg [Ecotrin 325 MG] 325 mg PO DAILY #0 tablet.ec 08/04/16 [ Rx Confirmed 09/01/16] Allergies/Adverse Reactions: Allergies Allergy/AdvReac Type Severity Reaction Status Date / Time No Known Drug Allergies Allergy Verified 09/01/16 11:18 - Past Medical History Past Medical History: Yes Neurological History: Dementia ENT History: No Pertinent History Cardiac History: Congestive Heart Failure, Coronary Artery Disease, Hypertension Respiratory History: Asthma, Bronchitis, CHF, COPD, Pneumonia, Other Endocrine Medical History: No Pertinent History Musculoskelatal History: No Pertinent History GI Medical History: No Pertinent History History: No Pertinent History Pyscho-Social History: Depression Reproductive Disorders: No Pertinent History Comment: ... - Female History Are you now?: No - Past Surgical History Past Surgical History: Yes Neuro Surgical History: No Pertinent History Cardiac History: Pacemaker Respiratory Surgery: No Pertinent History GI Surgical History: Bowel Surgery Genitourinary Surgical Hx: No Pertinent History Musculskeletal Surgical Hx: Amputation Female Surgical History: No Pertinent History Other Surgical History: sinus surgery in 80's,finger amp, bowel surg. - Social History Smoking Status: Former smoker How long have you smoked: 45 years Exposure to second hand smoke: No Alcohol: None Drug Use: none Significant Family History: no pertinent family hx - Physical Exam Vital Signs: Vital Signs - 24 hr Temp Pulse Resp BP Pulse Ox 09/02/16 07:08 98 F 66 20 140/70 96 09/02/16 06:31 68 20 98 09/02/16 04:20 98.2 F 74 22 143/73 98 09/02/16 03:00 68 22 98 09/01/16 23:41 98.4 F 73 17 141/65 98 09/01/16 23:00 73 17 98 09/01/16 19:57 98.6 F 83 20 132/62 98 09/01/16 19:02 83 20 96 09/01/16 16:00 98.6 F 85 18 124/59 98 09/01/16 15:02 85 20 94 L 09/01/16 13:57 87 20 96 09/01/16 13:22 98.4 F 81 22 123/60 94 L 09/01/16 12:31 100 09/01/16 12:20 86 24 119/67 98 09/01/16 11:41 96 H 20 100 09/01/16 11:24 100 09/01/16 11:23 100 09/01/16 11:10 97.7 F 98 H 24 126/73 100 Oxygen-Last 24 hours O2 Percentage 4 Liters = 36% O2 Percentage 4 Liters = 36% O2 Percentage 4 Liters = 36% O2 Percentage 4 Liters = 36% O2 Percentage 4 Liters = 36% O2 Percentage 4 Liters = 36% General Appearance: no apparent distress, alert, anxiety Neurologic Exam: alert, oriented x 3, cooperative, sensation nml, No motor deficits Eye Exam: PERRL/EOMI, eyes nml inspection Ears, Nose, Throat Exam: normal ENT inspection, pharynx normal, moist mucous membranes Neck Exam: normal inspection, non-tender, supple, full range of motion Respiratory Exam: diminished breath sounds, prolonged expirations, crackles/ rales, wheezing, No respiratory distress Cardiovascular Exam: regular rate/rhythm, normal heart sounds, normal peripheral pulses Gastrointestinal/Abdomen Exam: soft, normal bowel sounds, No tenderness, No mass Back Exam: normal inspection, normal range of motion, No CVA tenderness, No vertebral tenderness Extremity Exam: normal inspection, normal range of motion, pelvis stable, other (chronic RA hand deformities) Skin Exam: normal color, warm, dry, No rash Lymphatic Exam: No adenopathy Results - Labs Lab/Micro Results: Accuchecks Date 09/01/16 Date 09/01/16 Time 21:13 Time 16:30 Accucheck Value: 333 Accucheck Value: 196 Accuchecks Date 09/01/16 Date 09/01/16 Time 21:13 Time 16:30 Accucheck Value: 333 Accucheck Value: 196 - Other Procedures and Tests Respiratory Therapy 09/01/16 14:08 Oxygen NASAL CANNULA 4 lpm 09/01/16 15:00 Respiratory Nebulizer Q4H 09/01/16 19:00 Respiratory MDI BID Assessment/Plan (1) Acute exacerbation of chronic obstructive airways disease Current Visit: Yes Status: Acute Assessment & Plan: will work on weaning the iv steroids continue the levaquin and duoneb treatments lovneox for ppx famotidien for GI ppx on the steroids continue inpatient treatment for the exacerbation home when tolerating po meds and showing improvement. Code(s): J44.1 - CHRONIC OBSTRUCTIVE PULMONARY DISEASE W (ACUTE) EXACERBATION (2) Acute and chronic respiratory failure with hypercapnia Current Visit: Yes Status: Acute Code(s): J96.22 - ACUTE AND CHRONIC RESPIRATORY FAILURE WITH HYPERCAPNIA (3) Depression Current Visit: Yes Status: Chronic Code(s): F32.9 - MAJOR DEPRESSIVE DISORDER, SINGLE EPISODE, UNSPECIFIED (4) Anxiety Current Visit: Yes Status: Chronic Code(s): F41.9 - ANXIETY DISORDER, UNSPECIFIED (5) Anemia Current Visit: Yes Status: Chronic Qualifiers: Code(s): D64.9 - ANEMIA, UNSPECIFIED (6) Hypertension Current Visit: Yes Status: Chronic Code(s): I10 - ESSENTIAL (PRIMARY) HYPERTENSION (7) Chronic steroid use Current Visit: Yes Status: Chronic Code(s): MFR3671 - (8) Rheumatoid arthritis Current Visit: Yes Status: Chronic Code(s): M06.9 - RHEUMATOID ARTHRITIS, UNSPECIFIED
[2016-09-02] MEDS: Colace 100 MG PO SCH ×2 (09:45→22:05)
[2016-09-02] MEDS: Ativan 1 MG PO SCH ×3 (09:45→22:24)
[2016-09-02] MEDS: Norco 10/325 MG Tablet PO PRN ×3 (09:45→18:31)
[2016-09-02] MEDS: Pepcid 20 MG VIAL IV SCH ×2 (09:45→22:05)
[2016-09-02] MEDS: MAG-OX 400 PO SCH (09:46)
[2016-09-02] MEDS: Prozac 20 MG PO SCH (09:46)
[2016-09-02] MEDS: Ecotrin 325 MG PO SCH (09:46)
[2016-09-02] MEDS: FEOSOL 325 MG PO SCH ×3 (09:46→22:05)
[2016-09-02] MEDS: Lopressor 50 MG PO SCH ×2 (09:46→22:05)
[2016-09-02] MEDS: Zestril 5 MG PO SCH (09:47)
[2016-09-02] MEDS ORDERED: DELTASONE 10 MG PO SCH (10:00)
[2016-09-02] MEDS ORDERED: LEVOFLOXACIN 750MG/150ML D5W 750 MG/150 ML BAG IV SCH (10:00)
[2016-09-02] MEDS: ENOXAPARIN SODIUM SQ SCH (10:56)
[2016-09-02] MEDS: solu-MEDROL 40 MG IV SCH ×2 (13:49→22:05)
[2016-09-02] MEDS: Aricept 10 MG PO SCH (22:06)
[2016-09-02] MEDS: Geodon 20 MG Capsule PO SCH (22:06)
[2016-09-02] MEDS: Levofloxacin 500MG/100ML D5W 500 MG/100 ML BAG IV SCH (22:16)
[2016-09-02] MEDS: SENOKOT 8.6 MG PO PRN (22:20)
[2016-09-03] MEDS: Sodium Chloride 0.9% 1000 ML 1,000 ML IV SCH ×2 (03:20→07:53)
[2016-09-03] MEDS: DUONEB 0.5-3 MG/3 ml Neb IH SCH ×6 (03:22→23:14)
[2016-09-03] MEDS: solu-MEDROL 40 MG IV SCH ×3 (05:53→22:43)
[2016-09-03] MEDS: Advair Hfa 115/21 Common canister IH SCH ×2 (07:05→19:11)
[2016-09-03] MEDS: NovoLOG Insulin SQ SCH ×4 (07:30→22:26)
--- NOTE | 2016-09-03 07:48 | PCM.NOTE ---
Date and Time: 09/03/16 0745 Subjective Assessment: feeling a little worse this am with the steroid wean yesterday. Feeling nauseated short of breath and fatigued. she has been getting breathing treatments with some improvement but slow and gradual Objective Exam General Appearance: mild distress Neurologic Exam: alert, oriented x 3, cooperative Skin Exam: warm, dry, pale Eye Exam: pale conjunctivae, No scleral icterus Ears, Nose, Throat Exam: moist mucous membranes Neck Exam: non-tender, supple Respiratory Exam: diminished breath sounds, prolonged expirations, crackles/ rales, wheezing Cardiovascular Exam: regular rate/rhythm, normal heart sounds, normal peripheral pulses Gastrointestinal/Abdomen Exam: soft, normal bowel sounds, No tenderness Extremity Exam: No calf tenderness, No pedal edema OBJECTIVE DATA Vital Signs: Vital Signs - 24 hr Temp Pulse Resp BP Pulse Ox 09/03/16 07:07 73 18 98 09/03/16 04:00 98.5 F 59 L 18 167/77 98 09/03/16 03:22 54 L 18 98 09/02/16 23:44 20 09/02/16 23:42 98.9 F 76 20 147/66 99 09/02/16 22:56 79 20 97 09/02/16 20:00 99.0 F 88 21 137/68 96 09/02/16 19:00 96 09/02/16 18:54 86 21 96 09/02/16 16:39 97.8 F 92 H 20 144/78 93 L 09/02/16 14:45 81 18 96 09/02/16 13:13 97 09/02/16 12:53 97.6 F 71 22 140/67 93 L 09/02/16 11:41 72 20 Oxygen-Last 24 hours O2 Percentage 4 Liters = 36% O2 Percentage 4 Liters = 36% O2 Percentage 4 Liters = 36% O2 Percentage 4 Liters = 36% O2 Percentage 4 Liters = 36% Pain Assessment - Last Documented Pain Intensity 0 Pain Scale Used 0-10 Pain Scale Intake and Output: Intake & Output 08/31/16 09/01/16 09/02/16 09/03/16 11:59 11:59 11:59 11:59 Intake Total 1982 1980 Output Total 600 1850 Balance 1382 130 Weight 59.058 kg Lab Results: Accuchecks Date 09/03/16 Date 09/02/16 Time 07:23 Time 22:00 Accucheck Value: 140 Accucheck Value: 250 Accucheck Value: 110 Accucheck Value: 345 Multi-Disciplinary Progress Notes: Multi-Disciplinary Progress Notes 09/02/16 15:43 RT Documentation Review by Temi Hopson RT Interventions/Assessments/Treatments Oxygen NASAL CANNULA 4 lpm Start: 09/01/16 14: 08 Freq: Status: Active Document 09/02/16 06:31 LCOMPTON (Rec: 09/02/16 06:34 LCOMPTON [email or web address] ) Document 09/02/16 11:41 KS (Rec: 09/02/16 11:43 KS [email or web address]) Respiratory Nebulizer Treatment-RT Start: 09/01/16 15: 00 Freq: Q4H Status: Active Document 09/02/16 03:00 DP (Rec: 09/02/16 03:16 DP [id number]) Respiratory Assessment-RT Respiratory Treatment Given-RT Yes Date-RT 09/02/16 Time-RT 03:09 O2 Delivery Nasal Cannula Oxygen Flow Rate-RT (L/min) 4 O2 Sat by Pulse Oximetry (95-100) 98 Resting Yes Pulse Rate (60-90 beats/min) 68 Respiratory Rate (12-24 breaths/min) 22 Respiratory Effort-RT Easy Non-Labored Respiratory Treatment Method-RT Nebulizer Mask Nebulizer Medication Type-RT Duoneb Respiratory Treatment Tolerance-RT Good Anterior/Posterior Bilateral Throughout Breath Sounds-RT Diminished Cough Description-RT None Mental Status-RT Sleeping Respiratory Symptoms-RT No Difficulties Document 09/02/16 06:31 LCOMPTON (Rec: 09/02/16 06:34 LCOMPTON [email or web address] ) Document 09/02/16 11:41 KS (Rec: 09/02/16 11:43 KS [email or web address]) Respiratory Assessment-RT Respiratory Treatment Given-RT Yes Date-RT 09/02/16 Time-RT 11:41 Diagnosis-RT COPD, HYPOXIA Pulmonary History-RT COPD, CHF, PNEUMONIA Home Respiratory Medications and Oxygen- 4LPM OXYGEN 24/7 RT DUONEB Q4 PRO AIR PRN ADVAIR [id number] BID Indications for O2 Therapy-RT Home Usage O2 Delivery Nasal Cannula Oxygen Flow Rate-RT (L/min) 4 Oxygen Tubing-RT Yes: 2 Oxygen Humidity-RT Yes Oxygen Weaning-RT No Comments-RT HOME O2 SETTING AT 4 LPM NC. Resting Yes Pulse Rate (60-90 beats/min) 72 Respiratory Rate (12-24 breaths/min) 20 Respiratory Effort-RT Easy Non-Labored Bronchodilator Indications-RT Diagnosis of COPD Home Bronchodilator Use MD Order Respiratory Treatment Method-RT Nebulizer Mask Nebulizer Medication Type-RT Duoneb Respiratory Treatment Tolerance-RT Good Posterior Bilateral Bases Breath Sounds-RT Crackles Anterior/Posterior Bilateral Throughout Phase Expiratory Breath Sounds-RT Diminished Wheezes Cough Description-RT Non-productive Sputum Amount None Mental Status-RT Alert Last Chest X-Ray Results-RT 09/01/16: Portable chest unchanged again hyperinflated with chronic lung markings and no infiltrate, consolidation, or large effusion. Heart is not enlarged with stable left-sided dual-lead pacemaker. No new/acute findings. Respiratory Symptoms-RT No Difficulties Continue Therapy as Ordered-RT Yes Goals-RT COPD Maintenance Improve Respiratory Status Keep Oxygenation > 92% Will Reassess Daily Document 09/02/16 14:45 ST (Rec: 09/02/16 14:54 ST [email or web address]) Respiratory Assessment-RT Respiratory Treatment Given-RT Yes Date-RT 09/02/16 Time-RT 14:46 Diagnosis-RT COPD, HYPOXIA Pulmonary History-RT COPD, CHF, PNEUMONIA Home Respiratory Medications and Oxygen- 4LPM OXYGEN 28/09 RT DUONEB Q4 PRO AIR PRN ADVAIR [id number] BID Indications for O2 Therapy-RT Home Usage O2 Delivery Nasal Cannula Oxygen Flow Rate-RT (L/min) 4 Oxygen Tubing-RT Yes: 2 Oxygen Humidity-RT Yes Comments-RT HOME O2 SETTING AT 4 LPM NC. O2 Sat by Pulse Oximetry (95-100) 96 Resting Yes Pulse Rate (60-90 beats/min) 81 Respiratory Rate (12-24 breaths/min) 18 Respiratory Effort-RT Easy Respiratory Treatment Method-RT Nebulizer Nebulizer Medication Type-RT Duoneb Respiratory Treatment Tolerance-RT Good Comment-RT pt at rest tolerated treatment well Anterior/Posterior Bilateral Throughout Phase Expiratory Breath Sounds-RT Wheezes Comment POST TREATMENT PT HAD EXPIRATORY WHEEZES THROUGHOUT Cough Description-RT None Sputum Amount None Mental Status-RT Alert Last Chest X-Ray Results-RT 09/01/16: Portable chest unchanged again hyperinflated with chronic lung markings and no infiltrate, consolidation, or large effusion. Heart is not enlarged with stable left-sided dual-lead pacemaker. No new/acute findings. Respiratory Symptoms-RT No Difficulties Continue Therapy as Ordered-RT Yes Goals-RT COPD Maintenance Improve Respiratory Status Keep Oxygenation > 92% Will Reassess Daily Comments-RT PT APPEARS TO BE RESTING COMFORTABLY IN BED AT THIS TIME. I PLACED PT BACK ON 4LPM NASAL CANNULA POST TREATMENT Respiratory Assessments/Treatments reviewed by Temi Hopson on 09/02/16 at 1543. Initialized on 09/02/16 15:43 - END OF NOTE Assessment/Plan (1) Acute exacerbation of chronic obstructive airways disease Current Visit: Yes Status: Acute Assessment & Plan: continue with the iv steroids with the severity of symptoms for today wean yesterday and worse overall today continue levaquin lovenox for ppx famotidine for gi ppx stop fluids stop accuchecks sugar better on lower steroid and no diabetes. Code(s): J44.1 - CHRONIC OBSTRUCTIVE PULMONARY DISEASE W (ACUTE) EXACERBATION (2) Acute and chronic respiratory failure with hypercapnia Current Visit: Yes Status: Acute Code(s): J96.22 - ACUTE AND CHRONIC RESPIRATORY FAILURE WITH HYPERCAPNIA (3) Depression Current Visit: Yes Status: Chronic Code(s): F32.9 - MAJOR DEPRESSIVE DISORDER, SINGLE EPISODE, UNSPECIFIED (4) Anxiety Current Visit: Yes Status: Chronic Code(s): F41.9 - ANXIETY DISORDER, UNSPECIFIED (5) Anemia Current Visit: Yes Status: Chronic Qualifiers: Code(s): D64.9 - ANEMIA, UNSPECIFIED (6) Hypertension Current Visit: Yes Status: Chronic Code(s): I10 - ESSENTIAL (PRIMARY) HYPERTENSION (7) Chronic steroid use Current Visit: Yes Status: Chronic Code(s): [id number] - (8) Rheumatoid arthritis Current Visit: Yes Status: Chronic Code(s): M06.9 - RHEUMATOID ARTHRITIS, UNSPECIFIED
[2016-09-03] MEDS ORDERED: PROVENTIL 2.5 MG/3 ML NEB IH ONE (08:01)
[2016-09-03] MEDS ORDERED: PROVENTIL 2.5 MG/3 ML NEB IH PRN (08:09)
[2016-09-03] MEDS: FEOSOL 325 MG PO SCH ×3 (09:14→21:06)
[2016-09-03] MEDS: MAG-OX 400 PO SCH (09:14)
[2016-09-03] MEDS: Pepcid 20 MG VIAL IV SCH ×2 (09:14→22:44)
[2016-09-03] MEDS: Prozac 20 MG PO SCH (09:14)
[2016-09-03] MEDS: Colace 100 MG PO SCH ×2 (09:14→21:06)
[2016-09-03] MEDS: Ecotrin 325 MG PO SCH (09:15)
[2016-09-03] MEDS: ENOXAPARIN SODIUM SQ SCH (09:15)
[2016-09-03] MEDS: Ativan 1 MG PO SCH ×3 (09:15→21:06)
[2016-09-03] MEDS: Lopressor 50 MG PO SCH ×2 (09:15→21:06)
[2016-09-03] MEDS: Zestril 5 MG PO SCH (09:15)
[2016-09-03] MEDS: Norco 10/325 MG Tablet PO PRN ×3 (09:16→19:27)
[2016-09-03] MEDS ORDERED: Sodium Chloride 0.9% 10 ML FLUSH Syringe IV PRN (10:21)
[2016-09-03] MEDS: SENOKOT 8.6 MG PO PRN (12:05)
[2016-09-03] MEDS: Ativan 1 MG PO PRN (13:50)
[2016-09-03] MEDS: Sodium Chloride 0.9% 10 ML FLUSH Syringe IV SCH ×2 (13:53→22:51)
[2016-09-03] MEDS: Aricept 10 MG PO SCH (21:06)
[2016-09-03] MEDS: Geodon 20 MG Capsule PO SCH (21:06)
[2016-09-03] MEDS: Levofloxacin 500MG/100ML D5W 500 MG/100 ML BAG IV SCH (22:46)
[2016-09-04] MEDS: DUONEB 0.5-3 MG/3 ml Neb IH SCH ×4 (03:33→15:01)
[2016-09-04] MEDS: Advair Hfa 115/21 Common canister IH SCH (06:37)
[2016-09-04] MEDS: solu-MEDROL 40 MG IV SCH ×2 (06:41→14:00)
[2016-09-04] MEDS: Sodium Chloride 0.9% 10 ML FLUSH Syringe IV SCH ×2 (06:44→14:00)
[2016-09-04] MEDS: NovoLOG Insulin SQ SCH ×2 (07:30→12:08)
--- NOTE | 2016-09-04 08:20 | PCM.DS ---
Discharge Summary Date of Admission: 09/01/16 13:10 Date of Discharge: 09/04/2016 Admitting Physician: TAQUERIA TENA Primary Care Provider: SURAJ SAMS Allergies Allergies No Known Drug Allergies Allergy (Verified 09/01/16 11:18) Hospital Summary - Hospital Course Hospital Course: feeling a little better eating well no difficulties today. she came in in acute respiratory distress with acute on chronic respiratory failure with her chronic copd with an acute exacerbation was initially treated with bipap / iv steroids / antibiotics she weaned from the bipap and iv steroids were continued with levaquin she showed slow steady improvement and is still having wheezing and decreased air movement at time of discharge but much improved and stable on her home level of O2 at 4L. - Vitals & Intake/Output Vital Signs: Vital Signs Temperature 98.4 F 09/04/16 04:00 Pulse Rate 68 09/04/16 06:44 Respiratory Rate 18 09/04/16 06:44 Blood Pressure 136/73 09/04/16 04:00 O2 Sat by Pulse Oximetry 98 09/04/16 06:44 Oxygen-Last Documented O2 Percentage 4 Liters = 36% Intake & Output: Intake & Output 09/01/16 09/02/16 09/03/16 09/04/16 11:59 11:59 11:59 11:59 Intake Total 1982 1980 820 Output Total 600 1850 Balance 1382 130 820 Weight 59.058 kg - Lab Result Diagrams: 09/01/16 11:25 09/01/16 11:25 Lab Results-Last 24 Hrs: Accuchecks Date 09/03/16 Time 16:27 Accucheck Value: 174 Micro Results-Entire Visit: Accuchecks Date 09/03/16 Time 16:27 Accucheck Value: 174 - Procedures and Test Procedures and Tests throughout Hospitalization: Therapy Orders & Screens 09/01/16 13:35 RT Screen per Nursing Assess ONCE Comment: Protocol Order Physician Instructions: Greater than 3 points order RT Admission Screen Reason For Exam: Triggered on Admission Diagnosis: COPD, HYPOXIA Diagnosis: COPD, HYPOXIA Pneumonia: No Home O2: Yes Asthma: No CHF: No Home CPAP/BIPAP: No Home Nebs/MDI: Yes Total Points: 10 09/01/16 14:08 Oxygen NASAL CANNULA 4 lpm Comment: Diagnosis: DUONEB Q4 09/01/16 15:00 Respiratory Nebulizer Q4H Comment: duonebs every 4 hrs Diagnosis: [place] copd,hypoxemia 09/01/16 19:00 Respiratory MDI BID Comment: JHON 115/21 BID Diagnosis: COPD, HYPOXIA 09/03/16 08:09 Respiratory Nebulizer UD Comment: ALBUTEROL Q2PRN Diagnosis: [place] copd,hypoxemia Discharge Exam General Appearance: no apparent distress, alert Neurologic Exam: alert, oriented x 3, cooperative, normal mood/affect, nml cerebellar function, sensation nml, No motor deficits Skin Exam: normal color, warm, dry Eye Exam: PERRL, EOMI, eyes nml inspection Ears, Nose, Throat Exam: normal ENT inspection, pharynx normal, moist mucous membranes Neck Exam: normal inspection, non-tender, supple, full range of motion Respiratory Exam: prolonged expirations, wheezing, No respiratory distress Cardiovascular Exam: regular rate/rhythm, normal heart sounds Gastrointestinal/Abdomen Exam: soft, No tenderness, No mass Extremity Exam: normal inspection, normal range of motion Back Exam: normal inspection, normal range of motion, No CVA tenderness, No vertebral tenderness Pelvic Exam: deferred Rectal Exam: deferred Final Diagnosis/Problem List - Final Discharge Diagnosis/Problem (1) Acute exacerbation of chronic obstructive airways disease Current Visit: Yes Status: Acute (2) Acute and chronic respiratory failure with hypercapnia Current Visit: Yes Status: Acute (3) Depression Current Visit: Yes Status: Chronic (4) Anxiety Current Visit: Yes Status: Chronic (5) Anemia Current Visit: Yes Status: Chronic (6) Hypertension Current Visit: Yes Status: Chronic (7) Chronic steroid use Current Visit: Yes Status: Chronic (8) Rheumatoid arthritis Current Visit: Yes Status: Chronic - Discharge Discharge Date: 09/04/16 Disposition: Home, Self-Care Condition: Fair Prescriptions: New Prednisone 20 mg [Deltasone 20 mg] 20 mg PO DAILY #24 tablet Levofloxacin [Levaquin] 500 mg PO DAILY #4 tablet Continue Donepezil HCl 5 mg PO HS Sennosides [Senna Laxative] 2 tab PO DAILY PRN PRN PRN Reason: Constipation Fluoxetine HCl [Prozac] 60 mg PO DAILY Magnesium Oxide 400 mg [Mag-Ox 400] 400 mg PO DAILY #30 tablet Fluticasone/Vilanterol [Breo Ellipta 100-25 Mcg INH] 1 inh PO DAILY Albuterol/Ipratropium 3ml Neb* [DUONEB 0.5-3 MG/3 ml Neb] 3 ml IH Q4HPRN PRN PRN Reason: Shortness Of Breath Docusate Sodium 100 mg [Colace 100 MG] 100 mg PO BID #60 capsule Ferrous Sulfate 325 mg [Feosol 325 mg] 325 mg PO TID #90 tablet Lisinopril 5 mg [Zestril 5 MG] 10 mg PO DAILY #30 tablet Albuterol Sulfate [Proair Hfa] 8.5 gm IH Q6HPRN PRN PRN Reason: Shortness Of Breath/Wheezing Metoprolol Tartrate 50 mg [Lopressor 50 MG] 50 mg PO BID #0 tablet Ziprasidone HCl [Geodon] 40 mg PO HS #30 capsule Prednisone 10 mg [Deltasone 10 mg] 10 mg PO DAILY #60 tablet Hydrocodone/APAP 10/325 mg [[place] 10/325 MG Tablet] 1 tab PO Q4H/PRN PRN #120 tablet PRN Reason: Pain Lorazepam [Ativan] 1 mg PO Q6H PRN #90 tablet PRN Reason: Anxiety Lorazepam 1 mg [Ativan 1 MG] 1 mg PO TID Aspirin EC 325 mg [Ecotrin 325 MG] 325 mg PO DAILY #0 tablet.ec Discontinued Azithromycin 250 mg [Zithromax 250 MG TABLET] 250 mg PO ZPACK #6 tablet Follow up with: SURAJ SAMS [Primary Care Provider] - Forms: Patient Portal Information
[2016-09-04] MEDS: Norco 10/325 MG Tablet PO PRN ×3 (09:01→17:12)
[2016-09-04] MEDS: Zestril 5 MG PO SCH (09:02)
[2016-09-04] MEDS: MAG-OX 400 PO SCH (09:03)
[2016-09-04] MEDS: Prozac 20 MG PO SCH (09:03)
[2016-09-04] MEDS: Ecotrin 325 MG PO SCH (09:03)
[2016-09-04] MEDS: Pepcid 20 MG VIAL IV SCH (09:04)
[2016-09-04] MEDS: Lopressor 50 MG PO SCH (09:04)
[2016-09-04] MEDS: Colace 100 MG PO SCH (09:04)
[2016-09-04] MEDS: FEOSOL 325 MG PO SCH ×2 (09:04→14:54)
[2016-09-04] MEDS: Ativan 1 MG PO SCH ×2 (09:04→14:54)
[2016-09-04] MEDS: ENOXAPARIN SODIUM SQ SCH (09:05)
[2016-09-04] MEDS: SENOKOT 8.6 MG PO PRN (09:06)
[2016-09-04 16:16] VITALS: BP 150/69; PULSE 84; O2SAT 95
== END 2016-09-04 17:15 | disposition home or self-care (01) | DRG 190 ==
LOC: ED 11:09 → MED SURG 13:10
PROVIDERS: ADMIT Family Medicine; ATTEND Family Medicine
DX: J44.1 Chronic obstructive pulmonary disease with (acute) exacerbation (principal); J96.22 Acute and chronic respiratory failure with hypercapnia; F41.8 Other specified anxiety disorders; D64.9 Anemia, unspecified; I10 Essential (primary) hypertension; F15.90 Other stimulant use, unspecified, uncomplicated; M06.9 Rheumatoid arthritis, unspecified; I25.10 Atherosclerotic heart disease of native coronary artery without angina pectoris; J45.909 Unspecified asthma, uncomplicated; F03.90 Unspecified dementia, unspecified severity, without behavioral disturbance, psychotic disturbance, mood disturbance, and anxiety; Z95.0 Presence of cardiac pacemaker
CPT/HCPCS: 36415; 36600; 71010; 80053; 81000; 82375; 82803; 82962; 83036; 83605; 83735; 84484; 85025; 87040; 93005; 93041; 94002; 94003; 94640; 94760; 96360; 96361; 96374; 99285; J1650; J1956; J2920; J2930; P9612; A9270-GY

== ENCOUNTER 2016-10-30 11:32 | Inpatient (IN) | payer MEDICARE ==
[2016-10-30] MEDS ORDERED: DUONEB 0.5-3 MG/3 ml Neb IH ONE ×2 (11:35→11:43)
[2016-10-30] MEDS ORDERED: Pepcid 20 MG VIAL IV ONE ×2 (11:37→11:48)
[2016-10-30] MEDS ORDERED: solu-MEDROL 125 MG IV ONE (11:37)
[2016-10-30] MEDS ORDERED: solu-MEDROL 125 MG ONE (11:48)
--- NOTE | 2016-10-30 11:53 | ERPHSYRPT ---
- History of Present Illness Time Seen by Provider: 10/30/16 11:35 Source: patient, EMS (gave alb neb en route) Patient Subjective Stated Complaint: pt states she has been sob for the past 2 days with productive cough. denies any fever. Triage Nursing Assessment: pt pale, warm, dry. wheezes noted in anterior lung jimenes. moist cough noted. pt alert. Physician History: CC: short of breath Hx; 61 y/o patient of Dr Sams with hx of COPD and emphysema. She has couple day hx of worsened shortness of breath. Worse today. On home oxygen. No fever. She had a chest pain yesterday. Symptoms moderate severe today so came to ER. Severity of Dyspnea-Max: moderate Severity of Dyspnea-Current: moderate Allergies/Adverse Reactions: No Known Drug Allergies Allergy (Verified 10/30/16 11:43) Home Medications: Donepezil HCl 5 mg PO HS 06/15/14 [History] Sennosides [Senna Laxative] 2 tab PO DAILY PRN PRN 06/15/14 [History] Fluoxetine HCl [Prozac] 60 mg PO DAILY 03/02/15 [History] Fluticasone/Vilanterol [Breo Ellipta 100-25 Mcg INH] 1 inh PO DAILY 12/17/15 [ History] Albuterol/Ipratropium 3ml Neb* [DUONEB 0.5-3 MG/3 ml Neb] 3 ml IH Q4HPRN PRN 01/31/16 [History] Albuterol Sulfate [Proair Hfa] 8.5 gm IH Q6HPRN PRN 03/23/16 [History] Lorazepam 1 mg [Ativan 1 MG] 1 mg PO TID 05/30/16 [History] Hx Tetanus, Diphtheria Vaccination/Date Given: Yes (up to date) Hx Influenza Vaccination/Date Given: No Hx Pneumococcal Vaccination/Date Given: No Immunizations Up to Date: Yes - Review of Systems Constitutional: No Fever, No Chills Eyes: No Symptoms Respiratory: Cough, Dyspnea, Wheezing Cardiac: Chest Pain (yesterday) Abdominal/Gastrointestinal: No Abdominal Pain, No Nausea, No Vomiting Skin: No Rash Neurological: No Headache All Other Systems: Reviewed and Negative - Past Medical History Pertinent Past Medical History: Yes Neurological History: Dementia ENT History: No Pertinent History Cardiac History: Congestive Heart Failure, Coronary Artery Disease, Hypertension Respiratory History: Asthma, Bronchitis, CHF, COPD, Pneumonia, Other Endocrine Medical History: No Pertinent History Musculoskeletal History: No Pertinent History GI Medical History: No Pertinent History History: No Pertinent History Psycho-Social History: Depression Female Reproductive Disorders: No Pertinent History - Past Surgical History Past Surgical History: Yes Neuro Surgical History: No Pertinent History Cardiac: Pacemaker Respiratory: No Pertinent History Gastrointestinal: Bowel Surgery Genitourinary: No Pertinent History Musculoskeletal: Amputation Female Surgical History: No Pertinent History Other Surgical History: sinus surgery in 80's,finger amp, bowel surg. - Social History Smoking Status: Former smoker How long have you smoked: 45 years Exposure to second hand smoke: Yes Alcohol Use: None Drug Use: none Patient Lives Alone: No Significant Family History: no pertinent family hx - Female History Hx Now: No - Nursing Vital Signs Nursing Vital Signs: Initial Vital Signs Temperature 98.0 F 10/30/16 11:33 Pulse Rate 87 10/30/16 11:33 Respiratory Rate 28 H 10/30/16 11:33 Blood Pressure 138/86 10/30/16 11:33 O2 Sat by Pulse Oximetry 89 L 10/30/16 11:33 Pain Scale Pain Intensity 0 - Physical Exam General Appearance: alert, other (frail, chronically ill appearing lady) Eye Exam: PERRL/EOMI Neck Exam: supple Respiratory Exam: wheezing (thru out) Cardiovascular/Chest Exam: regular rate/rhythm, edema (trace) Abdominal/Gastrointestinal Exam: soft, No tenderness, No distention Extremity Exam: non-tender Neurologic Exam: alert, oriented x 3, cooperative, sensation nml, No motor deficits Skin Exam: warm, dry, No rash SpO2 Interpretation: borderline oxygenation, O2 applied SpO2: 90 Oxygen Delivery: Room Air - Course Nursing assessment & vital signs reviewed: Yes EKG Interpreted by Me: RATE (76), Sinus Rhythm, NORMAL AXIS, NORMAL INTERVALS ( QTc 436), Non-specific ST Changes (Poor R wave progression) - Radiology Exams cxr X-ray Interpretation: Teleradiologist Report (COPD) Ordered Tests: Active Orders 24 hr Category Date Time Status Cath for Specimen-Straight STAT Care 10/30/16 11:36 Active Cath for Specimen-Straight STAT Care 10/30/16 11:36 Active EKG-ER Only STAT Care 10/30/16 11:35 Active IV Insertion STAT Care 10/30/16 11:35 Active Oxygen-ED Only NASAL CANNULA 4 lpm Care 10/30/16 11:35 Active Pulse Oximetry (ED) STAT Care 10/30/16 11:35 Active Rectal Temperature STAT Care 10/30/16 11:35 Active CHEST 1 VIEW (PORTABLE) Stat Exams 10/30/16 11:36 Completed BLOOD CULTURE Stat Lab 10/30/16 12:05 Received CBC W DIFF Stat Lab 10/30/16 11:55 Completed CMP Stat Lab 10/30/16 11:55 Completed Lactic Acid Stat Lab 10/30/16 11:50 Completed MAGNESIUM Stat Lab 10/30/16 11:55 Completed NT PRO BNP Stat Lab 10/30/16 11:55 Completed TROPONIN Q3H Lab 10/30/16 12:05 Completed TROPONIN Q3H Lab 10/30/16 14:45 Ordered TROPONIN Q3H Lab 10/30/16 17:45 Ordered TROPONIN Q3H Lab 10/30/16 20:45 Ordered TROPONIN Q3H Lab 10/30/16 23:45 Ordered UA W/RFX UR CULTURE Stat Lab 10/30/16 11:35 Ordered VENOUS BLOOD GAS Stat Lab 10/30/16 11:50 Completed BiPap/CPAP Assessment STAT RT 10/30/16 11:58 Active Respiratory Nebulizer STAT RT 10/30/16 11:36 Completed Medication Summary Discontinued Medications Generic Name Dose Route Start Last Admin Trade Name Freq PRN Reason Stop Dose Admin Albuterol/Ipratropium 3 ml 10/30/16 11:35 10/30/16 11:45 Duoneb 0.5-3 Mg/3 Ml Neb IH 10/30/16 11:36 3 ml STAT ONE Administration Albuterol/Ipratropium Confirm 10/30/16 11:43 Duoneb 0.5-3 Mg/3 Ml Neb Administered 10/30/16 11:44 Dose 3 ml IH .STK-MED ONE Doxycycline Hyclate 100 mg 10/30/16 13:16 Vibramycin 100 Mg PO 10/30/16 13:17 STAT ONE Famotidine 20 mg 10/30/16 11:37 10/30/16 11:54 Pepcid 20 Mg Vial IV 10/30/16 11:38 20 mg STAT ONE Administration Famotidine Confirm 10/30/16 11:48 Pepcid 20 Mg Vial Administered 10/30/16 11:49 Dose 20 mg IV .STK-MED ONE Methylprednisolone Sodium Succinate 125 mg 10/30/16 11:37 10/30/16 11:54 Solu-Medrol 125 Mg IV 10/30/16 11:38 125 mg STAT ONE Administration Methylprednisolone Sodium Succinate Confirm 10/30/16 11:48 Solu-Medrol 125 Mg Administered 10/30/16 11:49 Dose 125 mg .ROUTE .STK-MED ONE Lab/Rad Data: Laboratory Result Diagrams 10/30/16 11:55 10/30/16 11:55 Laboratory Results 10/30/16 10/30/16 10/30/16 Range/Units 12:05 11:55 11:55 WBC 8.5 (4.0-10.5) K/mm3 RBC 3.77 L (4.1-5.4) M/mm3 Hgb 11.0 L (12.0-16.0) gm/dl Hct 38.0 (35-47) % MCV 100.8 H (78-100) fl MCH 29.1 (26-32) pg MCHC 28.9 L (32-36) g/dl RDW 14.0 (11.5-14.0) % Plt Count 227 (150-450) K/mm3 MPV 9.8 H (6-9.5) fl Gran % 77.6 H (36.0-66.0) % Lymphocytes % 13.8 L (24.0-44.0) % Monocytes % 6.0 (0.0-12.0) % Eosinophils % 2.4 (0.00-5.0) % Basophils % 0.2 (0.0-0.4) % Basophils # 0.02 (0-0.4) VBG pH (7.32-7.42) VBG pCO2 at Pat Temp (42-55) mm/Hg VBG pO2 at Pat Temp (25-40) mm/Hg VBG HCO3 (22-28) meq/L VBG O2 Sat (Shun) (95-100) VBG Base Excess (-2.0-2.0) VBG Hemoglobin VBG Carboxyhemoglobin (0.0-6.9) % T HGB POC Potassium (3.5-5.1) Sodium 143 (136-145) mEq/L Potassium 4.5 (3.5-5.1) mEq/L Chloride 98 (98-107) mEq/L Carbon Dioxide 46.9 H* (21-32) mEq/L Anion Gap 2.6 L (5-15) MEQ/L BUN 13 (9-20) mg/dL Creatinine 0.62 (0.55-1.30) mg/dl Estimated GFR > 60 ML/MIN Glucose 205 H (70-110) MG/DL Lactic Acid (0.4-2.0) Calcium 9.2 (8.5-10.1) mg/dL Magnesium 1.7 L (1.8-2.4) mg/dL Total Bilirubin 0.20 (0.2-1.0) mg/dL AST 13 L (15-37) U/L ALT 11 L (12-78) U/L Alkaline Phosphatase 53 (46-116) U/L Troponin I < 0.017 (0.000-0.056) ng/ml NT-Pro-B Natriuret Pep 691 H (0-125) pg/ml Serum Total Protein 6.9 (6.4-8.2) gm/dL Albumin 2.9 L (3.4-5.0) g/dL 10/30/16 10/30/16 Range/Units 11:50 11:50 WBC (4.0-10.5) K/mm3 RBC (4.1-5.4) M/mm3 Hgb (12.0-16.0) gm/dl Hct (35-47) % MCV (78-100) fl MCH (26-32) pg MCHC (32-36) g/dl RDW (11.5-14.0) % Plt Count (150-450) K/mm3 MPV (6-9.5) fl Gran % (36.0-66.0) % Lymphocytes % (24.0-44.0) % Monocytes % (0.0-12.0) % Eosinophils % (0.00-5.0) % Basophils % (0.0-0.4) % Basophils # (0-0.4) VBG pH 7.31 L (7.32-7.42) VBG pCO2 at Pat Temp 113 H* (42-55) mm/Hg VBG pO2 at Pat Temp 20 L (25-40) mm/Hg VBG HCO3 56.9 H* (22-28) meq/L VBG O2 Sat (Shun) 33.4 L (95-100) VBG Base Excess 25.1 H (-2.0-2.0) VBG Hemoglobin 11.5 VBG Carboxyhemoglobin 2.0 (0.0-6.9) % T HGB POC Potassium 4.3 (3.5-5.1) Sodium (136-145) mEq/L Potassium (3.5-5.1) mEq/L Chloride (98-107) mEq/L Carbon Dioxide (21-32) mEq/L Anion Gap (5-15) MEQ/L BUN (9-20) mg/dL Creatinine (0.55-1.30) mg/dl Estimated GFR ML/MIN Glucose (70-110) MG/DL Lactic Acid 1.0 (0.4-2.0) Calcium (8.5-10.1) mg/dL Magnesium (1.8-2.4) mg/dL Total Bilirubin (0.2-1.0) mg/dL AST (15-37) U/L ALT (12-78) U/L Alkaline Phosphatase (46-116) U/L Troponin I (0.000-0.056) ng/ml NT-Pro-B Natriuret Pep (0-125) pg/ml Serum Total Protein (6.4-8.2) gm/dL Albumin (3.4-5.0) g/dL - Progress Progress Note: 10/30/16 13:17 She appears well compared to her VBG result. She is mostly compensated resp acidosis. Bipap started. Tolerating well. Nebs and steroids given. Called Dr Laine Sams for observation, tele. Counseled pt/family regarding: lab results, diagnosis, need for follow-up, rad results - Departure Time of Disposition: 13:18 Departure Disposition: Observation Clinical Impression: Acute exacerbation of chronic obstructive airways disease, Acute and chronic respiratory failure with hypercapnia Condition: Fair Critical Care Time: Yes Critical Care Time(excluding separately billable procedures): 30-74 minutes Referrals: SURAJ SAMS [Primary Care Provider] -
[2016-10-30 11:55] LABS: VBG BASE EXCESS 25.1 (-2.0-2.0); VBG HCO3- 56.9 meq/L (22-28); VBG HEMOGLOBIN 11.5; VBG O2 SATURATION 33.4 (95-100); VBG POTASSIUM 4.3 (3.5-5.1); VBG pH 7.31 (7.32-7.42)
--- NOTE | 2016-10-30 12:07 | XRAY ---
Indication: Short of breath. Comparison: September 01, 2016. Portable chest unchanged again hyperinflated with chronic lung markings and no infiltrate, consolidation, or large effusion. Heart is not enlarged with stable left-sided dual-lead pacemaker. No new/acute findings.
[2016-10-30 12:09] LABS: BASOPHIL % 0.2 % (0.0-0.4); Eosinophil % 2.4 % (0.00-5.0); Granulocytes % 77.6 % (36.0-66.0); Lymphocytes % 13.8 % (24.0-44.0); Mean Cell Volume 100.8 fl (78-100); Mean Platelet Volume 9.8 fl (6-9.5); Platelet Count 227 K/mm3 (150-450); Red Blood Count 3.77 M/mm3 (4.1-5.4); White Blood Count 8.5 K/mm3 (4.0-10.5)
[2016-10-30 12:11] LABS: Mean Corpuscular Hemoglobin 29.1 pg (26-32)
[2016-10-30 12:26] LABS: ALBUMIN 2.9 g/dL (3.4-5.0); ALKALINE PHOSPHATASE 53 U/L (46-116); BLOOD UREA NITROGEN 13 mg/dL (9-20); CHLORIDE 98 mEq/L (98-107); Glucose 205 MG/DL (70-110); MAGNESIUM 1.7 mg/dL (1.8-2.4); Potassium 4.5 mEq/L (3.5-5.1); SGOT/AST 13 U/L (15-37); SGPT/ALT 11 U/L (12-78); SODIUM 143 mEq/L (136-145); Total Protein 6.9 gm/dL (6.4-8.2)
[2016-10-30 12:35] LABS: Carbon Dioxide 46.9 mEq/L (21-32)
[2016-10-30 12:37] LABS: ANION GAP 2.6 MEQ/L (5-15)
[2016-10-30] MEDS ORDERED: Vibramycin 100 MG PO ONE (13:16)
[2016-10-30] MEDS ORDERED: Vibramycin 100 MG ONE (13:19)
[2016-10-30 13:40] LABS: Collection Type CATH
[2016-10-30 13:41] LABS: Bilirubin NEGATIVE (NEGATIVE); Blood 50 Ery/ul (0-5); COMPLETE URINE MICROSCOPIC? YES; Glucose 50 mg/dL (NEGATIVE); Leukocyte Esterase NEGATIVE (NEGATIVE)
[2016-10-30 13:44] LABS: Mucus SLIGHT /HPF (NEGATIVE)
[2016-10-30 13:45] LABS: ADD URINE CULTURE? YES (NO); Bacteria RARE /HPF (NEGATIVE); Epithelial Cells FEW /HPF (FEW); WBC 0-2 /HPF (0-5)
[2016-10-30] MEDS: DUONEB 0.5-3 MG/3 ml Neb IH SCH ×3 (14:46→22:38)
[2016-10-30 14:48] LABS: A-aADO2 73; ARTERIAL BLD GAS O2 SATURATION 98.1 % (95-100); ARTERIAL BLOOD GAS BASE EXCESS 21.6 (-2.0-2.0); ARTERIAL BLOOD GAS FIO2 36 %; ARTERIAL BLOOD GAS PO2 79 mmHg (75-100); ARTERIAL BLOOD GAS pH 7.39 (7.35-7.45)
[2016-10-30 14:49] LABS: ALLEN TEST OK? YES
[2016-10-30] MEDS ORDERED: DUONEB 0.5-3 MG/3 ml Neb IH PRN (15:04)
[2016-10-30] MEDS ORDERED: TYLENOL 325 MG PO PRN (15:04)
[2016-10-30] MEDS ORDERED: MILK OF MAGNESIA 30 ML PO PRN (15:04)
[2016-10-30] MEDS ORDERED: PROVENTIL COMMON CANISTER IH PRN (15:44)
[2016-10-30] MEDS: Colace 100 MG PO SCH (15:59)
[2016-10-30] MEDS: Lopressor 50 MG PO SCH (15:59)
[2016-10-30] MEDS: Ativan 1 MG PO SCH (15:59)
[2016-10-30] MEDS: FEOSOL 325 MG PO SCH (15:59)
[2016-10-30] MEDS: Calcium 500MG W/Vit D Tablet PO SCH (15:59)
[2016-10-30] MEDS: MAG-OX 400 PO SCH ×2 (15:59→16:01)
[2016-10-30] MEDS ORDERED: VITAMIN D3 PO SCH (16:00)
[2016-10-30] MEDS ORDERED: CALCIUM CARBONATE PO SCH (16:00)
[2016-10-30] MEDS: Norco 10/325 MG Tablet PO PRN ×2 (17:16→21:44)
--- NOTE | 2016-10-30 17:24 | PCM.HP ---
History of Present Illness - Chief Complaint Chief Complaint: shortness of breath Date: 10/30/16 History of Present Illness: is a 61 year old female. who has been doign well at home but has been having increasing shortness of breath over the last several days with some increased cough. She feels her nebulizer machine is not working very well. She then suddenly got very short of breath today and presented to the ED. She did not have any chest pain or swelling with this. She has not been eating as well due to the shortness of breath but no vomiting or diarrhea. - Review of Systems Constitutional: No Fever, No Chills Eyes: No Symptoms Ears, Nose, & Throat: No Symptoms Respiratory: Cough, Short Of Breath Cardiac: No Chest Pain, No Edema, No Syncope Abdominal/Gastrointestinal: No Abdominal Pain, No Nausea, No Vomiting, No Diarrhea Genitourinary Symptoms: No Dysuria Musculoskeletal: No Back Pain, No Neck Pain Skin: No Rash Neurological: No Dizziness, No Focal Weakness, No Sensory Changes Psychological: No Symptoms Endocrine: No Symptoms Hematologic/Lymphatic: No Symptoms Immunological/Allergic: No Symptoms Medications & Allergies Home Medications: Home Medication List Donepezil HCl 5 mg PO HS 06/15/14 [History Confirmed 10/30/16] Sennosides [Senna Laxative] 2 tab PO DAILY 06/15/14 [History Confirmed 10/30/16] Fluoxetine HCl [Prozac] 60 mg PO DAILY 03/02/15 [History Confirmed 10/30/16] Magnesium Oxide 400 mg [Mag-Ox 400] 400 mg PO DAILY #30 tablet 03/03/15 [ Rx Confirmed 10/30/16] Fluticasone/Vilanterol [Breo Ellipta 100-25 Mcg INH] 1 inh PO DAILY 12/17/15 [ History Confirmed 10/30/16] Albuterol/Ipratropium 3ml Neb* [DUONEB 0.5-3 MG/3 ml Neb] 3 ml IH Q4H PRN [History Confirmed 10/30/16] Lisinopril 5 mg [Zestril 5 MG] 10 mg PO DAILY #30 tablet 02/10/16 [Rx Confirmed 10/30/16] Albuterol Sulfate [Proair Hfa] 8.5 gm IH Q6HPRN PRN 03/23/16 [History Confirmed 10/30/16] Hydrocodone/APAP 10/325 mg [[place] 10/325 MG Tablet] 1 tab PO Q4H/PRN PRN # 120 tablet 05/26/16 [Rx Confirmed 10/30/16] Prednisone 10 mg [Deltasone 10 mg] 10 mg PO DAILY #60 tablet 05/26/16 [Rx Confirmed 10/30/16] Ziprasidone HCl [Geodon] 40 mg PO HS #30 capsule 05/26/16 [Rx Confirmed 10/30/16 ] Lorazepam 1 mg [Ativan 1 MG] 1 mg PO 0800,1200,1600 05/30/16 [History Confirmed 10/30/16] Acetaminophen [Tylenol] 650 mg PO Q4HPRN PRN 10/30/16 [History Confirmed ] Calcium Carbonate/Vitamin D3 [Calcium 600 + Vit D Tablet] 1 each PO 0800,1600 [History Confirmed 10/30/16] Container,Empty [Enema Bottle] 1 each MC DAILY PRN PRN 10/30/16 [History Confirmed 10/30/16] Docusate Sodium 100 mg [Colace 100 MG] 100 mg PO 0800,1600 10/30/16 [ History Confirmed 10/30/16] Ferrous Sulfate 325 mg [Feosol 325 mg] 325 mg PO 0800,1200,1600 10/30/16 [ History Confirmed 10/30/16] Lorazepam 1 mg [Ativan 1 MG] 1 mg PO Q6HPRN PRN 10/30/16 [History Confirmed 10/30/16] Magnesium Hydroxide 30 ml [Milk of Magnesia 30 ml] 30 ml PO DAILY PRN PRN 10/30/16 [History Confirmed 10/30/16] Metoprolol Tartrate 50 mg [Lopressor 50 MG] 50 mg PO 0800,1600 10/30/16 [ History Confirmed 10/30/16] Sennosides [Senna] 2 tab PO DAILY PRN PRN 10/30/16 [History Confirmed 10/30/16] Allergies/Adverse Reactions: Allergies Allergy/AdvReac Type Severity Reaction Status Date / Time No Known Drug Allergies Allergy Verified 10/30/16 11:43 - Past Medical History Past Medical History: Yes Neurological History: Dementia ENT History: No Pertinent History Cardiac History: Congestive Heart Failure, Coronary Artery Disease, Hypertension Respiratory History: Asthma, Bronchitis, CHF, COPD, Pneumonia, Other Endocrine Medical History: No Pertinent History Musculoskelatal History: No Pertinent History GI Medical History: No Pertinent History History: No Pertinent History Pyscho-Social History: Depression Reproductive Disorders: No Pertinent History Comment: ... - Female History Are you now?: No - Past Surgical History Past Surgical History: Yes Neuro Surgical History: No Pertinent History Cardiac History: Pacemaker Respiratory Surgery: No Pertinent History GI Surgical History: Bowel Surgery Genitourinary Surgical Hx: No Pertinent History Musculskeletal Surgical Hx: Amputation Female Surgical History: No Pertinent History Other Surgical History: sinus surgery in 80's,finger amp, bowel surg. - Social History Smoking Status: Former smoker How long have you smoked: 45 years Exposure to second hand smoke: Yes Alcohol: None Drug Use: none Significant Family History: no pertinent family hx - Physical Exam Vital Signs: Vital Signs - 24 hr Temp Pulse Resp BP Pulse Ox 10/30/16 14:51 73 24 97 10/30/16 14:10 98.9 F 82 18 144/62 97 10/30/16 13:40 82 28 H 132/69 94 L 10/30/16 13:18 90 L 10/30/16 13:12 98.6 F 10/30/16 13:09 90 L 10/30/16 12:59 90 28 H 136/62 92 L 10/30/16 11:55 80 22 91 L 10/30/16 11:33 98.0 F 87 28 H 138/86 90 L Oxygen-Last 24 hours O2 Percentage 4 Liters = 36% O2 Percentage 4 Liters = 36% O2 Percentage 4 Liters = 36% O2 Percentage 4 Liters = 36% General Appearance: no apparent distress, alert Neurologic Exam: alert, oriented x 3, cooperative, normal mood/affect, sensation nml, No motor deficits Eye Exam: PERRL/EOMI, eyes nml inspection, No scleral icterus, No pale conjunctivae Ears, Nose, Throat Exam: normal ENT inspection, pharynx normal, moist mucous membranes Neck Exam: normal inspection, non-tender, supple, full range of motion Respiratory Exam: prolonged expirations, rhonchi, wheezing, No respiratory distress Cardiovascular Exam: regular rate/rhythm, normal heart sounds, normal peripheral pulses Gastrointestinal/Abdomen Exam: soft, normal bowel sounds, No tenderness, No mass Back Exam: normal inspection, normal range of motion, No CVA tenderness, No vertebral tenderness Extremity Exam: normal range of motion, pelvis stable, other (chronic rheumatoid arthritis changes most prominent in hands) Skin Exam: normal color, warm, dry, No rash Lymphatic Exam: No adenopathy Results - Labs Lab/Micro Results: Accuchecks Date 10/30/16 Accucheck Value: 107 Lab Results-Last 24 Hours 10/30/16 Range/Units 14:40 Puncture Site LEFT RADIAL pCO2 84 H* (35-45) mmHg pO2 79 (75-100) mmHg Base Excess 21.6 H (-2.0-2.0) O2 Saturation 95.3 (94-100) g/dF ABG pH 7.39 (7.35-7.45) ABG HCO3 50.8 H* (22-28) ABG O2 Sat (Measured) 98.1 (95-100) % Riki Test YES A-a Gradient 73 a/A Ratio 0.52 Hemoglobin 11.4 Carboxyhemoglobin 2.0 (0.0-6.9) % THgb Methemoglobin 0.9 L (1.4-1.5) % Potassium 3.8 (3.5-5.1) Temperature 37.0 C POC O2 Flow Rate 36 % Accuchecks Date 10/30/16 Accucheck Value: 107 - Other Procedures and Tests Respiratory Therapy 10/30/16 14:48 Oxygen NASAL CANNULA 4 lpm 10/30/16 14:50 BiPap/CPAP Assessment ROUTINE 10/30/16 15:44 Respiratory MDI 10/30/16 19:00 Respiratory MDI BID Respiratory Nebulizer Q4H Assessment/Plan (1) Acute and chronic respiratory failure with hypercapnia Current Visit: Yes Status: Acute Assessment & Plan: improving was on bipap from ed gases improved her mental status was preserved despite the pco2 of 113 it is now improving as well continue the nebs, solu medrol, doxy, chronic home oxygen therapy repeat am labs Code(s): J96.22 - ACUTE AND CHRONIC RESPIRATORY FAILURE WITH HYPERCAPNIA (2) COPD with exacerbation Current Visit: Yes Status: Acute Code(s): J44.1 - CHRONIC OBSTRUCTIVE PULMONARY DISEASE W (ACUTE) EXACERBATION (3) Rheumatoid arthritis Current Visit: Yes Status: Chronic Code(s): M06.9 - RHEUMATOID ARTHRITIS, UNSPECIFIED (4) Depression Current Visit: Yes Status: Chronic Code(s): F32.9 - MAJOR DEPRESSIVE DISORDER, SINGLE EPISODE, UNSPECIFIED (5) Anxiety Current Visit: Yes Status: Chronic Code(s): F41.9 - ANXIETY DISORDER, UNSPECIFIED (6) Hypertension Current Visit: Yes Status: Chronic Code(s): I10 - ESSENTIAL (PRIMARY) HYPERTENSION
[2016-10-30] MEDS: Advair Hfa 115/21 Common canister IH SCH (18:58)
[2016-10-30] MEDS: solu-MEDROL 40 MG IV SCH (21:43)
[2016-10-30] MEDS: Pepcid 20 MG PO SCH (21:43)
[2016-10-30] MEDS: Vibramycin 100 MG PO SCH (21:43)
[2016-10-30] MEDS: Geodon 20 MG Capsule PO SCH (21:43)
[2016-10-30] MEDS: Aricept 10 MG PO SCH (21:43)
[2016-10-30] MEDS ORDERED: NON-FORMULARY ITEM (Donepezil Hcl [Donepezil Hcl] 5 MG) PO SCH (22:00)
[2016-10-30] MEDS ORDERED: ZIPRASIDONE HCL 40 MG PO SCH (22:00)
--- NOTE | 2016-10-30 23:09 | XRAY ---
Indication: Pain following fall. Comparison: None 2 views of the right humerus demonstrates mild osteopenia and mildly displaced humeral shaft oblique fracture with soft tissue swelling. No other bony, articular, or soft tissue abnormalities. Comment: Preliminary interpretation was made by [facility]. No discrepancy.
--- NOTE | 2016-10-30 23:10 | XRAY ---
Indication: Pain following fall. Comparison: None 2 views of the right forearm demonstrates mild osteopenia. No other bony, articular, or soft tissue abnormalities. Comment: Preliminary interpretation was made by [facility]. No critical discrepancy.
[2016-10-31] MEDS: DUONEB 0.5-3 MG/3 ml Neb IH SCH ×6 (02:35→22:38)
[2016-10-31] MEDS: Norco 10/325 MG Tablet PO PRN ×5 (04:24→21:37)
[2016-10-31 05:31] LABS: VBG BASE EXCESS 20.8 (-2.0-2.0); VBG CARBOXYHEMOGLOBIN 2.4 % T HGB (0.0-6.9); VBG HCO3- 48.9 meq/L (22-28); VBG HEMOGLOBIN 9.9; VBG O2 SATURATION 83.2 (95-100); VBG pH 7.4 (7.32-7.42)
[2016-10-31 05:55] LABS: Mean Cell Volume 98.2 fl (78-100); Mean Corpuscular Hemoglobin 28.9 pg (26-32); Mean Platelet Volume 10.1 fl (6-9.5); Platelet Count 219 K/mm3 (150-450); Red Blood Count 3.42 M/mm3 (4.1-5.4); Red Cell Distribution Width 13.8 % (11.5-14.0); White Blood Count 9.5 K/mm3 (4.0-10.5)
[2016-10-31 06:05] LABS: ANION GAP 4.8 MEQ/L (5-15); BLOOD UREA NITROGEN 19 mg/dL (9-20); CHLORIDE 98 mEq/L (98-107); Carbon Dioxide 42.6 mEq/L (21-32); Glucose 159 MG/DL (70-110); SODIUM 141 mEq/L (136-145)
[2016-10-31] MEDS: solu-MEDROL 40 MG IV SCH (06:12)
[2016-10-31] MEDS: Advair Hfa 115/21 Common canister IH SCH ×2 (06:58→18:47)
[2016-10-31] MEDS: Ativan 1 MG PO SCH ×3 (09:19→17:44)
[2016-10-31] MEDS: Colace 100 MG PO SCH ×3 (09:19→17:43)
[2016-10-31] MEDS: FEOSOL 325 MG PO SCH ×3 (09:19→17:44)
[2016-10-31] MEDS: Calcium 500MG W/Vit D Tablet PO SCH ×3 (09:19→17:43)
[2016-10-31] MEDS: MAG-OX 400 PO SCH (09:48)
[2016-10-31] MEDS: SENOKOT 8.6 MG PO SCH (09:48)
[2016-10-31] MEDS: DELTASONE 10 MG PO SCH (09:48)
[2016-10-31] MEDS: Vibramycin 100 MG PO SCH ×2 (09:48→21:38)
[2016-10-31] MEDS: Prozac 20 MG PO SCH (09:48)
[2016-10-31] MEDS: Pepcid 20 MG PO SCH ×2 (09:50→21:38)
[2016-10-31] MEDS: Lopressor 50 MG PO SCH ×2 (09:50→17:44)
[2016-10-31] MEDS: Zestril 10 MG PO SCH (09:50)
[2016-10-31] MEDS ORDERED: Zestril 5 MG PO SCH (10:00)
[2016-10-31] MEDS: ENOXAPARIN SODIUM SQ SCH (11:42)
[2016-10-31] MEDS: Geodon 20 MG Capsule PO SCH (21:39)
[2016-10-31] MEDS: Aricept 10 MG PO SCH (21:39)
[2016-10-31] MEDS: NovoLOG Insulin SQ PRN (21:40)
[2016-11-01] MEDS: DUONEB 0.5-3 MG/3 ml Neb IH SCH ×6 (02:54→22:47)
[2016-11-01] MEDS: Norco 10/325 MG Tablet PO PRN ×5 (03:11→22:56)
[2016-11-01] MEDS: Advair Hfa 115/21 Common canister IH SCH ×2 (06:54→18:53)
[2016-11-01] MEDS: Prozac 20 MG PO SCH (08:00)
[2016-11-01] MEDS: Zestril 10 MG PO SCH (08:00)
[2016-11-01] MEDS: MAG-OX 400 PO SCH (08:00)
[2016-11-01] MEDS: Vibramycin 100 MG PO SCH ×2 (08:00→21:46)
[2016-11-01] MEDS: DELTASONE 10 MG PO SCH (08:00)
[2016-11-01] MEDS: SENOKOT 8.6 MG PO SCH (08:00)
[2016-11-01] MEDS: ENOXAPARIN SODIUM SQ SCH (08:01)
[2016-11-01] MEDS: Pepcid 20 MG PO SCH ×2 (08:01→21:46)
[2016-11-01] MEDS: Ativan 1 MG PO SCH ×3 (08:04→15:48)
[2016-11-01] MEDS: Colace 100 MG PO SCH ×2 (08:04→15:48)
[2016-11-01] MEDS: Lopressor 50 MG PO SCH ×2 (08:04→15:48)
[2016-11-01] MEDS: FEOSOL 325 MG PO SCH ×3 (08:04→15:48)
[2016-11-01] MEDS: Calcium 500MG W/Vit D Tablet PO SCH ×2 (08:04→15:48)
[2016-11-01] MEDS: NovoLOG Insulin SQ PRN (11:45)
[2016-11-01] MEDS: Aricept 10 MG PO SCH (21:44)
[2016-11-01] MEDS: Geodon 20 MG Capsule PO SCH (21:46)
[2016-11-02] MEDS: Norco 10/325 MG Tablet PO PRN (02:59)
[2016-11-02] MEDS: DUONEB 0.5-3 MG/3 ml Neb IH SCH (03:01)
[2016-11-02 05:07] VITALS: BP 118/57; PULSE 81; O2SAT 100
== END 2016-11-02 04:37 | disposition short-term general hospital (02) | DRG 189 ==
LOC: ED 11:32 → MED SURG 14:01 → OBSVTOIN 17:30 → INTOOBSV 17:30 → OBSVTOIN 10-31 17:30
PROVIDERS: ADMIT Family Medicine; ATTEND Family Medicine
DX: J96.22 Acute and chronic respiratory failure with hypercapnia (principal); M06.9 Rheumatoid arthritis, unspecified; F32.9 Major depressive disorder, single episode, unspecified; F41.9 Anxiety disorder, unspecified; I10 Essential (primary) hypertension; I50.9 Heart failure, unspecified; I25.10 Atherosclerotic heart disease of native coronary artery without angina pectoris; J45.909 Unspecified asthma, uncomplicated; Z95.0 Presence of cardiac pacemaker
CPT/HCPCS: 36415; 36600; 71010; 73060; 73090; 80048; 80053; 81000; 82375; 82803; 82805; 82962; 83605; 83735; 83880; 84484; 85025; 85027; 87040; 87077; 87086; 87186; 93005; 93268; 94002; 94003; 94640; 94760; 96374; 96375; 99285; G0378; J1650; J2920; J2930; L3650; P9612; A9270-GY; J7506

== ENCOUNTER 2016-11-04 19:10 | Inpatient (IN) | payer MEDICARE ==
[2016-11-04] MEDS: DUONEB 0.5-3 MG/3 ml Neb IH SCH ×2 (19:18→22:26)
[2016-11-04] MEDS: Advair Hfa 115/21 Common canister IH SCH (19:18)
[2016-11-04] MEDS ORDERED: PROVENTIL COMMON CANISTER IH PRN (20:32)
[2016-11-04] MEDS: Geodon 20 MG Capsule PO SCH (22:10)
[2016-11-04] MEDS: Aricept 10 MG PO SCH (22:11)
[2016-11-04] MEDS: Norco 10/325 MG Tablet PO PRN (22:12)
[2016-11-04] MEDS: Ativan 1 MG PO PRN (22:13)
[2016-11-05] MEDS: DUONEB 0.5-3 MG/3 ml Neb IH SCH ×6 (03:11→23:02)
[2016-11-05] MEDS: Advair Hfa 115/21 Common canister IH SCH ×2 (06:38→18:50)
[2016-11-05] MEDS: Norco 10/325 MG Tablet PO PRN ×5 (06:59→23:54)
--- NOTE | 2016-11-05 08:51 | PCM.HP ---
History of Present Illness - Chief Complaint Chief Complaint: Acute pain, Fx of Right Humerous Date: 11/05/16 History of Present Illness: is a 61 year old female. She was being treated for COPD exacerbation and acute on chronic hypercapneic respiratory failure last week on Wednesday when she was up to the bathroom and fell on her right arm resulting in a right humerus fracture. Dr. Escobedo consulted Dr. White who discussed options over the weekend with the patient and her family and they elected to undergo fixation. She was transported to [facility] late Wednesday night/early Wednesday morning for surgery. Post op she was left on the ventilator for 1 day and it was weaned by Dr. Chao and extubated 11/04/16 and transferred back here last night. She has been doing well thus far today no significant pain has arm in splint and sling. She is alert and has not had any documented fevers since admission. On initial presentation on 10/30/16 she had 2 blood cultures done in the ED that were 2/2 positive for Coag negative staph. She has had multiple previous blood cultures in the past several years without any previous significant findings. She was placed on doxy po on 10/30/16 for the copd exacerbation. IT is unclear which antibiotics she had pre/post op at [facility] as these records were not sent and are not available. She has not had any antibiotics since arrival. - Review of Systems Constitutional: No Fever, No Chills Eyes: No Symptoms Ears, Nose, & Throat: No Symptoms Respiratory: No Cough, No Short Of Breath Cardiac: No Chest Pain, No Edema, No Syncope Abdominal/Gastrointestinal: No Abdominal Pain, No Nausea, No Vomiting, No Diarrhea Genitourinary Symptoms: No Dysuria Musculoskeletal: No Back Pain, No Neck Pain Skin: No Rash Neurological: No Dizziness, No Focal Weakness, No Sensory Changes Psychological: No Symptoms Endocrine: No Symptoms Hematologic/Lymphatic: No Symptoms Immunological/Allergic: No Symptoms Medications & Allergies Home Medications: Home Medication List Donepezil HCl 5 mg PO HS 06/15/14 [History Confirmed 11/04/16] Sennosides [Senna Laxative] 2 tab PO DAILY 06/15/14 [History Confirmed 11/04/16] Fluoxetine HCl [Prozac] 60 mg PO DAILY 03/02/15 [History Confirmed 11/04/16] Magnesium Oxide 400 mg [Mag-Ox 400] 400 mg PO DAILY #30 tablet 03/03/15 [ Rx Confirmed 11/04/16] Fluticasone/Vilanterol [Breo Ellipta 100-25 Mcg INH] 1 inh PO DAILY 12/17/15 [ History Confirmed 11/04/16] Albuterol/Ipratropium 3ml Neb* [DUONEB 0.5-3 MG/3 ml Neb] 3 ml IH Q4H PRN [History Confirmed 11/04/16] Lisinopril 5 mg [Zestril 5 MG] 10 mg PO DAILY #30 tablet 02/10/16 [Rx Confirmed 11/04/16] Albuterol Sulfate [Proair Hfa] 8.5 gm IH Q6HPRN PRN 03/23/16 [History Confirmed 11/04/16] Hydrocodone/APAP 10/325 mg [Brockton 10/325 MG Tablet] 1 tab PO Q4H/PRN PRN # 120 tablet 05/26/16 [Rx Confirmed 11/04/16] Prednisone 10 mg [Deltasone 10 mg] 10 mg PO DAILY #60 tablet 05/26/16 [Rx Confirmed 11/04/16] Ziprasidone HCl [Geodon] 40 mg PO HS #30 capsule 05/26/16 [Rx Confirmed 11/04/16 ] Lorazepam 1 mg [Ativan 1 MG] 1 mg PO 0800,1200,1600 05/30/16 [History Confirmed 11/04/16] Acetaminophen [Tylenol] 650 mg PO Q4HPRN PRN 10/30/16 [History Confirmed ] Calcium Carbonate/Vitamin D3 [Calcium 600 + Vit D Tablet] 1 each PO 0800,1600 [History Confirmed 11/04/16] Docusate Sodium 100 mg [Colace 100 MG] 100 mg PO 0800,1600 10/30/16 [ History Confirmed 11/04/16] Ferrous Sulfate 325 mg [Feosol 325 mg] 325 mg PO 0800,1200,1600 10/30/16 [ History Confirmed 11/04/16] Lorazepam 1 mg [Ativan 1 MG] 1 mg PO Q6HPRN PRN 10/30/16 [History Confirmed 11/04/16] Magnesium Hydroxide 30 ml [Milk of Magnesia 30 ml] 30 ml PO DAILY PRN PRN 10/30/16 [History Confirmed 11/04/16] Metoprolol Tartrate 50 mg [Lopressor 50 MG] 50 mg PO 0800,1600 10/30/16 [ History Confirmed 11/04/16] Sennosides [Senna] 2 tab PO DAILY PRN PRN 10/30/16 [History Confirmed 11/04/16] Allergies/Adverse Reactions: Allergies Allergy/AdvReac Type Severity Reaction Status Date / Time No Known Drug Allergies Allergy Verified 10/30/16 11:43 - Past Medical History Past Medical History: Yes Neurological History: Dementia ENT History: No Pertinent History Cardiac History: Congestive Heart Failure, Coronary Artery Disease, Hypertension Respiratory History: Asthma, Bronchitis, CHF, COPD, Pneumonia, Other Endocrine Medical History: No Pertinent History Musculoskelatal History: No Pertinent History GI Medical History: No Pertinent History History: No Pertinent History Pyscho-Social History: Depression Reproductive Disorders: No Pertinent History Comment: ... - Female History Are you now?: No - Past Surgical History Past Surgical History: Yes Neuro Surgical History: No Pertinent History Cardiac History: Pacemaker Respiratory Surgery: No Pertinent History GI Surgical History: Bowel Surgery Genitourinary Surgical Hx: No Pertinent History Musculskeletal Surgical Hx: Amputation Female Surgical History: No Pertinent History Other Surgical History: sinus surgery in 80's,finger amp, bowel surg. - Social History Smoking Status: Former smoker How long have you smoked: 45 years Exposure to second hand smoke: Yes Alcohol: None Drug Use: none Significant Family History: no pertinent family hx - Physical Exam Vital Signs: Vital Signs - 24 hr Temp Pulse Resp BP Pulse Ox 11/05/16 08:00 98.6 F 89 18 123/76 93 L 11/05/16 06:39 62 18 98 11/05/16 04:00 98.1 F 72 20 124/57 100 11/05/16 03:11 70 17 99 11/05/16 00:00 98.9 F 82 19 105/55 98 11/04/16 22:26 86 20 97 11/04/16 20:13 98.6 F 81 18 157/68 96 11/04/16 19:18 92 H 18 92 L Oxygen-Last 24 hours O2 Percentage 4 Liters = 36% O2 Percentage 4 Liters = 36% O2 Percentage 4 Liters = 36% O2 Percentage 4 Liters = 36% General Appearance: no apparent distress, alert Neurologic Exam: alert, oriented x 3, cooperative Eye Exam: PERRL/EOMI, eyes nml inspection, No scleral icterus Ears, Nose, Throat Exam: normal ENT inspection, TMs normal, pharynx normal, moist mucous membranes Neck Exam: normal inspection, non-tender, supple, full range of motion Respiratory Exam: diminished breath sounds, prolonged expirations, wheezing ( mild currently), No respiratory distress, No rhonchi Cardiovascular Exam: regular rate/rhythm, normal heart sounds, normal peripheral pulses Gastrointestinal/Abdomen Exam: soft, normal bowel sounds, No tenderness, No mass Back Exam: normal inspection, normal range of motion, No CVA tenderness, No vertebral tenderness Extremity Exam: other (right arm in splint and sling right hand with pitting edema good radial pulse good cap refil liyah wrap on arm on right chronic RA changes of bilateral hands), No calf tenderness Skin Exam: normal color, warm, dry, No rash Lymphatic Exam: No adenopathy Results - Other Procedures and Tests Respiratory Therapy 11/04/16 19:00 Respiratory MDI BID Respiratory Nebulizer Q4H 11/04/16 20:32 Respiratory MDI PRN 11/04/16 20:34 Oxygen NASAL CANNULA 4 lpm Assessment/Plan (1) Humerus fracture Current Visit: Yes Status: Acute Qualifiers: Encounter type: subsequent encounter Laterality: right Assessment & Plan: will get orders for OT/PT as recommended by her surgeon DR. White splint care per her surgeon good peripheral perfusion but some edema from the tight liyah wrap currently pain is well controlled Code(s): S42.309A - UNSP FRACTURE OF SHAFT OF HUMERUS, UNSP ARM, INIT (2) Positive blood culture Current Visit: Yes Status: Acute Assessment & Plan: she did have 2/2 in ED on 10/30 on presentation but the times are the same it is believed these are from 2 sites The positive blood cultures were discussed with her international account manager DR. Anthony prior to her transfer yesterday and he stated he would not want her to have a RADHA do to her significant risk of respiratory failure with sedation. she is currently not on antibiotics and does not appear she was given any from the transfer from [facility] although the records we have available are very limited she is clinically stable without sepsis or fever she does have a pacemaker in place no evidence of acute infection review of old records show multiple blood cultures with no previous positives will repeat blood culture 1 hour apart monitor close for any evidence of infection and repeat blood culture for fever treat empirically if any evidence Code(s): R78.81 - BACTEREMIA (3) COPD (chronic obstructive pulmonary disease) Current Visit: Yes Status: Chronic Qualifiers: COPD type: unspecified COPD Qualified Code(s): J44.9 - Chronic obstructive pulmonary disease, unspecified (4) Chronic hypercapnic respiratory failure Current Visit: Yes Status: Chronic (5) Depressive disorder Current Visit: Yes Status: Chronic Code(s): F32.9 - MAJOR DEPRESSIVE DISORDER, SINGLE EPISODE, UNSPECIFIED (6) Rheumatoid arthritis Current Visit: Yes Status: Chronic Code(s): M06.9 - RHEUMATOID ARTHRITIS, UNSPECIFIED (7) Dementia Current Visit: Yes Status: Chronic Code(s): F03.90 - UNSPECIFIED DEMENTIA WITHOUT BEHAVIORAL DISTURBANCE
[2016-11-05] MEDS ORDERED: MILK OF MAGNESIA 30 ML PO PRN (09:36)
[2016-11-05] MEDS ORDERED: SENOKOT 8.6 MG PO PRN (09:36)
[2016-11-05 09:44] LABS: Mean Cell Volume 100.3 fl (78-100); Mean Platelet Volume 10.4 fl (6-9.5); Platelet Count 258 K/mm3 (150-450); Red Blood Count 2.98 M/mm3 (4.1-5.4); Red Cell Distribution Width 14.1 % (11.5-14.0); White Blood Count 20.3 K/mm3 (4.0-10.5)
[2016-11-05 10:01] LABS: Mean Corpuscular Hemoglobin 29.1 pg (26-32)
[2016-11-05 10:09] LABS: ANION GAP 3.3 MEQ/L (5-15); BLOOD UREA NITROGEN 14 mg/dL (9-20); CHLORIDE 99 mEq/L (98-107); Carbon Dioxide 44.4 mEq/L (21-32); Glucose 180 MG/DL (70-110); Potassium 3.3 mEq/L (3.5-5.1); SODIUM 143 mEq/L (136-145)
[2016-11-05] MEDS: DELTASONE 10 MG PO SCH (10:25)
[2016-11-05] MEDS: Zestril 10 MG PO SCH (10:25)
[2016-11-05] MEDS: Colace 100 MG PO SCH ×2 (10:25→16:41)
[2016-11-05] MEDS: Prozac 20 MG PO SCH (10:25)
[2016-11-05] MEDS: SENOKOT 8.6 MG PO SCH (10:25)
[2016-11-05] MEDS: Lopressor 50 MG PO SCH ×2 (10:25→16:41)
[2016-11-05] MEDS: Calcium 500MG W/Vit D Tablet PO SCH ×2 (10:25→16:41)
[2016-11-05] MEDS: MAG-OX 400 PO SCH (10:25)
[2016-11-05 10:41] LABS: Eosinophil 2 % (0.00-3.0); Platelet Estimate NORMAL (NORMAL); Total Cells Counted 100
[2016-11-05 10:42] LABS: ANISOCYTOSIS 1+
[2016-11-05] MEDS: Ativan 1 MG PO SCH ×2 (11:21→16:53)
[2016-11-05] MEDS: FEOSOL 325 MG PO SCH ×2 (11:21→16:41)
[2016-11-05] MEDS ORDERED: PHARMACY DOSING REQUIRED: VANCOMYCIN IV ONE (11:47)
[2016-11-05] MEDS: VANCOCIN 500 MG VIAL*** 500 MG in Sodium Chloride 100ML MINI-BAG PLUS 100 ML IV SCH ×2 (14:33→21:28)
[2016-11-05] MEDS: Klor Con 10 MEQ PO SCH ×2 (14:34→21:28)
[2016-11-05] MEDS ORDERED: CALCIUM CARBONATE PO SCH (16:00)
[2016-11-05] MEDS ORDERED: VITAMIN D3 PO SCH (16:00)
[2016-11-05] MEDS: Geodon 20 MG Capsule PO SCH (21:27)
[2016-11-05] MEDS: Aricept 10 MG PO SCH (21:27)
[2016-11-06] MEDS: DUONEB 0.5-3 MG/3 ml Neb IH SCH ×6 (02:55→23:09)
[2016-11-06] MEDS: Advair Hfa 115/21 Common canister IH SCH ×2 (06:33→19:11)
[2016-11-06] MEDS: Lopressor 50 MG PO SCH ×2 (08:08→15:55)
[2016-11-06] MEDS: Ativan 1 MG PO SCH ×4 (08:08→15:57)
[2016-11-06] MEDS: Calcium 500MG W/Vit D Tablet PO SCH ×2 (08:08→15:55)
[2016-11-06] MEDS: Norco 10/325 MG Tablet PO PRN ×4 (08:08→21:51)
[2016-11-06] MEDS: Colace 100 MG PO SCH ×2 (08:08→15:55)
[2016-11-06] MEDS: FEOSOL 325 MG PO SCH ×3 (08:08→15:55)
[2016-11-06] MEDS: Prozac 20 MG PO SCH (10:27)
[2016-11-06] MEDS: MAG-OX 400 PO SCH (10:27)
[2016-11-06] MEDS: Klor Con 10 MEQ PO SCH ×3 (10:27→22:36)
[2016-11-06] MEDS: SENOKOT 8.6 MG PO SCH (10:28)
[2016-11-06] MEDS: VANCOCIN 500 MG VIAL*** 500 MG in Sodium Chloride 100ML MINI-BAG PLUS 100 ML IV SCH ×2 (10:28→22:33)
[2016-11-06] MEDS: Zestril 10 MG PO SCH (10:28)
[2016-11-06] MEDS: DELTASONE 10 MG PO SCH (10:31)
--- NOTE | 2016-11-06 18:12 | PCM.NOTE ---
Date and Time: 11/06/161806 Subjective Assessment: doing well she is happy to have splint off she is eating well and her breathing is stable no fever or chills. Objective Exam General Appearance: no apparent distress, anxiety Neurologic Exam: oriented x 3, cooperative Skin Exam: warm, dry Eye Exam: pale conjunctivae Ears, Nose, Throat Exam: moist mucous membranes Neck Exam: normal inspection, non-tender, supple Respiratory Exam: diminished breath sounds, prolonged expirations, wheezing ( minimal today) Cardiovascular Exam: regular rate/rhythm, normal heart sounds, No murmur Gastrointestinal/Abdomen Exam: soft, normal bowel sounds, No tenderness, No distention Extremity Exam: normal inspection, No calf tenderness OBJECTIVE DATA Vital Signs: Vital Signs - 24 hr Temp Pulse Resp BP Pulse Ox 11/06/16 17:45 100 11/06/16 16:00 98.6 F 73 19 162/70 92 L 11/06/16 14:43 85 20 95 11/06/16 11:53 98.1 F 76 24 169/68 90 L 11/06/16 10:49 66 18 99 11/06/16 08:00 97.5 F 73 22 129/58 99 11/06/16 06:35 71 20 99 11/06/16 04:00 97.1 F 74 22 95/52 90 L 11/06/16 03:00 74 22 90 L 11/06/16 00:00 98.4 F 83 21 136/63 94 L 11/05/16 23:04 83 22 96 11/05/16 20:00 98.3 F 81 21 161/70 92 L 11/05/16 19:00 78 20 94 L Oxygen-Last 24 hours O2 Percentage 4 Liters = 36% O2 Percentage 4 Liters = 36% O2 Percentage 2 Liters = 28% O2 Percentage 4 Liters = 36% O2 Percentage 4 Liters = 36% O2 Percentage 4 Liters = 36% Pain Assessment - Last Documented Pain Intensity 6 Pain Scale Used 0-10 Pain Scale Intake and Output: Intake & Output 11/04/16 11/05/16 11/06/16 11/07/16 11:59 11:59 11:59 11:59 Intake Total 840 2420 880 Output Total 1200 1300 600 Balance -360 1120 280 Weight 61.87 kg 61.87 kg Multi-Disciplinary Progress Notes: Multi-Disciplinary Progress Notes 11/06/16 14:17 Case Management Note by Em Vuong DISCHARGE PLAN REVIEWED WITH DAUGHTER, LEILA. REPORTS THAT SHE IS PLANNING FOR PT TO RETURN HOME WITH HER, AND [facility]. DECLINED ADDNL NEEDS AT THIS TIME. DISCUSSED SWING BED STAY. PLAN FOR PT TO TRANSITION TO SWING BED PRIOR TO RETURN HOME. WILL CONTINUE TO FOLLOW AND ASSESS FOR ALL DC NEEDS. Initialized on 11/06/16 14:17 - END OF NOTE Assessment/Plan (1) Humerus fracture Current Visit: Yes Status: Acute Qualifiers: Encounter type: subsequent encounter Laterality: right Assessment & Plan: with orif by Dr. White at [facility] on 11/02/16 continue pt/ot Code(s): S42.309A - UNSP FRACTURE OF SHAFT OF HUMERUS, UNSP ARM, INIT (2) Positive blood culture Current Visit: Yes Status: Acute Assessment & Plan: she had 2/2 staph hominis blood culture + in ED on 10/30/16 she was given doxy for her copd exacerbation it is unkown if any abx for pre-op at [facility] but given her 2/2 + BC and new hardware implanted at time when she arrived back to [place] we got 2 new blood cultures and then started vanc based on sensitivities. She was intubated for 2 days from the surgery due to her severe respiratory disease and Dr. Chao recommended against any further sedation and would recommend against a RADHA as she may not survive sedation monitor the blood culture results and cont vanc Code(s): R78.81 - BACTEREMIA (3) COPD (chronic obstructive pulmonary disease) Current Visit: Yes Status: Chronic Qualifiers: COPD type: unspecified COPD Qualified Code(s): J44.9 - Chronic obstructive pulmonary disease, unspecified (4) Chronic hypercapnic respiratory failure Current Visit: Yes Status: Chronic (5) Depressive disorder Current Visit: Yes Status: Chronic Code(s): F32.9 - MAJOR DEPRESSIVE DISORDER, SINGLE EPISODE, UNSPECIFIED (6) Rheumatoid arthritis Current Visit: Yes Status: Chronic Code(s): M06.9 - RHEUMATOID ARTHRITIS, UNSPECIFIED (7) Dementia Current Visit: Yes Status: Chronic Code(s): F03.90 - UNSPECIFIED DEMENTIA WITHOUT BEHAVIORAL DISTURBANCE
[2016-11-06] MEDS: Geodon 20 MG Capsule PO SCH (22:34)
[2016-11-06] MEDS: Aricept 10 MG PO SCH (22:35)
[2016-11-07] MEDS: DUONEB 0.5-3 MG/3 ml Neb IH SCH ×6 (03:31→23:08)
[2016-11-07] MEDS: Advair Hfa 115/21 Common canister IH SCH ×2 (06:55→19:10)
[2016-11-07] MEDS: FEOSOL 325 MG PO SCH ×3 (07:43→14:32)
[2016-11-07] MEDS: Lopressor 50 MG PO SCH ×2 (07:43→14:32)
[2016-11-07] MEDS: Colace 100 MG PO SCH ×2 (07:44→14:35)
[2016-11-07] MEDS: Ativan 1 MG PO SCH ×3 (07:44→15:53)
[2016-11-07] MEDS: Calcium 500MG W/Vit D Tablet PO SCH ×2 (07:44→14:32)
[2016-11-07] MEDS: Norco 10/325 MG Tablet PO PRN ×4 (07:46→20:16)
[2016-11-07] MEDS ORDERED: TROUGH DRUG LEVELS IJ ONE ×2 (09:30)
[2016-11-07] MEDS: DELTASONE 10 MG PO SCH (10:05)
[2016-11-07] MEDS: Prozac 20 MG PO SCH (10:05)
[2016-11-07] MEDS: SENOKOT 8.6 MG PO SCH (10:05)
[2016-11-07] MEDS: MAG-OX 400 PO SCH (10:05)
[2016-11-07] MEDS: Klor Con 10 MEQ PO SCH ×3 (10:05→21:38)
[2016-11-07] MEDS: Zestril 10 MG PO SCH (10:05)
[2016-11-07] MEDS: VANCOCIN 500 MG VIAL*** 500 MG in Sodium Chloride 100ML MINI-BAG PLUS 100 ML IV SCH (10:05)
[2016-11-07] MEDS ORDERED: Zofran 4 MG/2 ML VIAL IV STA (10:41)
--- NOTE | 2016-11-07 13:47 | PCM.NOTE ---
Date and Time: 11/07/16 1342 Subjective Assessment: Pt got short of breath yesterday, O2 was increased from 4L to 5L for about an hour; she is now back on 4L NC. Her arm pain is controlled on current medicines. Tolerating po. - Review of Systems Constitutional: No Fever Respiratory: Short Of Breath Musculoskeletal: Fall, Injury Objective Exam General Appearance: no apparent distress Neurologic Exam: alert, cooperative Skin Exam: normal color, warm, dry Respiratory Exam: prolonged expirations, wheezing (scattered), other (poor air exchange), No crackles/rales, No rhonchi Cardiovascular Exam: regular rate/rhythm, normal heart sounds, No murmur Gastrointestinal/Abdomen Exam: soft, No tenderness, No distention Extremity Exam: other (RUE in sling. bilat hands arthritis disfigurement), No pedal edema, No swelling OBJECTIVE DATA Vital Signs: Vital Signs - 24 hr Temp Pulse Resp BP Pulse Ox 11/07/16 12:40 97.8 F 84 20 140/82 96 11/07/16 10:46 72 18 98 11/07/16 07:25 98 F 77 20 154/78 96 11/07/16 07:00 90 28 H 81 L 11/07/16 04:00 98.5 F 80 22 164/76 96 11/07/16 03:34 72 18 99 11/07/16 00:00 98.7 F 72 20 184/74 95 11/06/16 23:12 78 18 97 11/06/16 20:00 98.6 F 70 18 174/77 98 11/06/16 19:14 65 20 99 11/06/16 17:45 100 11/06/16 16:00 98.6 F 73 19 162/70 92 L 11/06/16 14:43 85 20 95 Oxygen-Last 24 hours O2 Percentage 5 Liters = 40% O2 Percentage 5 Liters = 40% O2 Percentage 5 Liters = 40% O2 Percentage 5 Liters = 40% O2 Percentage 5 Liters = 40% O2 Percentage 4 Liters = 36% Pain Assessment - Last Documented Pain Intensity 8 Pain Scale Used 0-10 Pain Scale Intake and Output: Intake & Output 11/05/16 11/06/16 11/07/16 11/08/16 11:59 11:59 11:59 11:59 Intake Total 840 2420 1680 240 Output Total 1200 1300 2200 300 Balance -360 1120 -520 -60 Weight 61.87 kg 61.87 kg Lab Results: Lab Results-Last 24 Hours 11/07/16 Range/Units 09:46 Vancomycin Trough 5.1 L (10-20) UG/ML Multi-Disciplinary Progress Notes: Multi-Disciplinary Progress Notes 11/06/16 14:17 Case Management Note by Em Vuong DISCHARGE PLAN REVIEWED WITH DAUGHTER, LEILA. REPORTS THAT SHE IS PLANNING FOR PT TO RETURN HOME WITH HER, AND [facility]. DECLINED ADDNL NEEDS AT THIS TIME. DISCUSSED SWING BED STAY. PLAN FOR PT TO TRANSITION TO SWING BED PRIOR TO RETURN HOME. WILL CONTINUE TO FOLLOW AND ASSESS FOR ALL DC NEEDS. Initialized on 11/06/16 14:17 - END OF NOTE Assessment/Plan (1) Humerus fracture Current Visit: Yes Status: Acute Qualifiers: Encounter type: subsequent encounter Laterality: right Assessment & Plan: s/p ORIF with Dr. White. To have rehab in swing bed. Stable. Code(s): S42.309A - UNSP FRACTURE OF SHAFT OF HUMERUS, UNSP ARM, INIT (2) Positive blood culture Current Visit: Yes Status: Acute Assessment & Plan: On IV vancomycin. So far she has remained afebrile. Code(s): R78.81 - BACTEREMIA (3) COPD (chronic obstructive pulmonary disease) Current Visit: Yes Status: Chronic Qualifiers: COPD type: unspecified COPD Qualified Code(s): J44.9 - Chronic obstructive pulmonary disease, unspecified Assessment & Plan: Briefly required increased O2 yesterday, but now back at baseline. Her air movement is very poor. (4) Chronic hypercapnic respiratory failure Current Visit: Yes Status: Chronic Assessment & Plan: Home O2 at 4L NC. (5) Dementia Current Visit: Yes Status: Chronic Code(s): F03.90 - UNSPECIFIED DEMENTIA WITHOUT BEHAVIORAL DISTURBANCE (6) Depressive disorder Current Visit: Yes Status: Chronic Code(s): F32.9 - MAJOR DEPRESSIVE DISORDER, SINGLE EPISODE, UNSPECIFIED (7) Rheumatoid arthritis Current Visit: Yes Status: Chronic Qualifiers: Rheumatoid arthritis location: hand Code(s): M06.9 - RHEUMATOID ARTHRITIS, UNSPECIFIED
[2016-11-07] MEDS ORDERED: ZOFRAN ODT 4 MG PO SCH (18:30)
[2016-11-07] MEDS: Aricept 10 MG PO SCH (21:36)
[2016-11-07] MEDS: Geodon 20 MG Capsule PO SCH (21:37)
[2016-11-07] MEDS: Ativan 1 MG PO PRN (22:15)
[2016-11-07] MEDS: VANCOCIN 1 GM VIAL*** 0.75 GM in Sodium Chloride 0.9% 250 ML 250 ML IV SCH (22:37)
[2016-11-08] MEDS: DUONEB 0.5-3 MG/3 ml Neb IH SCH ×6 (03:16→22:59)
[2016-11-08 05:51] LABS: BLOOD UREA NITROGEN 7 mg/dL (9-20); CHLORIDE 99 mEq/L (98-107); Glucose 113 MG/DL (70-110); Potassium 4.3 mEq/L (3.5-5.1); SODIUM 143 mEq/L (136-145)
[2016-11-08 05:55] LABS: BASOPHIL % 0.3 % (0.0-0.4); Eosinophil % 2.4 % (0.00-5.0); Granulocytes % 67.8 % (36.0-66.0); Lymphocytes % 19.7 % (24.0-44.0); Mean Cell Volume 101.1 fl (78-100); Mean Platelet Volume 9.9 fl (6-9.5); Monocytes % 9.8 % (0.0-12.0); Platelet Count 267 K/mm3 (150-450); Red Cell Distribution Width 14.1 % (11.5-14.0); White Blood Count 11.2 K/mm3 (4.0-10.5)
[2016-11-08 05:57] LABS: Mean Corpuscular Hemoglobin 28.8 pg (26-32)
[2016-11-08 06:15] LABS: Carbon Dioxide 47 mEq/L (21-32)
[2016-11-08] MEDS: Advair Hfa 115/21 Common canister IH SCH ×2 (07:04→18:51)
[2016-11-08] MEDS ORDERED: ZOFRAN ODT 4 MG PO PRN (07:45)
[2016-11-08] MEDS: Colace 100 MG PO SCH ×2 (08:02→15:49)
[2016-11-08] MEDS: Calcium 500MG W/Vit D Tablet PO SCH ×2 (08:02→15:49)
[2016-11-08] MEDS: Ativan 1 MG PO SCH ×3 (08:02→15:49)
[2016-11-08] MEDS: Lopressor 50 MG PO SCH ×2 (08:02→16:12)
[2016-11-08] MEDS: FEOSOL 325 MG PO SCH ×3 (08:02→15:49)
[2016-11-08] MEDS: VANCOCIN 1 GM VIAL*** 0.75 GM in Sodium Chloride 0.9% 250 ML 250 ML IV SCH ×2 (10:31→22:14)
[2016-11-08] MEDS: Klor Con 10 MEQ PO SCH ×3 (10:31→21:06)
[2016-11-08] MEDS: SENOKOT 8.6 MG PO SCH (10:31)
[2016-11-08] MEDS: DELTASONE 10 MG PO SCH (10:31)
[2016-11-08] MEDS: Zestril 10 MG PO SCH (10:31)
[2016-11-08] MEDS: MAG-OX 400 PO SCH (10:31)
[2016-11-08] MEDS: Prozac 20 MG PO SCH (10:31)
[2016-11-08] MEDS: Norco 10/325 MG Tablet PO PRN ×2 (11:55→16:11)
--- NOTE | 2016-11-08 16:04 | PCM.NOTE ---
Date and Time: 11/08/16 1600 Subjective Assessment: This morning she had a coughing spell and produced an approx 3-4 cm size sputum plug. She is on 5L NC. She does not remember coughing excessively this morning. bailey po. States her arm pain is nothing like she thought it would be. - Review of Systems Constitutional: No Fever Respiratory: Cough Objective Exam General Appearance: no apparent distress Neurologic Exam: alert, cooperative Skin Exam: normal color, warm, dry Respiratory Exam: diminished breath sounds, wheezing (occasional intermittent wheeze), No crackles/rales, No rhonchi Cardiovascular Exam: regular rate/rhythm, No murmur Gastrointestinal/Abdomen Exam: soft, No tenderness, No distention, No mass Extremity Exam: other (RUE hand with edema, no erythema. hand is warm) Back Exam: normal inspection OBJECTIVE DATA Vital Signs: Vital Signs - 24 hr Temp Pulse Resp BP Pulse Ox 11/08/16 15:37 97.8 F 82 20 148/66 95 11/08/16 15:00 81 20 97 11/08/16 12:00 98 F 74 18 132/68 95 11/08/16 11:00 74 18 95 11/08/16 07:08 98 F 78 22 132/68 94 L 11/08/16 07:00 61 20 99 11/08/16 04:00 98.3 F 62 20 137/59 100 11/08/16 03:16 74 20 100 11/07/16 23:56 98.8 F 82 18 140/71 97 11/07/16 23:09 68 20 99 11/07/16 20:00 99.0 F 79 20 149/67 98 11/07/16 19:10 80 20 98 Oxygen-Last 24 hours O2 Percentage 5 Liters = 40% O2 Percentage 5 Liters = 40% O2 Percentage 4 Liters = 36% O2 Percentage 4 Liters = 36% O2 Percentage 4 Liters = 36% Pain Assessment - Last Documented Pain Intensity 8 Pain Scale Used 0-10 Pain Scale Intake and Output: Intake & Output 11/06/16 11/07/16 11/08/16 11/09/16 11:59 11:59 11:59 11:59 Intake Total 2420 1680 1520 240 Output Total 1300 2200 2200 200 Balance 3221 -325 -074 40 Weight 61.87 kg Lab Results: Lab Results-Last 24 Hours 11/08/16 11/08/16 Range/Units 05:00 05:00 WBC 11.2 H (4.0-10.5) K/mm3 RBC 2.70 L (4.1-5.4) M/mm3 Hgb 7.8 L (12.0-16.0) gm/dl Hct 27.3 L (35-47) % MCV 101.1 H (78-100) fl MCH 28.8 (26-32) pg MCHC 28.6 L (32-36) g/dl RDW 14.1 H (11.5-14.0) % Plt Count 267 (150-450) K/mm3 MPV 9.9 H (6-9.5) fl Gran % 67.8 H (36.0-66.0) % Lymphocytes % 19.7 L (24.0-44.0) % Monocytes % 9.8 (0.0-12.0) % Eosinophils % 2.4 (0.00-5.0) % Basophils % 0.3 (0.0-0.4) % Basophils # 0.03 (0-0.4) Sodium 143 (136-145) mEq/L Potassium 4.3 (3.5-5.1) mEq/L Chloride 99 (98-107) mEq/L Carbon Dioxide 47 H* (21-32) mEq/L BUN 7 L (9-20) mg/dL Creatinine 0.46 L (0.55-1.30) mg/dl Estimated GFR > 60 ML/MIN Glucose 113 H (70-110) MG/DL Calcium 9.0 (8.5-10.1) mg/dL Slides for Path Review YES Assessment/Plan (1) Humerus fracture Current Visit: Yes Status: Acute Qualifiers: Encounter type: subsequent encounter Laterality: right Assessment & Plan: Occured during her last hospitalization at [facility]. Had surgery with Dr. White. Code(s): S42.309A - UNSP FRACTURE OF SHAFT OF HUMERUS, UNSP ARM, INIT (2) Positive blood culture Current Visit: Yes Status: Acute Assessment & Plan: Had a positive blood culture then went on to have surgery with hardware placement. On IV vancomycin. has remained afebrile. Code(s): R78.81 - BACTEREMIA (3) COPD (chronic obstructive pulmonary disease) Current Visit: Yes Status: Chronic Qualifiers: COPD type: unspecified COPD Qualified Code(s): J44.9 - Chronic obstructive pulmonary disease, unspecified Assessment & Plan: With increased cough today; will give mucinex. (4) Chronic hypercapnic respiratory failure Current Visit: Yes Status: Chronic (5) Dementia Current Visit: Yes Status: Chronic Qualifiers: Dementia type: Alzheimer's disease Code(s): F03.90 - UNSPECIFIED DEMENTIA WITHOUT BEHAVIORAL DISTURBANCE (6) Depressive disorder Current Visit: Yes Status: Chronic Code(s): F32.9 - MAJOR DEPRESSIVE DISORDER, SINGLE EPISODE, UNSPECIFIED (7) Rheumatoid arthritis Current Visit: Yes Status: Chronic Qualifiers: Rheumatoid arthritis location: hand Laterality: bilateral Code(s): M06.9 - RHEUMATOID ARTHRITIS, UNSPECIFIED
[2016-11-08] MEDS: TYLENOL 325 MG PO PRN (18:21)
[2016-11-08] MEDS: Aricept 10 MG PO SCH (21:06)
[2016-11-08] MEDS: Ativan 1 MG PO PRN (21:07)
[2016-11-08] MEDS: Geodon 20 MG Capsule PO SCH (21:07)
[2016-11-09] MEDS: DUONEB 0.5-3 MG/3 ml Neb IH SCH ×3 (02:57→11:31)
[2016-11-09 05:57] LABS: Mean Cell Volume 101.5 fl (78-100); Mean Platelet Volume 9.6 fl (6-9.5); Platelet Count 287 K/mm3 (150-450); Red Blood Count 2.75 M/mm3 (4.1-5.4); Red Cell Distribution Width 13.8 % (11.5-14.0); White Blood Count 10.5 K/mm3 (4.0-10.5)
[2016-11-09] MEDS: TYLENOL 325 MG PO PRN ×2 (06:03→12:47)
[2016-11-09] MEDS: Advair Hfa 115/21 Common canister IH SCH (07:26)
[2016-11-09] MEDS: Lopressor 50 MG PO SCH (07:54)
[2016-11-09] MEDS: Calcium 500MG W/Vit D Tablet PO SCH (07:54)
[2016-11-09] MEDS: FEOSOL 325 MG PO SCH ×2 (07:54→11:51)
[2016-11-09] MEDS: Colace 100 MG PO SCH (07:54)
[2016-11-09] MEDS: Ativan 1 MG PO SCH ×2 (07:57→11:51)
--- NOTE | 2016-11-09 10:32 | PCM.NOTE ---
Date and Time: 11/09/16 1029 Subjective Assessment: patient reports her breathing has improved, no new complaints today. her appetite is poor, pain in humerus fracture is controlled currently. Objective Exam General Appearance: no apparent distress Skin Exam: normal color, warm, dry Respiratory Exam: normal breath sounds, lungs clear, No respiratory distress Cardiovascular Exam: regular rate/rhythm, normal heart sounds Gastrointestinal/Abdomen Exam: soft, No tenderness, No mass Extremity Exam: other (right arm in sling with dressing c/d/i) OBJECTIVE DATA Vital Signs: Vital Signs - 24 hr Temp Pulse Resp BP Pulse Ox 11/09/16 08:00 98.4 F 71 20 171/72 98 11/09/16 07:00 73 18 98 11/09/16 04:00 97.6 F 67 22 125/61 99 11/09/16 02:57 67 22 99 11/09/16 00:00 97.5 F 67 23 120/62 98 11/08/16 22:59 67 23 98 11/08/16 20:00 98.7 F 73 18 145/66 98 11/08/16 18:51 73 18 98 11/08/16 15:37 97.8 F 82 20 148/66 95 11/08/16 15:00 81 20 97 11/08/16 12:00 98 F 74 18 132/68 95 11/08/16 11:00 74 18 95 Oxygen-Last 24 hours O2 Percentage 4 Liters = 36% O2 Percentage 4 Liters = 36% O2 Percentage 4 Liters = 36% O2 Percentage 4 Liters = 36% O2 Percentage 5 Liters = 40% Pain Assessment - Last Documented Pain Intensity 8 Pain Scale Used 0-10 Pain Scale Intake and Output: Intake & Output 11/06/16 11/07/16 11/08/16 11/09/16 11:59 11:59 11:59 11:59 Intake Total 2420 1680 1520 1450 Output Total 1300 2200 2200 2100 Balance 1120 520 680 -650 Weight 61.87 kg Lab Results: Lab Results-Last 24 Hours 11/09/16 Range/Units 05:00 WBC 10.5 (4.0-10.5) K/mm3 RBC 2.75 L (4.1-5.4) M/mm3 Hgb 8.0 L (12.0-16.0) gm/dl Hct 27.9 L (35-47) % MCV 101.5 H (78-100) fl MCH 29.0 (26-32) pg MCHC 28.7 L (32-36) g/dl RDW 13.8 (11.5-14.0) % Plt Count 287 (150-450) K/mm3 MPV 9.6 H (6-9.5) fl Slides for Path Review YES Assessment/Plan (1) Humerus fracture Current Visit: Yes Status: Acute Qualifiers: Encounter type: subsequent encounter Laterality: right Assessment & Plan: add lovenox if ok with ortho, will likely need rehab stay on discharge. Code(s): S42.309A - UNSP FRACTURE OF SHAFT OF HUMERUS, UNSP ARM, INIT (2) Positive blood culture Current Visit: Yes Status: Acute Assessment & Plan: staph hominis on 10/30, repeats are negative thus far Code(s): R78.81 - BACTEREMIA (3) COPD (chronic obstructive pulmonary disease) Current Visit: Yes Status: Chronic Qualifiers: COPD type: unspecified COPD Qualified Code(s): J44.9 - Chronic obstructive pulmonary disease, unspecified (4) Chronic hypercapnic respiratory failure Current Visit: Yes Status: Chronic
[2016-11-09] MEDS: Prozac 20 MG PO SCH (10:38)
[2016-11-09] MEDS: Klor Con 10 MEQ PO SCH (10:38)
[2016-11-09] MEDS: SENOKOT 8.6 MG PO SCH (10:39)
[2016-11-09] MEDS: MAG-OX 400 PO SCH (10:39)
[2016-11-09] MEDS: DELTASONE 10 MG PO SCH (10:39)
[2016-11-09] MEDS: Norco 10/325 MG Tablet PO PRN (10:46)
[2016-11-09] MEDS: VANCOCIN 1 GM VIAL*** 0.75 GM in Sodium Chloride 0.9% 250 ML 250 ML IV SCH (10:46)
[2016-11-09] MEDS: Zestril 10 MG PO SCH (10:49)
[2016-11-09] MEDS ORDERED: ENOXAPARIN SODIUM SQ SCH (11:00)
[2016-11-09 12:12] VITALS: BP 155/70; PULSE 85; O2SAT 90
[2016-11-09] MEDS ORDERED: CLEOCIN 150 MG CAPSULE PO SCH (15:00)
[2016-11-09] MEDS ORDERED: TROUGH DRUG LEVELS IJ ONE (21:30)
== END 2016-11-09 14:00 | disposition swing bed (61) | DRG 560 ==
LOC: MED SURG 19:10
PROVIDERS: ADMIT Family Medicine; ATTEND Family Medicine
DX: S42.301D Unspecified fracture of shaft of humerus, right arm, subsequent encounter for fracture with routine healing (principal); R78.81 Bacteremia; J96.12 Chronic respiratory failure with hypercapnia; J44.9 Chronic obstructive pulmonary disease, unspecified; F03.90 Unspecified dementia, unspecified severity, without behavioral disturbance, psychotic disturbance, mood disturbance, and anxiety; F32.9 Major depressive disorder, single episode, unspecified; M06.9 Rheumatoid arthritis, unspecified; Z98.890 Other specified postprocedural states; Z95.0 Presence of cardiac pacemaker
CPT/HCPCS: 36415; 80048; 80202; 85025; 85027; 87040; 94640; 94760; J2405; J3370; Q0162; 97110-GP; A9270-GY; J7506

== ENCOUNTER 2016-11-09 14:00 | Inpatient (IN) | payer MEDICARE ==
[2016-11-09] MEDS ORDERED: PROVENTIL COMMON CANISTER IH PRN (14:21)
[2016-11-09] MEDS ORDERED: SENOKOT 8.6 MG PO PRN (14:49)
[2016-11-09] MEDS ORDERED: MILK OF MAGNESIA 30 ML PO PRN (14:50)
[2016-11-09] MEDS: DUONEB 0.5-3 MG/3 ml Neb IH SCH ×3 (14:50→22:51)
[2016-11-09] MEDS: CLEOCIN 150 MG CAPSULE PO SCH ×2 (15:04→21:15)
[2016-11-09] MEDS: ZOFRAN ODT 4 MG PO PRN (15:13)
[2016-11-09] MEDS: Colace 100 MG PO SCH (16:17)
[2016-11-09] MEDS: Calcium 500MG W/Vit D Tablet PO SCH (16:17)
[2016-11-09] MEDS: Klor Con 10 MEQ PO SCH ×2 (16:17→21:15)
[2016-11-09] MEDS: FEOSOL 325 MG PO SCH (16:17)
[2016-11-09] MEDS: Lopressor 50 MG PO SCH (16:18)
[2016-11-09] MEDS: Norco 10/325 MG Tablet PO PRN ×2 (16:19→21:14)
[2016-11-09] MEDS: Ativan 1 MG PO SCH (16:24)
[2016-11-09] MEDS: TYLENOL 325 MG PO PRN (17:48)
[2016-11-09] MEDS: Ativan 1 MG PO PRN (19:15)
[2016-11-09] MEDS: Advair Hfa 115/21 Common canister IH SCH (19:24)
[2016-11-09] MEDS: Geodon 20 MG Capsule PO SCH (21:15)
[2016-11-09] MEDS: Aricept 10 MG PO SCH (21:15)
[2016-11-10] MEDS: DUONEB 0.5-3 MG/3 ml Neb IH SCH ×6 (03:29→23:29)
[2016-11-10] MEDS: Norco 10/325 MG Tablet PO PRN ×4 (04:02→19:58)
[2016-11-10 05:51] LABS: Mean Cell Volume 99.3 fl (78-100); Mean Platelet Volume 9.2 fl (6-9.5); Platelet Count 298 K/mm3 (150-450); Red Blood Count 2.77 M/mm3 (4.1-5.4); White Blood Count 10.1 K/mm3 (4.0-10.5)
[2016-11-10 05:58] LABS: Mean Corpuscular Hemoglobin 28.8 pg (26-32)
[2016-11-10 06:05] LABS: BLOOD UREA NITROGEN 6 mg/dL (9-20); CHLORIDE 97 mEq/L (98-107); Glucose 93 MG/DL (70-110); Potassium 4.5 mEq/L (3.5-5.1); SODIUM 141 mEq/L (136-145)
[2016-11-10 06:35] LABS: Carbon Dioxide > 45 mEq/L (21-32)
[2016-11-10] MEDS: Advair Hfa 115/21 Common canister IH SCH ×2 (06:42→19:30)
[2016-11-10] MEDS: Colace 100 MG PO SCH ×2 (07:55→15:49)
[2016-11-10] MEDS: Calcium 500MG W/Vit D Tablet PO SCH ×2 (07:55→15:48)
[2016-11-10] MEDS: FEOSOL 325 MG PO SCH ×3 (07:55→15:49)
[2016-11-10] MEDS: Ativan 1 MG PO SCH ×3 (07:55→15:48)
[2016-11-10] MEDS: Lopressor 50 MG PO SCH ×2 (07:55→15:49)
[2016-11-10] MEDS ORDERED: Aplisol ID SCH (10:00)
[2016-11-10] MEDS: DELTASONE 10 MG PO SCH (10:20)
[2016-11-10] MEDS: MAG-OX 400 PO SCH (10:20)
[2016-11-10] MEDS: SENOKOT 8.6 MG PO SCH (10:20)
[2016-11-10] MEDS: Klor Con 10 MEQ PO SCH ×3 (10:20→22:09)
[2016-11-10] MEDS: Prozac 20 MG PO SCH (10:20)
[2016-11-10] MEDS: Zestril 10 MG PO SCH (10:20)
[2016-11-10] MEDS: CLEOCIN 150 MG CAPSULE PO SCH ×3 (10:21→22:16)
[2016-11-10] MEDS: ENOXAPARIN SODIUM SQ SCH (11:49)
[2016-11-10] MEDS: Ativan 1 MG PO PRN (20:00)
[2016-11-10] MEDS: Aricept 10 MG PO SCH (22:09)
[2016-11-10] MEDS: Geodon 20 MG Capsule PO SCH (22:09)
[2016-11-10] MEDS: ZOFRAN ODT 4 MG PO PRN (22:10)
[2016-11-11] MEDS: DUONEB 0.5-3 MG/3 ml Neb IH SCH ×6 (03:20→23:37)
[2016-11-11] MEDS: Advair Hfa 115/21 Common canister IH SCH ×2 (06:42→19:39)
[2016-11-11] MEDS: Lopressor 50 MG PO SCH ×2 (07:53→15:37)
[2016-11-11] MEDS: Ativan 1 MG PO SCH ×3 (07:54→15:42)
[2016-11-11] MEDS: FEOSOL 325 MG PO SCH ×3 (07:54→15:37)
[2016-11-11] MEDS: Norco 10/325 MG Tablet PO PRN ×4 (07:54→22:06)
[2016-11-11] MEDS: Colace 100 MG PO SCH ×2 (07:54→15:37)
[2016-11-11] MEDS: Calcium 500MG W/Vit D Tablet PO SCH ×2 (07:54→15:37)
[2016-11-11] MEDS: MAG-OX 400 PO SCH (09:36)
[2016-11-11] MEDS: Klor Con 10 MEQ PO SCH ×3 (09:36→22:07)
[2016-11-11] MEDS: Zestril 10 MG PO SCH (09:36)
[2016-11-11] MEDS: DELTASONE 10 MG PO SCH (09:36)
[2016-11-11] MEDS: Prozac 20 MG PO SCH (09:36)
[2016-11-11] MEDS: CLEOCIN 150 MG CAPSULE PO SCH ×3 (09:37→22:17)
[2016-11-11] MEDS: SENOKOT 8.6 MG PO SCH (09:37)
[2016-11-11] MEDS: ENOXAPARIN SODIUM SQ SCH (09:37)
[2016-11-11] MEDS: ZOFRAN ODT 4 MG PO PRN (15:43)
[2016-11-11] MEDS: Ativan 1 MG PO PRN (22:06)
[2016-11-11] MEDS: Geodon 20 MG Capsule PO SCH (22:07)
[2016-11-11] MEDS: Aricept 10 MG PO SCH (22:07)
[2016-11-12] MEDS: DUONEB 0.5-3 MG/3 ml Neb IH SCH ×6 (03:14→23:03)
[2016-11-12] MEDS: Norco 10/325 MG Tablet PO PRN ×3 (04:55→21:01)
[2016-11-12] MEDS: Advair Hfa 115/21 Common canister IH SCH ×2 (06:30→18:56)
[2016-11-12] MEDS: Ativan 1 MG PO SCH ×3 (07:46→15:39)
[2016-11-12] MEDS: Calcium 500MG W/Vit D Tablet PO SCH ×2 (07:46→15:40)
[2016-11-12] MEDS: FEOSOL 325 MG PO SCH ×3 (07:46→15:39)
[2016-11-12] MEDS: Colace 100 MG PO SCH ×2 (07:46→15:39)
[2016-11-12] MEDS: DELTASONE 10 MG PO SCH (09:00)
[2016-11-12] MEDS: MAG-OX 400 PO SCH (09:00)
[2016-11-12] MEDS: ENOXAPARIN SODIUM SQ SCH (09:00)
[2016-11-12] MEDS: SENOKOT 8.6 MG PO SCH (09:00)
[2016-11-12] MEDS: Prozac 20 MG PO SCH (09:00)
[2016-11-12] MEDS: Lopressor 50 MG PO SCH ×2 (09:01→15:39)
[2016-11-12] MEDS: Zestril 10 MG PO SCH (09:01)
[2016-11-12] MEDS: CLEOCIN 150 MG CAPSULE PO SCH ×3 (09:02→21:00)
[2016-11-12] MEDS: Aricept 10 MG PO SCH (20:59)
[2016-11-12] MEDS: Geodon 20 MG Capsule PO SCH (21:01)
[2016-11-12] MEDS: ZOFRAN ODT 4 MG PO PRN (21:01)
[2016-11-12] MEDS: Ativan 1 MG PO PRN (21:02)
[2016-11-13] MEDS: DUONEB 0.5-3 MG/3 ml Neb IH SCH ×6 (03:21→23:12)
[2016-11-13] MEDS: Advair Hfa 115/21 Common canister IH SCH ×2 (06:54→19:14)
[2016-11-13] MEDS: Norco 10/325 MG Tablet PO PRN ×3 (07:51→18:48)
[2016-11-13] MEDS: Calcium 500MG W/Vit D Tablet PO SCH ×2 (08:00→15:26)
[2016-11-13] MEDS: Lopressor 50 MG PO SCH ×2 (08:00→15:26)
[2016-11-13] MEDS: FEOSOL 325 MG PO SCH ×3 (08:00→15:26)
[2016-11-13] MEDS: Ativan 1 MG PO SCH ×3 (08:00→15:26)
[2016-11-13] MEDS: Colace 100 MG PO SCH ×2 (08:00→15:26)
[2016-11-13] MEDS: CLEOCIN 150 MG CAPSULE PO SCH ×3 (08:40→21:04)
[2016-11-13] MEDS: ENOXAPARIN SODIUM SQ SCH (08:40)
[2016-11-13] MEDS: DELTASONE 10 MG PO SCH (08:41)
[2016-11-13] MEDS: Prozac 20 MG PO SCH (08:41)
[2016-11-13] MEDS: SENOKOT 8.6 MG PO SCH (08:41)
[2016-11-13] MEDS: Zestril 10 MG PO SCH (08:42)
[2016-11-13] MEDS: MAG-OX 400 PO SCH (08:42)
[2016-11-13] MEDS: Aricept 10 MG PO SCH (21:04)
[2016-11-13] MEDS: Geodon 20 MG Capsule PO SCH (21:04)
[2016-11-13] MEDS: ZOFRAN ODT 4 MG PO PRN (21:30)
[2016-11-14] MEDS: DUONEB 0.5-3 MG/3 ml Neb IH SCH ×6 (03:00→23:33)
[2016-11-14] MEDS: Norco 10/325 MG Tablet PO PRN ×4 (03:42→20:43)
[2016-11-14] MEDS: TYLENOL 325 MG PO PRN (04:55)
[2016-11-14] MEDS: Ativan 1 MG PO SCH ×4 (07:48→16:26)
[2016-11-14] MEDS: Lopressor 50 MG PO SCH ×2 (07:48→16:15)
[2016-11-14] MEDS: Calcium 500MG W/Vit D Tablet PO SCH ×2 (07:48→16:15)
[2016-11-14] MEDS: FEOSOL 325 MG PO SCH ×3 (07:48→16:15)
[2016-11-14] MEDS: Colace 100 MG PO SCH ×2 (07:48→16:15)
[2016-11-14] MEDS: Advair Hfa 115/21 Common canister IH SCH ×2 (08:00→19:22)
[2016-11-14] MEDS: ZOFRAN ODT 4 MG PO PRN (09:38)
[2016-11-14] MEDS: CLEOCIN 150 MG CAPSULE PO SCH ×3 (10:50→20:44)
[2016-11-14] MEDS: SENOKOT 8.6 MG PO SCH (10:51)
[2016-11-14] MEDS: DELTASONE 10 MG PO SCH (10:51)
[2016-11-14] MEDS: ENOXAPARIN SODIUM SQ SCH (10:52)
[2016-11-14] MEDS: Prozac 20 MG PO SCH (10:52)
[2016-11-14] MEDS: Zestril 10 MG PO SCH (10:52)
[2016-11-14] MEDS: MAG-OX 400 PO SCH (10:52)
[2016-11-14] MEDS: Ativan 1 MG PO PRN (13:41)
[2016-11-14] MEDS: Geodon 20 MG Capsule PO SCH (20:44)
[2016-11-14] MEDS: Aricept 10 MG PO SCH (20:46)
[2016-11-15] MEDS: DUONEB 0.5-3 MG/3 ml Neb IH SCH ×6 (03:36→22:47)
[2016-11-15 05:48] LABS: Mean Cell Volume 99.2 fl (78-100); Mean Platelet Volume 9.7 fl (6-9.5); Platelet Count 254 K/mm3 (150-450); Red Blood Count 2.59 M/mm3 (4.1-5.4); Red Cell Distribution Width 14.4 % (11.5-14.0); White Blood Count 9.1 K/mm3 (4.0-10.5)
[2016-11-15 05:54] LABS: Mean Corpuscular Hemoglobin 28.9 pg (26-32)
[2016-11-15 06:05] LABS: BLOOD UREA NITROGEN 9 mg/dL (9-20); CHLORIDE 97 mEq/L (98-107); Glucose 93 MG/DL (70-110); MAGNESIUM 1.6 mg/dL (1.8-2.4); Potassium 4.2 mEq/L (3.5-5.1); SODIUM 141 mEq/L (136-145)
[2016-11-15 06:19] LABS: Carbon Dioxide 45.6 mEq/L (21-32)
[2016-11-15 06:20] LABS: ANION GAP 4.6 MEQ/L (5-15)
[2016-11-15] MEDS: Advair Hfa 115/21 Common canister IH SCH ×2 (06:35→18:42)
[2016-11-15] MEDS: Prozac 20 MG PO SCH (08:28)
[2016-11-15] MEDS: SENOKOT 8.6 MG PO SCH (08:30)
[2016-11-15] MEDS: Calcium 500MG W/Vit D Tablet PO SCH ×2 (08:33→15:19)
[2016-11-15] MEDS: ENOXAPARIN SODIUM SQ SCH (08:33)
[2016-11-15] MEDS: DELTASONE 10 MG PO SCH (08:33)
[2016-11-15] MEDS: Ativan 1 MG PO SCH ×3 (08:33→15:19)
[2016-11-15] MEDS: MAG-OX 400 PO SCH (08:33)
[2016-11-15] MEDS: CLEOCIN 150 MG CAPSULE PO SCH ×3 (08:33→21:25)
[2016-11-15] MEDS: ZOFRAN ODT 4 MG PO PRN (08:33)
[2016-11-15] MEDS: Zestril 10 MG PO SCH (08:33)
[2016-11-15] MEDS: Colace 100 MG PO SCH ×2 (08:33→15:19)
[2016-11-15] MEDS: Norco 10/325 MG Tablet PO PRN ×3 (08:38→18:17)
[2016-11-15] MEDS ORDERED: DELTASONE 20 MG PO ONE (08:47)
--- NOTE | 2016-11-15 08:56 | PCM.NOTE ---
Date and Time: 11/15/16 0850 Subjective Assessment: she has been doing extremely well for her rehab and yesterday was doing well up in the grubbs ambulating and even complaining of being bored at times. She was checked at shift change at 07:00 and was doing ok at that time normal saturation but at 07:30 stated she felt bad was found to be short of breath and diaphoresis and pale and pulse ox was 40% she was placed on bipap 100% with improvement in saturation. She coughed up large amounts of thick mucous at the time. She denies any chest pain or abdominal pain. she still states she feels bad now. Objective Exam General Appearance: no apparent distress, alert Neurologic Exam: alert, oriented x 3, cooperative, normal mood/affect, nml cerebellar function, sensation nml, No motor deficits Skin Exam: normal color, warm, dry Eye Exam: PERRL, EOMI, eyes nml inspection Ears, Nose, Throat Exam: normal ENT inspection, pharynx normal, moist mucous membranes Neck Exam: normal inspection, non-tender, supple, full range of motion Respiratory Exam: rhonchi (with fine rales) Cardiovascular Exam: regular rate/rhythm, normal heart sounds Gastrointestinal/Abdomen Exam: soft, No tenderness, No mass Extremity Exam: normal inspection, normal range of motion Back Exam: normal inspection, normal range of motion, No CVA tenderness, No vertebral tenderness Pelvic Exam: deferred Rectal Exam: deferred OBJECTIVE DATA Vital Signs: Vital Signs - 24 hr Temp Pulse Resp BP Pulse Ox 11/15/16 07:19 97.6 F 76 18 144/65 91 L 11/15/16 06:35 76 18 91 L 11/15/16 03:36 71 19 98 11/14/16 23:33 70 18 97 11/14/16 20:00 98.4 F 74 21 139/65 93 L 11/14/16 19:19 68 15 96 11/14/16 14:45 68 20 11/14/16 11:02 80 22 Oxygen-Last 24 hours O2 Percentage 4 Liters = 36% O2 Percentage 4 Liters = 36% Pain Assessment - Last Documented Pain Intensity 8 Pain Scale Used 0-10 Pain Scale Intake and Output: Intake & Output 11/12/16 11/13/16 11/14/16 11/15/16 11:59 11:59 11:59 11:59 Intake Total 1560 1300 1260 900 Output Total 1650 800 650 Balance -90 500 610 900 Lab Results: Lab Results-Last 24 Hours 11/15/16 11/15/16 Range/Units 05:15 05:15 WBC 9.1 (4.0-10.5) K/mm3 RBC 2.59 L (4.1-5.4) M/mm3 Hgb 7.5 L (12.0-16.0) gm/dl Hct 25.7 L (35-47) % MCV 99.2 (78-100) fl MCH 28.9 (26-32) pg MCHC 29.2 L (32-36) g/dl RDW 14.4 H (11.5-14.0) % Plt Count 254 (150-450) K/mm3 MPV 9.7 H (6-9.5) fl Sodium 141 (136-145) mEq/L Potassium 4.2 (3.5-5.1) mEq/L Chloride 97 L (98-107) mEq/L Carbon Dioxide 45.6 H* (21-32) mEq/L Anion Gap 4.6 L (5-15) MEQ/L BUN 9 (9-20) mg/dL Creatinine 0.55 (0.55-1.30) mg/dl Estimated GFR > 60 ML/MIN Glucose 93 (70-110) MG/DL Calcium 8.8 (8.5-10.1) mg/dL Magnesium 1.6 L (1.8-2.4) mg/dL Radiology Exams: Radiology Procedures Category Date Time Status CHEST 1 VIEW (PORTABLE) Stat Exams 11/15/16 08:46 Ordered Multi-Disciplinary Progress Notes: Multi-Disciplinary Progress Notes 11/15/16 08:47 Respiratory Note by Colleen Kamara DR AWARE OF PT CONDITION. WILL CONTINUE TO USE BIPAP NEEDED AND WEAN TOLERATED Initialized on 11/15/16 08:47 - END OF NOTE 11/15/16 08:34 Respiratory Note by Colleen Kamara 0825 PT PLACED BACK ON BIPAP SPO2 84%. TO SOB TO EAT. WILL CONTINUE TO MONITOR AND ADJUST MODALITIES NEEDED Initialized on 11/15/16 08:34 - END OF NOTE 11/15/16 08:20 Respiratory Note by Colleen Kamara 0820 SPO2 93%. TAKEN OFF BIPAP SO PT CAN EAT WILL MONITOR AND USE BIPAP NEEDED Initialized on 11/15/16 08:20 - END OF NOTE Assessment/Plan (1) COPD (chronic obstructive pulmonary disease) Current Visit: Yes Status: Acute Assessment & Plan: with acute exacerbation suspected mucous plugging resulted in rapid desaturation and detioration with rapid improvement with the bipap check cxr now increase prednisone continue her clindamycin monitor vital signs closely she has been on lovenox ppx with her anemia not improving on po supplementation of iron repeat in am and will likely need trial of iv iron if not worsening to the point of needing possible transfusion. (2) Chronic hypercapnic respiratory failure Current Visit: Yes Status: Chronic (3) Humerus fracture Current Visit: Yes Status: Acute Code(s): S42.309A - UNSP FRACTURE OF SHAFT OF HUMERUS, UNSP ARM, INIT (4) Anemia Current Visit: Yes Status: Chronic Qualifiers: Code(s): D64.9 - ANEMIA, UNSPECIFIED (5) Chronic steroid use Current Visit: Yes Status: Chronic Code(s): FJM6230 - (6) Rheumatoid arthritis Current Visit: Yes Status: Chronic Code(s): M06.9 - RHEUMATOID ARTHRITIS, UNSPECIFIED
[2016-11-15] MEDS: FEOSOL 325 MG PO SCH ×3 (08:59→15:19)
[2016-11-15] MEDS: Lopressor 50 MG PO SCH ×2 (08:59→15:20)
[2016-11-15] MEDS ORDERED: Mucomyst 200 MG/ML IH SCH (19:00)
[2016-11-15] MEDS: Aricept 10 MG PO SCH (21:25)
[2016-11-15] MEDS: Geodon 20 MG Capsule PO SCH (21:25)
[2016-11-15] MEDS: Ativan 1 MG PO PRN (21:25)
[2016-11-15] MEDS: Mucomyst 200 MG/ML IH SCH (22:47)
[2016-11-16] MEDS: DUONEB 0.5-3 MG/3 ml Neb IH SCH ×6 (02:41→22:52)
[2016-11-16 05:27] LABS: Mean Cell Volume 98.2 fl (78-100); Mean Platelet Volume 9.5 fl (6-9.5); Platelet Count 270 K/mm3 (150-450); Red Blood Count 2.79 M/mm3 (4.1-5.4); Red Cell Distribution Width 14.2 % (11.5-14.0); White Blood Count 11.9 K/mm3 (4.0-10.5)
[2016-11-16 05:37] LABS: VBG BASE EXCESS 30.4 (-2.0-2.0); VBG CARBOXYHEMOGLOBIN 2.3 % T HGB (0.0-6.9); VBG HCO3- 59.7 meq/L (22-28); VBG HEMOGLOBIN 8.5; VBG O2 SATURATION 34.8 (95-100); VBG POTASSIUM 4.2 (3.5-5.1); VBG pH 7.38 (7.32-7.42)
[2016-11-16 06:14] LABS: ALBUMIN 2.4 g/dL (3.4-5.0); ALKALINE PHOSPHATASE 65 U/L (46-116); BLOOD UREA NITROGEN 12 mg/dL (9-20); CHLORIDE 95 mEq/L (98-107); Glucose 91 MG/DL (70-110); Potassium 4.3 mEq/L (3.5-5.1); SGOT/AST 11 U/L (15-37); SGPT/ALT 9 U/L (12-78); SODIUM 140 mEq/L (136-145); Total Protein 6.6 gm/dL (6.4-8.2)
[2016-11-16 06:43] LABS: Carbon Dioxide 47.4 mEq/L (21-32)
[2016-11-16] MEDS: Advair Hfa 115/21 Common canister IH SCH ×2 (07:11→18:51)
[2016-11-16] MEDS: Mucomyst 200 MG/ML IH SCH ×4 (07:16→18:50)
[2016-11-16] MEDS: Norco 10/325 MG Tablet PO PRN ×3 (07:43→19:23)
[2016-11-16] MEDS: Lopressor 50 MG PO SCH ×2 (07:43→16:24)
[2016-11-16] MEDS: Ativan 1 MG PO SCH ×3 (07:43→16:22)
[2016-11-16] MEDS: Calcium 500MG W/Vit D Tablet PO SCH ×2 (07:43→16:23)
[2016-11-16] MEDS: Colace 100 MG PO SCH ×2 (07:43→16:25)
[2016-11-16] MEDS: FEOSOL 325 MG PO SCH ×3 (07:43→16:25)
[2016-11-16] MEDS: Prozac 20 MG PO SCH (09:27)
[2016-11-16] MEDS: Zestril 10 MG PO SCH (09:27)
[2016-11-16] MEDS: DELTASONE 20 MG PO SCH (09:29)
[2016-11-16] MEDS: SENOKOT 8.6 MG PO SCH (09:30)
[2016-11-16] MEDS: CLEOCIN 150 MG CAPSULE PO SCH ×3 (09:30→22:49)
[2016-11-16] MEDS: MAG-OX 400 PO SCH (09:31)
[2016-11-16] MEDS: ENOXAPARIN SODIUM SQ SCH (09:31)
--- NOTE | 2016-11-16 09:32 | XRAY ---
Indication: Respiratory distress. Comparison: October 30, 2016. Portable chest again hyperinflated with chronic lung markings and new left base infiltrate/atelectasis/effusion. Right lung clear. Heart is not enlarged again with left-sided dual-lead pacemaker. New right humeral shaft fracture with intact orthopedic hardware. Impression: New left base infiltrate/atelectasis/effusion. Status post right humeral ORIF surgery for shaft fracture.
[2016-11-16] MEDS: TYLENOL 325 MG PO PRN (10:49)
[2016-11-16] MEDS: Aricept 10 MG PO SCH (22:47)
[2016-11-16] MEDS: Ativan 1 MG PO PRN (22:47)
[2016-11-16] MEDS: Geodon 20 MG Capsule PO SCH (22:48)
[2016-11-17] MEDS: DUONEB 0.5-3 MG/3 ml Neb IH SCH ×6 (03:05→22:47)
[2016-11-17] MEDS: Advair Hfa 115/21 Common canister IH SCH ×2 (06:40→18:44)
[2016-11-17] MEDS: Mucomyst 200 MG/ML IH SCH ×4 (06:40→18:42)
[2016-11-17] MEDS: Calcium 500MG W/Vit D Tablet PO SCH ×2 (07:29→16:31)
[2016-11-17] MEDS: Colace 100 MG PO SCH ×2 (07:29→16:31)
[2016-11-17] MEDS: FEOSOL 325 MG PO SCH ×3 (07:29→16:31)
[2016-11-17] MEDS: Ativan 1 MG PO SCH ×3 (07:29→16:31)
[2016-11-17] MEDS: Norco 10/325 MG Tablet PO PRN ×4 (07:29→21:48)
[2016-11-17] MEDS: DELTASONE 20 MG PO SCH (08:58)
[2016-11-17] MEDS: SENOKOT 8.6 MG PO SCH (08:59)
[2016-11-17] MEDS: Zestril 10 MG PO SCH (08:59)
[2016-11-17] MEDS: Lopressor 50 MG PO SCH ×2 (08:59→16:31)
[2016-11-17] MEDS: Prozac 20 MG PO SCH (08:59)
[2016-11-17] MEDS: CLEOCIN 150 MG CAPSULE PO SCH ×3 (09:00→21:47)
[2016-11-17] MEDS: ENOXAPARIN SODIUM SQ SCH (09:00)
[2016-11-17] MEDS: MAG-OX 400 PO SCH (09:02)
--- NOTE | 2016-11-17 09:49 | XRAY ---
Indication: Follow-up surgery. Comparison: October 30, 2016. 2 views of the right humerus demonstrates new intramedullary heriberto with proximal/distal screws fixating shaft fracture with improved apposition/alignment, near-anatomic. Cutaneous carlos a attest to recent surgery. No other bony, articular, or soft tissue abnormalities.
[2016-11-17] MEDS: ZOFRAN ODT 4 MG PO PRN (21:46)
[2016-11-17] MEDS: Geodon 20 MG Capsule PO SCH (21:46)
[2016-11-17] MEDS: Ativan 1 MG PO PRN (21:47)
[2016-11-17] MEDS: Aricept 10 MG PO SCH (21:47)
[2016-11-18] MEDS: DUONEB 0.5-3 MG/3 ml Neb IH SCH ×3 (02:50→11:01)
[2016-11-18] MEDS: Norco 10/325 MG Tablet PO PRN ×2 (05:35→09:56)
[2016-11-18] MEDS: Advair Hfa 115/21 Common canister IH SCH (06:47)
[2016-11-18 07:42] VITALS: BP 157/64
--- NOTE | 2016-11-18 08:07 | PCM.DS ---
Discharge Summary Date of Admission: 11/09/16 14:00 Date of Discharge: 11/18/2016 Admitting Physician: SURAJ SAMS Primary Care Provider: SURAJ SAMS Allergies Allergies No Known Drug Allergies Allergy (Verified 10/30/16 11:43) Hospital Summary - Hospital Course Hospital Course: She was originally admitted for acute on chronic respiratory failure with acute copd exacerbation which improved well but during her stay she fell in the restroom resulting in a broken humerus. Dr. White was consulted who took her to surgery at [facility]. Her initial visit she had 2/2 blood culture positive for coag negative staph. She was on antibiotics at that time for the copd exacerbation and then went for surgery. She was extubated day 2 after the surgery and returned to [facility] for rehab stay. She was initially not on abx at [facility] but on arrival back with the 2/2 blood culture +, 2 blood cultures were drawn and she was started on vancomycin for this. Those blood cultures remained negative, and clinically she was doing well. She was transitioned to swing bed and transitioned over to clindamycin po after the 4 days of vancomycin as culture was sensitive to this but there was inducible resistance noted. Discussion with pulmonology at [facility] and they stated she is not a candidate for any sedation and no RADHA to be preformed. She has no clinical evidence of infection but does have a pacemaker. With the repeat blood cultures negative and no clinical evidence of disease will continue total of 4 weeks of antibiotics completing the coarse with the clindamycin which she is tolerating well. Her therapy was doing well and increasing function of her arm. She had an episode 11/15/16 of likely mucous plugging resulting in respiratory distress and need for bipap. She was treated for exacerbation of copd and mucolytics were used as well and the sputum production diminshed and she was doing very well back on her home 4L nc O2. She has chronic severe CO2 retention with baseline CO2 values near 100 - Vitals & Intake/Output Vital Signs: Vital Signs Temperature 98.7 F 11/18/16 06:00 Pulse Rate 73 11/18/16 06:47 Respiratory Rate 18 11/18/16 06:47 Blood Pressure 157/64 11/18/16 06:00 O2 Sat by Pulse Oximetry 96 11/18/16 06:47 Oxygen-Last Documented O2 Percentage 4 Liters = 36% Intake & Output: Intake & Output 11/15/16 11/16/16 11/17/16 11/18/16 11:59 11:59 11:59 11:59 Intake Total 900 1500 1640 700 Output Total 2 Balance 900 1500 1638 700 Weight 56.336 kg - Lab Result Diagrams: 11/16/16 05:04 11/16/16 05:04 - Radiology Exams Ordered Rad Exams-Entire Visit: Radiology Procedures Category Date Time Status HUMERUS Urgent Exams 11/17/16 Completed - Procedures and Test Procedures and Tests throughout Hospitalization: Therapy Orders & Screens 11/09/16 14:20 Respiratory MDI Q12H Comment: 11/09/16 14:21 PT Eval & Treat (MD Order) ROUTINE Evaluate: Yes Treat: Yes Reason for Eval:: Deconditioning Diagnosis: Deconditioning r/t COPD exacerbation Respiratory MDI UD Comment: 11/09/16 14:24 Oxygen NASAL CANNULA 4 lpm Comment: keep SPO2 >92% Diagnosis: Deconditioning r/t COPD Respiratory Nebulizer Q4H Comment: 11/15/16 08:02 BiPap/CPAP Assessment STAT Comment: Diagnosis: Deconditioning r/t COPD exacerbation, fx ORIF 11/15/16 19:12 Respiratory Nebulizer 07,11,15,19 Comment: MUCOMYST 20% 600MG QID Diagnosis: Deconditioning r/t COPD exacerbation, fx ORIF 11/15/16 19:15 Flutter Therapy UD Comment: AFTER NEB TXS Diagnosis: Deconditioning r/t COPD exacerbation, fx ORIF Discharge Exam General Appearance: no apparent distress Neurologic Exam: alert, oriented x 3 Skin Exam: warm, dry, pale Eye Exam: No scleral icterus Ears, Nose, Throat Exam: moist mucous membranes Neck Exam: non-tender, supple Respiratory Exam: diminished breath sounds, prolonged expirations, No crackles/ rales, No rhonchi, No wheezing Cardiovascular Exam: regular rate/rhythm, normal heart sounds, No edema Gastrointestinal/Abdomen Exam: soft, normal bowel sounds, No tenderness, No distention Extremity Exam: other (chronic deformities secondary to RA severe) Final Diagnosis/Problem List - Final Discharge Diagnosis/Problem (1) COPD (chronic obstructive pulmonary disease) Current Visit: Yes Status: Acute (2) Chronic hypercapnic respiratory failure Current Visit: Yes Status: Chronic (3) Humerus fracture Current Visit: Yes Status: Acute (4) Anemia Current Visit: Yes Status: Chronic (5) Chronic steroid use Current Visit: Yes Status: Chronic (6) Rheumatoid arthritis Current Visit: Yes Status: Chronic (7) Positive blood culture Current Visit: Yes Status: Acute - Discharge Discharge Date: 11/18/16 Disposition: HOME HEALTH SERVICE Condition: Stable Prescriptions: New Clindamycin HCl 300 mg PO TID #42 capsule Continue Donepezil HCl 5 mg PO HS Sennosides [Senna Laxative] 2 tab PO DAILY Fluoxetine HCl [Prozac] 60 mg PO DAILY Magnesium Oxide 400 mg [Mag-Ox 400] 400 mg PO DAILY #30 tablet Fluticasone/Vilanterol [Breo Ellipta 100-25 Mcg INH] 1 inh PO DAILY Albuterol/Ipratropium 3ml Neb* [DUONEB 0.5-3 MG/3 ml Neb] 3 ml IH Q4H PRN PRN Reason: Shortness Of Breath Lisinopril 5 mg [Zestril 5 MG] 10 mg PO DAILY #30 tablet Albuterol Sulfate [Proair Hfa] 8.5 gm IH Q6HPRN PRN PRN Reason: Shortness Of Breath/Wheezing Ziprasidone HCl [Geodon] 40 mg PO HS #30 capsule Hydrocodone/APAP 10/325 mg [[place] 10/325 MG Tablet] 1 tab PO Q4H/PRN PRN #120 tablet PRN Reason: Pain Lorazepam 1 mg [Ativan 1 MG] 1 mg PO 0800,1200,1600 Acetaminophen [Tylenol] 650 mg PO Q4HPRN PRN PRN Reason: Pain Sennosides [Senna] 2 tab PO DAILY PRN PRN PRN Reason: Constipation Magnesium Hydroxide 30 ml [Milk of Magnesia 30 ml] 30 ml PO DAILY PRN PRN PRN Reason: Constipation Calcium Carbonate/Vitamin D3 [Calcium 600 + Vit D Tablet] 1 each PO 0800,1600 Metoprolol Tartrate 50 mg [Lopressor 50 MG] 50 mg PO 0800,1600 Docusate Sodium 100 mg [Colace 100 MG] 100 mg PO 0800,1600 Ferrous Sulfate 325 mg [Feosol 325 mg] 325 mg PO 0800,1200,1600 Lorazepam 1 mg [Ativan 1 MG] 1 mg PO Q6HPRN PRN PRN Reason: Anxiety Prednisone 10 mg [Deltasone 10 mg] 10 mg PO DAILY #60 tablet Follow up with: SURAJ SAMS [Primary Care Provider] - 11/30/16 2:15 pm WILFREDO WHITE [ACTIVE STAFF] - 1 month (follow up in 4 weeks) Forms: Patient Portal Information
[2016-11-18] MEDS: Lopressor 50 MG PO SCH (08:44)
[2016-11-18] MEDS: FEOSOL 325 MG PO SCH ×2 (08:44→12:43)
[2016-11-18] MEDS: Calcium 500MG W/Vit D Tablet PO SCH (08:44)
[2016-11-18] MEDS: Colace 100 MG PO SCH (08:44)
[2016-11-18] MEDS: Ativan 1 MG PO SCH ×2 (08:45→12:43)
[2016-11-18] MEDS: Zestril 10 MG PO SCH (09:55)
[2016-11-18] MEDS: Prozac 20 MG PO SCH (09:55)
[2016-11-18] MEDS: MAG-OX 400 PO SCH (09:55)
[2016-11-18] MEDS: DELTASONE 20 MG PO SCH (09:55)
[2016-11-18] MEDS: SENOKOT 8.6 MG PO SCH (09:56)
[2016-11-18] MEDS: ENOXAPARIN SODIUM SQ SCH (09:56)
[2016-11-18 11:03] VITALS: PULSE 92; O2SAT 94
[2016-11-18] MEDS: CLEOCIN 150 MG CAPSULE PO SCH (11:17)
[2016-11-18] MEDS: TYLENOL 325 MG PO PRN (12:45)
[2016-11-18] MEDS: ZOFRAN ODT 4 MG PO PRN (14:00)
[2016-11-20] MEDS ORDERED: Aplisol ID SCH (10:00)
== END 2016-11-18 15:00 | disposition home health service (06) | DRG 191 ==
LOC: MED SURG 14:00
PROVIDERS: ADMIT Family Medicine; ATTEND Family Medicine
DX: J44.1 Chronic obstructive pulmonary disease with (acute) exacerbation (principal); J96.12 Chronic respiratory failure with hypercapnia; S42.309A Unspecified fracture of shaft of humerus, unspecified arm, initial encounter for closed fracture; D64.9 Anemia, unspecified; Z79.52 Long term (current) use of systemic steroids; M06.9 Rheumatoid arthritis, unspecified
CPT/HCPCS: 36415; 71010; 73060; 80048; 80053; 82805; 83735; 85027; 94002; 94003; 94640; 94760; 94762; J1650; Q0162; 97110-GP; A9270-GY; J7506

== ENCOUNTER 2016-11-25 10:48 | Observation (INO) | payer MEDICARE ==
[2016-11-25] MEDS ORDERED: Zithromax 500 MG/ 250 ML NaCl Premix 500 MG/250 ML IVPB IV STA (11:02)
[2016-11-25] MEDS ORDERED: solu-MEDROL 125 MG IV ONE (11:02)
[2016-11-25] MEDS ORDERED: DUONEB 0.5-3 MG/3 ml Neb IH ONE ×2 (11:02→11:17)
[2016-11-25] MEDS ORDERED: ROCEPHIN 1 Gm-D5w 50 ml Bag** 1 G/50 ML IVPB IV STA (11:02)
--- NOTE | 2016-11-25 11:08 | ERPHSYRPT ---
- History of Present Illness Time Seen by Provider: 11/25/16 11:00 Source: patient Exam Limitations: clinical condition Patient Subjective Stated Complaint: PT BROUGHT TO ED PER EMS-PT REPORTS WEAKNESS-DENIES INCREASED COUGH-DENIES INCREASED SOB-DENIES N/V/D-PT STATES SHE IS TO WEAK TO DO ANYTHING Triage Nursing Assessment: PT PALE WARM ET [id number] TO ANSWER QUESTIONS CORRECTLY-MOIST HARSH COUGH NOTED-NORMAL FOR PT Physician History: PATIENT COMPLAINS OF SHORTNESS OF BREATH, DIFFICULTY ASSOCIATED WITH NONPRODUCTIVE COUGH AND GENERALIZED WEAKNESS FOR PAST 2 DAYS. DENIES FEVER, CHILLS, CHEST PAIN, HEADACHE, SLURRED SPEECH OR FOCAL NUMBNESS, TINGLING OR WEAKNESS. Timing/Duration: yesterday Activities at Onset: none Severity of Dyspnea-Max: moderate Severity of Dyspnea-Current: moderate Possible Cause: frequent episodes Modifying Factors: Improves With: coughing, exertion Associated Symptoms: cough, wheezing International travel in last 2 weeks: No Allergies/Adverse Reactions: No Known Drug Allergies Allergy (Verified 11/25/16 10:54) Home Medications: Donepezil HCl 5 mg PO HS 06/15/14 [History] Sennosides [Senna Laxative] 2 tab PO DAILY 06/15/14 [History] Fluoxetine HCl [Prozac] 60 mg PO DAILY 03/02/15 [History] Fluticasone/Vilanterol [Breo Ellipta 100-25 Mcg INH] 1 inh PO DAILY 12/17/15 [ History] Albuterol/Ipratropium 3ml Neb* [DUONEB 0.5-3 MG/3 ml Neb] 3 ml IH Q4H PRN [History] Albuterol Sulfate [Proair Hfa] 8.5 gm IH Q6HPRN PRN 03/23/16 [History] Lorazepam 1 mg [Ativan 1 MG] 1 mg PO 0800,1200,1600 05/30/16 [History] Acetaminophen [Tylenol] 650 mg PO Q4HPRN PRN 10/30/16 [History] Calcium Carbonate/Vitamin D3 [Calcium 600 + Vit D Tablet] 1 each PO 0800,1600 [History] Docusate Sodium 100 mg [Colace 100 MG] 100 mg PO 0800,1600 10/30/16 [ History] Ferrous Sulfate 325 mg [Feosol 325 mg] 325 mg PO 0800,1200,1600 10/30/16 [ History] Lorazepam 1 mg [Ativan 1 MG] 1 mg PO Q6HPRN PRN 10/30/16 [History] Magnesium Hydroxide 30 ml [Milk of Magnesia 30 ml] 30 ml PO DAILY PRN PRN 10/30/16 [History] Metoprolol Tartrate 50 mg [Lopressor 50 MG] 50 mg PO 0800,1600 10/30/16 [ History] Sennosides [Senna] 2 tab PO DAILY PRN PRN 10/30/16 [History] Hx Tetanus, Diphtheria Vaccination/Date Given: Yes Hx Influenza Vaccination/Date Given: No Hx Pneumococcal Vaccination/Date Given: No Immunizations Up to Date: Yes - Review of Systems Constitutional: No Fever, No Chills Eyes: No Symptoms Ears, Nose, & Throat: No Symptoms Respiratory: Cough, Dyspnea Cardiac: No Symptoms, No Chest Pain, No Edema, No Syncope Abdominal/Gastrointestinal: Constipation, No Abdominal Pain, No Nausea, No Vomiting, No Diarrhea Genitourinary Symptoms: No Symptoms, No Dysuria Musculoskeletal: No Back Pain, No Neck Pain Skin: No Rash Neurological: Other (WEAKNESS), No Dizziness, No Focal Weakness, No Sensory Changes Psychological: No Symptoms Endocrine: No Symptoms All Other Systems: Reviewed and Negative - Past Medical History Pertinent Past Medical History: Yes Neurological History: Dementia ENT History: No Pertinent History Cardiac History: Congestive Heart Failure, Coronary Artery Disease, Hypertension Respiratory History: Asthma, Bronchitis, CHF, COPD, Pneumonia, Other Endocrine Medical History: No Pertinent History Musculoskeletal History: No Pertinent History GI Medical History: No Pertinent History History: No Pertinent History Psycho-Social History: Depression Female Reproductive Disorders: No Pertinent History Other Medical History: ... - Past Surgical History Past Surgical History: Yes Neuro Surgical History: No Pertinent History Cardiac: Pacemaker Respiratory: No Pertinent History Gastrointestinal: Bowel Surgery Genitourinary: No Pertinent History Musculoskeletal: Amputation Female Surgical History: No Pertinent History Other Surgical History: sinus surgery in 80's,finger amp, bowel surg. - Social History Smoking Status: Current every day smoker How long have you smoked: 45 years Exposure to second hand smoke: Yes Alcohol Use: None Drug Use: none Patient Lives Alone: No Significant Family History: no pertinent family hx - Female History Hx Now: No - Nursing Vital Signs Nursing Vital Signs: Initial Vital Signs Temperature 97.8 F 11/25/16 10:53 Pulse Rate 89 11/25/16 10:53 Respiratory Rate 20 11/25/16 10:53 Blood Pressure 146/63 11/25/16 10:53 O2 Sat by Pulse Oximetry 92 L 11/25/16 10:53 Pain Scale Pain Intensity 0 - Physical Exam General Appearance: mild distress Eye Exam: PERRL/EOMI Ears, Nose, Throat Exam: hearing grossly normal Neck Exam: normal inspection, supple Respiratory Exam: diminished breath sounds, rhonchi, wheezing Cardiovascular/Chest Exam: normal heart sounds, regular rate/rhythm Abdominal/Gastrointestinal Exam: soft, No tenderness, No distention, No mass Extremity Exam: non-tender, normal range of motion, normal inspection, no calf tenderness, no pedal edema Peripheral Pulses Exam: carotid (R): 2+, carotid (L): 2+, femoral (R): 2+, femoral (L): 2+, dorsalis-pedis (R): 2+, dorsalis-pedis (L): 2+ Neurologic Exam: alert, oriented x 3, cooperative, case maker II-XII nml as tested, sensation nml, No motor deficits Skin Exam: normal color, warm, No dry SpO2 Interpretation: normal SpO2: 92 Oxygen Delivery: Nasal Cannula - Course EKG Interpreted by Me: Sinus Rhythm, Non-specific ST Changes (RATE 66) - Radiology Exams Chest X-ray Interpretation: Discussed w/ radiologist (HYPERINFLATED WITH CHRONIC LUNG MARKINGS AND LEFT BASE INFILTRATE/ATELECTASIS/EFFUSION MINIMALLY IMPROVED, STABLE LEFT PACEMAKER) Ordered Tests: Active Orders 24 hr Category Date Time Status Up With Assistance ROUTINE Activity 11/25/16 13:11 Ordered Admission/Status Order ROUTINE Care 11/25/16 13:12 Ordered Pressure Testing Technician STAT Care 11/25/16 11:03 Active Code Status Order ROUTINE Care 11/25/16 13:12 Ordered EKG-ER Only STAT Care 11/25/16 11:02 Active IV Care Q6H Care 11/25/16 13:12 Ordered IV Insertion STAT Care 11/25/16 11:02 Active Intake and Output Q12H Care 11/25/16 13:11 Ordered Oxygen-ED Only NASAL CANNULA 2 lpm Care 11/25/16 11:02 Active Enriqueta Jarrett ROUTINE Care 11/25/16 13:12 Ordered Telemetry ROUTINE Care 11/25/16 13:11 Ordered Vital Signs Q4H Care 11/25/16 13:11 Ordered Weight,Daily 0600 Care 11/25/16 13:12 Ordered Regular Diet Diet 11/25/16 Lunch Ordered CHEST 1 VIEW (PORTABLE) Stat Exams 11/25/16 11:03 Completed BLOOD CULTURE Stat Lab 11/25/16 11:18 Received CBC W DIFF Stat Lab 11/25/16 11:18 Completed CMP Stat Lab 11/25/16 11:18 Completed MAGNESIUM Stat Lab 11/25/16 11:18 Completed Manual Differential NC Stat Lab 11/25/16 11:18 Completed TROPONIN Q3H Lab 11/25/16 11:18 Completed TROPONIN Q3H Lab 11/25/16 14:15 Ordered TROPONIN Q3H Lab 11/25/16 17:15 Ordered TROPONIN Q3H Lab 11/25/16 20:15 Ordered TROPONIN Q3H Lab 11/25/16 23:15 Ordered UA W/RFX UR CULTURE Stat Lab 11/25/16 11:03 Ordered Oxygen NASAL CANNULA 2 lpm RT 11/25/16 13:11 Ordered Pulse Oximetry CONTINUOUS RT 11/25/16 13:15 Ordered Respiratory Nebulizer STAT RT 11/25/16 11:07 Completed Respiratory Nebulizer STAT RT 11/25/16 13:05 Active Transfer Order Routine Transfer 11/25/16 Ordered Medication Summary Generic Name Dose Route Start Last Admin Trade Name Freq PRN Reason Stop Dose Admin Sodium Chloride 1,000 mls @ 50 mls/hr 11/25/16 11:15 11/25/16 11:33 Sodium Chloride 0.9% 1000 Ml IV 12/25/16 11:14 50 mls/hr .Q20H BRINDA Administration Discontinued Medications Generic Name Dose Route Start Last Admin Trade Name Freq PRN Reason Stop Dose Admin Albuterol/Ipratropium 3 ml 11/25/16 11:02 11/25/16 11:22 Duoneb 0.5-3 Mg/3 Ml Neb IH 11/25/16 11:03 3 ml STAT ONE Administration Albuterol/Ipratropium Confirm 11/25/16 11:17 Duoneb 0.5-3 Mg/3 Ml Neb Administered 11/25/16 11:18 Dose 3 ml IH .STK-MED ONE Ceftriaxone Sodium/Dextrose 1 g in 50 mls @ 100 mls/hr 11/25/16 11:02 11:33 Rocephin 1 Gm-D5w 50 Ml Bag IV 11/25/16 11:31 100 mls/hr STAT STA Administration Azithromycin 500 mg in 250 mls @ 250 mls/hr 11/25/16 11:02 11/25/16 12:29 Zithromax 500 Mg/ 250 Ml Nacl Premix IV 11/25/16 12:01 250 mls/hr STAT STA Administration Ceftriaxone Sodium/Dextrose Confirm 11/25/16 11:31 Rocephin 1 Gm-D5w 50 Ml Bag Administered 11/25/16 11:32 Dose 1 g in 50 mls @ ud IV .STK-MED ONE Azithromycin Confirm 11/25/16 12:24 Zithromax 500 Mg/ 250 Ml Nacl Premix Administered 11/25/16 12:25 Dose 500 mg in 250 mls @ ud IV .STK-MED ONE Levalbuterol HCl 1.25 mg 11/25/16 13:05 Xopenex 1.25 Mg/0.5 Ml Ud Nebule IH 11/25/16 13:06 STAT ONE Levalbuterol HCl Confirm 11/25/16 13:12 Xopenex 1.25 Mg/0.5 Ml Ud Nebule Administered 11/25/16 13:13 Dose 1.25 mg IH .STK-MED ONE Methylprednisolone Sodium Succinate 125 mg 11/25/16 11:02 11/25/16 11:32 Solu-Medrol 125 Mg IV 11/25/16 11:03 125 mg STAT ONE Administration Methylprednisolone Sodium Succinate Confirm 11/25/16 11:31 Solu-Medrol 125 Mg Administered 11/25/16 11:32 Dose 125 mg .ROUTE .STK-MED ONE Sodium Chloride Confirm 11/25/16 13:14 Sodium Chloride 3 Ml Ud Nebules Administered 11/25/16 13:15 Dose 3 ml IH .STK-MED ONE Lab/Rad Data: Laboratory Result Diagrams 11/25/16 11:18 11/25/16 11:18 Laboratory Results 11/25/16 11/25/16 11/25/16 Range/Units 11:18 11:18 11:18 WBC 13.0 H (4.0-10.5) K/mm3 RBC 3.35 L (4.1-5.4) M/mm3 Hgb 9.6 L (12.0-16.0) gm/dl Hct 33.5 L (35-47) % MCV 100.0 (78-100) fl MCH 28.6 (26-32) pg MCHC 28.7 L (32-36) g/dl RDW 14.1 H (11.5-14.0) % Plt Count 356 (150-450) K/mm3 MPV 9.4 (6-9.5) fl Segmented Neutrophils 57 (36.0-66.0) % Lymphocytes (Manual) 36 (24-44) % Monocytes (Manual) 6 (0.0-12.0) % Eosinophils (Manual) 1 (0.00-3.0) % Differential Comment ABNORMAL Platelet Estimate NORMAL (NORMAL) Poikilocytosis 1+ Basophilic Stippling 4+ Anisocytosis 1+ Sodium 139 (136-145) mEq/L Potassium 4.8 (3.5-5.1) mEq/L Chloride 91 L (98-107) mEq/L Carbon Dioxide > 45.0 H* (21-32) mEq/L BUN 9 (9-20) mg/dL Creatinine 0.50 L (0.55-1.30) mg/dl Estimated GFR > 60 ML/MIN Glucose 121 H (70-110) MG/DL Calcium 9.1 (8.5-10.1) mg/dL Magnesium 1.6 L (1.8-2.4) mg/dL Total Bilirubin 0.20 (0.2-1.0) mg/dL AST 13 L (15-37) U/L ALT 10 L (12-78) U/L Alkaline Phosphatase 78 (46-116) U/L Troponin I < 0.017 (0.000-0.056) ng/ml Serum Total Protein 6.6 (6.4-8.2) gm/dL Albumin 2.7 L (3.4-5.0) g/dL - Progress Progress Note: 11/25/16 11:25 PATIENT ADMINISTERED DUO NEB AEROSOL TX, FOLLOWED BY XOPENEX 1.25MG AEROSOL, SOLUMEDROL 125MG IV AND AFTER 2 SETS OF BLOOD CULTURES, ROCEPHIN 1GM, ZITHROMAX 500MG IVPB 11/25/16 13:08 Discussed with : Eulalio (AT 1245 FOR OBSERVATION) Will see patient in: hospital (observation) - Departure Time of Disposition: 13:15 Departure Disposition: Observation Clinical Impression: ACUTE EXACERBATION COPD Condition: Stable Critical Care Time: No Referrals: SURAJ SAMS [Primary Care Provider] -
[2016-11-25] MEDS ORDERED: Sodium Chloride 0.9% 1000 ML 1,000 ML IV SCH ×2 (11:15→13:15)
[2016-11-25 11:31] LABS: Mean Platelet Volume 9.4 fl (6-9.5); Platelet Count 356 K/mm3 (150-450); Red Blood Count 3.35 M/mm3 (4.1-5.4); Red Cell Distribution Width 14.1 % (11.5-14.0)
[2016-11-25] MEDS ORDERED: ROCEPHIN 1 Gm-D5w 50 ml Bag** 1 G/50 ML IVPB IV ONE (11:31)
[2016-11-25] MEDS ORDERED: solu-MEDROL 125 MG ONE (11:31)
--- NOTE | 2016-11-25 11:40 | XRAY ---
Indication: Cough and dyspnea. Comparison: November 15, 2016. Portable chest again hyperinflated with chronic lung markings and left base infiltrate/atelectasis/effusion minimally improved. Heart is not enlarged with stable left-sided pacemaker. No new cardiopulmonary abnormalities.
[2016-11-25 11:43] LABS: ALBUMIN 2.7 g/dL (3.4-5.0); ALKALINE PHOSPHATASE 78 U/L (46-116); BLOOD UREA NITROGEN 9 mg/dL (9-20); CHLORIDE 91 mEq/L (98-107); Glucose 121 MG/DL (70-110); MAGNESIUM 1.6 mg/dL (1.8-2.4); Potassium 4.8 mEq/L (3.5-5.1); SGOT/AST 13 U/L (15-37); SGPT/ALT 10 U/L (12-78); SODIUM 139 mEq/L (136-145); Total Protein 6.6 gm/dL (6.4-8.2)
[2016-11-25 11:47] LABS: Carbon Dioxide > 45.0 mEq/L (21-32)
[2016-11-25 12:07] LABS: Mean Corpuscular Hemoglobin 28.6 pg (26-32)
[2016-11-25 12:10] LABS: Eosinophil 1 % (0.00-3.0); Total Cells Counted 100
[2016-11-25 12:11] LABS: ANISOCYTOSIS 1+; Poikilocytosis 1+
[2016-11-25 12:12] LABS: Basophilic Stippling 4+; Platelet Estimate NORMAL (NORMAL)
[2016-11-25] MEDS ORDERED: Zithromax 500 MG/ 250 ML NaCl Premix 500 MG/250 ML IVPB IV ONE (12:24)
[2016-11-25] MEDS ORDERED: Xopenex 1.25 MG/0.5 ML UD NEBULE IH ONE ×2 (13:05→13:12)
[2016-11-25] MEDS ORDERED: Sodium Chloride 3 ML UD NEBULES IH ONE (13:14)
[2016-11-25] MEDS ORDERED: TYLENOL 325 MG PO PRN ×2 (13:20→18:25)
[2016-11-25] MEDS: solu-MEDROL 125 MG IV SCH (18:15)
[2016-11-25] MEDS ORDERED: SENOKOT 8.6 MG PO PRN (18:28)
[2016-11-25] MEDS: Norco 10/325 MG Tablet PO PRN (18:34)
[2016-11-25] MEDS: DUONEB 0.5-3 MG/3 ml Neb IH SCH ×2 (19:00→22:42)
[2016-11-25] MEDS: Advair Hfa 115/21 Common canister IH SCH (19:00)
[2016-11-25] MEDS: FEOSOL 325 MG PO SCH (21:49)
[2016-11-25] MEDS: Ativan 1 MG PO PRN (21:50)
[2016-11-25] MEDS ORDERED: Lopressor 50 MG PO SCH (22:00)
[2016-11-25] MEDS ORDERED: Aricept 10 MG PO SCH (22:00)
[2016-11-25] MEDS ORDERED: Geodon 20 MG Capsule PO SCH (22:00)
[2016-11-26] MEDS: solu-MEDROL 125 MG IV SCH ×2 (00:04→06:57)
[2016-11-26 03:19] LABS: ADD URINE CULTURE? NO (NO); Bilirubin NEGATIVE (NEGATIVE); Blood NEGATIVE Ery/ul (0-5); COMPLETE URINE MICROSCOPIC? NO; Collection Type CLEAN CATCH; Glucose 100 mg/dL (NEGATIVE); Leukocyte Esterase NEGATIVE (NEGATIVE)
[2016-11-26] MEDS: DUONEB 0.5-3 MG/3 ml Neb IH SCH ×4 (03:29→15:42)
[2016-11-26] MEDS: Norco 10/325 MG Tablet PO PRN ×2 (06:55→13:18)
[2016-11-26] MEDS: Advair Hfa 115/21 Common canister IH SCH (07:07)
[2016-11-26] MEDS ORDERED: Ventolin Hfa MDI IH PRN (07:16)
[2016-11-26] MEDS ORDERED: PROVENTIL 2.5 MG/3 ML NEB IH PRN (07:16)
[2016-11-26] MEDS ORDERED: PROVENTIL COMMON CANISTER IH PRN ×2 (07:20→07:30)
[2016-11-26] MEDS ORDERED: VITAMIN D3 PO SCH (08:00)
[2016-11-26] MEDS ORDERED: CALCIUM CARBONATE PO SCH (08:00)
[2016-11-26] MEDS: MAG-OX 400 PO SCH ×2 (08:49→08:57)
[2016-11-26] MEDS: Zestril 10 MG PO SCH ×2 (08:50→08:57)
[2016-11-26] MEDS: Prozac 20 MG PO SCH ×2 (08:50→08:58)
[2016-11-26] MEDS: Colace 100 MG PO SCH ×2 (08:56→16:49)
[2016-11-26] MEDS: Calcium 500MG W/Vit D Tablet PO SCH ×2 (08:56→16:49)
[2016-11-26] MEDS: Lopressor 50 MG PO SCH ×2 (08:58→16:49)
[2016-11-26] MEDS: FEOSOL 325 MG PO SCH ×3 (09:01→16:49)
[2016-11-26] MEDS ORDERED: Zithromax 500 MG/ 250 ML NaCl Premix 500 MG/250 ML IVPB IV SCH (10:00)
[2016-11-26] MEDS ORDERED: Zestril 5 MG PO SCH (10:00)
[2016-11-26] MEDS ORDERED: ROCEPHIN 1 Gm-D5w 50 ml Bag** 1 G/50 ML IVPB IV SCH (10:00)
--- NOTE | 2016-11-26 10:01 | HP ---
HISTORY OF PRESENT ILLNESS: This is a 61 year-old patient of Dr. Armen Ovalle'natalia who presented from home to the emergency department. She had been recently discharged from the swing-bed at our hospital on 11/18/2016. The patient reports some generalized weakness and the patient also mentioned that she had a recent broken humerus which the discharge summary from Dr. Ovalle said that Christopher fixed at [facility] before her rehab stay here in the swing-bed. The patient reported that she feels very weak at home. The emergency room note reports that she has some shortness of breath perhaps and a nonproductive cough. The patient is a poor historian. She does have a history of dementia. She reports her breathing feels like it is doing well now. She was admitted and is being treated as chronic obstructive pulmonary disease exacerbation but the patient's main concern is her weakness and inability to ambulate in her house. She had home health care at home and they called our office earlier this week concerned because they were spraying for bed bugs in the home that she is staying in. She reports that she is staying with her daughter right now. REVIEW OF SYSTEMS: Generalized fatigue, poor appetite. She feels like her breathing is at her baseline. No fevers. No lower extremity edema. Otherwise review of systems is negative. PAST MEDICAL HISTORY: Dementia, congestive heart failure, coronary artery disease, hypertension, asthma, bronchitis, pneumonia, depression. PAST SURGICAL HISTORY: Sinus surgery. Finger amputation. Bowel surgery. Pacemaker. Humerus fracture surgery most recently. MEDICATIONS: Please see the home medication list. ALLERGIES: NKDA. SOCIAL HISTORY: She used to smoke and denies smoking currently. She lives at home with her daughter. FAMILY HISTORY: Noncontributory. PHYSICAL EXAMINATION: VITAL SIGNS: Temperature current 97.8F, temperature max 98.5F, heart rate 60 to 91 and currently 78, respiratory rate 14 to 20, blood pressure 135 to 157 over 63 to 70. Oxygen saturation 94 to 97% on 4 liters nasal cannula. GENERAL: The patient is sitting up, alert, oriented x3 in no acute distress. CVS: Her heart has a regular rate and rhythm. No murmurs, gallops or rubs. CHEST: Distant breath sounds. Clear to auscultation. No crackles or wheezes are appreciated. ABDOMEN: Soft, nontender, nondistended with normal bowel sounds. EXTREMITIES: No clubbing, cyanosis or edema. SKIN: Warm, dry and intact. LABORATORY DATA AND TESTS: White blood cell count 13,000, hemoglobin 9.6 which is up from 8.1 on 11/16/2016. Bicarb greater than 45 which is baseline for her. Magnesium 1.6. Potassium 4.8. UA was negative. Chest x-ray was read as hyper-inflated chronic lung markings and left base infiltrates/atelectasis/effusion minimally improved. Heart is not enlarged. Stable left-sided pacemaker. No new cardiopulmonary abnormalities. ASSESSMENT AND PLAN: 1) CHRONIC OBSTRUCTIVE PULMONARY DISEASE WITH EXACERBATION: Will continue with her IV antibiotics and try to wean down on her steroids. 2) GENERALIZED WEAKNESS: She will benefit from rehab stay to have enough strength to take care of herself at home. 3) DEMENTIA: Will continue with her home dose of Aricept and Ziprasidone 40 mg every evening. 4) HYPOMAGNESEMIA: Will continue with her current dose of magnesium 40 mg p.o. daily and give her extra dose of 400 mg p.o. today.
[2016-11-26] MEDS: Xopenex 1.25 MG/0.5 ML UD NEBULE IH SCH ×2 (10:53→10:54)
[2016-11-26] MEDS ORDERED: ENOXAPARIN SODIUM SQ SCH (12:00)
[2016-11-26] MEDS: Ativan 1 MG PO PRN ×2 (13:18→16:49)
[2016-11-26 15:52] VITALS: BP 128/60; PULSE 75; O2SAT 94
[2016-11-26] MEDS ORDERED: MAG-OX 400 PO ONE (17:00)
[2016-11-26] MEDS ORDERED: Aricept 10 MG PO SCH (22:00)
== END 2016-11-26 18:25 | disposition home or self-care (01) ==
LOC: ED 10:48 → MED SURG 13:35
PROVIDERS: ADMIT Internal Medicine; ATTEND Internal Medicine
DX: J44.1 Chronic obstructive pulmonary disease with (acute) exacerbation (principal); F03.90 Unspecified dementia, unspecified severity, without behavioral disturbance, psychotic disturbance, mood disturbance, and anxiety; E83.42 Hypomagnesemia; I10 Essential (primary) hypertension; I25.10 Atherosclerotic heart disease of native coronary artery without angina pectoris; J45.909 Unspecified asthma, uncomplicated; F32.9 Major depressive disorder, single episode, unspecified; Z95.0 Presence of cardiac pacemaker; L89.322 Pressure ulcer of left buttock, stage 2
CPT/HCPCS: 36000; 36415; 71010; 80053; 81002; 83735; 84484; 85025; 87040; 93005; 93041; 93268; 94002; 94640; 94760; 96360; 96361; 96365; 96367; 96374; 99285; G0378; J0456; J0696; J1650; J2930; A9270-GY

== ENCOUNTER 2016-12-24 13:05 | Inpatient (IN) | payer MEDICARE ==
[2016-12-24] MEDS ORDERED: solu-MEDROL 125 MG IV ONE (13:16)
[2016-12-24] MEDS ORDERED: Pepcid 20 MG VIAL IV ONE ×2 (13:16→13:22)
[2016-12-24] MEDS ORDERED: solu-MEDROL 125 MG ONE (13:22)
--- NOTE | 2016-12-24 13:25 | ERPHSYRPT ---
- History of Present Illness Time Seen by Provider: 12/24/16 13:07 Source: patient, EMS, old records Exam Limitations: clinical condition (dyspnea) Patient Subjective Stated Complaint: pt here for increase sob since yesterday. no fever, productive cough, skin w/d pale. resp labored with excerion, no edema Triage Nursing Assessment: pt alert, chest with wheezes, productive sounding cough,moves all ext well Physician History: increase difficulty breathing with cough productive 2 days; no fever or chills ; no travel or known exposures; recently moved to a senior living; history of end -stage COPD; on a tapering dose of steroids; no hemoptysis or leg pain; some nausea; no chest pain; on oxygen and pulse ox normally runs high 80s on oxygen; Timing/Duration: today (worse), yesterday (onset), gradual onset Activities at Onset: rest Severity of Dyspnea-Max: severe Severity of Dyspnea-Current: moderate (left respiratory treatments) Possible Cause: frequent episodes, chronic episodes Modifying Factors: Improves With: albuterol nebulizer, coughing Associated Symptoms: cough, wheezing, productive cough International travel in last 2 weeks: No Allergies/Adverse Reactions: No Known Drug Allergies Allergy (Verified 12/24/16 13:21) Home Medications: Donepezil HCl 5 mg PO HS 06/15/14 [History] Fluoxetine HCl [Prozac] 20 mg PO DAILY 03/02/15 [History] Albuterol/Ipratropium 3ml Neb* [DUONEB 0.5-3 MG/3 ml Neb] 3 ml IH Q4HPRN PRN 01/31/16 [History] Acetaminophen [Tylenol] 650 mg PO Q4HPRN PRN 10/30/16 [History] Calcium Carbonate/Vitamin D3 [Calcium 600 + Vit D Tablet] 1 each PO 0800,1600 [History] Docusate Sodium 100 mg [Colace 100 MG] 100 mg PO 0800,1600 10/30/16 [ History] Ferrous Sulfate 325 mg [Feosol 325 mg] 325 mg PO QID 10/30/16 [History] Metoprolol Tartrate 50 mg [Lopressor 50 MG] 50 mg PO 0800,1600 10/30/16 [ History] Sennosides [Senna] 2 tab PO DAILY PRN PRN 10/30/16 [History] Albuterol 2.5 mg/3 ml Neb [Proventil 2.5 mg/3 ml Neb] 2.5 mg IH Q4HPRN PRN 11/25/16 [History] Albuterol 8 gm Mdi Hfa [Ventolin Hfa MDI] 1 puff IH Q6HPRN PRN 11/25/16 [ History] Fluticasone/Salmeterol 115/21 [Advair Hfa 115/21 Common canister*] 2 puff IH BIDRT 11/25/16 [History] Hx Tetanus, Diphtheria Vaccination/Date Given: Yes Hx Influenza Vaccination/Date Given: Yes Hx Pneumococcal Vaccination/Date Given: Yes Immunizations Up to Date: Yes - Review of Systems Constitutional: Malaise, No Fever, No Weight Loss Eyes: No Symptoms Ears, Nose, & Throat: No Symptoms Respiratory: Cough, Dyspnea, Wheezing Cardiac: No Chest Pain, No Edema, No Palpitations, No Syncope Abdominal/Gastrointestinal: Abdominal Pain, Nausea, No Vomiting, No Diarrhea, No Constipation Genitourinary Symptoms: No Symptoms Musculoskeletal: Arthralgias, No Fall, No Injury Skin: No Symptoms Neurological: No Symptoms Psychological: Anxiety, No Alcohol Abuse, No Drug Abuse, No Suicidal Ideations Endocrine: No Symptoms Hematologic/Lymphatic: Anemia, No Blood Clots, No Adenopathy Immunological/Allergic: No Symptoms - Past Medical History Pertinent Past Medical History: Yes Neurological History: Dementia ENT History: No Pertinent History Cardiac History: Congestive Heart Failure, Coronary Artery Disease, Hypertension Respiratory History: Asthma, Bronchitis, CHF, COPD, Pneumonia, Other Endocrine Medical History: No Pertinent History Musculoskeletal History: No Pertinent History GI Medical History: No Pertinent History History: No Pertinent History Psycho-Social History: Depression Female Reproductive Disorders: No Pertinent History Other Medical History: ... - Past Surgical History Past Surgical History: Yes Neuro Surgical History: No Pertinent History Cardiac: Pacemaker Respiratory: No Pertinent History Gastrointestinal: Bowel Surgery Genitourinary: No Pertinent History Musculoskeletal: Amputation Female Surgical History: No Pertinent History Other Surgical History: sinus surgery in 80's,finger amp, bowel surg. - Social History Smoking Status: Former smoker How long have you smoked: 45 years Exposure to second hand smoke: No Alcohol Use: None Drug Use: none Patient Lives Alone: No ([place]) Significant Family History: no pertinent family hx - Female History Hx Last Menstrual Period: post Hx Now: No - Nursing Vital Signs Nursing Vital Signs: Initial Vital Signs Temperature 98.0 F 12/24/16 13:07 Pulse Rate 92 H 12/24/16 13:07 Respiratory Rate 32 H 12/24/16 13:07 Blood Pressure 137/76 12/24/16 13:07 O2 Sat by Pulse Oximetry 88 L 12/24/16 13:07 Pain Scale Pain Intensity 0 - Physical Exam General Appearance: moderate distress (respiratory), alert, thin, other (frail) Eye Exam: PERRL/EOMI, eyes nml inspection, No photophobia Ears, Nose, Throat Exam: hearing grossly normal, normal ENT inspection, normal pharynx Neck Exam: normal inspection, non-tender, supple, full range of motion, JVD ( mild), No meningismus, No carotid bruit Respiratory Exam: lungs clear, respiratory distress (moderate tachypnea; prolonged expiration), airway intact, diminished breath sounds, wheezing, No chest tenderness, No crackles/rales, No rhonchi, No stridor, No pleural rub Cardiovascular/Chest Exam: normal heart sounds, regular rate/rhythm, normal peripheral pulses, edema (trace), JVD (mild), No murmur Abdominal/Gastrointestinal Exam: soft, normal bowel sounds, No tenderness, No distention, No guarding, No rebound, No organomegaly Rectal Exam: deferred Extremity Exam: non-tender, normal range of motion, no calf tenderness, pedal edema (trace), slow capillary refill, No normal inspection (changes of rheumatoid arthritis), No calf tenderness Peripheral Pulses Exam: carotid (R): 4+, carotid (L): 4+, femoral (R): 4+, femoral (L): 4+, dorsalis-pedis (R): 3+, dorsalis-pedis (L): 3+ Neurologic Exam: alert, oriented x 3, cooperative, side gluer II-XII nml as tested, sensation nml Skin Exam: warm, dry, cyanosis (nailbeds), pale, No rash, No petechiae Lymphatic Exam: No adenopathy SpO2 Interpretation: hypoxic, ABG ordered, O2 applied SpO2: 88 Oxygen Delivery: Nasal Cannula - Course Nursing assessment & vital signs reviewed: Yes EKG Interpreted by Me: RATE (91), Sinus Rhythm, NORMAL AXIS, NORMAL INTERVALS, NORMAL QRS, Non-specific ST Changes, Other (occasional PAC; no change from EKG done 11-25-16) Rhythm Strip: Rate (90), Normal Sinus Rhythm - Radiology Exams Chest X-ray Interpretation: Reviewed by me, Teleradiologist Report, Nml Heart Size, Infiltrates (old Left base with effusion; now new bilateral apexes), Other ( pacemaker) Ordered Tests: Active Orders 24 hr Category Date Time Status Bedrest ROUTINE Activity 12/24/16 14:59 Ordered Admission/Status Order ROUTINE Care 12/24/16 14:59 Ordered CO2 Monitoring CONTINUOUS Care 12/24/16 15:01 Ordered Transitional Living Specialist STAT Care 12/24/16 13:16 Active Code Status Order ROUTINE Care 12/24/16 14:59 Ordered EKG-ER Only STAT Care 12/24/16 13:16 Active IV Care Q6H Care 12/24/16 14:59 Ordered IV Insertion STAT Care 12/24/16 13:16 Active Oxygen-ED Only NASAL CANNULA 4 lpm Care 12/24/16 13:16 Active Pulse Oximetry (ED) STAT Care 12/24/16 13:16 Active Augie No, Apply ROUTINE Care 12/24/16 14:59 Ordered Telemetry ROUTINE Care 12/24/16 14:59 Ordered Weight,Daily 0600 Care 12/24/16 14:59 Ordered Cardiac Diet Diet 12/24/16 Dinner Ordered CHEST 1 VIEW (PORTABLE) Stat Exams 12/24/16 13:16 Completed ARTERIAL BLOOD GASES Stat Lab 12/24/16 13:30 Completed BLOOD CULTURE Stat Lab 12/24/16 13:15 Received CBC W DIFF Stat Lab 12/24/16 13:15 Completed CMP Stat Lab 12/24/16 13:15 Completed CULTURE,SPUTUM Stat Lab 12/24/16 13:16 Uncollected Lactic Acid Stat Lab 12/24/16 13:30 Completed MAGNESIUM Stat Lab 12/24/16 13:15 Completed Manual Differential NC Stat Lab 12/24/16 13:15 Completed NT PRO BNP Stat Lab 12/24/16 13:15 Completed TROPONIN Q3H Lab 12/24/16 13:15 Completed TROPONIN Q3H Lab 12/24/16 16:30 Ordered TROPONIN Q3H Lab 12/24/16 19:30 Ordered TROPONIN Q3H Lab 12/24/16 22:30 Ordered TROPONIN Q3H Lab 12/25/16 01:30 Ordered BiPap/CPAP Assessment STAT RT 12/24/16 13:45 Active Peak Expiratory Flow Rate ONCE RT 12/24/16 13:16 Completed Pulse Oximetry CONTINUOUS RT 12/24/16 15:01 Ordered Respiratory Nebulizer Q4H RT 12/24/16 14:59 Ordered Respiratory Nebulizer STAT RT 12/24/16 13:52 Completed Respiratory Therapy Consult ROUTINE RT 12/24/16 14:59 Ordered Transfer Order Routine Transfer 12/24/16 Ordered Medication Summary Generic Name Dose Route Start Last Admin Trade Name Freq PRN Reason Stop Dose Admin Albuterol Sulfate 2.5 mg 12/24/16 15:00 Proventil 2.5 Mg/3 Ml Neb IH 01/23/17 14:59 Q4HRT BRINDA Famotidine 20 mg 12/24/16 22:00 Pepcid 20 Mg Vial IV 01/23/17 21:59 Q12HT BRINDA Sodium Chloride 1,000 mls @ 50 mls/hr 12/24/16 13:30 12/24/16 13:24 Sodium Chloride 0.9% 1000 Ml IV 01/23/17 13:29 50 mls/hr .Q20H BRNIDA Administration Ceftriaxone Sodium/Dextrose 1 g in 50 mls @ 100 mls/hr 12/25/16 10:00 Rocephin 1 Gm-D5w 50 Ml Bag IV 01/24/17 09:59 Q24H10 BRINDA Sodium Chloride 1,000 mls @ 50 mls/hr 12/24/16 15:00 Sodium Chloride 0.9% 1000 Ml IV 01/23/17 14:59 .Q20H BRINDA Methylprednisolone Sodium Succinate 80 mg 12/24/16 18:00 Solu-Medrol 125 Mg IV 01/23/17 17:59 Q6HT BRINDA Discontinued Medications Generic Name Dose Route Start Last Admin Trade Name Freq PRN Reason Stop Dose Admin Albuterol/Ipratropium 3 ml 12/24/16 13:51 12/24/16 13:57 Duoneb 0.5-3 Mg/3 Ml Neb IH 12/24/16 13:52 3 ml STAT ONE Administration Albuterol/Ipratropium Confirm 12/24/16 13:52 Duoneb 0.5-3 Mg/3 Ml Neb Administered 12/24/16 13:53 Dose 3 ml IH .STK-MED ONE Famotidine 20 mg 12/24/16 13:16 12/24/16 13:24 Pepcid 20 Mg Vial IV 12/24/16 13:17 20 mg STAT ONE Administration Famotidine Confirm 12/24/16 13:22 Pepcid 20 Mg Vial Administered 12/24/16 13:23 Dose 20 mg IV .STK-MED ONE Ceftriaxone Sodium/Dextrose 1 g in 50 mls @ 100 mls/hr 12/24/16 13:41 13:50 Rocephin 1 Gm-D5w 50 Ml Bag IV 12/24/16 14:10 100 mls/hr STAT ONE Administration Ceftriaxone Sodium/Dextrose Confirm 12/24/16 13:48 Rocephin 1 Gm-D5w 50 Ml Bag Administered 12/24/16 13:49 Dose 1 g in 50 mls @ ud IV .STK-MED ONE Methylprednisolone Sodium Succinate 125 mg 12/24/16 13:16 12/24/16 13:25 Solu-Medrol 125 Mg IV 12/24/16 13:17 125 mg STAT ONE Administration Methylprednisolone Sodium Succinate Confirm 12/24/16 13:22 Solu-Medrol 125 Mg Administered 12/24/16 13:23 Dose 125 mg .ROUTE .STK-MED ONE Lab/Rad Data: Laboratory Result Diagrams 12/24/16 13:15 12/24/16 13:15 Laboratory Results 12/24/16 12/24/16 12/24/16 Range/Units 13:30 13:15 13:15 WBC (4.0-10.5) K/mm3 RBC (4.1-5.4) M/mm3 Hgb (12.0-16.0) gm/dl Hct (35-47) % MCV (78-100) fl MCH (26-32) pg MCHC (32-36) g/dl RDW (11.5-14.0) % Plt Count (150-450) K/mm3 MPV (6-9.5) fl Segmented Neutrophils (36.0-66.0) % Band Neutrophils (0.0-2.0) % Lymphocytes (Manual) (24-44) % Monocytes (Manual) (0.0-12.0) % Differential Comment Platelet Estimate (NORMAL) Hypochromasia Anisocytosis Puncture Site RIGHT RADIAL pCO2 107 H* (35-45) mmHg pO2 57 L (75-100) mmHg Base Excess 22.9 H (-2.0-2.0) O2 Saturation 90.2 L (94-100) g/dF ABG pH 7.31 L (7.35-7.45) ABG HCO3 53.9 H* (22-28) ABG O2 Sat (Measured) 94.1 L (95-100) % Riki Test YES A-a Gradient 94 a/A Ratio 0.38 Hemoglobin 10.8 Carboxyhemoglobin 3.1 (0.0-6.9) % THgb Methemoglobin 1.1 L (1.4-1.5) % Temperature 37.0 C POC O2 Flow Rate 40 % Sodium 140 (136-145) mEq/L Potassium 4.5 4.3 (3.5-5.1) mEq/L Chloride 94 L (98-107) mEq/L Carbon Dioxide 48.7 H* (21-32) mEq/L BUN 14 (9-20) mg/dL Creatinine 0.46 L (0.55-1.30) mg/dl Estimated GFR > 60 ML/MIN Glucose 135 H (70-110) MG/DL Lactic Acid 0.7 (0.4-2.0) Calcium 9.6 (8.5-10.1) mg/dL Magnesium 1.7 L (1.8-2.4) mg/dL Total Bilirubin 0.50 (0.2-1.0) mg/dL AST 13 L (15-37) U/L ALT 11 L (12-78) U/L Alkaline Phosphatase 75 (46-116) U/L Troponin I < 0.017 (0.000-0.056) ng/ml NT-Pro-B Natriuret Pep 906 H (0-125) pg/ml Serum Total Protein 7.7 (6.4-8.2) gm/dL Albumin 3.2 L (3.4-5.0) g/dL 12/24/16 Range/Units 13:15 WBC 35.2 H* (4.0-10.5) K/mm3 RBC 3.81 L (4.1-5.4) M/mm3 Hgb 11.1 L (12.0-16.0) gm/dl Hct 39.3 (35-47) % MCV 103.1 H (78-100) fl MCH 29.1 (26-32) pg MCHC 28.2 L (32-36) g/dl RDW 13.9 (11.5-14.0) % Plt Count 287 (150-450) K/mm3 MPV 10.4 H (6-9.5) fl Segmented Neutrophils 85 H (36.0-66.0) % Band Neutrophils 4 H (0.0-2.0) % Lymphocytes (Manual) 5 L (24-44) % Monocytes (Manual) 6 (0.0-12.0) % Differential Comment ABNORMAL Platelet Estimate NORMAL (NORMAL) Hypochromasia RARE Anisocytosis 1+ Puncture Site pCO2 (35-45) mmHg pO2 (75-100) mmHg Base Excess (-2.0-2.0) O2 Saturation (94-100) g/dF ABG pH (7.35-7.45) ABG HCO3 (22-28) ABG O2 Sat (Measured) (95-100) % Riki Test A-a Gradient a/A Ratio Hemoglobin Carboxyhemoglobin (0.0-6.9) % THgb Methemoglobin (1.4-1.5) % Temperature C POC O2 Flow Rate % Sodium (136-145) mEq/L Potassium (3.5-5.1) mEq/L Chloride (98-107) mEq/L Carbon Dioxide (21-32) mEq/L BUN (9-20) mg/dL Creatinine (0.55-1.30) mg/dl Estimated GFR ML/MIN Glucose (70-110) MG/DL Lactic Acid (0.4-2.0) Calcium (8.5-10.1) mg/dL Magnesium (1.8-2.4) mg/dL Total Bilirubin (0.2-1.0) mg/dL AST (15-37) U/L ALT (12-78) U/L Alkaline Phosphatase (46-116) U/L Troponin I (0.000-0.056) ng/ml NT-Pro-B Natriuret Pep (0-125) pg/ml Serum Total Protein (6.4-8.2) gm/dL Albumin (3.4-5.0) g/dL reviewed - Progress Progress: re-examined Air Movement: fair, poor Progress Note: 12/24/16 13:25 ekg, cxr; ABG and labs ordered; we'll monitor and recheck 12/24/16 13:40 CXR shows new apical infiltrates and ABG shows increased CO2 retention and hypoxia; will start ATBs and bi-pap and recheck and plan on admission 12/24/16 13:45 Lactate 0.7; starting ATBs and duonebs with bipap 12/24/16 13:48 patient is a DNR at the [facility]; will discuss and assign according to current wishes 12/24/16 14:02 will admit to IN-patient status and consult LMD for admission 12/24/16 14:25 rechecked and much improved after being placed on bipap, giving a resp tx and meds; VS improved; labs pending; unable to do peak flows ; too weak 12/24/16 14:57 Dr Sams consulted and will admit; patient rechecked and improved on bipap and meds; Blood Culture(s) Obtained: Yes Antibiotics given: Yes Discussed with : Justin (consulted and will admit) Will see patient in: hospital (full admit) Counseled pt/family regarding: lab results, diagnosis, need for follow-up, rad results - Departure Time of Disposition: 14:58 Departure Disposition: In-patient Admission Clinical Impression: Respiratory failure, Pulmonary infiltrates on CXR, Chronic steroid use, Chronic hypercapnic respiratory failure Condition: Critical Critical Care Time: Yes Critical Care Time(excluding separately billable procedures): 30-74 minutes Referrals: SURAJ SAMS [Primary Care Provider] -
[2016-12-24] MEDS ORDERED: Sodium Chloride 0.9% 1000 ML 1,000 ML IV SCH ×2 (13:30→15:00)
--- NOTE | 2016-12-24 13:39 | XRAY ---
Indication: Short of breath. Comparison: November 25, 2016. Portable chest again hyperinflated with chronic lung markings and left base infiltrate/atelectasis/effusion. New patchy interstitial alveolar opacities in both upper lobes. Heart is not enlarged with stable left-sided pacemaker.
[2016-12-24] MEDS ORDERED: ROCEPHIN 1 Gm-D5w 50 ml Bag** 1 G/50 ML IVPB IV ONE ×2 (13:41→13:48)
[2016-12-24] MEDS ORDERED: DUONEB 0.5-3 MG/3 ml Neb IH ONE ×2 (13:51→13:52)
[2016-12-24 13:53] LABS: A-aADO2 94; ARTERIAL BLD GAS O2 SATURATION 94.1 % (95-100); ARTERIAL BLOOD GAS BASE EXCESS 22.9 (-2.0-2.0); ARTERIAL BLOOD GAS FIO2 40 %; ARTERIAL BLOOD GAS PO2 57 mmHg (75-100); ARTERIAL BLOOD GAS pH 7.31 (7.35-7.45); Lactic Acid 0.7 (0.4-2.0)
[2016-12-24 13:54] LABS: ALLEN TEST OK? YES
[2016-12-24 13:58] LABS: Mean Cell Volume 103.1 fl (78-100); Mean Corpuscular Hemoglobin 29.1 pg (26-32); Mean Platelet Volume 10.4 fl (6-9.5); Platelet Count 287 K/mm3 (150-450); Red Blood Count 3.81 M/mm3 (4.1-5.4); Red Cell Distribution Width 13.9 % (11.5-14.0)
[2016-12-24 14:29] LABS: ALBUMIN 3.2 g/dL (3.4-5.0); ALKALINE PHOSPHATASE 75 U/L (46-116); BLOOD UREA NITROGEN 14 mg/dL (9-20); CHLORIDE 94 mEq/L (98-107); Glucose 135 MG/DL (70-110); MAGNESIUM 1.7 mg/dL (1.8-2.4); Potassium 4.3 mEq/L (3.5-5.1); SGOT/AST 13 U/L (15-37); SGPT/ALT 11 U/L (12-78); SODIUM 140 mEq/L (136-145); Total Protein 7.7 gm/dL (6.4-8.2)
[2016-12-24 14:31] LABS: White Blood Count 35.2 K/mm3 (4.0-10.5)
[2016-12-24 14:34] LABS: BAND 4 % (0.0-2.0); Total Cells Counted 100
[2016-12-24 14:36] LABS: ANISOCYTOSIS 1+; Platelet Estimate NORMAL (NORMAL)
[2016-12-24 14:37] LABS: Carbon Dioxide 48.7 mEq/L (21-32); Hypochromia RARE
[2016-12-24] MEDS ORDERED: PROVENTIL 2.5 MG/3 ML NEB IH SCH (15:00)
[2016-12-24 16:40] LABS: A-aADO2 140; ALLEN TEST OK? YES; ARTERIAL BLD GAS O2 SATURATION 99.7 % (95-100); ARTERIAL BLOOD GAS BASE EXCESS 22.5 (-2.0-2.0); ARTERIAL BLOOD GAS FIO2 50 %; ARTERIAL BLOOD GAS PO2 94 mmHg (75-100); ARTERIAL BLOOD GAS pH 7.34 (7.35-7.45); BIPAP(E) 6; BIPAP(I) 14
[2016-12-24] MEDS ORDERED: PROVENTIL 2.5 MG/3 ML NEB IH ONE (17:06)
[2016-12-24] MEDS ORDERED: PROVENTIL 2.5 MG/3 ML NEB IH PRN (17:10)
[2016-12-24] MEDS ORDERED: TYLENOL 325 MG PO PRN (17:23)
[2016-12-24] MEDS ORDERED: SENOKOT 8.6 MG PO PRN (17:23)
[2016-12-24] MEDS: Ativan 1 MG PO SCH ×2 (17:29→23:58)
[2016-12-24] MEDS: solu-MEDROL 125 MG IV SCH ×2 (18:53→23:52)
[2016-12-24] MEDS: DUONEB 0.5-3 MG/3 ml Neb IH SCH ×2 (18:54→22:52)
--- NOTE | 2016-12-24 19:15 | PCM.HP ---
History of Present Illness - Chief Complaint Chief Complaint: Shortness of Breath Date: 12/24/16 History of Present Illness: is a 61 year old female. who now lives at [facility] with increased shortness of breath for the last 2 days. She was sent to the ED and found to have patchy pneumonia and started on steroids and bipap. she reports she still feels very short of breath but is breathing much more comfortably it appears and oxygenation improved on the bipap currently she is 98 % on 50% FiO2 with a RR of 22. - Review of Systems Constitutional: Chills, Fatigue, No Fever Eyes: No Symptoms Ears, Nose, & Throat: No Symptoms Respiratory: Cough, Short Of Breath Cardiac: Chest Pain, No Edema, No Syncope Abdominal/Gastrointestinal: No Abdominal Pain, No Nausea, No Vomiting, No Diarrhea Genitourinary Symptoms: No Dysuria Musculoskeletal: Back Pain, No Neck Pain Skin: No Rash Neurological: No Dizziness, No Focal Weakness, No Sensory Changes Psychological: No Symptoms Endocrine: No Symptoms Hematologic/Lymphatic: No Symptoms Immunological/Allergic: No Symptoms Medications & Allergies Home Medications: Home Medication List Donepezil HCl 5 mg PO HS 06/15/14 [History Confirmed 12/24/16] Magnesium Oxide 400 mg [Mag-Ox 400] 400 mg PO DAILY #30 tablet 03/03/15 [ Rx Confirmed 12/24/16] Albuterol/Ipratropium 3ml Neb* [DUONEB 0.5-3 MG/3 ml Neb] 3 ml IH Q4HPRN PRN 01/31/16 [History Confirmed 12/24/16] Lisinopril 5 mg [Zestril 5 MG] 10 mg PO DAILY #30 tablet 02/10/16 [Rx Confirmed 12/24/16] Ziprasidone HCl [Geodon] 40 mg PO HS #30 capsule 05/26/16 [Rx Confirmed 12/24/16 ] Acetaminophen [Tylenol] 650 mg PO Q4HPRN PRN 10/30/16 [History Confirmed ] Calcium Carbonate/Vitamin D3 [Calcium 600 + Vit D Tablet] 1 each PO 0800,1600 [History Confirmed 12/24/16] Docusate Sodium 100 mg [Colace 100 MG] 100 mg PO 0800,1600 10/30/16 [ History Confirmed 12/24/16] Ferrous Sulfate 325 mg [Feosol 325 mg] 325 mg PO QID 10/30/16 [History Confirmed 12/24/16] Metoprolol Tartrate 50 mg [Lopressor 50 MG] 50 mg PO 0800,1600 10/30/16 [ History Confirmed 12/24/16] Sennosides [Senna] 2 tab PO DAILY PRN PRN 10/30/16 [History Confirmed 12/24/16] Prednisone 10 mg [Deltasone 10 mg] 10 mg PO DAILY #60 tablet 11/18/16 [Rx Confirmed 12/24/16] Albuterol 2.5 mg/3 ml Neb [Proventil 2.5 mg/3 ml Neb] 2.5 mg IH Q4HPRN PRN 11/25/16 [History Confirmed 12/24/16] Albuterol 8 gm Mdi Hfa [Ventolin Hfa MDI] 1 puff IH Q6HPRN PRN 11/25/16 [ History Confirmed 12/24/16] Fluticasone/Salmeterol 115/21 [Advair Hfa 115/21 Common canister*] 2 puff IH BIDRT 11/25/16 [History Confirmed 12/24/16] Lorazepam 1 mg [Ativan 1 MG] 1 mg PO QIDPRN PRN #28 tablet 11/26/16 [Rx Confirmed 12/24/16] Fluoxetine HCl 20 mg [Prozac 20 MG] 20 mg DAILY 12/24/16 [History Confirmed 12/24/16] Hydrocodone/APAP 10/325 mg [[place] 10/325 MG Tablet] 1 tab PO 06,12,18,00 12/24/16 [History Confirmed 12/24/16] Allergies/Adverse Reactions: Allergies Allergy/AdvReac Type Severity Reaction Status Date / Time No Known Drug Allergies Allergy Verified 12/24/16 13:21 - Past Medical History Past Medical History: Yes Neurological History: Dementia ENT History: No Pertinent History Cardiac History: Congestive Heart Failure, Coronary Artery Disease, Hypertension Respiratory History: Asthma, Bronchitis, CHF, COPD, Pneumonia, Other Endocrine Medical History: No Pertinent History Musculoskelatal History: No Pertinent History GI Medical History: No Pertinent History History: No Pertinent History Pyscho-Social History: Depression Reproductive Disorders: No Pertinent History Comment: ... - Female History Hx Last Menstrual Period: post Are you now?: No - Past Surgical History Past Surgical History: Yes Neuro Surgical History: No Pertinent History Cardiac History: Pacemaker Respiratory Surgery: No Pertinent History GI Surgical History: Bowel Surgery Genitourinary Surgical Hx: No Pertinent History Musculskeletal Surgical Hx: Amputation Female Surgical History: No Pertinent History Other Surgical History: sinus surgery in 80's,finger amp, bowel surg. - Social History Smoking Status: Current every day smoker How long have you smoked: 40 Exposure to second hand smoke: Yes Alcohol: None Drug Use: none Significant Family History: no pertinent family hx - Physical Exam Vital Signs: Vital Signs - 24 hr Temp Pulse Resp BP Pulse Ox 12/24/16 18:54 78 24 92 L 12/24/16 17:48 97 12/24/16 17:10 76 22 95 12/24/16 16:18 98.0 F 82 22 139/69 93 L 12/24/16 16:11 82 22 93 L 12/24/16 15:38 78 22 139/69 97 12/24/16 15:03 88 L 12/24/16 14:50 77 20 137/73 96 12/24/16 14:28 88 22 138/69 94 L 12/24/16 14:00 85 20 96 12/24/16 13:56 82 20 128/64 96 12/24/16 13:34 84 22 121/60 91 L 12/24/16 13:26 88 L 12/24/16 13:19 32 H 88 L 12/24/16 13:07 98.0 F 92 H 32 H 137/76 88 L Oxygen-Last 24 hours O2 Percentage 100% O2 Percentage 4 Liters = 36% O2 Percentage 50% O2 Percentage 5 Liters = 40% O2 Percentage 5 Liters = 40% O2 Percentage 3 Liters = 32% General Appearance: no apparent distress (she was resting comfortably sleeping easily arouses and answers questions appropriate but is very anxious also and tearful), anxiety, thin Eye Exam: pale conjunctivae, No scleral icterus Ears, Nose, Throat Exam: dry mucous membranes Neck Exam: non-tender, supple Respiratory Exam: diminished breath sounds, prolonged expirations, crackles/ rales Cardiovascular Exam: regular rate/rhythm, No edema Gastrointestinal/Abdomen Exam: soft, normal bowel sounds, No tenderness, No distention Extremity Exam: deformities (severe RA changes worst in hands javi), No inflammation, No joint swelling, No tenderness Skin Exam: warm, dry Results - Labs Lab/Micro Results: Lab Results-Last 24 Hours 12/24/16 12/24/16 Range/Units 16:35 17:10 Puncture Site LEFT RADIAL pCO2 98 H* (35-45) mmHg pO2 94 (75-100) mmHg Base Excess 22.5 H (-2.0-2.0) O2 Saturation 95.1 (94-100) g/dF ABG pH 7.34 L (7.35-7.45) ABG HCO3 52.9 H* (22-28) ABG O2 Sat (Measured) 99.7 (95-100) % Riki Test YES A-a Gradient 140 a/A Ratio 0.40 Hemoglobin 11.1 Carboxyhemoglobin 3.3 (0.0-6.9) % THgb Methemoglobin 1.3 L (1.4-1.5) % Potassium 4.9 (3.5-5.1) Temperature 37.0 C POC O2 Flow Rate 50 % Vent Mode BiPAP Inspiratory BiPAP 14 Expiratory BiPAP 6 Troponin I < 0.017 (0.000-0.056) ng/ml - Other Procedures and Tests Respiratory Therapy 12/24/16 14:59 Respiratory Nebulizer 1900,2300,0300,0700,1100,1500 12/24/16 16:09 BiPap/CPAP Assessment 12/24/16 17:10 Respiratory Nebulizer UD 12/24/16 19:00 Respiratory MDI BID Assessment/Plan (1) Pneumonia Current Visit: Yes Status: Acute Assessment & Plan: continue rocephin/azithromycin continue bipap wean FiO2 as tolerated ok to remove for drinking gentle hydration at 50/h repeat am labs steroids iv solumedrol and nebs monitor cultures Code(s): J18.9 - PNEUMONIA, UNSPECIFIED ORGANISM (2) COPD (chronic obstructive pulmonary disease) Current Visit: Yes Status: Acute (3) Chronic hypercapnic respiratory failure Current Visit: Yes Status: Chronic (4) Anemia Current Visit: Yes Status: Chronic Qualifiers: Code(s): D64.9 - ANEMIA, UNSPECIFIED (5) Hypertension Current Visit: Yes Status: Chronic Code(s): I10 - ESSENTIAL (PRIMARY) HYPERTENSION (6) Depressive disorder Current Visit: Yes Status: Chronic Code(s): F32.9 - MAJOR DEPRESSIVE DISORDER, SINGLE EPISODE, UNSPECIFIED (7) CHF (congestive heart failure) Current Visit: Yes Status: Chronic Qualifiers: Congestive heart failure type: diastolic Congestive heart failure chronicity: chronic Qualified Code(s): I50.32 - Chronic diastolic (congestive ) heart failure Code(s): I50.9 - HEART FAILURE, UNSPECIFIED (8) Chronic steroid use Current Visit: Yes Status: Chronic Code(s): [id number] - (9) Rheumatoid arthritis Current Visit: Yes Status: Chronic Code(s): M06.9 - RHEUMATOID ARTHRITIS, UNSPECIFIED (10) Dementia Current Visit: Yes Status: Chronic Qualifiers: Dementia type: Alzheimer's disease Code(s): F03.90 - UNSPECIFIED DEMENTIA WITHOUT BEHAVIORAL DISTURBANCE
[2016-12-24] MEDS: Pepcid 20 MG VIAL IV SCH (21:09)
[2016-12-24] MEDS: Geodon 20 MG Capsule PO SCH (21:10)
[2016-12-24] MEDS: Aricept 10 MG PO SCH (21:12)
[2016-12-24] MEDS: FEOSOL 325 MG PO SCH (21:13)
[2016-12-24] MEDS ORDERED: NON-FORMULARY ITEM (Donepezil Hcl [Donepezil Hcl] 5 MG) PO SCH (22:00)
[2016-12-24] MEDS ORDERED: ZIPRASIDONE HCL 40 MG PO SCH (22:00)
[2016-12-24] MEDS: Advair Hfa 115/21 Common canister IH SCH (23:00)
[2016-12-25] MEDS: DUONEB 0.5-3 MG/3 ml Neb IH SCH ×6 (02:55→23:40)
[2016-12-25 05:31] LABS: Mean Cell Volume 102.9 fl (78-100); Mean Corpuscular Hemoglobin 28.7 pg (26-32); Mean Platelet Volume 9.9 fl (6-9.5); Platelet Count 220 K/mm3 (150-450); Red Blood Count 3.41 M/mm3 (4.1-5.4); Red Cell Distribution Width 13.8 % (11.5-14.0); White Blood Count 19.3 K/mm3 (4.0-10.5)
[2016-12-25] MEDS: solu-MEDROL 125 MG IV SCH (05:37)
[2016-12-25] MEDS: Ativan 1 MG PO SCH ×3 (05:37→18:22)
[2016-12-25 05:44] LABS: Glucose 173 MG/DL (70-110); Potassium 4.9 mEq/L (3.5-5.1)
[2016-12-25 05:53] LABS: BLOOD UREA NITROGEN 18 mg/dL (9-20); CHLORIDE 94 mEq/L (98-107); SODIUM 141 mEq/L (136-145)
[2016-12-25 06:02] LABS: Carbon Dioxide 51.1 mEq/L (21-32)
--- NOTE | 2016-12-25 06:39 | PCM.NOTE ---
Date and Time: 12/25/16636 Subjective Assessment: sleeping last night well rested she awakens this am she is not sure if she is feeling much better yet or not still using bipap all night she denies chest pain, abd pain, nausea Objective Exam General Appearance: no apparent distress, anxiety Neurologic Exam: alert, oriented x 3, cooperative, No motor deficits Skin Exam: warm, dry, pale Eye Exam: PERRL, EOMI, eyes nml inspection, pale conjunctivae Ears, Nose, Throat Exam: normal ENT inspection, pharynx normal, dry mucous membranes Neck Exam: normal inspection, non-tender, supple, full range of motion Respiratory Exam: crackles/rales Cardiovascular Exam: regular rate/rhythm, normal heart sounds Gastrointestinal/Abdomen Exam: soft, No tenderness, No mass Extremity Exam: other (Severe RA changes worse in hands) Back Exam: normal inspection, normal range of motion, No CVA tenderness, No vertebral tenderness Pelvic Exam: deferred Rectal Exam: deferred OBJECTIVE DATA Vital Signs: Vital Signs - 24 hr Temp Pulse Resp BP Pulse Ox 12/25/16 04:00 96.8 F 94 H 24 146/69 98 12/25/16 02:55 75 22 98 12/25/16 02:00 15 12/25/16 00:00 96.4 F 93 H 28 H 175/77 92 L 12/24/16 22:53 79 21 96 12/24/16 19:52 98.3 F 79 24 124/55 92 L 12/24/16 18:54 78 24 92 L 12/24/16 17:48 97 12/24/16 17:10 76 22 95 12/24/16 16:18 98.0 F 82 22 139/69 93 L 12/24/16 16:11 82 22 93 L 12/24/16 15:38 78 22 139/69 97 12/24/16 15:03 88 L 12/24/16 14:50 77 20 137/73 96 12/24/16 14:28 88 22 138/69 94 L 12/24/16 14:00 85 20 96 12/24/16 13:56 82 20 128/64 96 12/24/16 13:34 84 22 121/60 91 L 12/24/16 13:26 88 L 12/24/16 13:19 32 H 88 L 12/24/16 13:07 98.0 F 92 H 32 H 137/76 88 L Oxygen-Last 24 hours O2 Percentage 31% O2 Percentage 50% O2 Percentage 100% O2 Percentage 4 Liters = 36% O2 Percentage 50% O2 Percentage 5 Liters = 40% O2 Percentage 5 Liters = 40% O2 Percentage 3 Liters = 32% Pain Assessment - Last Documented Pain Intensity 0 Pain Scale Used 0-10 Pain Scale Intake and Output: Intake & Output 12/22/16 12/23/16 12/24/16 12/25/16 11:59 11:59 11:59 11:59 Intake Total 687 Output Total 400 Balance 287 Weight 51.256 kg Lab Results: Lab Results-Last 24 Hours 12/24/16 12/24/16 12/25/16 Range/Units 16:35 17:10 05:08 WBC 19.3 H (4.0-10.5) K/mm3 RBC 3.41 L (4.1-5.4) M/mm3 Hgb 9.8 L (12.0-16.0) gm/dl Hct 35.1 (35-47) % MCV 102.9 H (78-100) fl MCH 28.7 (26-32) pg MCHC 27.9 L (32-36) g/dl RDW 13.8 (11.5-14.0) % Plt Count 220 (150-450) K/mm3 MPV 9.9 H (6-9.5) fl Puncture Site LEFT RADIAL pCO2 98 H* (35-45) mmHg pO2 94 (75-100) mmHg Base Excess 22.5 H (-2.0-2.0) O2 Saturation 95.1 (94-100) g/dF ABG pH 7.34 L (7.35-7.45) ABG HCO3 52.9 H* (22-28) ABG O2 Sat (Measured) 99.7 (95-100) % Riki Test YES A-a Gradient 140 a/A Ratio 0.40 Hemoglobin 11.1 Carboxyhemoglobin 3.3 (0.0-6.9) % THgb Methemoglobin 1.3 L (1.4-1.5) % Potassium 4.9 (3.5-5.1) Temperature 37.0 C POC O2 Flow Rate 50 % Vent Mode BiPAP Inspiratory BiPAP 14 Expiratory BiPAP 6 Sodium (136-145) mEq/L Chloride (98-107) mEq/L Carbon Dioxide (21-32) mEq/L Anion Gap BUN (9-20) mg/dL Creatinine (0.55-1.30) mg/dl Estimated GFR ML/MIN Glucose (70-110) MG/DL Calcium (8.5-10.1) mg/dL Troponin I < 0.017 (0.000-0.056) ng/ml 12/25/16 Range/Units 05:08 WBC (4.0-10.5) K/mm3 RBC (4.1-5.4) M/mm3 Hgb (12.0-16.0) gm/dl Hct (35-47) % MCV (78-100) fl MCH (26-32) pg MCHC (32-36) g/dl RDW (11.5-14.0) % Plt Count (150-450) K/mm3 MPV (6-9.5) fl Puncture Site pCO2 (35-45) mmHg pO2 (75-100) mmHg Base Excess (-2.0-2.0) O2 Saturation (94-100) g/dF ABG pH (7.35-7.45) ABG HCO3 (22-28) ABG O2 Sat (Measured) (95-100) % Riki Test A-a Gradient a/A Ratio Hemoglobin Carboxyhemoglobin (0.0-6.9) % THgb Methemoglobin (1.4-1.5) % Potassium 4.9 (3.5-5.1) Temperature C POC O2 Flow Rate % Vent Mode Inspiratory BiPAP Expiratory BiPAP Sodium 141 (136-145) mEq/L Chloride 94 L (98-107) mEq/L Carbon Dioxide 51.1 H* (21-32) mEq/L Anion Gap Not Reportable BUN 18 (9-20) mg/dL Creatinine 0.51 L (0.55-1.30) mg/dl Estimated GFR > 60 ML/MIN Glucose 173 H (70-110) MG/DL Calcium 9.1 (8.5-10.1) mg/dL Troponin I (0.000-0.056) ng/ml Assessment/Plan (1) Pneumonia Current Visit: Yes Status: Acute Assessment & Plan: continue ceftriaxone + azithromycin stop iv fluids encourage po wean iv steroids wean bipap as tolerated currently 98% on 50% FiO2 Code(s): J18.9 - PNEUMONIA, UNSPECIFIED ORGANISM (2) COPD (chronic obstructive pulmonary disease) Current Visit: Yes Status: Acute (3) Chronic hypercapnic respiratory failure Current Visit: Yes Status: Chronic (4) Anemia Current Visit: Yes Status: Chronic Qualifiers: Code(s): D64.9 - ANEMIA, UNSPECIFIED (5) Hypertension Current Visit: Yes Status: Chronic Code(s): I10 - ESSENTIAL (PRIMARY) HYPERTENSION (6) Depressive disorder Current Visit: Yes Status: Chronic Code(s): F32.9 - MAJOR DEPRESSIVE DISORDER, SINGLE EPISODE, UNSPECIFIED (7) CHF (congestive heart failure) Current Visit: Yes Status: Chronic Qualifiers: Congestive heart failure type: diastolic Congestive heart failure chronicity: chronic Qualified Code(s): I50.32 - Chronic diastolic (congestive ) heart failure Code(s): I50.9 - HEART FAILURE, UNSPECIFIED (8) Chronic steroid use Current Visit: Yes Status: Chronic Code(s): [id number] - (9) Rheumatoid arthritis Current Visit: Yes Status: Chronic Code(s): M06.9 - RHEUMATOID ARTHRITIS, UNSPECIFIED (10) Dementia Current Visit: Yes Status: Chronic Qualifiers: Dementia type: Alzheimer's disease Code(s): F03.90 - UNSPECIFIED DEMENTIA WITHOUT BEHAVIORAL DISTURBANCE
[2016-12-25 07:18] LABS: BAND 5 % (0.0-2.0); Hypochromia 2+; Platelet Estimate NORMAL (NORMAL); Poikilocytosis 1+; Total Cells Counted 100
[2016-12-25] MEDS ORDERED: VITAMIN D3 PO SCH (08:00)
[2016-12-25] MEDS ORDERED: CALCIUM CARBONATE PO SCH (08:00)
[2016-12-25] MEDS ORDERED: Zestril 5 MG PO SCH (10:00)
[2016-12-25] MEDS: ROCEPHIN 1 Gm-D5w 50 ml Bag** 1 G/50 ML IVPB IV SCH (10:04)
[2016-12-25] MEDS: Zestril 10 MG PO SCH (10:05)
[2016-12-25] MEDS: Prozac 20 MG PO SCH (10:05)
[2016-12-25] MEDS: Calcium 500MG W/Vit D Tablet PO SCH ×2 (10:05→15:56)
[2016-12-25] MEDS: FEOSOL 325 MG PO SCH ×4 (10:05→21:23)
[2016-12-25] MEDS: Lopressor 50 MG PO SCH ×2 (10:05→15:56)
[2016-12-25] MEDS: MAG-OX 400 PO SCH (10:05)
[2016-12-25] MEDS: Pepcid 20 MG VIAL IV SCH ×2 (10:06→21:24)
[2016-12-25] MEDS: Norco 10/325 MG Tablet PO PRN ×3 (10:06→21:23)
[2016-12-25] MEDS: Colace 100 MG PO SCH ×2 (10:06→15:57)
[2016-12-25] MEDS: ENOXAPARIN SODIUM SQ SCH (10:07)
[2016-12-25] MEDS: Zithromax 500 MG/ 250 ML NaCl Premix 500 MG/250 ML IVPB IV SCH (11:14)
[2016-12-25] MEDS: Advair Hfa 115/21 Common canister IH SCH ×2 (11:39→19:01)
[2016-12-25] MEDS: solu-MEDROL 40 MG IV SCH ×2 (12:30→18:23)
[2016-12-25] MEDS: Geodon 20 MG Capsule PO SCH (21:22)
[2016-12-25] MEDS: Aricept 10 MG PO SCH (21:23)
[2016-12-26] MEDS: solu-MEDROL 40 MG IV SCH ×2 (00:10→05:28)
[2016-12-26] MEDS: Ativan 1 MG PO SCH ×5 (00:10→23:55)
[2016-12-26] MEDS: DUONEB 0.5-3 MG/3 ml Neb IH SCH ×6 (03:04→23:05)
[2016-12-26 05:36] LABS: Mean Cell Volume 102.7 fl (78-100); Mean Corpuscular Hemoglobin 28.8 pg (26-32); Mean Platelet Volume 9.9 fl (6-9.5); Platelet Count 206 K/mm3 (150-450); Red Blood Count 2.95 M/mm3 (4.1-5.4); Red Cell Distribution Width 13.9 % (11.5-14.0); White Blood Count 14.6 K/mm3 (4.0-10.5)
[2016-12-26 05:46] LABS: BLOOD UREA NITROGEN 19 mg/dL (9-20); CHLORIDE 96 mEq/L (98-107); Glucose 184 MG/DL (70-110); Potassium 4.6 mEq/L (3.5-5.1); SODIUM 139 mEq/L (136-145)
[2016-12-26 06:03] LABS: Carbon Dioxide > 45 mEq/L (21-32)
[2016-12-26] MEDS: Advair Hfa 115/21 Common canister IH SCH ×2 (06:45→19:37)
[2016-12-26] MEDS: Colace 100 MG PO SCH ×2 (07:51→16:06)
[2016-12-26] MEDS: ROCEPHIN 1 Gm-D5w 50 ml Bag** 1 G/50 ML IVPB IV SCH (07:51)
[2016-12-26] MEDS: Zithromax 500 MG/ 250 ML NaCl Premix 500 MG/250 ML IVPB IV SCH (07:51)
[2016-12-26] MEDS: MAG-OX 400 PO SCH (07:51)
[2016-12-26] MEDS: Zestril 10 MG PO SCH (07:52)
[2016-12-26] MEDS: Prozac 20 MG PO SCH (07:52)
[2016-12-26] MEDS: Pepcid 20 MG VIAL IV SCH ×2 (07:52→21:32)
[2016-12-26] MEDS: Calcium 500MG W/Vit D Tablet PO SCH ×2 (07:52→16:06)
[2016-12-26] MEDS: FEOSOL 325 MG PO SCH ×4 (07:52→21:30)
[2016-12-26] MEDS: ENOXAPARIN SODIUM SQ SCH (07:52)
[2016-12-26] MEDS: Lopressor 50 MG PO SCH ×2 (08:02→16:06)
[2016-12-26] MEDS: Norco 10/325 MG Tablet PO PRN ×2 (08:02→17:33)
--- NOTE | 2016-12-26 08:32 | PCM.NOTE ---
Date and Time: 12/26/16828 Subjective Assessment: improving eating some now today no nausea she is still worried about her breathing but appears much more comfortable and less anxious denies chest pain or abd pain no diarrhea Objective Exam General Appearance: no apparent distress, anxiety Neurologic Exam: alert, oriented x 3, cooperative Skin Exam: warm, dry, pale Ears, Nose, Throat Exam: moist mucous membranes Neck Exam: non-tender, supple Respiratory Exam: prolonged expirations, crackles/rales, rhonchi, wheezing Cardiovascular Exam: regular rate/rhythm Gastrointestinal/Abdomen Exam: soft, normal bowel sounds, No tenderness, No distention Extremity Exam: normal inspection, No calf tenderness, No pedal edema OBJECTIVE DATA Vital Signs: Vital Signs - 24 hr Temp Pulse Resp BP Pulse Ox 12/26/16 07:43 97.9 F 80 16 137/66 98 12/26/16 07:00 77 20 99 12/26/16 04:00 97.2 F 77 22 133/61 97 12/26/16 03:00 77 20 97 12/26/16 00:00 98.6 F 97 H 24 158/70 90 L 12/25/16 23:54 28 H 12/25/16 23:00 82 24 90 L 12/25/16 19:53 18 12/25/16 19:44 98.3 F 88 18 139/60 92 L 12/25/16 19:07 85 22 93 L 12/25/16 19:00 85 22 93 L 12/25/16 17:56 90 L 12/25/16 16:00 97.9 F 84 20 136/68 94 L 12/25/16 15:57 20 12/25/16 15:00 88 20 93 L 12/25/16 12:11 97.8 F 89 20 132/78 94 L 12/25/16 11:41 20 12/25/16 11:00 74 20 95 Oxygen-Last 24 hours O2 Percentage 4 Liters = 36% O2 Percentage 4 Liters = 36% O2 Percentage 5 Liters = 40% O2 Percentage 6 Liters = 44% Pain Assessment - Last Documented Pain Intensity 6 Pain Scale Used [facility] Intake and Output: Intake & Output 12/23/16 12/24/16 12/25/16 12/26/16 11:59 11:59 11:59 11:59 Intake Total 807 1552 Output Total 400 1300 Balance 407 252 Weight 51.619 kg 52.118 kg Lab Results: Lab Results-Last 24 Hours 12/26/16 12/26/16 Range/Units 05:15 05:15 WBC 14.6 H (4.0-10.5) K/mm3 RBC 2.95 L (4.1-5.4) M/mm3 Hgb 8.5 L (12.0-16.0) gm/dl Hct 30.3 L (35-47) % MCV 102.7 H (78-100) fl MCH 28.8 (26-32) pg MCHC 28.1 L (32-36) g/dl RDW 13.9 (11.5-14.0) % Plt Count 206 (150-450) K/mm3 MPV 9.9 H (6-9.5) fl Sodium 139 (136-145) mEq/L Potassium 4.6 (3.5-5.1) mEq/L Chloride 96 L (98-107) mEq/L Carbon Dioxide > 45 H* (21-32) mEq/L BUN 19 (9-20) mg/dL Creatinine 0.42 L (0.55-1.30) mg/dl Estimated GFR > 60 ML/MIN Glucose 184 H (70-110) MG/DL Calcium 8.7 (8.5-10.1) mg/dL Magnesium 2.0 (1.8-2.4) mg/dL Multi-Disciplinary Progress Notes: Multi-Disciplinary Progress Notes 12/25/16 10:00 (created 12/25/16 14:53) Case Management Note by Em Vuong DISCHARGE PLAN REVIEWED, PLANS TO RETURN TO [facility] ON DISCHARGE TO COMPLETE REHAB STAY. DECLINED ADD NEEDS AT PRESENT. REPORTS THAT SHE IS NOT FEELING UP TO TALKING AT THIS TIME. THIS PT IS WELL KNOWN TO [employer], SHE HAS USED HOME OXYGEN THAT [facility] PROVIDES AND HAS HAD [facility] IN THE PAST, LIVES WITH DAUGHTER, LEILA AND GRANDCHILDREN. WILL CONTINUE TO FOLLOW FOR ALL DC NEEDS. Initialized on 12/25/16 14:53 - END OF NOTE Assessment/Plan (1) Pneumonia Current Visit: Yes Status: Acute Assessment & Plan: will continue the rocephin wean the steroid if continues to improve hopeful for back to [place] tomorrow. Code(s): J18.9 - PNEUMONIA, UNSPECIFIED ORGANISM (2) COPD (chronic obstructive pulmonary disease) Current Visit: Yes Status: Acute (3) Chronic hypercapnic respiratory failure Current Visit: Yes Status: Chronic (4) Anemia Current Visit: Yes Status: Chronic Qualifiers: Code(s): D64.9 - ANEMIA, UNSPECIFIED (5) Hypertension Current Visit: Yes Status: Chronic Code(s): I10 - ESSENTIAL (PRIMARY) HYPERTENSION (6) Depressive disorder Current Visit: Yes Status: Chronic Code(s): F32.9 - MAJOR DEPRESSIVE DISORDER, SINGLE EPISODE, UNSPECIFIED (7) CHF (congestive heart failure) Current Visit: Yes Status: Chronic Qualifiers: Congestive heart failure type: diastolic Congestive heart failure chronicity: chronic Qualified Code(s): I50.32 - Chronic diastolic (congestive ) heart failure Code(s): I50.9 - HEART FAILURE, UNSPECIFIED (8) Chronic steroid use Current Visit: Yes Status: Chronic Code(s): [id number] - (9) Rheumatoid arthritis Current Visit: Yes Status: Chronic Code(s): M06.9 - RHEUMATOID ARTHRITIS, UNSPECIFIED (10) Dementia Current Visit: Yes Status: Chronic Qualifiers: Dementia type: Alzheimer's disease Code(s): F03.90 - UNSPECIFIED DEMENTIA WITHOUT BEHAVIORAL DISTURBANCE
[2016-12-26] MEDS: DELTASONE 20 MG PO SCH (11:49)
[2016-12-26] MEDS ORDERED: ZOFRAN ODT 4 MG PO PRN (14:36)
[2016-12-26] MEDS: Aricept 10 MG PO SCH (21:30)
[2016-12-26] MEDS: Geodon 20 MG Capsule PO SCH (21:31)
[2016-12-27] MEDS: DUONEB 0.5-3 MG/3 ml Neb IH SCH ×3 (06:16→10:50)
[2016-12-27] MEDS: Ativan 1 MG PO SCH ×2 (06:22→09:13)
[2016-12-27] MEDS: Advair Hfa 115/21 Common canister IH SCH (06:50)
[2016-12-27] MEDS: Colace 100 MG PO SCH (09:12)
[2016-12-27] MEDS: DELTASONE 20 MG PO SCH (09:12)
[2016-12-27] MEDS: MAG-OX 400 PO SCH (09:12)
[2016-12-27] MEDS: Prozac 20 MG PO SCH (09:13)
[2016-12-27] MEDS: Lopressor 50 MG PO SCH (09:13)
[2016-12-27] MEDS: Pepcid 20 MG VIAL IV SCH (09:13)
[2016-12-27] MEDS: Calcium 500MG W/Vit D Tablet PO SCH (09:13)
[2016-12-27] MEDS: ENOXAPARIN SODIUM SQ SCH (09:13)
[2016-12-27] MEDS: ROCEPHIN 1 Gm-D5w 50 ml Bag** 1 G/50 ML IVPB IV SCH (09:13)
[2016-12-27] MEDS: FEOSOL 325 MG PO SCH (09:13)
[2016-12-27] MEDS: Norco 10/325 MG Tablet PO PRN (09:14)
[2016-12-27] MEDS: Zestril 10 MG PO SCH (09:14)
--- NOTE | 2016-12-27 09:27 | PCM.DS ---
Discharge Summary Date of Admission: 12/24/16 15:43 Date of Discharge: 12/27/2016 Admitting Physician: SURAJ SAMS Primary Care Provider: SURAJ SAMS Allergies Allergies No Known Drug Allergies Allergy (Verified 12/24/16 13:21) Hospital Summary - Hospital Course Hospital Course: She presented from [place] with acute copd exacerbation and acute on chronic hypercapneic respiratory failure requiring bipap therapy. She was found to have patchy pnuemonia as well. She was treated with Rocephin and azithromycin and iv steroids with duonebs and her breathing gradually improved and the steroid dose was able to be weaned and tolerated po prednisone the day prior to discharge. She remained afebrile and was eating well and oxygen requirements were decreasing as well. She remained very nervous and paranoid at times which is one of her reasons she is on the geodon which was continued. Her anemia is chronic and typically drops significantly on admission as it did this time as well there was no evidence of ongoing blood loss. - Vitals & Intake/Output Vital Signs: Vital Signs Temperature 97.7 F 12/27/16 06:51 Pulse Rate 99 H 12/27/16 07:00 Respiratory Rate 20 12/27/16 07:00 Blood Pressure 163/71 12/27/16 06:51 O2 Sat by Pulse Oximetry 92 L 12/27/16 07:00 Oxygen-Last Documented O2 Percentage 4 Liters = 36% Intake & Output: Intake & Output 12/24/16 12/25/16 12/26/16 12/27/16 11:59 11:59 11:59 11:59 Intake Total 807 1792 1380 Output Total 400 1800 1000 Balance 407 -8 380 Weight 51.619 kg 52.118 kg 56.954 kg - Lab Result Diagrams: 12/26/16 05:15 12/26/16 05:15 Micro Results-Entire Visit: Microbiology 12/26/16 09:39 Gram Stain - Final Sputum - Expectorant - Procedures and Test Procedures and Tests throughout Hospitalization: Therapy Orders & Screens 12/24/16 14:59 Respiratory Nebulizer 1900,2300,0300,0700,1100,1500 Comment: Diagnosis: Shortness of Breath Respiratory Therapy Consult ROUTINE Comment: Reason For Exam: Diagnosis: Shortness of Breath 12/24/16 16:09 BiPap/CPAP Assessment Comment: 14/6 - 50% Diagnosis: Shortness of Breath 12/24/16 16:47 RT Screen per Nursing Assess ONCE Comment: Protocol Order Physician Instructions: Greater than 3 points order RT Admission Screen Reason For Exam: Triggered on Admission Diagnosis: Shortness of Breath Diagnosis: Shortness of Breath Pneumonia: Yes Home O2: Yes Asthma: No CHF: Yes Home CPAP/BIPAP: Yes Home Nebs/MDI: Yes Total Points: 21 12/24/16 17:10 Respiratory Nebulizer UD Comment: albuterol q2prn Diagnosis: Shortness of Breath 12/24/16 19:00 Respiratory MDI BID Comment: ADVAIR 115/ BID Diagnosis: Shortness of Breath Discharge Exam General Appearance: no apparent distress, anxiety Neurologic Exam: alert, oriented x 3, cooperative Skin Exam: warm, dry Eye Exam: pale conjunctivae Ears, Nose, Throat Exam: moist mucous membranes Neck Exam: non-tender, supple Respiratory Exam: prolonged expirations, crackles/rales, wheezing Cardiovascular Exam: regular rate/rhythm, normal heart sounds, No murmur Gastrointestinal/Abdomen Exam: normal bowel sounds, No tenderness, No distention , No mass Extremity Exam: normal inspection, No calf tenderness, No pedal edema Final Diagnosis/Problem List - Final Discharge Diagnosis/Problem (1) Pneumonia Current Visit: Yes Status: Acute (2) COPD (chronic obstructive pulmonary disease) Current Visit: Yes Status: Acute (3) Chronic hypercapnic respiratory failure Current Visit: Yes Status: Chronic (4) Anemia Current Visit: Yes Status: Chronic (5) Hypertension Current Visit: Yes Status: Chronic (6) Depressive disorder Current Visit: Yes Status: Chronic (7) CHF (congestive heart failure) Current Visit: Yes Status: Chronic (8) Chronic steroid use Current Visit: Yes Status: Chronic (9) Rheumatoid arthritis Current Visit: Yes Status: Chronic (10) Dementia Current Visit: Yes Status: Chronic - Discharge Discharge Date: 12/27/16 Disposition: Skilled Care @ [facility] Condition: Fair Prescriptions: New Lisinopril 10 mg [Zestril 10 MG] 10 mg PO DAILY tablet Cefdinir 300 mg [Omnicef 300 mg] 300 mg PO BID 5 Days capsule Prednisone 10 mg [Deltasone 10 mg] 10 mg PO DAILY #60 tablet Continue Donepezil HCl 5 mg PO HS Magnesium Oxide 400 mg [Mag-Ox 400] 400 mg PO DAILY #30 tablet Albuterol/Ipratropium 3ml Neb* [DUONEB 0.5-3 MG/3 ml Neb] 3 ml IH Q4HPRN PRN PRN Reason: Shortness Of Breath Ziprasidone HCl [Geodon] 40 mg PO HS #30 capsule Acetaminophen [Tylenol] 650 mg PO Q4HPRN PRN PRN Reason: Pain Sennosides [Senna] 2 tab PO DAILY PRN PRN PRN Reason: Constipation Calcium Carbonate/Vitamin D3 [Calcium 600 + Vit D Tablet] 1 each PO 0800,1600 Metoprolol Tartrate 50 mg [Lopressor 50 MG] 50 mg PO 0800,1600 Docusate Sodium 100 mg [Colace 100 MG] 100 mg PO 0800,1600 Ferrous Sulfate 325 mg [Feosol 325 mg] 325 mg PO QID Albuterol 2.5 mg/3 ml Neb [Proventil 2.5 mg/3 ml Neb] 2.5 mg IH Q4HPRN PRN PRN Reason: Shortness Of Breath/Wheezing Fluticasone/Salmeterol 115/21 [Advair Hfa 115/21 Common canister*] 2 puff IH BIDRT Albuterol 8 gm Mdi Hfa [Ventolin Hfa MDI] 1 puff IH Q6HPRN PRN PRN Reason: Shortness Of Breath/Wheezing Lorazepam 1 mg [Ativan 1 MG] 1 mg PO QIDPRN PRN #28 tablet PRN Reason: Anxiety Fluoxetine HCl 20 mg [Prozac 20 MG] 20 mg DAILY Hydrocodone/APAP 10/325 mg [[place] 10/325 MG Tablet] 1 tab PO 06,12,18, 00 Discontinued Lisinopril 5 mg [Zestril 5 MG] 10 mg PO DAILY #30 tablet Forms: Patient Portal Information
[2016-12-27 11:13] VITALS: BP 146/67; PULSE 72; O2SAT 97
== END 2016-12-27 12:17 | DRG 194 ==
LOC: ED 13:05 → MED SURG 15:43
PROVIDERS: ADMIT Family Medicine; ATTEND Family Medicine
DX: J18.9 Pneumonia, unspecified organism (principal); J96.12 Chronic respiratory failure with hypercapnia; I50.32 Chronic diastolic (congestive) heart failure; J44.9 Chronic obstructive pulmonary disease, unspecified; D64.9 Anemia, unspecified; I10 Essential (primary) hypertension; F32.9 Major depressive disorder, single episode, unspecified; F03.90 Unspecified dementia, unspecified severity, without behavioral disturbance, psychotic disturbance, mood disturbance, and anxiety; I25.10 Atherosclerotic heart disease of native coronary artery without angina pectoris; Z72.0 Tobacco use; Z79.52 Long term (current) use of systemic steroids; Z79.899 Other long term (current) drug therapy; M06.9 Rheumatoid arthritis, unspecified
CPT/HCPCS: 36415; 36600; 71010; 80048; 80053; 82375; 82803; 83605; 83735; 83880; 84484; 85025; 85027; 87040; 87070; 87077; 87186; 87631; 93005; 93041; 94002; 94003; 94150; 94640; 94762; 96360; 96365; 96374; 99285; J0456; J0696; J1650; J2920; J2930; Q0162; A9270-GY; J7506

== ENCOUNTER 2017-01-15 12:30 | Inpatient (IN) | payer MEDICARE ==
[2017-01-15] MEDS ORDERED: DUONEB 0.5-3 MG/3 ml Neb IH ONE ×4 (12:37→16:40)
--- NOTE | 2017-01-15 12:43 | ERPHSYRPT ---
- History of Present Illness Source: patient Exam Limitations: no limitations Timing/Duration: today Cough Quality/Degree: no cough Possible Cause: frequent episodes Modifying Factors: Improves With: albuterol nebulizer Associated Symptoms: No fever Hx Tetanus, Diphtheria Vaccination/Date Given: Yes Hx Influenza Vaccination/Date Given: Yes Hx Pneumococcal Vaccination/Date Given: Yes <YASSINE GAO - Last Filed: 01/15/17 18:43> <CARLOS QUARLES - Last Filed: 01/15/17 20:26> - History of Present Illness Time Seen by Provider: 01/15/17 12:40 Physician History: mild to mod shortness of breath today, no fever, no pain, hx copd and rheumatoid arthritis, from home, on home oxygen (YASSINE GAO) Allergies/Adverse Reactions: No Known Drug Allergies Allergy (Verified 12/24/16 13:21) Home Medications: Donepezil HCl 5 mg PO HS 06/15/14 [History] Albuterol/Ipratropium 3ml Neb* [DUONEB 0.5-3 MG/3 ml Neb] 3 ml IH Q4HPRN PRN 01/31/16 [History] Acetaminophen [Tylenol] 650 mg PO Q4HPRN PRN 10/30/16 [History] Calcium Carbonate/Vitamin D3 [Calcium 600 + Vit D Tablet] 1 each PO 0800,1600 [History] Docusate Sodium 100 mg [Colace 100 MG] 100 mg PO 0800,1600 10/30/16 [ History] Ferrous Sulfate 325 mg [Feosol 325 mg] 325 mg PO QID 10/30/16 [History] Metoprolol Tartrate 50 mg [Lopressor 50 MG] 50 mg PO 0800,1600 10/30/16 [ History] Sennosides [Senna] 2 tab PO DAILY PRN PRN 10/30/16 [History] Albuterol 2.5 mg/3 ml Neb [Proventil 2.5 mg/3 ml Neb] 2.5 mg IH Q4HPRN PRN 11/25/16 [History] Albuterol 8 gm Mdi Hfa [Ventolin Hfa MDI] 1 puff IH Q6HPRN PRN 11/25/16 [ History] Fluticasone/Salmeterol 115/21 [Advair Hfa 115/21 Common canister*] 2 puff IH BIDRT 11/25/16 [History] Fluoxetine HCl 20 mg [Prozac 20 MG] 20 mg DAILY 12/24/16 [History] Hydrocodone/APAP 10/325 mg [Dwight 10/325 MG Tablet] 1 tab PO 06,12,18,00 12/24/16 [History] - Review of Systems Constitutional: No Fever Eyes: No Symptoms Ears, Nose, & Throat: No Symptoms Respiratory: Dyspnea Cardiac: No Symptoms Abdominal/Gastrointestinal: No Symptoms Musculoskeletal: Arthralgias Skin: No Symptoms Neurological: No Dizziness Psychological: No Symptoms <YASSINE GAO - Last Filed: 01/15/17 18:43> - Past Medical History Pertinent Past Medical History: Yes Neurological History: Dementia ENT History: No Pertinent History Cardiac History: Congestive Heart Failure, Coronary Artery Disease, Hypertension Respiratory History: Asthma, Bronchitis, CHF, COPD, Pneumonia, Other Endocrine Medical History: No Pertinent History Musculoskeletal History: No Pertinent History GI Medical History: No Pertinent History History: No Pertinent History Psycho-Social History: Depression Female Reproductive Disorders: No Pertinent History Other Medical History: ... - Past Surgical History Past Surgical History: Yes Neuro Surgical History: No Pertinent History Cardiac: Pacemaker Respiratory: No Pertinent History Gastrointestinal: Bowel Surgery Genitourinary: No Pertinent History Musculoskeletal: Amputation Female Surgical History: No Pertinent History Other Surgical History: sinus surgery in 80's,finger amp, bowel surg. - Social History Smoking Status: Current every day smoker How long have you smoked: 40 Exposure to second hand smoke: Yes Alcohol Use: None Drug Use: none Patient Lives Alone: No ([place]) Significant Family History: no pertinent family hx - Female History Hx Now: No <YASSINE GAO - Last Filed: 01/15/17 18:43> - Physical Exam General Appearance: no apparent distress Eye Exam: PERRL/EOMI Ears, Nose, Throat Exam: moist mucous membranes Neck Exam: meningismus Respiratory Exam: wheezing, No respiratory distress Cardiovascular Exam: regular rate/rhythm Gastrointestinal/Abdomen Exam: soft, No tenderness Back Exam: normal inspection Extremity Exam: pelvis stable, No pedal edema Neurologic Exam: alert, oriented x 3, cooperative Skin Exam: warm, dry SpO2: 98 Oxygen Delivery: Nasal Cannula <YASSINE GAO - Last Filed: 01/15/17 18:43> - Nursing Vital Signs Nursing Vital Signs: Initial Vital Signs Respiratory Rate 24 01/15/17 12:32 O2 Sat by Pulse Oximetry 98 01/15/17 12:32 Pain Scale Pain Intensity 5 - CT Exams Chest CT Interpretation: Discussed w/radiologist (NO PULMONARY EMBOLISM, STABLE COPD, SCATTERED FIBROSIS BIBASILAR, NO NEW/ACUTE FINDINGS) <CARLOS QUARLES - Last Filed: 01/15/17 20:26> Ordered Tests: Active Orders 24 hr Category Date Time Status Bedrest ROUTINE Activity 01/15/17 19:07 Active Admission/Status Order ROUTINE Care 01/15/17 19:07 Active Film Painter ROUTINE Care 01/15/17 19:09 Active EKG-ER Only STAT Care 01/15/17 12:37 Active IV Insertion ROUTINE Care 01/15/17 19:07 Active Implement Pneumonia Pathway ROUTINE Care 01/15/17 19:07 Active Cardiac Diet Diet 01/15/17 Dinner Active CHEST 1 VIEW (PORTABLE) Stat Exams 01/15/17 12:38 Completed CHEST WITH CONTRAST [CT] Stat Exams 01/15/17 14:48 Taken ABG [ARTERIAL BLOOD GASES] Stat Lab 01/15/17 14:20 Completed ABG [ARTERIAL BLOOD GASES] Urgent Lab 01/15/17 15:19 Completed BLOOD CULTURE Stat Lab 01/15/17 19:30 Received CBC W DIFF Stat Lab 01/15/17 13:00 Completed CMP Stat Lab 01/15/17 13:00 Completed D-DIMER QUANTITATION Stat Lab 01/15/17 13:00 Completed Lactic Acid Stat Lab 01/15/17 12:55 Completed PROTIME WITH INR Stat Lab 01/15/17 13:00 Completed TROPONIN Q3H Lab 01/15/17 13:00 Completed TROPONIN Q3H Lab 01/15/17 16:10 Completed TROPONIN Q3H Lab 01/15/17 18:41 Completed TROPONIN Q3H Lab 01/15/17 21:45 Ordered TROPONIN Q3H Lab 01/16/17 00:45 Ordered BiPap/CPAP Assessment STAT RT 01/15/17 16:02 Completed Respiratory Nebulizer STAT RT 01/15/17 12:39 Completed Respiratory Nebulizer STAT RT 01/15/17 16:40 Completed Respiratory Therapy Consult ROUTINE RT 01/15/17 19:07 Active Transfer Order Routine Transfer 01/15/17 Ordered Medication Summary Generic Name Dose Route Start Last Admin Trade Name Fresaman PRN Reason Stop Dose Admin Piperacillin Sod/Tazobactam Sod 100 mls @ 100 mls/hr 01/16/17 00:00 Zosyn 3.375gm/100 Ml D5w IV 02/15/17 00:00 Q6HT BRINDA Discontinued Medications Generic Name Dose Route Start Last Admin Trade Name Freq PRN Reason Stop Dose Admin Hydrocodone Bitart/Acetaminophen 1 tab 01/15/17 16:52 01/15/17 16:56 Dwight 5/325 Mg PO 01/15/17 16:53 1 tab STAT ONE Administration Hydrocodone Bitart/Acetaminophen Confirm 01/15/17 16:54 Dwight 5/325 Mg Administered 01/15/17 16:55 Dose 1 tab .ROUTE .STK-MED ONE Albuterol/Ipratropium 3 ml 01/15/17 12:37 01/15/17 13:00 Duoneb 0.5-3 Mg/3 Ml Neb IH 01/15/17 12:38 3 ml STAT ONE Administration Albuterol/Ipratropium Confirm 01/15/17 12:48 Duoneb 0.5-3 Mg/3 Ml Neb Administered 01/15/17 12:49 Dose 3 ml IH .STK-MED ONE Albuterol/Ipratropium Confirm 01/15/17 16:38 Duoneb 0.5-3 Mg/3 Ml Neb Administered 01/15/17 16:39 Dose 3 ml IH .STK-MED ONE Albuterol/Ipratropium 3 ml 01/15/17 16:40 01/15/17 16:52 Duoneb 0.5-3 Mg/3 Ml Neb IH 01/15/17 16:41 3 ml STAT ONE Administration Enoxaparin Sodium 40 mg 01/15/17 20:19 Enoxaparin Sodium SQ 01/15/17 20:20 STAT ONE Piperacillin Sod/Tazobactam Sod 3.375 gm in 100 mls @ 200 mls/hr 01/15/17 19: 04 01/15/17 19:40 Zosyn 3.375gm/100 Ml D5w IV 01/15/17 19:33 200 mls/hr STAT STA Administration Methylprednisolone Sodium Succinate 125 mg 01/15/17 19:05 01/15/17 19:40 Solu-Medrol 125 Mg IV 01/15/17 19:06 125 mg STAT ONE Administration Methylprednisolone Sodium Succinate Confirm 01/15/17 19:21 Solu-Medrol 125 Mg Administered 01/15/17 19:22 Dose 125 mg .ROUTE .STK-MED ONE Lab/Rad Data: Laboratory Result Diagrams 01/15/17 13:00 01/15/17 13:00 Laboratory Results 01/15/17 01/15/17 01/15/17 Range/Units 18:41 16:10 15:19 WBC (4.0-10.5) K/mm3 RBC (4.1-5.4) M/mm3 Hgb (12.0-16.0) gm/dl Hct (35-47) % MCV (78-100) fl MCH (26-32) pg MCHC (32-36) g/dl RDW (11.5-14.0) % Plt Count (150-450) K/mm3 MPV (6-9.5) fl Gran % (36.0-66.0) % Lymphocytes % (24.0-44.0) % Monocytes % (0.0-12.0) % Eosinophils % (0.00-5.0) % Basophils % (0.0-0.4) % Basophils # (0-0.4) INR (0.8-3.0) D-Dimer (0-500) ng/mL Puncture Site RIGHT RADIAL pCO2 103 H* (35-45) mmHg pO2 81 (75-100) mmHg Base Excess 25.1 H (-2.0-2.0) O2 Saturation 94.0 (94-100) g/dF ABG pH 7.34 L (7.35-7.45) ABG HCO3 55.6 H* (22-28) ABG O2 Sat (Measured) 97.7 (95-100) % Riki Test YES A-a Gradient 147 a/A Ratio 0.36 Hemoglobin 10.5 Carboxyhemoglobin 2.2 (0.0-6.9) % THgb Methemoglobin 1.6 H (1.4-1.5) % Temperature 37.0 C POC O2 Flow Rate 50 % Inspiratory BiPAP 14 Expiratory BiPAP 6 Sodium (136-145) mEq/L Potassium 4.4 (3.5-5.1) mEq/L Chloride (98-107) mEq/L Carbon Dioxide (21-32) mEq/L BUN (9-20) mg/dL Creatinine (0.55-1.30) mg/dl Estimated GFR ML/MIN Glucose (70-110) MG/DL Lactic Acid (0.4-2.0) Calcium (8.5-10.1) mg/dL Total Bilirubin (0.2-1.0) mg/dL AST (15-37) U/L ALT (12-78) U/L Alkaline Phosphatase (46-116) U/L Troponin I 0.030 0.028 (0.000-0.056) ng/ml Serum Total Protein (6.4-8.2) gm/dL Albumin (3.4-5.0) g/dL 01/15/17 01/15/17 01/15/17 Range/Units 14:20 13:00 13:00 WBC (4.0-10.5) K/mm3 RBC (4.1-5.4) M/mm3 Hgb (12.0-16.0) gm/dl Hct (35-47) % MCV (78-100) fl MCH (26-32) pg MCHC (32-36) g/dl RDW (11.5-14.0) % Plt Count (150-450) K/mm3 MPV (6-9.5) fl Gran % (36.0-66.0) % Lymphocytes % (24.0-44.0) % Monocytes % (0.0-12.0) % Eosinophils % (0.00-5.0) % Basophils % (0.0-0.4) % Basophils # (0-0.4) INR 0.98 (0.8-3.0) D-Dimer 1226 H* (0-500) ng/mL Puncture Site RIGHT RADIAL pCO2 110 H* (35-45) mmHg pO2 106 H (75-100) mmHg Base Excess 24.4 H (-2.0-2.0) O2 Saturation 96.4 (94-100) g/dF ABG pH 7.31 L (7.35-7.45) ABG HCO3 55.4 H* (22-28) ABG O2 Sat (Measured) 100.2 H (95-100) % Riki Test YES A-a Gradient 13 a/A Ratio 0.89 Hemoglobin 10.4 Carboxyhemoglobin 3.0 (0.0-6.9) % THgb Methemoglobin 0.8 L (1.4-1.5) % Temperature 37.0 C POC O2 Flow Rate 36 % Inspiratory BiPAP Expiratory BiPAP Sodium (136-145) mEq/L Potassium 4.3 (3.5-5.1) mEq/L Chloride (98-107) mEq/L Carbon Dioxide (21-32) mEq/L BUN (9-20) mg/dL Creatinine (0.55-1.30) mg/dl Estimated GFR ML/MIN Glucose (70-110) MG/DL Lactic Acid (0.4-2.0) Calcium (8.5-10.1) mg/dL Total Bilirubin (0.2-1.0) mg/dL AST (15-37) U/L ALT (12-78) U/L Alkaline Phosphatase (46-116) U/L Troponin I < 0.017 (0.000-0.056) ng/ml Serum Total Protein (6.4-8.2) gm/dL Albumin (3.4-5.0) g/dL 01/15/17 01/15/17 01/15/17 Range/Units 13:00 13:00 12:55 WBC 14.1 H (4.0-10.5) K/mm3 RBC 3.50 L (4.1-5.4) M/mm3 Hgb 10.1 L (12.0-16.0) gm/dl Hct 36.3 (35-47) % MCV 103.7 H (78-100) fl MCH 28.8 (26-32) pg MCHC 27.8 L (32-36) g/dl RDW 14.0 (11.5-14.0) % Plt Count 191 (150-450) K/mm3 MPV 9.8 H (6-9.5) fl Gran % 81.9 H (36.0-66.0) % Lymphocytes % 10.9 L (24.0-44.0) % Monocytes % 6.3 (0.0-12.0) % Eosinophils % 0.8 (0.00-5.0) % Basophils % 0.1 (0.0-0.4) % Basophils # 0.02 (0-0.4) INR (0.8-3.0) D-Dimer (0-500) ng/mL Puncture Site pCO2 (35-45) mmHg pO2 (75-100) mmHg Base Excess (-2.0-2.0) O2 Saturation (94-100) g/dF ABG pH (7.35-7.45) ABG HCO3 (22-28) ABG O2 Sat (Measured) (95-100) % Riki Test A-a Gradient a/A Ratio Hemoglobin Carboxyhemoglobin (0.0-6.9) % THgb Methemoglobin (1.4-1.5) % Temperature C POC O2 Flow Rate % Inspiratory BiPAP Expiratory BiPAP Sodium 143 (136-145) mEq/L Potassium 4.5 (3.5-5.1) mEq/L Chloride 98 (98-107) mEq/L Carbon Dioxide > 45 H* (21-32) mEq/L BUN 14 (9-20) mg/dL Creatinine 0.43 L (0.55-1.30) mg/dl Estimated GFR > 60 ML/MIN Glucose 142 H (70-110) MG/DL Lactic Acid 1.8 (0.4-2.0) Calcium 9.0 (8.5-10.1) mg/dL Total Bilirubin 0.20 (0.2-1.0) mg/dL AST 11 L (15-37) U/L ALT 11 L (12-78) U/L Alkaline Phosphatase 59 (46-116) U/L Troponin I (0.000-0.056) ng/ml Serum Total Protein 6.7 (6.4-8.2) gm/dL Albumin 3.0 L (3.4-5.0) g/dL <YASSINE GAO - Last Filed: 01/15/17 18:43> - Progress Blood Culture(s) Obtained: Yes Antibiotics given: Yes Discussed with : Gregg (DISCUSSED WITH DR TENA AT 2000 FOR ICU ADMISSION ) <CARLOS QUARLES - Last Filed: 01/15/17 20:26> - Progress Progress Note: 11/10/17 18:[address] Quarles at 19:00 (YASSINE GAO) 01/15/17 20:25 PATIENT GIVEN LOVENOX 40MG SUBSQ (CARLOS QUARLES) <YASSINE GAO - Last Filed: 01/15/17 18:43> - Departure Time of Disposition: 20:30 Departure Disposition: In-patient Admission Critical Care Time: No <CARLOS QUARLES - Last Filed: 01/15/17 20:26> - Departure Clinical Impression: EXACERBATION COPD, PNEUMONIA Condition: Stable Referrals: SURAJ SAMS [Primary Care Provider] -
--- NOTE | 2017-01-15 12:58 | XRAY ---
Indication: Short of breath. Comparison: December 24, 2016. Portable chest again demonstrates mild bibasilar infiltrate/atelectasis and left-sided dual-lead pacemaker. Heart is not enlarged. No new cardiopulmonary abnormalities.
[2017-01-15 13:19] LABS: BASOPHIL % 0.1 % (0.0-0.4); Eosinophil % 0.8 % (0.00-5.0); Granulocytes % 81.9 % (36.0-66.0); Lymphocytes % 10.9 % (24.0-44.0); Mean Cell Volume 103.7 fl (78-100); Mean Platelet Volume 9.8 fl (6-9.5); Monocytes % 6.3 % (0.0-12.0); Platelet Count 191 K/mm3 (150-450); White Blood Count 14.1 K/mm3 (4.0-10.5)
[2017-01-15 13:22] LABS: Mean Corpuscular Hemoglobin 28.8 pg (26-32)
[2017-01-15 13:31] LABS: INR 0.98 (0.8-3.0); PROTIME 10.9 SECONDS (9.95-12.35)
[2017-01-15 13:42] LABS: ALKALINE PHOSPHATASE 59 U/L (46-116); BLOOD UREA NITROGEN 14 mg/dL (9-20); CHLORIDE 98 mEq/L (98-107); Glucose 142 MG/DL (70-110); Potassium 4.5 mEq/L (3.5-5.1); SGOT/AST 11 U/L (15-37); SGPT/ALT 11 U/L (12-78); SODIUM 143 mEq/L (136-145); Total Protein 6.7 gm/dL (6.4-8.2)
[2017-01-15 14:07] LABS: Carbon Dioxide > 45 mEq/L (21-32)
[2017-01-15 14:23] LABS: A-aADO2 13; ALLEN TEST OK? YES; ARTERIAL BLD GAS O2 SATURATION 100.2 % (95-100); ARTERIAL BLOOD GAS BASE EXCESS 24.4 (-2.0-2.0); ARTERIAL BLOOD GAS FIO2 36 %; ARTERIAL BLOOD GAS PO2 106 mmHg (75-100); ARTERIAL BLOOD GAS pH 7.31 (7.35-7.45)
[2017-01-15 15:29] LABS: A-aADO2 147; ARTERIAL BLD GAS O2 SATURATION 97.7 % (95-100); ARTERIAL BLOOD GAS BASE EXCESS 25.1 (-2.0-2.0); ARTERIAL BLOOD GAS FIO2 50 %; ARTERIAL BLOOD GAS PO2 81 mmHg (75-100); ARTERIAL BLOOD GAS pH 7.34 (7.35-7.45); BIPAP(E) 6; BIPAP(I) 14
[2017-01-15 15:30] LABS: ALLEN TEST OK? YES
[2017-01-15] MEDS ORDERED: NORCO 5/325 MG PO ONE (16:52)
[2017-01-15] MEDS ORDERED: NORCO 5/325 MG ONE (16:54)
[2017-01-15] MEDS ORDERED: Zosyn 3.375GM/100 Ml D5W 3.375 GM/100 ML IVPB IV STA (19:04)
[2017-01-15] MEDS ORDERED: solu-MEDROL 125 MG IV ONE (19:05)
[2017-01-15] MEDS ORDERED: solu-MEDROL 125 MG ONE (19:21)
[2017-01-15] MEDS ORDERED: ENOXAPARIN SODIUM SQ ONE (20:19)
[2017-01-16] MEDS ORDERED: DUONEB 0.5-3 MG/3 ml Neb IH ONE (06:57)
[2017-01-16] MEDS: DUONEB 0.5-3 MG/3 ml Neb IH SCH ×4 (07:03→18:55)
[2017-01-16] MEDS: Advair Hfa 115/21 Common canister IH SCH ×2 (07:03→18:56)
[2017-01-16] MEDS: Zosyn 3.375GM/100 Ml D5W 3.375 GM/100 ML IVPB IV SCH ×4 (08:01→17:36)
--- NOTE | 2017-01-16 08:26 | XRAY ---
Indication: Respiratory distress. Multiple contiguous axial images obtained through the chest using 80 cc Isovue 370 contrast and PE protocol. Comparison: May 27, 2016. There is satisfactory opacification of the pulmonary arteries to include the lobar and segmental branches. No filling defect or pulmonary embolus. The heart is not enlarged. Stable left-sided pacemaker. Aorta is normal in course and caliber. No pathologic mediastinal/hilar lymphadenopathy. Lung parenchyma again demonstrates diffuse pulmonary emphysema with scattered fibrosis/scarring and bronchiectasis. Mild bibasilar dependent atelectasis. No suspicious pulmonary mass, infiltrate, or effusion. Bony thorax intact again with mild degenerative changes throughout the spine. New right humeral orthopedic hardware. Limited upper abdomen demonstrates stable tiny perisplenic fluid. Impression: 1. Again negative for pulmonary embolus. 2. Stable pulmonary emphysema, bronchiectasis, and fibrosis/scarring. 3. No new/acute cardiopulmonary abnormalities. 4. Stable tiny perisplenic fluid. CTDI 13.88
[2017-01-16] MEDS ORDERED: PROVENTIL 2.5 MG/3 ML NEB IH PRN (09:52)
[2017-01-16] MEDS ORDERED: TYLENOL 325 MG PO PRN (09:52)
[2017-01-16] MEDS ORDERED: SENOKOT 8.6 MG PO PRN ×2 (09:52→10:15)
[2017-01-16] MEDS ORDERED: DELTASONE 10 MG PO SCH (10:00)
[2017-01-16] MEDS: FEOSOL 325 MG PO SCH ×4 (10:15→21:15)
[2017-01-16] MEDS: Prozac 20 MG PO SCH (10:15)
[2017-01-16] MEDS ORDERED: PROVENTIL COMMON CANISTER IH PRN (10:15)
[2017-01-16] MEDS: Zestril 10 MG PO SCH (10:15)
[2017-01-16] MEDS: Colace 100 MG PO SCH ×2 (10:15→16:52)
[2017-01-16] MEDS: Calcium 500MG W/Vit D Tablet PO SCH ×2 (10:16→16:52)
[2017-01-16] MEDS: MAG-OX 400 PO SCH (10:16)
[2017-01-16] MEDS: solu-MEDROL 125 MG IV SCH ×2 (10:16→17:36)
[2017-01-16] MEDS: Lopressor 50 MG PO SCH ×2 (10:20→16:51)
[2017-01-16] MEDS: Norco 10/325 MG Tablet PO SCH ×2 (12:07→17:36)
[2017-01-16] MEDS: Ativan 1 MG PO PRN ×2 (12:09→21:13)
[2017-01-16] MEDS ORDERED: VITAMIN D3 PO SCH (16:00)
[2017-01-16] MEDS ORDERED: CALCIUM CARBONATE PO SCH (16:00)
[2017-01-16] MEDS ORDERED: ENOXAPARIN SODIUM SQ SCH (22:00)
[2017-01-16] MEDS ORDERED: Geodon 20 MG Capsule PO SCH (22:00)
[2017-01-16] MEDS ORDERED: Aricept 10 MG PO SCH (22:00)
[2017-01-16] MEDS ORDERED: NON-FORMULARY ITEM (Donepezil Hcl [Donepezil Hcl] 5 MG) PO SCH (22:00)
[2017-01-16] MEDS ORDERED: ZIPRASIDONE HCL 40 MG PO SCH (22:00)
[2017-01-17] MEDS: Zosyn 3.375GM/100 Ml D5W 3.375 GM/100 ML IVPB IV SCH ×3 (00:04→12:21)
[2017-01-17] MEDS: Norco 10/325 MG Tablet PO SCH ×4 (00:04→12:20)
[2017-01-17] MEDS: DUONEB 0.5-3 MG/3 ml Neb IH SCH ×4 (00:05→10:31)
[2017-01-17] MEDS: solu-MEDROL 125 MG IV SCH ×2 (02:44→10:56)
[2017-01-17] MEDS: Ativan 1 MG PO PRN ×2 (03:18→12:21)
[2017-01-17] MEDS: Advair Hfa 115/21 Common canister IH SCH (06:46)
[2017-01-17] MEDS: Calcium 500MG W/Vit D Tablet PO SCH (08:07)
[2017-01-17] MEDS: Lopressor 50 MG PO SCH (08:07)
[2017-01-17] MEDS: Colace 100 MG PO SCH (08:07)
[2017-01-17] MEDS: MAG-OX 400 PO SCH (10:54)
[2017-01-17] MEDS: FEOSOL 325 MG PO SCH ×2 (10:54→12:20)
[2017-01-17] MEDS: Zestril 10 MG PO SCH (10:55)
[2017-01-17] MEDS: Prozac 20 MG PO SCH (10:55)
[2017-01-17 12:46] VITALS: BP 128/68; PULSE 68; O2SAT 97
--- NOTE | 2017-01-18 09:58 | HP ---
CHIEF COMPLAINT: Shortness of breath. HISTORY OF PRESENT ILLNESS: The patient is a 61 year-old white female with long history of chronic obstructive pulmonary disease. She was on home oxygen. She has been in and out of the hospital multiple times. I covered for her during my partner's absence multiple times over the years. She currently looks as good as I have seen her sitting up in a chair eating her breakfast at ease although she is quite short of breath upon any ambulation. The patient was brought into the hospital by her daughter for increasing shortness of breath. She is currently residing in the home. PAST MEDICAL/SURGICAL HISTORY: Otherwise is remarkable for coronary artery disease, hypertension and mild dementia. HOME MEDICATIONS: Currently include donepezil 5 mg a day, DuoNeb, docusate sodium, iron sulfate, metoprolol 50 mg b.i.d., Senna, Albuterol, fluticasone, salmeterol, Fluoxetine and PRN [place]. ALLERGIES: NKDA. PHYSICAL EXAMINATION: Revealed a well nourished, well developed 61 year-old female somewhat shaky, sitting up in bed as described previously in a hospital gown with Oxymizer on. HEENT: Normocephalic, atraumatic. Pupils equal round reactive to light. Extraocular movements intact. Oropharynx is pink and moist. NECK: Supple without lymphadenopathy, thyromegaly or JVD. CHEST: Currently is clear to auscultation but with somewhat diminished air movement. HEART: Regular rate and rhythm without murmurs, rubs or gallops. ABDOMEN: Soft, nontender, nondistended without palpable masses. EXTREMITIES: Without clubbing, cyanosis or edema. NEUROLOGIC: The patient appears to be alert and oriented x3 although she does have some memory issues. There are no focal findings. LAB DATA AND TESTS: Troponin less than 0.017. ABG showed pH 7.31, pCO2 110, pO2 106 on 4 liters nasal cannula. The patient's lactic acid was 1.8. Metabolic panel showed glucose of 120 otherwise entirely within normal limits. Her D-dimer was elevated at 1,226. Her hemoglobin 10.1, white blood cell count 14,100, PLT count 191,000. Her carbon dioxide level was initially noted at 45. On metabolic panel I found the note record that contains a different patient's. The patient's own chemistry panel showed a glucose of 142, BUN 14, creatinine 0.43. Carbon dioxide level as mentioned previously was greater than 45. Liver enzymes SGOT and SGPT both at 11. Her x-rays showed mild bibasilar infiltrate versus atelectasis, left-sided dual lead pacemaker. ASSESSMENT: A patient with exacerbation of chronic obstructive pulmonary disease, steroid dependency on oxygen at home. She will be started on IV Zosyn for antibiotic coverage, given IV steroids and oxygen treatments with nebulizer treatments as needed. The patient's discharge plan will need to be discussed with her daughter as she is currently living at home and question of ability for her to care for her there as she had previously been in a alf.
== END 2017-01-17 13:05 | disposition home health service (06) | DRG 192 ==
LOC: ED 12:30 → ICU 21:36 → MED SURG 01-16 17:41
PROVIDERS: ADMIT Family Medicine; ATTEND Family Medicine
DX: J44.1 Chronic obstructive pulmonary disease with (acute) exacerbation (principal); Z99.81 Dependence on supplemental oxygen; I25.10 Atherosclerotic heart disease of native coronary artery without angina pectoris; I10 Essential (primary) hypertension; F03.90 Unspecified dementia, unspecified severity, without behavioral disturbance, psychotic disturbance, mood disturbance, and anxiety; Z79.899 Other long term (current) drug therapy
CPT/HCPCS: 36415; 36600; 71010; 71260; 80053; 82375; 82803; 83605; 84484; 85025; 85379; 85610; 87040; 93005; 94002; 94640; 94760; 94770; 96374; 99285; J1650; J2543; J2930; A9270-GY